=== PATIENT | female | born 1955 | race Caucasian/White ===

== ENCOUNTER 2023-03-07 13:04 | Emergency (ER) | payer MEDICARE, OTHER, MEDICAID, SELFPAY ==
[2023-03-07 13:10] VITALS: BP 115/66; PULSE 82; O2SAT 89
[2023-03-07 13:11] VITALS: PULSE 80; O2SAT 91
[2023-03-07 13:12] VITALS: BP 115/66; PULSE 81; RESP 14; TEMP 36.8; O2SAT 92
[2023-03-07 13:15] VITALS: PULSE 85; O2SAT 93
--- NOTE | 2023-03-07 13:19 | CRLHL7_ITS ---
For Patients: As a result of the Century Cures Act, medical imaging exams and procedure reports are released immediately into your electronic medical record. You may view this report before your referring provider. If you have questions, please contact your health care provider. INDICATION: confusion TECHNIQUE: Head CT without contrast. COMPARISON: CT head on November 22, 2013 FINDINGS: CSF spaces: Within normal limits for age and degree of involutional changes. Brain parenchyma and extra-axial spaces: Mild global cortical involutional changes. There are nonspecific low attenuation white matter changes consistent with chronic microvascular disease. No sign of mass, hemorrhage, or midline shift. Fatty falx cerebri, unchanged. Skull base and calvarium: The visualized mastoid air cells demonstrate no acute or significant findings. There is mucosal thickening in the left maxillary sinus, suggestive of sinusitis; otherwise, the remaining paranasal sinuses are clear. The visualized orbits are grossly unremarkable. No skull fractures. IMPRESSION: No acute intracranial abnormality. Please note that all CT scans at this facility use dose modulation, iterative reconstruction, and/or weight-based dosing when appropriate to reduce radiation dose to as low as reasonably achievable. Dictated by Hector Danielson MD @ 03/07/2023 3:13:55 PM (Electronically Signed)
--- NOTE | 2023-03-07 13:21 | CRLHL7_ITS ---
For Patients: As a result of the Century Cures Act, medical imaging exams and procedure reports are released immediately into your electronic medical record. You may view this report before your referring provider. If you have questions, please contact your health care provider. INDICATION: Weakness. TECHNIQUE: Chest 1 views. COMPARISON: November 12, 2017. FINDINGS: Cardiovascular and mediastinum: Stable heart size and vasculature. Lungs and pleural spaces: Small left pleural effusion with basilar consolidation. No pneumothorax. Bones and soft tissues: No significant findings. IMPRESSION: Small left pleural effusion with basilar consolidation, possibly atelectasis or pneumonia. Dictated by George Guzman MD @ 03/07/2023 3:13:28 PM (Electronically Signed)
--- NOTE | 2023-03-07 13:22 | ED.GENADULT ---
HPI - General Adult General Chief complaint: Unspecified Complaint, Adult Stated complaint: Weakness Time Seen by Provider: 03/07/23 13:06 History of Present Illness HPI narrative: Patient is 67 white female with significant multiple sclerosis for which she is essentially quadriplegic. She still moves her arms decently but her legs are less mobile. She is pretty much nonweightbearing. She reports confusion on and off for the last few weeks and even longer. She has apparently had sepsis in the past family is concerned about that they presented to the ED. She lives in [place] but decided to come to the [place] ER. She had been here few years ago but not recently it appears from her chart review. Patient denies fever chills cough chest pain, breathing problem, abdominal pain, she does have a colostomy in place and has a indwelling suprapubic catheter. As mention she denies fever chills denies any change in her strength status. Does feel like she is confused at times, but today she is able to recall normal data and discuss her living arrangements as well as the date and time and place. Patient has had acute CT, MRSA infections of the urine blood and skin. She has had colostomy, indwelling suprapubic catheter. Multiple sclerosis. Gastric ulcer. Related Data Home Medications Medication Instructions Recorded Confirmed famotidine 40 mg tablet 40 mg PO DAILY 03/07/23 03/07/23 gabapentin 300 mg capsule 900 mg PO 03/07/23 morphine 15 mg tablet,extended 15 mg PO BID 03/07/23 03/07/23 release morphine 30 mg immediate release 30 mg PO DAILY 03/07/23 03/07/23 tablet nystatin-triamcinolone 100,000 applic topical 03/07/23 unit/g-0.1 % topical cream oxybutynin chloride 10 mg 10 mg PO DAILY 03/07/23 03/07/23 tablet,extended release 24 hr spironolactone 25 mg tablet PO 03/07/23 Previous Rx's Medication Instructions Recorded levofloxacin 500 mg tablet 500 mg PO DAILY 7 days #7 tabs 03/07/23 Allergies Allergy/AdvReac Type Severity Reaction Status Date / Time citalopram [From Celexa] Allergy Unknown Verified 03/07/23 13:24 duloxetine Allergy Unknown Verified 03/07/23 13:24 NSAIDS (Non-Steroidal Allergy Unknown Verified 03/07/23 13:24 Anti-Inflamma Review of Systems Status of ROS: Reports: 6 or more systems reviewed and unremarkable except as noted in History and below PFSH [facility] Social History Smoking Status: Never smoker Exam Narrative: Exam Narrative: Objective: Patient is afebrile with stable blood pressure 115/66, she is on 2 L nasal cannula, takes 1-2 L at home. HEENT is unremarkable facial asymmetry mouth clear no food scleral icterus Neck is supple Chest diminished air exchange bilaterally but no rales or wheezing Heart rhythm regular 2/6 systolic murmur occasional ectopic beat noted Abdomen obese benign colostomy appears to be intact without any redness or cellulitic change Extremities show chronic stasis changes of her lower extremities bilaterally some flexion contractures that appears mildly edematous at 1 to 2+ in her feet she has got no obvious cellulitic changes in her feet her legs. Const: Vital Signs, click to edit/add: Vital Signs - 24 hr 03/07/23 13:10 03/07/23 13:11 03/07/23 13:12 Temperature 98.3 F Pulse Rate 82 80 Pulse Rate [Pulse Oximeter] 81 Respiratory Rate 14 Blood Pressure 115/66 Blood Pressure [Ri ght Upper Arm] 115/66 Pulse Oximetry 89 91 92 Oxygen Delivery Me thod Nasal Cannula Oxygen Flow Rate 2 03/07/23 13:15 03/07/23 13:31 03/07/23 14:20 Temperature Pulse Rate 85 Pulse Rate [Pulse Oximeter] Respiratory Rate Blood Pressure 125/79 Blood Pressure [Ri ght Upper Arm] Pulse Oximetry 93 95 Oxygen Delivery Me thod Oxygen Flow Rate Course Vital Signs Vital signs: Initial Vital Signs Pulse Rate 82 03/07/23 13:10 Blood Pressure 115/66 03/07/23 13:10 Blood Pressure Mean 82 03/07/23 13:10 Pulse Oximetry 89 03/07/23 13:10 Vital Signs Pulse Rate 82 03/07/23 13:10 Blood Pressure 115/66 03/07/23 13:10 Pulse Oximetry 89 03/07/23 13:10 Temperature 98.3 F 03/07/23 13:12 Pulse Rate 85 03/07/23 13:15 Respiratory Rate 14 03/07/23 13:12 Blood Pressure 125/79 03/07/23 13:31 Pulse Oximetry 95 03/07/23 14:20 Oxygen Delivery Method Nasal Cannula 03/07/23 13:12 Oxygen Flow Rate 2 03/07/23 13:12 Medications Administered Medications: Discontinued Medications Generic Name Dose Route Start Last Admin Trade Name Shefali PRN Reason Stop Dose Admin Sodium Chloride 500 mls @ 500 mls/hr 03/07/23 13:19 03/07/23 14:59 0.9 % Sodium Chloride 500 Ml IV 03/07/23 14:18 500 mls/hr .Q1H ONE Administration Levofloxacin 500 mg 03/07/23 15:22 03/07/23 15:29 Levofloxacin 500 Mg Tablet PO 03/07/23 15:23 500 mg ONCE ONE Administration Medical Decision Making MDM Narrative Medical decision making narrative: Patient is a 67 year white female with complicated medical history including cardiac or coronary artery disease, gastric ulcer, multiple sclerosis, history of sepsis. At this point I think she appears to have a good pulse and normal blood pressure. No fever. I think will check blood cultures, urine culture and urinalysis, she does have an indwelling catheter by think we can look at her urinalysis. Will get a urine culture as mention will get a chest x-ray, will get blood work and electrolytes. Will get a head CT scan because she appears to have some confusion issues. At this point she has her mental status appears intact and she is able to recall person place and time. Further treatment based on the findings above. Addendum 3:[address] patient's head [address] shows no abnormality, the chest x-ray shows small left pleural effusion there is some by a basilar consolidation which is likely atelectasis could be pneumonia but more likely atelectasis. She does have abnormal urine. White count is normal 7600 hemoglobin 13.1 ER profile is largely unremarkable. Patient does have a suprapubic catheter does have 10-25 red cells and 50-100 white cells. She likely has chronic pyuria however given her was concerned about confusion. I think it be reasonable to treat her with antibiotics, also given the fact that she has a chest x-ray that shows questionable lower lobe infiltrate versus atelectasis. I think it be dominguez to cover with antibiotics. Of note is her viral studies are negative. I think we can treat her with Levaquin be appropriate. Follow-up with primary care in the next few days. Or have visiting nurse practitioner or physician see her in the longterm. She will be discharged to home recheck as needed. Lab Data Labs: Lab Results 03/07/23 03/07/23 03/07/23 Range/Units 13:54 14:04 14:10 WBC 7.60 (4.50-11.00) K/uL RBC 4.05 (4.00-5.20) m/uL Hgb 13.1 (12.0-16.0) gm/dL Hct 43.4 (33.0-51.0) % MCV 107 H (80-100) fL MCH 32 (26-34) pg MCHC 30 L (32-36) gm/dL RDW Coeff of Shruthi 13.0 (11.5-15.5) % Plt Count 193 (140-440) K/uL Neut % (Auto) 64.7 (42.0-72.0) % Lymph % (Auto) 29.1 (20-44) % [place] % (Auto) 5.1 (0.0-11.0) % Eos % (Auto) 0.5 (0.0-7.0) % Baso % (Auto) 0.3 (0.0-3.0) % Neut # (Auto) 4.92 (1.7-7.0) K/uL Lymph # (Auto) 2.21 (0.90-2.90) K/uL [place] # (Auto) 0.40 (0.00-0.90) K/UL Eos # (Auto) 0.04 (0.00-0.50) K/uL Baso # (Auto) 0.02 (0.00-0.30) K/uL Abs Immat Gran (auto) 0.02 (0.00-0.30) K/uL Imm/Tot Granulo (auto) 0.3 % Diff Slide Review Acceptable Review (Acceptable) Sodium 139 (135-149) mmol/L Potassium 4.3 (3.6-5.1) mmol/L Chloride 104 (96-114) mmol/L Carbon Dioxide 30 (20-32) mmol/L Anion Gap 5 L (7-15) mEq/L BUN 22 (7-30) mg/dL Creatinine 0.6 (0.5-1.5) mg/dL Estimated GFR 98 ml/min Glucose 103 (60-115) mg/dL Lactate 0.7 (0.5-1.9) mmol/L Calcium 8.3 L (8.4-10.6) mg/dL Total Bilirubin 0.4 (0.1-1.5) mg/dL Direct Bilirubin 0.1 (0.0-0.5) mg/dL AST 38 H (12-35) U/L ALT 14 (4-35) U/L Alkaline Phosphatase 62 (40-150) U/L NT-Pro-B Natriuret Pep 7140 pg/mL Total Protein 6.2 (6.0-8.3) g/dL Albumin 3.2 L (3.3-5.0) g/dL Urine Color Yellow (Yellow) Urine Appearance Cloudy A (Clear) Urine pH 5.5 (5.0-8.5) Ur Specific [place] 1.025 (1.000-1.030) Urine Protein 1+ A (Negative) Urine Glucose (UA) Negative (Negative) Urine Ketones Negative (Negative) Urine Blood 3+ A (Negative) Urine Nitrite Positive A (Negative) Urine Bilirubin Negative (Negative) Urine Urobilinogen 0.2 (0.2-1.0) Ur Leukocyte Esterase 1+ A (Negative) Urine RBC 10-25 A (0-2) Urine WBC 50-100 A (0-5) Urine WBC Clumps None (None) Ur Squamous Epith Cells Moderate A (None-Few) Amorphous Sediment Many A (None) Urine Bacteria Many A (None) SARS-CoV-2 (PCR) Negative SARS-CoV-2 (Negative) Influenza Type A (PCR) Negative PCR FLU A (Negative) Influenza Type B (PCR) Negative PCR FLU B (Negative) RSV (PCR) Negative PCR RSV (Negative) Discharge Plan Discharge Clinical Impression: Chronic confusion, Multiple sclerosis, Pyuria Patient Disposition: Home w/ Parent or Adult Condition: Stable Additional Instructions: He be treated with Levaquin antibiotic. We will have you take adequate fluid intake. It appears your urine test is abnormal and with her confusion I think we should treat you for infection. Return if there is problems or concerns. Recommend follow-up with her regular doctor or provider within the next couple of days. Activity Level: Light activity Discharge Diet: Regular Prescriptions: New levofloxacin 500 mg tablet 500 mg PO DAILY 7 Days Qty: 7 0RF No Action oxybutynin chloride 10 mg tablet extended release 24hr 10 mg PO DAILY famotidine 40 mg tablet 40 mg PO DAILY spironolactone 25 mg tablet PO morphine 30 mg tablet 30 mg PO DAILY gabapentin 300 mg capsule 900 mg PO nystatin-triamcinolone 100,000-0.1 unit/g-% cream topical morphine 15 mg tablet extended release 15 mg PO BID Follow Up/Referrals: Jelena Lopez DO [Primary Care Provider] - Stand Alone Forms: [facility] Info Instructions
[2023-03-07 13:31] VITALS: BP 125/79
[2023-03-07 13:58] LABS: Lactate* 0.7 mmol/L (0.5-1.9)
[2023-03-07 14:02] LABS: Basophils Absolute Auto 0.02 K/uL (0.00-0.30); Basophils Percent Auto 0.3 % (0.0-3.0); Eosinophils Absolute Auto 0.04 K/uL (0.00-0.50); Eosinophils Percent Auto 0.5 % (0.0-7.0); Hematocrit 43.4 % (33.0-51.0); Hemoglobin* 13.1 gm/dL (12.0-16.0); Immature Granulocytes Abs Auto 0.02 K/uL (0.00-0.30); Immature Granulocytes Pct Auto 0.3 %; Lymphocytes Absolute Auto 2.21 K/uL (0.90-2.90); Lymphocytes Percent Auto 29.1 % (20-44); Mean Corpuscular HGB Conc 30 gm/dL (32-36); Mean Corpuscular Hemoglobin 32 pg (26-34); Mean Corpuscular Volume 107 fL (80-100); Monocytes Percent Auto 5.1 % (0.0-11.0); Neutrophils Absolute Auto 4.92 K/uL (1.7-7.0); Neutrophils Percent Auto 64.7 % (42.0-72.0); Platelet Count* 193 K/uL (140-440); Red Blood Count 4.05 m/uL (4.00-5.20)
[2023-03-07 14:18] LABS: Albumin* 3.2 g/dL (3.3-5.0); Chloride* 104 mmol/L (96-114); Sodium* 139 mmol/L (135-149)
[2023-03-07 14:19] LABS: Potassium* 4.3 mmol/L (3.6-5.1)
[2023-03-07 14:20] VITALS: O2SAT 95
[2023-03-07 14:20] LABS: Creatinine* 0.6 mg/dL (0.5-1.5); Estimated Glomerular Filt Rate 98 ml/min
[2023-03-07 14:21] LABS: Alanine Aminotransferase* 14 U/L (4-35); Alkaline Phosphatase* 62 U/L (40-150); Anion Gap 5 mEq/L (7-15); Aspartate Amino Transferase* 38 U/L (12-35); Bilirubin Direct* 0.1 mg/dL (0.0-0.5); Bilirubin Total* 0.4 mg/dL (0.1-1.5); Blood Urea Nitrogen* 22 mg/dL (7-30); Carbon Dioxide* 30 mmol/L (20-32); Glucose* 103 mg/dL (60-115); Total Protein* 6.2 g/dL (6.0-8.3)
[2023-03-07 14:22] LABS: Calcium* 8.3 mg/dL (8.4-10.6)
--- NOTE | 2023-03-07 14:26 | ED.NURSE ---
Urine sample obtained from patient. Clamped her suprapubic tube for 15 minutes, unclamped and obtained sample.
[2023-03-07 14:32] LABS: Slide Review Reflex Yes
[2023-03-07 14:33] LABS: NT Pro B Type NatriureticPept* 7140 pg/mL
[2023-03-07 14:38] LABS: Slide Review Acceptable Review (Acceptable)
[2023-03-07 14:54] LABS: PCR FLU A Negative PCR FLU A (Negative); PCR FLU B Negative PCR FLU B (Negative); PCR RSV Negative PCR RSV (Negative); SARS PCR* Negative SARS-CoV-2 (Negative)
[2023-03-07] MEDS: 0.9 % SODIUM CHLORIDE 500 ML 500 ML IV (14:59)
[2023-03-07 15:03] LABS: Appearance Urine Cloudy (Clear); Color Urine Yellow (Yellow); Glucose Urine Negative (Negative)
[2023-03-07 15:04] LABS: Amorphous Sediment Urine Many; Bacteria Urine Many; Bilirubin Urine Negative (Negative); Blood Urine 3+ (Negative); Ketones Urine Negative (Negative); Leukocyte Esterase Urine 1+ (Negative); Nitrite Urine Positive (Negative); Protein Urine 1+ (Negative); Specific Gravity Urine 1.025 (1.000-1.030); Squamous Epithelial Cell Urine Moderate (None-Few); Urobilinogen Urine 0.2 (0.2-1.0); WBC Urine 50-100 (0-5); pH Urine 5.5 (5.0-8.5)
[2023-03-07] MEDS: levoFLOXacin 500 MG TABLET PO (15:29)
--- NOTE | 2023-03-07 15:34 | ED.NURSE ---
Discharge order in. Per dispatch, picking machine operator tentatively around 5 pm.
--- NOTE | 2023-03-07 15:39 | ED.NURSE ---
Nurse to nurse report called to [facility] with update and to watch for the antibiotic prescription tonight.
== END 2023-03-07 17:02 | disposition home or self-care (01) ==
PROVIDERS: Emergency Provider Family Medicine; PCP Family Medicine
DX: R41.0 Disorientation, unspecified (principal); G35 Multiple sclerosis; R82.81 Pyuria
CPT/HCPCS: 36415; 70450; 71045; 80048; 80076; 81001; 83605; 83880; 85025; 87040; 87086; 87186; 87631; 94761; 96360; 99284; 99285; A9270; J7030

== ENCOUNTER 2023-03-07 16:55 | Outpatient (CLI) | payer MEDICARE, OTHER, SELFPAY | END 2023-03-07 16:56 | disposition home or self-care (01) | LOC: AMB 03-08 07:34 | PROVIDERS: PCP Family Medicine; Visit Provider Family Medicine | DX: N39.0 Urinary tract infection, site not specified (principal) | CPT/HCPCS: A0425; A0428 ==

== ENCOUNTER 2023-07-17 13:03 | Emergency (ER) | payer MEDICARE, OTHER, SELFPAY ==
[2023-07-17 13:33] VITALS: BP 99/55; PULSE 78; RESP 16; TEMP 36.6; O2SAT 84; BMI 32.2
--- NOTE | 2023-07-17 13:51 | ED_ITS ---
HPI - General Adult General Chief complaint: Weakness Stated complaint: UTI Time Seen by Provider: 07/17/23 13:14 History of Present Illness HPI narrative: Patient here with weakness and shaking starting this morning. States this is how her UTIs always start. She would like treatment and to return to [facility]) . Her oxygen saturation is 80-84 % room air, declining oxygen at this time stating she would put some on when she gets back to her SNF room . Suprapubic catheter and bag changed before getting to the ER at the facility 68-year-old woman presenting to the emergency department with her son with concern of urinary tract infection. Reviewing records I can see that had a visit for altered mental status in February of this year ultimately diagnosed with urinary tract infection. Does have indwelling suprapubic catheter with a history of multiple sclerosis. She is certain that she has a urinary tract infection and this opinion is echo by her son. She noted that earlier today had some weakness and shaking and this is consistent with prior diagnoses. Is in a a power chair chronically due to MS. Just had her catheter changed at skilled nursing this morning. She has not measured a fever. Son notes that if they do not get antibiotics at this point within a day or 2 she will be essentially catatonic. She is also noted to be rather hypoxic on arrival but is clear that she does not want any further investigation done beyond analysis of her urine and treatment for this if appropriate. Says that is often hypoxic and sometimes is placed on oxygen. She does not feel short of breath right now and has not been having any cough nor chest pain. Oxygenating around 80-84% on room air and they report that 90% would be considered good at her place of residence. Related Data Home Medications ?Medication ?Instructions ?Recorded ?Confirmed famotidine 40 mg tablet 40 mg PO DAILY 03/07/23 03/07/23 gabapentin 300 mg capsule 900 mg PO 03/07/23 morphine 15 mg tablet,extended 15 mg PO BID 03/07/23 03/07/23 release morphine 30 mg immediate release 30 mg PO DAILY 03/07/23 03/07/23 tablet nystatin-triamcinolone 100,000 applic topical 03/07/23 unit/g-0.1 % topical cream oxybutynin chloride 10 mg 10 mg PO DAILY 03/07/23 03/07/23 tablet,extended release 24 hr spironolactone 25 mg tablet PO 03/07/23 Allergies Allergy/AdvReac Type Severity Reaction Status Date / Time citalopram [From Celexa] Allergy Unknown Verified 03/07/23 13:24 duloxetine Allergy Unknown Verified 03/07/23 13:24 NSAIDS (Non-Steroidal Allergy Unknown Verified 03/07/23 13:24 Anti-Inflamma Review of Systems Status of ROS: Reports: 6 or more systems reviewed and unremarkable except as noted in History and below PFSH PFS Social History Smoking Status: Never smoker Exam Narrative: Exam Narrative: Pleasant. Hard of hearing but with my voice raised we are able to communicate. Fully alert. Easily conversant. Skin is warm and dry. Lower extremities reported as chronic with 1+ diffuse pitting edema. No erythematous changes appreciated. She did try to assist me in listening to her lungs which I heard just generally diminished breath sounds. She has not however in any apparent respiratory distress; breathing easily. No wheeze. No stridor. Heart in regular rate and rhythm. She is wearing Attends and suprapubic catheter is in place. There is faint erythema but no cellulitic change at the site. She also has colostomy in place the left low/mid abdomen which is filling with normal appearing stool. Const: Vital Signs, click to edit/add: Vital Signs - 24 hr 07/17/23 13:33 Temperature 98 F Pulse Rate [Pulse Oximeter] 78 Respiratory Rate 16 Blood Pressure [Ri ght Forearm] 99/55 L Pulse Oximetry 84 L Oxygen Delivery Me thod Room Air Documenting provider has reviewed patient's vital signs: yes Course Vital Signs Vital signs: Initial Vital Signs Temperature 98 F 07/17/23 13:33 Temperature Source Temporal Artery Scan 07/17/23 13:33 Pulse Rate 78 07/17/23 13:33 Respiratory Rate 16 07/17/23 13:33 Blood Pressure 99/55 L 07/17/23 13:33 Blood Pressure Mean 69 L 07/17/23 13:33 Blood Pressure Position Sitting 07/17/23 13:33 Pulse Oximetry 84 L 07/17/23 13:33 Oxygen Delivery Method Room Air 07/17/23 13:33 Vital Signs Temperature 98 F 07/17/23 13:33 Pulse Rate 78 07/17/23 13:33 Respiratory Rate 16 07/17/23 13:33 Blood Pressure 99/55 L 07/17/23 13:33 Pulse Oximetry 84 L 07/17/23 13:33 Oxygen Delivery Method Room Air 07/17/23 13:33 Temperature 98 F 07/17/23 13:33 Pulse Rate 78 07/17/23 13:33 Respiratory Rate 16 07/17/23 13:33 Blood Pressure 99/55 L 07/17/23 13:33 Pulse Oximetry 84 L 07/17/23 13:33 Oxygen Delivery Method Room Air 07/17/23 13:33 Medical Decision Making MDM Narrative Medical decision making narrative: I do have concerns regarding this apparent hypoxia but they note that this is chronic and she has not any respiratory distress. Furthermore if these shaking and weakness that was described earlier might represent rigors and more septic/bacteremia circumstance? Blood pressure is a little soft initially 99/55. I discussed my concerns and she and her son are quite clear though that they do not want any further evaluation done beyond urinalysis and as I understand then outpatient treatment with antibiotic. Admittedly Ms. Wright does otherwise look well uncomfortable. I do review visit from February of 2023 and urine cultures at that time. Cultures grew out E coli and Klebsiella. Generally sensitive. Was treated with Levaquin at that time. Would both look to be sensitive to cephalosporin like cephalexin. See patient discharge plan for further discussion/plan Lab Data Lab results reviewed: Yes I reviewed the patient's lab results Labs: Lab Results 07/17/23 Range/Units 13:42 Urine Color Dark yellow (Yellow) Urine Appearance Cloudy A (Clear) Urine pH 5.5 (5.0-8.5) Ur Specific [place] >= 1.030 (1.000-1.030) Urine Protein 2+ A (Negative) Urine Glucose (UA) Negative (Negative) Urine Ketones Negative (Negative) Urine Blood 3+ A (Negative) Urine Nitrite Negative (Negative) Urine Bilirubin 1+ A (Negative) Urine Urobilinogen 0.2 (0.2-1.0) Ur Leukocyte Esterase 3+ A (Negative) Urine RBC 10-25 A (0-2) Urine WBC 25-50 A (0-5) Ur Squamous Epith Cells Moderate A (None-Few) Amorphous Sediment Moderate A (None) Urine Bacteria Many A (None) Discharge Plan Discharge Clinical Impression: Cystitis Patient Disposition: Home w/ Parent or Adult Condition: Stable Additional Instructions: Stay well hydrated. Antibiotic will be cephalexin from [facility] based on urine culture/resistance from February of this year. A urine culture will be pending here and we will call you if it appears that there is a coverage problem with your antibiotic. Return for worsening weakness, repeated vomiting, persistent fever, unusual somnolence/altered mentation. Prescriptions: No Action oxybutynin chloride 10 mg tablet extended release 24hr 10 mg PO DAILY famotidine 40 mg tablet 40 mg PO DAILY spironolactone 25 mg tablet PO morphine 30 mg tablet 30 mg PO DAILY gabapentin 300 mg capsule 900 mg PO nystatin-triamcinolone 100,000-0.1 unit/g-% cream topical morphine 15 mg tablet extended release 15 mg PO BID Follow Up/Referrals: Jelena Lopez DO [Primary Care Provider] - Stand Alone Forms: [facility] Info Instructions
[2023-07-17 14:06] LABS: Appearance Urine Cloudy (Clear); Bilirubin Urine 1+ (Negative); Blood Urine 3+ (Negative); Color Urine Dark yellow (Yellow); Glucose Urine Negative (Negative); Ketones Urine Negative (Negative); Leukocyte Esterase Urine 3+ (Negative); Nitrite Urine Negative (Negative); Protein Urine 2+ (Negative); Specific Gravity Urine >= 1.030 (1.000-1.030); Urobilinogen Urine 0.2 (0.2-1.0); pH Urine 5.5 (5.0-8.5)
[2023-07-17 14:28] LABS: Amorphous Sediment Urine Moderate; Bacteria Urine Many; Squamous Epithelial Cell Urine Moderate (None-Few); WBC Urine 25-50 (0-5)
== END 2023-07-17 14:48 | disposition home or self-care (01) ==
PROVIDERS: Emergency Provider Family Medicine; PCP Family Medicine
DX: N30.90 Cystitis, unspecified without hematuria (principal)
CPT/HCPCS: 81001; 87086; 87186; 99282; 99283; 99284

== ENCOUNTER 2023-08-30 09:56 | Inpatient (IN) | payer MEDICARE, OTHER, SELFPAY ==
[2023-08-30] VITALS (32 sets, daily range): BP systolic 41–130; BP diastolic 23–90; PULSE 58–76; RESP 7–18; TEMP 35.9–36.4; O2SAT 90–99; BMI 39.4
[2023-08-30 10:40] LABS: Basophils Absolute Auto 0.03 K/uL (0.00-0.30); Basophils Percent Auto 0.4 % (0.0-3.0); Hematocrit 51.4 % (33.0-51.0); Hemoglobin* 15.1 gm/dL (12.0-16.0); Immature Granulocytes Abs Auto 0.03 K/uL (0.00-0.30); Immature Granulocytes Pct Auto 0.4 %; Lymphocytes Absolute Auto 2.14 K/uL (0.90-2.90); Lymphocytes Percent Auto 25.6 % (20-44); Mean Corpuscular HGB Conc 29 gm/dL (32-36); Mean Corpuscular Hemoglobin 31 pg (26-34); Mean Corpuscular Volume 106 fL (80-100); Monocytes Percent Auto 7.4 % (0.0-11.0); Neutrophils Absolute Auto 5.53 K/uL (1.7-7.0); Neutrophils Percent Auto 66.2 % (42.0-72.0); Platelet Count* 233 K/uL (140-440); RDW Coefficient of Variation % 12.9 % (11.5-15.5); Red Blood Count 4.83 m/uL (4.00-5.20); White Blood Count* 8.35 K/uL (4.50-11.00)
[2023-08-30 10:46] LABS: Slide Review Reflex No
[2023-08-30 10:55] LABS: Albumin* 3.5 g/dL (3.3-5.0); Chloride* 103 mmol/L (96-114); Potassium* 4.5 mmol/L (3.6-5.1); Sodium* 140 mmol/L (135-149)
[2023-08-30 10:57] LABS: Creatinine* 0.9 mg/dL (0.5-1.5); Estimated Glomerular Filt Rate 70 ml/min
[2023-08-30 10:58] LABS: Alanine Aminotransferase* 36 U/L (4-35); Alkaline Phosphatase* 69 U/L (40-150); Anion Gap 5 mEq/L (7-15); Aspartate Amino Transferase* 98 U/L (12-35); Bilirubin Total* 0.5 mg/dL (0.1-1.5); Blood Urea Nitrogen* 30 mg/dL (7-30); Carbon Dioxide* 32 mmol/L (20-32); Glucose* 113 mg/dL (60-115); Total Protein* 6.5 g/dL (6.0-8.3)
[2023-08-30 10:59] LABS: Calcium* 8.7 mg/dL (8.4-10.6); Magnesium* 2.3 mg/dL (1.5-2.6)
[2023-08-30 11:09] LABS: D Dimer Quantitative* 1.42 ug/ml (0.00-0.50)
[2023-08-30 11:13] LABS: Troponin I* 0.43 ng/mL (0.01-0.04)
--- NOTE | 2023-08-30 11:14 | CRLHL7_ITS ---
For Patients: As a result of the Cures Act, medical imaging exams and procedure reports are released immediately into your electronic medical record. You may view this report before your referring provider. If you have questions, please contact your health care provider. Indication: Shortness of breath Technique: CTA chest, pulmonary embolism protocol, utilizing 95 mL Isovue 370 Comparison: CTA chest report on 02/24/2022 Findings: No thyroid nodules. No pathologically enlarged lymph nodes throughout the thorax. Calcified mediastinal and right hilar lymph nodes, likely sequela of remote granulomatous disease. Cardiomegaly with small pericardial effusion. The thoracic aorta is within normal limits in diameter. The main pulmonary artery is dilated 3.5 centimeters which can be seen with pulmonary arterial hypertension. There is no pulmonary embolism. Trace bilateral pleural effusions. There are some minimal dependent atelectatic changes seen in the bilateral lower lobes. There is no focal airspace consolidation, pleural effusion, or pneumothorax. No suspicious pulmonary nodules or masses. The airways are clear. Visualized upper abdomen is without acute process. The osseous structures are unremarkable for the patient`s age. Impression: 1. No pulmonary embolism. 2. Cardiomegaly with small pericardial effusion. 3. Trace bilateral pleural effusions. 4. There are some minimal dependent atelectatic changes seen in the bilateral lower lobes. Please note that all CT scans at this facility use dose modulation, iterative reconstruction, and/or weight-based dosing when appropriate to reduce radiation dose to as low as reasonably achievable. Dictated by Hector Danielson MD @ 08/30/2023 12:57:23 PM (Electronically Signed)
--- NOTE | 2023-08-30 11:25 | ED_ITS ---
HPI - General Adult General Date Seen: 08/30/23 Chief complaint: Altered Mental Status Stated complaint: Hypoxia Time Seen by Provider: 08/30/23 09:58 Source: patient and EMS Mode of arrival: EMS Limitations: no limitations History of Present Illness HPI narrative: Patient is a 68-year-old female presenting to the emergency department for hypoxia. She comes from [facility]. She has a history of MS, suprapubic catheter, colostomy, hypertension, recurrent right gluteal ulcer, paraplegia, CVA, CHF. She was brought in by ambulance. Any evidence staff arrived states she is standing 76% on room air. Was placed on 2 L nasal cannot abduct 96% room air. She does states she [facility]. Her daughter her urine staff at the penitentiary were concerned about the tremors she is developing. Daughter states this frequently occurs when she has an infection. Patient denies chest pain, shortness of breath, headaches, lightheadedness, dizziness, numbness. States she feels well at this time. No other concerns noted. Currently satting well on 1 L nasal cannula. She does states she is due to see wound care the next few weeks for her pressure ulcer. States she will see them whenever it opens back up. Related Data Home Medications ?Medication ?Instructions ?Recorded ?Confirmed famotidine 40 mg tablet 40 mg PO DAILY 03/07/23 03/07/23 gabapentin 300 mg capsule 900 mg PO 03/07/23 morphine 15 mg tablet,extended 15 mg PO BID 03/07/23 03/07/23 release morphine 30 mg immediate release 30 mg PO DAILY 03/07/23 03/07/23 tablet nystatin-triamcinolone 100,000 applic topical 03/07/23 unit/g-0.1 % topical cream oxybutynin chloride 10 mg 10 mg PO DAILY 03/07/23 03/07/23 tablet,extended release 24 hr spironolactone 25 mg tablet PO 03/07/23 Previous Rx's ?Medication ?Instructions ?Recorded ciprofloxacin HCl 500 mg tablet 500 mg PO BID #14 tabs 07/19/23 (Cipro) Allergies Allergy/AdvReac Type Severity Reaction Status Date / Time citalopram [From Celexa] Allergy Unknown Verified 08/30/23 12:10 duloxetine Allergy Unknown Verified 08/30/23 12:10 NSAIDS (Non-Steroidal Allergy Unknown Verified 08/30/23 12:10 Anti-Inflamma Review of Systems Status of ROS: Reports: 10 or more systems reviewed and unremarkable except as noted in History and below [facility] Social History Smoking Status: Current every day smoker What tobacco products do you use: cigarettes How often do you have a drink containing alcohol: never AUDIT-C Alcohol total score: 0 Non-prescribed substance use: denies use Exam Narrative: Exam Narrative: Const: Well-nourished, Well-developed, in mild distress, paraplegic the lower extremities Eyes: PERRL, no conjunctival injection, and symmetrical lids HENT: Atraumatic external nose and ears. Moist mucous membranes. Neck: Symmetric, trachea midline, No thyromegaly. CVS: RRR, No murmurs or gallops. Peripheral pulses 2+ and equal in all extremities RESP: Unlabored respiratory effort. Clear to auscultation bilaterally. GI: Nontender/Nondistended, No rebound or guarding. MSK:Extremities w/o deformity, Normal Active ROM in upper extremities Skin: Warm, Dry. Grade 3-4 right gluteal ulcer with no signs of surrounding erythema. Neuro: Normal Muscle tone in upper extremities, No focal neurological deficits. Psych: Awake, Alert, & Oriented x3. Appropriate mood and affect. Const: Vital Signs, click to edit/add: Vital Signs - 24 hr 08/30/23 09:56 08/30/23 10:03 08/30/23 10:04 Temperature 96.7 F L Pulse Rate 68 69 Pulse Rate [Pulse Oximeter] 71 Respiratory Rate 12 16 Blood Pressure 117/56 L Blood Pressure [Ri ght Upper Arm] 117/56 L Pulse Oximetry 94 90 94 Oxygen Delivery Me thod Room Air 08/30/23 10:15 08/30/23 10:19 08/30/23 10:30 Temperature Pulse Rate 63 61 63 Pulse Rate [Pulse Oximeter] Respiratory Rate 11 L Blood Pressure 112/51 L Blood Pressure [Ri ght Upper Arm] Pulse Oximetry 99 98 98 Oxygen Delivery Me thod 08/30/23 10:32 08/30/23 10:45 08/30/23 10:47 Temperature Pulse Rate 61 61 62 Pulse Rate [Pulse Oximeter] Respiratory Rate 10 L 7 L 11 L Blood Pressure 111/56 L 114/61 Blood Pressure [Ri ght Upper Arm] Pulse Oximetry 99 98 99 Oxygen Delivery Me thod 08/30/23 11:00 08/30/23 11:02 08/30/23 11:03 Temperature Pulse Rate 63 62 61 Pulse Rate [Pulse Oximeter] Respiratory Rate 10 L 10 L 9 L Blood Pressure 126/80 Blood Pressure [Ri ght Upper Arm] Pulse Oximetry 95 95 95 Oxygen Delivery Me thod 08/30/23 11:17 08/30/23 11:32 08/30/23 11:33 Temperature Pulse Rate 62 62 Pulse Rate [Pulse Oximeter] Respiratory Rate 10 L 9 L 10 L Blood Pressure 120/64 116/90 H Blood Pressure [Ri ght Upper Arm] Pulse Oximetry 95 94 Oxygen Delivery Me thod 08/30/23 12:03 08/30/23 12:04 08/30/23 12:08 Temperature Pulse Rate 66 69 59 L Pulse Rate [Pulse Oximeter] Respiratory Rate 10 L 10 L Blood Pressure 41/23 L 130/62 Blood Pressure [Ri ght Upper Arm] Pulse Oximetry 93 94 94 Oxygen Delivery Me thod 08/30/23 12:15 08/30/23 12:18 08/30/23 12:30 Temperature Pulse Rate 61 64 63 Pulse Rate [Pulse Oximeter] Respiratory Rate Blood Pressure 115/54 L Blood Pressure [Ri ght Upper Arm] Pulse Oximetry 96 95 96 Oxygen Delivery Me thod 08/30/23 12:32 08/30/23 12:45 08/30/23 12:47 Temperature Pulse Rate 63 58 L 63 Pulse Rate [Pulse Oximeter] Respiratory Rate Blood Pressure 114/52 L 110/55 L Blood Pressure [Ri ght Upper Arm] Pulse Oximetry 96 94 95 Oxygen Delivery Me thod Course Vital Signs Vital signs: Initial Vital Signs Temperature 96.7 F L 08/30/23 09:56 Temperature Source Temporal Artery Scan 08/30/23 09:56 Pulse Rate 71 08/30/23 09:56 Pulse Rhythm Regular 08/30/23 09:56 Respiratory Rate 12 08/30/23 09:56 Blood Pressure 117/56 L 08/30/23 09:56 Blood Pressure Mean 76 08/30/23 09:56 Blood Pressure Position Supine 08/30/23 09:56 Pulse Oximetry 94 08/30/23 09:56 Oxygen Delivery Method Room Air 08/30/23 09:56 Vital Signs Temperature 96.7 F L 08/30/23 09:56 Pulse Rate 71 08/30/23 09:56 Respiratory Rate 12 08/30/23 09:56 Blood Pressure 117/56 L 08/30/23 09:56 Pulse Oximetry 94 08/30/23 09:56 Oxygen Delivery Method Room Air 08/30/23 09:56 Temperature 96.7 F L 08/30/23 09:56 Pulse Rate 63 08/30/23 12:47 Respiratory Rate 10 L 08/30/23 12:08 Blood Pressure 110/55 L 08/30/23 12:47 Pulse Oximetry 95 08/30/23 12:47 Oxygen Delivery Method Room Air 08/30/23 09:56 Medical Decision Making MDM Narrative Medical decision making narrative: Patient is a 68-year-old female presenting to emergency department for hypoxia and tremors. When she 1st arrived she was on 2 L of oxygen. Recheck office oxygen initially she was satting well on room air but then dipped down to 85%. She was then placed back on oxygen. Of note she does wear oxygen PRN. She does have a gluteal pressure ulcer but does not appear to be infected at this time. Will do a broad workup on her including CBC, CMP, troponin, COVID/flu/RSV, magnesium, urinalysis, D-dimer. Her urine looks very cloudy and her suprapubic catheter bag. We attempted to change this but the patient refused as she does not like the bakes we have offered. We will trying get a clean sample to the best of our ability. D-dimer elevated 1.42. Chest CTA ordered. CBC shows no concerning abnormalities. CMP shows no concerning abnormalities other than some slightly elevated AST and ALT. Both are up signs previous lab work done 6 months ago. Unsure of the clinical significance of this at this time. Troponin returned at 0.43. Also reviewed her EKG which shows diffusely inverted T-waves. The a new his EKG all is able to look at was through [facility] and was in 2020. I do not see these inverted T-waves at that time. Will repeat troponin. COVID/flu/RSV negative. CTA returned showing no clear obvious concerns of. There are trace bilateral pleural effusions and some dependent atelectasis. No signs of a PE. We tried on room air she was satting 89% on room air. Of note she does were oxygen p.r.n. typically have asked for a dizziness not get spot checked from my understanding. She may have had hypoxic for an extended period of time. With the urinalysis is appearing to show a UTI was started on Rocephin. Her previous urine cultures both sensitive. Repeat troponin was 0.40. I spoke to the admitting hospitalist about this patient and they will accept her for admission. Lab Data Labs: Lab Results 08/30/23 08/30/23 08/30/23 Range/Units 10:20 10:31 10:40 WBC 8.35 (4.50-11.00) K/uL RBC 4.83 (4.00-5.20) m/uL Hgb 15.1 (12.0-16.0) gm/dL Hct 51.4 H (33.0-51.0) % MCV 106 H (80-100) fL MCH 31 (26-34) pg MCHC 29 L (32-36) gm/dL RDW Coeff of Shruthi 12.9 (11.5-15.5) % Plt Count 233 (140-440) K/uL Neut % (Auto) 66.2 (42.0-72.0) % Lymph % (Auto) 25.6 (20-44) % [place] % (Auto) 7.4 (0.0-11.0) % Eos % (Auto) 0.0 (0.0-7.0) % Baso % (Auto) 0.4 (0.0-3.0) % Neut # (Auto) 5.53 (1.7-7.0) K/uL Lymph # (Auto) 2.14 (0.90-2.90) K/uL [place] # (Auto) 0.60 (0.00-0.90) K/UL Eos # (Auto) 0.00 (0.00-0.50) K/uL Baso # (Auto) 0.03 (0.00-0.30) K/uL Abs Immat Gran (auto) 0.03 (0.00-0.30) K/uL Imm/Tot Granulo (auto) 0.4 % D-Dimer Quant (PE/DVT) 1.42 H (0.00-0.50) ug/ml Sodium 140 (135-149) mmol/L Potassium 4.5 (3.6-5.1) mmol/L Chloride 103 (96-114) mmol/L Carbon Dioxide 32 (20-32) mmol/L Anion Gap 5 L (7-15) mEq/L BUN 30 (7-30) mg/dL Creatinine 0.9 (0.5-1.5) mg/dL Estimated GFR 70 ml/min Glucose 113 (60-115) mg/dL Calcium 8.7 (8.4-10.6) mg/dL Magnesium 2.3 (1.5-2.6) mg/dL Total Bilirubin 0.5 (0.1-1.5) mg/dL AST 98 H (12-35) U/L ALT 36 H (4-35) U/L Alkaline Phosphatase 69 (40-150) U/L Troponin I 0.43 H* (0.01-0.04) ng/mL Total Protein 6.5 (6.0-8.3) g/dL Albumin 3.5 (3.3-5.0) g/dL Urine Color (Yellow) Urine Appearance (Clear) Urine pH (5.0-8.5) Ur Specific [place] (1.000-1.030) Urine Protein (Negative) Urine Glucose (UA) (Negative) Urine Ketones (Negative) Urine Blood (Negative) Urine Nitrite (Negative) Urine Bilirubin (Negative) Urine Urobilinogen (0.2-1.0) Ur Leukocyte Esterase (Negative) Urine RBC (0-2) Urine WBC (0-5) Ur Squamous Epith Cells (None-Few) Urine Bacteria (None) SARS-CoV-2 (PCR) Negative SARS-CoV-2 (Negative) Influenza Type A (PCR) Negative PCR FLU A (Negative) Influenza Type B (PCR) Negative PCR FLU B (Negative) RSV (PCR) Negative PCR RSV (Negative) Lab Acknowledgement Test Added 08/30/23 08/30/23 Range/Units 11:20 12:20 WBC (4.50-11.00) K/uL RBC (4.00-5.20) m/uL Hgb (12.0-16.0) gm/dL Hct (33.0-51.0) % MCV (80-100) fL MCH (26-34) pg MCHC (32-36) gm/dL RDW Coeff of Shruthi (11.5-15.5) % Plt Count (140-440) K/uL Neut % (Auto) (42.0-72.0) % Lymph % (Auto) (20-44) % [place] % (Auto) (0.0-11.0) % Eos % (Auto) (0.0-7.0) % Baso % (Auto) (0.0-3.0) % Neut # (Auto) (1.7-7.0) K/uL Lymph # (Auto) (0.90-2.90) K/uL [place] # (Auto) (0.00-0.90) K/UL Eos # (Auto) (0.00-0.50) K/uL Baso # (Auto) (0.00-0.30) K/uL Abs Immat Gran (auto) (0.00-0.30) K/uL Imm/Tot Granulo (auto) % D-Dimer Quant (PE/DVT) (0.00-0.50) ug/ml Sodium (135-149) mmol/L Potassium (3.6-5.1) mmol/L Chloride (96-114) mmol/L Carbon Dioxide (20-32) mmol/L Anion Gap (7-15) mEq/L BUN (7-30) mg/dL Creatinine (0.5-1.5) mg/dL Estimated GFR ml/min Glucose (60-115) mg/dL Calcium (8.4-10.6) mg/dL Magnesium (1.5-2.6) mg/dL Total Bilirubin (0.1-1.5) mg/dL AST (12-35) U/L ALT (4-35) U/L Alkaline Phosphatase (40-150) U/L Troponin I 0.40 H* (0.01-0.04) ng/mL Total Protein (6.0-8.3) g/dL Albumin (3.3-5.0) g/dL Urine Color Yellow (Yellow) Urine Appearance Cloudy A (Clear) Urine pH 5.5 (5.0-8.5) Ur Specific [place] 1.025 (1.000-1.030) Urine Protein 2+ A (Negative) Urine Glucose (UA) Negative (Negative) Urine Ketones Trace A (Negative) Urine Blood 3+ A (Negative) Urine Nitrite Negative (Negative) Urine Bilirubin 1+ A (Negative) Urine Urobilinogen 0.2 (0.2-1.0) Ur Leukocyte Esterase 2+ A (Negative) Urine RBC 5-10 A (0-2) Urine WBC 50-100 A (0-5) Ur Squamous Epith Cells Few (None-Few) Urine Bacteria Many A (None) SARS-CoV-2 (PCR) (Negative) Influenza Type A (PCR) (Negative) Influenza Type B (PCR) (Negative) RSV (PCR) (Negative) Lab Acknowledgement Imaging Data CTA chest: Attestation: I have reviewed the pertinent imaging results. Radiologist's impression: 1. No pulmonary embolism. 2. Cardiomegaly with small pericardial effusion. 3. Trace bilateral pleural effusions. 4. There are some minimal dependent atelectatic changes seen in the bilateral lower lobes. Please note that all CT scans at this facility use dose modulation, iterative reconstruction, and/or weight-based dosing when appropriate to reduce radiation dose to as low as reasonably achievable. Dictated by Hector Danielson MD @ 08/30/2023 12:57:23 PM ECG Data Attestation: I personally reviewed and interpreted this ECG as follows: Prior ECG tracings: available for review (In [facility]) Interpretation: Normal sinus rhythm rate 64 beats per minute, normal axis, right bundle-branch block, diffuse T-wave inversion seen that was not seen on previous EKGs. No ST abnormalities. Discharge Plan Discharge Clinical Impression: Non-ST elevation RI (NSTEMI), Acute UTI Patient Disposition: Admitted As Observation Condition: Stable Prescriptions: No Action ciprofloxacin HCl [Cipro] 500 mg tablet 500 mg PO BID Qty: 14 0RF oxybutynin chloride 10 mg tablet extended release 24hr 10 mg PO DAILY famotidine 40 mg tablet 40 mg PO DAILY spironolactone 25 mg tablet PO morphine 30 mg tablet 30 mg PO DAILY gabapentin 300 mg capsule 900 mg PO nystatin-triamcinolone 100,000-0.1 unit/g-% cream topical morphine 15 mg tablet extended release 15 mg PO BID Follow Up/Referrals: Jelena Lopez DO [Primary Care Provider] -
[2023-08-30 11:43] LABS: PCR FLU A Negative PCR FLU A (Negative); PCR FLU B Negative PCR FLU B (Negative); PCR RSV Negative PCR RSV (Negative); SARS PCR* Negative SARS-CoV-2 (Negative)
[2023-08-30 11:47] LABS: Appearance Urine Cloudy (Clear); Bilirubin Urine 1+ (Negative); Blood Urine 3+ (Negative); Color Urine Yellow (Yellow); Glucose Urine Negative (Negative); Ketones Urine Trace (Negative); Leukocyte Esterase Urine 2+ (Negative); Nitrite Urine Negative (Negative); Protein Urine 2+ (Negative); Specific Gravity Urine 1.025 (1.000-1.030); Urobilinogen Urine 0.2 (0.2-1.0); pH Urine 5.5 (5.0-8.5)
[2023-08-30 11:58] LABS: WBC Urine 50-100 (0-5)
[2023-08-30 11:59] LABS: Bacteria Urine Many; Squamous Epithelial Cell Urine Few (None-Few)
--- NOTE | 2023-08-30 13:14 | P.IMHP_ITS ---
Hospitalist- H&P: HPI History of Present Illness Date Seen: 08/30/23 Chief complaint: Hypoxia Narrative: Miriam Wright is a 68 year old female with past medical history noted below including hx of MS, suprapubic catheter, colostomy, hypertension, recurrent right gluteal ulcer, paraplegia, CVA, CHF, wheelchair bound presenting for hypoxia. Per patient the patient was woken up by staff when they noted she was hypoxic, oxygen saturation 77%. She was noted to be disoriented. Per daughter is on prn oxygen. She was brought to ED where CT head showed no acute findings. CTPE negative for PE, cardiomegaly with small pericardial effusion and trace bilateral effusion. She required 1 liter supplemental oxygen. She was afebrile. Normal WBC. Troponin 0.43->0.4. EKG with reported nonspecific TWI. She denies chest pain, pressure, sob, cough, fever. She states she feels back to baseline s martin. She was started on ceftriaxone for presumed catheter associated UTI and admitted for further evaluation. CT Head IMPRESSION: No acute intracranial abnormality. CTPE Impression: 1. No pulmonary embolism. 2. Cardiomegaly with small pericardial effusion. 3. Trace bilateral pleural effusions. 4. There are some minimal dependent atelectatic changes seen in the bilateral lower lobes. CXR IMPRESSION: Small left pleural effusion with basilar consolidation, possibly atelectasis or pneumonia. [facility] Social History What is your current living situation?: I presently have a place to live Problems where you live: no known problems Problems where you live details: no known problems In the past 12 months, utilities in danger of being shut off: no In past 12 months, lack of transportation kept you from medical appts, meetings, work, or getting things needed for daily living: no In the past 12 mos, have been you worried that your food would run out before you had money to buy more?: never true In the past 12 mos, the food you bought just didn't last and you didn't have money to buy more?: never true Smoking Status: Current some day smoker What tobacco products do you use: cigarettes How often do you have a drink containing alcohol: never How often do you have six or more drinks on one occasion: Never AUDIT-C Alcohol total score: 0 Non-prescribed substance use: denies use Caffeine: No How often does anyone, including family, friends and others, physically hurt you : never How often does anyone, including family, friends and others, insult or talk down to you: never How often does anyone, including family, friends and others, threaten you with harm: never How often does anyone, including family, friends and others, scream or curse at you: never service: No Meds Home Medications and Allergies Home Medications ?Medication ?Instructions ?Recorded ?Confirmed ?Type famotidine 40 mg tablet 40 mg PO DAILY 03/07/23 08/30/23 History gabapentin 300 mg capsule 900 mg PO BID 03/07/23 08/30/23 History morphine 15 mg tablet,extended 15 mg PO DAILY PRN 03/07/23 08/30/23 History release morphine 30 mg immediate release 30 mg PO DAILY 03/07/23 08/30/23 History tablet oxybutynin chloride 10 mg 10 mg PO DAILY 03/07/23 08/30/23 History tablet,extended release 24 hr spironolactone 25 mg tablet 12.5 mg PO Q48H 03/07/23 08/30/23 History acetaminophen 500 mg tablet 1,000 mg PO TID 08/30/23 08/30/23 History hydrocortisone 1 % topical cream 1 applic topical DAILY 08/30/23 08/30/23 History (Ala-Joshua) multivitamin (Daily-Ailyn tablet) 2 tab PO DAILY 08/30/23 08/30/23 History naloxone 4 mg/actuation nasal spray 4 mg intranasal Q2-3M PRN 08/30/23 08/30/23 History nystatin 100,000 unit/gram topical 1 applic topical TID 08/30/23 08/30/23 History cream ondansetron HCl 4 mg tablet 4 mg PO Q8H PRN 08/30/23 08/30/23 History sennosides 8.6 mg tablet 17.2 mg PO BID PRN 08/30/23 08/30/23 History (Evac-U-Gen (sennosides)) Allergies Allergy/AdvReac Type Severity Reaction Status Date / Time citalopram [From Celexa] Allergy Unknown Verified 08/30/23 12:10 duloxetine Allergy Unknown Verified 08/30/23 12:10 NSAIDS (Non-Steroidal Allergy Unknown Verified 08/30/23 12:10 Anti-Inflamma Exam Narrative: Exam Narrative: Gen: no acute distress; HEENT: NCAT EOMI mmm Neck: Supple CV: RRR normal s1 s2 Lungs: CTAB Abd: Soft,nt, nd Neuro: Alert, oriented, CN grossly intact; Psych: appropriate affect MSK: contracture of lower extremites Skin; Warm, dry no rash on face; chronic sacral decubitus ulcer Const: Vital Signs, click to edit/add: Vital Signs - 24 hr 08/30/23 09:56 08/30/23 10:03 08/30/23 10:04 Temperature 96.7 F L Pulse Rate 68 69 Pulse Rate [Pulse Oximeter] 71 Respiratory Rate 12 16 Blood Pressure 117/56 L Blood Pressure [Ri ght Upper Arm] 117/56 L Pulse Oximetry 94 90 94 Oxygen Delivery Me od Room Air 08/30/23 10:15 08/30/23 10:19 08/30/23 10:30 Temperature Pulse Rate 63 61 63 Pulse Rate [Pulse Oximeter] Respiratory Rate 11 L Blood Pressure 112/51 L Blood Pressure [Ri ght Upper Arm] Pulse Oximetry 99 98 98 Oxygen Delivery Me od 08/30/23 10:32 08/30/23 10:45 08/30/23 10:47 Temperature Pulse Rate 61 61 62 Pulse Rate [Pulse Oximeter] Respiratory Rate 10 L 7 L 11 L Blood Pressure 111/56 L 114/61 Blood Pressure [Ri ght Upper Arm] Pulse Oximetry 99 98 99 Oxygen Delivery Me thod 08/30/23 11:00 08/30/23 11:02 08/30/23 11:03 Temperature Pulse Rate 63 62 61 Pulse Rate [Pulse Oximeter] Respiratory Rate 10 L 10 L 9 L Blood Pressure 126/80 Blood Pressure [Ri ght Upper Arm] Pulse Oximetry 95 95 95 Oxygen Delivery Me thod 08/30/23 11:17 08/30/23 11:32 08/30/23 11:33 Temperature Pulse Rate 62 62 Pulse Rate [Pulse Oximeter] Respiratory Rate 10 L 9 L 10 L Blood Pressure 120/64 116/90 H Blood Pressure [Ri ght Upper Arm] Pulse Oximetry 95 94 Oxygen Delivery Me thod 08/30/23 12:03 08/30/23 12:04 08/30/23 12:08 Temperature Pulse Rate 66 69 59 L Pulse Rate [Pulse Oximeter] Respiratory Rate 10 L 10 L Blood Pressure 41/23 L 130/62 Blood Pressure [Ri ght Upper Arm] Pulse Oximetry 93 94 94 [facility] 08/30/23 12:15 08/30/23 12:18 08/30/23 12:30 Temperature Pulse Rate 61 64 63 Pulse Rate [Pulse Oximeter] Respiratory Rate Blood Pressure 115/54 L Blood Pressure [Ri ght Upper Arm] Pulse Oximetry 96 95 96 Oxygen Delivery [facility] 08/30/23 12:32 08/30/23 12:45 08/30/23 12:47 Temperature Pulse Rate 63 58 L 63 Pulse Rate [Pulse Oximeter] Respiratory Rate Blood Pressure 114/52 L 110/55 L Blood Pressure [Ri ght Upper Arm] Pulse Oximetry 96 94 95 Oxygen Delivery [facility] Hospitalist - H&P: Result Labs Labs: Short CBC 08/30/23 Range/Units 10:20 WBC 8.35 (4.50-11.00) K/uL Hgb 15.1 (12.0-16.0) gm/dL Hct 51.4 H (33.0-51.0) % Plt Count 233 (140-440) K/uL BMP 08/30/23 10:20 Sodium 140 Potassium 4.5 Chloride 103 Carbon Dioxide 32 BUN 30 Creatinine 0.9 Glucose 113 Calcium 8.7 Cardiac Enzymes 08/30/23 08/30/23 Range/Units 10:20 12:20 Troponin I 0.43 H* 0.40 H* (0.01-0.04) ng/mL Liver Function 08/30/23 Range/Units 10:20 Total Bilirubin 0.5 (0.1-1.5) mg/dL AST 98 H (12-35) U/L ALT 36 H (4-35) U/L Alkaline Phosphatase 69 (40-150) U/L Albumin 3.5 (3.3-5.0) g/dL Urine 08/30/23 Range/Units 11:20 Urine Color Yellow (Yellow) Urine Appearance Cloudy A (Clear) Urine pH 5.5 (5.0-8.5) Ur Specific Warren 1.025 (1.000-1.030) Urine Protein 2+ A (Negative) Urine Glucose (UA) Negative (Negative) Assessment and Plan Assessment and plan (1) Catheter-associated urinary tract infection: Problem comment: hx of recurrent uti; previous UCx with citrobacter species; In the ED where CT head showed no acute findings. CTPE negative for PE, cardiomegaly with small pericardial effusion and trace bilateral effusion. She required 1 liter supplemental oxygen. She was afebrile. Normal WBC. Troponin 0.43->0.4. EKG with reported nonspecific TWI. She denies chest pain, pressure, sob, cough, fever. She states she feels back to baseline state. She was started on ceftriaxone for presumed catheter associated UTI and admitted for further evaluation. 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 Will obtain Echo, monitor on tele Status: Acute (6) Pleural effusion: Problem comment: Suspect underlying CHF, will check BNP, obtain Echo. Will start lasix; daily weight; monitor and replace on electrolytes; requiring minimal supplemental oxygen Status: Acute (7) Decubitus ulcer: Problem comment: chronic sacral decubitus ulcer will have wound care monitor and assess tomorrow Status: Acute Plan Code-Full DVt ppx-lovenox Family communication-Daughter updated Anticipated LOS 2-3 days pending urine cx
[2023-08-30] MEDS: cefTRIAXone 2 GM in 0.9 % SODIUM CHLORIDE Mini-bag 100 ML IVPB (13:40)
--- NOTE | 2023-08-30 18:33 | PC.NURSE ---
patient up to floor at 1420. Patient on 2 L NC sating at 91%. Patients VSS, c/o chronic pain. Patient has an ostomy on Left side Abd. Patient has a suprapubic catheter, patent and draining. Patient is paraplegic as a result of her MS. A/O x4. Patient has a pressure ulcer on bottom and sees wound clinic for dressing changes. Bandage replaced with Mepilex today upon admission. Echo scheduled for 08/30 at 1100. Patient tolerating a reg. diet. IV in Right AC- SL.
[2023-08-30] MEDS: ACETAMINOPHEN 500 MG TABLET 1000 MG PO (20:45)
[2023-08-30] MEDS: GABAPENTIN 300 MG CAPSULE 900 MG PO (20:45)
[2023-08-30] MEDS: SODIUM CHLORIDE 0.9 % (FLUSH) 10 ML SYRINGE 5 ML IVF (20:46)
[2023-08-30] MEDS: ENOXAPARIN 40 MG/0.4 ML INJ SUBCUT (20:46)
[2023-08-30] MEDS: FUROSEMIDE 10 MG/ML inj 20 MG IVP (21:48)
[2023-08-31] VITALS (11 sets, daily range): BP systolic 118–125; BP diastolic 46–56; PULSE 54–64; RESP 16–18; TEMP 36.1–36.2; O2SAT 86–99
[2023-08-31 06:24] LABS: Basophils Absolute Auto 0.04 K/uL (0.00-0.30); Basophils Percent Auto 0.5 % (0.0-3.0); Eosinophils Absolute Auto 0.15 K/uL (0.00-0.50); Eosinophils Percent Auto 1.7 % (0.0-7.0); Hemoglobin* 14.5 gm/dL (12.0-16.0); Immature Granulocytes Abs Auto 0.04 K/uL (0.00-0.30); Immature Granulocytes Pct Auto 0.5 %; Lymphocytes Absolute Auto 3.72 K/uL (0.90-2.90); Lymphocytes Percent Auto 42.4 % (20-44); Mean Corpuscular HGB Conc 30 gm/dL (32-36); Mean Corpuscular Hemoglobin 32 pg (26-34); Mean Corpuscular Volume 106 fL (80-100); Monocytes Percent Auto 7.3 % (0.0-11.0); Neutrophils Absolute Auto 4.18 K/uL (1.7-7.0); Neutrophils Percent Auto 47.6 % (42.0-72.0); Platelet Count* 184 K/uL (140-440); RDW Coefficient of Variation % 12.8 % (11.5-15.5); Red Blood Count 4.61 m/uL (4.00-5.20); White Blood Count* 8.77 K/uL (4.50-11.00)
[2023-08-31 06:26] LABS: Slide Review Reflex No
[2023-08-31 06:40] LABS: Albumin* 3.4 g/dL (3.3-5.0); Chloride* 102 mmol/L (96-114); Potassium* 4.2 mmol/L (3.6-5.1); Sodium* 138 mmol/L (135-149)
[2023-08-31 06:42] LABS: Anion Gap 5 mEq/L (7-15); Bilirubin Total* 0.4 mg/dL (0.1-1.5); Carbon Dioxide* 31 mmol/L (20-32); Creatinine* 0.5 mg/dL (0.5-1.5); Est. Creatinine Clearance* 44.54; Estimated Glomerular Filt Rate 102 ml/min
--- NOTE | 2023-08-31 06:42 | PC.NURSE ---
End of shift [id number]: alert, orientated and cooperative. Pt on 0.5L of oxygen overnight. Sating in high 90s. Trialed room air and pt dipped to mid 80s when sleeping. Placed back on 0.5L. VS otherwise stable. Pt refused to be turned and repositioned on side, but allowed keno writer / runner to place pillows under bottom on both sides. Suprapubic catheter in place and draining. Ostomy producing formed stool. Dressing to bottom c/d/i. Using call light appropriately. ? ?
[2023-08-31 06:43] LABS: Alanine Aminotransferase* 28 U/L (4-35); Alkaline Phosphatase* 68 U/L (40-150); Aspartate Amino Transferase* 55 U/L (12-35); Blood Urea Nitrogen* 26 mg/dL (7-30); Calcium* 8.6 mg/dL (8.4-10.6); Glucose* 86 mg/dL (60-115); Magnesium* 2.2 mg/dL (1.5-2.6); Total Protein* 6.3 g/dL (6.0-8.3)
[2023-08-31 07:03] LABS: NT Pro B Type NatriureticPept* 7240 pg/mL
[2023-08-31 07:10] LABS: Thyroid Stimulating Hormone* 0.762 uIU/mL (0.270-4.20)
[2023-08-31] MEDS: ACETAMINOPHEN 500 MG TABLET 1000 MG PO (09:06)
[2023-08-31] MEDS: oxyBUTYnin chloride 5 MG TAB.ER.24 10 MG PO (09:06)
[2023-08-31] MEDS: MORPHINE 30 MG TABLET.ER PO (09:06)
[2023-08-31] MEDS: FAMOTIDINE 20 MG TABLET 40 MG PO (09:07)
[2023-08-31] MEDS: GABAPENTIN 300 MG CAPSULE 900 MG PO (09:07)
[2023-08-31] MEDS: SODIUM CHLORIDE 0.9 % (FLUSH) 10 ML SYRINGE 5 ML IVF (09:07)
--- NOTE | 2023-08-31 09:22 | PC.SOCIAL ---
Addendum entered by REN Gong 08/31/23 16:03: Discharge planning: Discharge orders were sent via secure email to Cheryl at [facility] via the charge nurse on duty. iron worker foreman later verified that Cheryl received them and she did. Social work to follow-up as needed. Addendum entered by REN Gong 08/31/23 13:25: Discharge planning: Pt's insurance should cover the non-emergent EMS cost due to pt being in a wheelchair permanently. Social work to follow-up as needed. Addendum entered by REN Gong 08/31/23 12:53: Discharge planning: Per MD, pt is ready for discharge today(Sunday). Spoke to Cheryl at [facility] to update her. Explained that non-emergent EMS will be set-up for 1:30-2:00pm to pick-up pt and transport her back to their facility. Cheryl was pleased with this plan. iron worker foreman will secure email the discharge orders to Cheryl when they are ready. Social work to follow-up as needed. Original Note: Received an e-mail from Cheryl in admissions at [facility] in [place]. Patient is on a bed hold with facility and can return over the weekend if medically cleared. If returning on the weekend please call [phone] before patient's return and fax discharge orders to [phone].
[2023-08-31] MEDS: FUROSEMIDE 10 MG/ML inj 20 MG IVP (09:37)
[2023-08-31] MEDS: SPIRONOLACTONE 25 MG TABLET 12.5 MG PO (09:38)
[2023-08-31] MEDS: HYDROCORTISONE 1 % CREAM 1 APPLIC TOPICAL (11:24)
[2023-08-31] MEDS: NYSTATIN CREAM 30 GM 1 APPLIC TOPICAL (11:24)
--- NOTE | 2023-08-31 12:23 | PM.DS1 ---
DS: Providers Provider Time Seen by Provider: 11:00 Date Seen: 08/31/23 Date of admission: 08/30/23 14:42 Primary care physician: Jelena Lopez DO Admitting Clinician: Griselda Valladares MD Consults: 08/30/23 14:41 Consult to Physical Therapy [CONS] Routine Comment: Reason(s) for PT Consult:: Evaluate and Treat Any Restrictions?:: No Restrictions 08/30/23 14:46 Consult to Wound Care [CONS] Routine Comment: Consulting Provider: Cat Cosby Attending Physician on discharge: Judit Wood MD Date of Discharge: 08/31/23 DS: Diagnosis Discharge Diagnosis (1) Non-ST elevation OH (NSTEMI): Status: Acute Problem details: - denies chest pain, pressure, tightness - has h/o CAD with h/o OH. - EKG showed RBB, inferior Twave abn, no STEMI; elevated troponin has plateaued likely supply/demand mismatch ischemia. ECHO complete, tele unremarkable. - HR 64, will hold off on beta kel, LVEF wnl - will hold off on ACEinh, had been on Aspirin 81mg daily in the past. I have reviewed our records from our previous EMR and [facility] records as well as Care Everywhere in [facility]. I cannot find any documentation as to why she is no longer on it. Restart Aspirin 81 mg daily. (2) Multiple sclerosis: Status: Chronic (3) Catheter-associated urinary tract infection: Status: Ruled-out Problem details: hx of recurrent uti; previous UCx with citrobacter species; In the ED where CT head showed no acute findings. CTPE negative for PE, cardiomegaly with small pericardial effusion and trace bilateral effusion. She required 1 liter supplemental oxygen. She was afebrile. Normal WBC. Troponin 0.43->0.4. EKG with reported nonspecific TWI. She denies chest pain, pressure, sob, cough, fever. She states she feels back to baseline state. She was started on ceftriaxone for presumed catheter associated UTI and admitted for further evaluation. - Urine culture shows mixed gram positive brenden, no further work up. Stop antibiotics. (4) Pericardial effusion: Status: Acute Problem details: Small pericardial effusion seen on CTA, none seen on ECHO. (5) Chronic pain syndrome: Status: Chronic Problem details: Continue outpatient medication regimen (6) Pleural effusion: Status: Acute Problem details: Suspect underlying CHF, proBNP elevated, Echo okay. Started lasix; electrolytes and Cr okay. Continue as outpatient. O2 sats okay when waveform is good. (7) Decubitus ulcer: Status: Acute Problem details: chronic sacral decubitus ulcer that reopened prior to admission - Resume outpatient wound cares as previously ordered and f/u with [facility] (8) Chronic diastolic HF (heart failure): Status: Chronic Problem details: - has h/o chronic diastolic HF. LVEF today is wnl. DS: Summary Hospital Course Hospital Course: Per H&P: Miriam Wright is a 68 year old female with past medical history noted below including hx of MS, suprapubic catheter, colostomy, hypertension, recurrent right gluteal ulcer, paraplegia, CVA, CHF, wheelchair bound presenting for hypoxia. Per patient the patient was woken up by staff when they noted she was hypoxic, oxygen saturation 77%. She was noted to be disoriented. Per daughter is on prn oxygen. She was brought to ED where CT head showed no acute findings. CTPE negative for PE, cardiomegaly with small pericardial effusion and trace bilateral effusion. She required 1 liter supplemental oxygen. She was afebrile. Normal WBC. Troponin 0.43->0.4. EKG with reported nonspecific TWI. She denies chest pain, pressure, sob, cough, fever. She states she feels back to baseline state. She was started on ceftriaxone for presumed catheter associated UTI and admitted for further evaluation. 08/31/2023 Miriam feels back to baseline today and still has had no chest pain or shortness of breath. Occasionally her sats appear somewhat low, however it is noted that there is poor pleth or waveform with these and as soon as we get a good pleth or waveform her sats are actually in the 90s. Urine culture came back mixed Gram-positive brenden, no further workup. Vitals are stable. Troponin was stable and slightly downward trending yesterday. Echocardiogram is complete, results above. Discharge back to [facility] in stable condition. Have patient follow-up as previously planned with [facility]. Time Spent with Patient Time attestation: Total time spent providing and/or coordinating discharge services: Exam Narrative: Exam Narrative: General: No acute distress. Awake, alert, oriented x3. No pallor. No jaundice. Oropharynx: Clear. Mucous membranes moist. Cardiovascular: Regular rate and rhythm. No murmurs, gallops, or rubs. Respiratory: Clear to auscultation bilaterally. No wheezes or crackles. Abdomen: Bowel sounds present. Soft, nondistended, nontender. No erythema around ostomy or suprapubic catheter. Const: Vital Signs, click to edit/add: Vital Signs - 24 hr 08/30/23 12:30 08/30/23 12:32 08/30/23 12:45 Temperature Pulse Rate 63 63 58 L Pulse Rate [Pulse Oximeter] Respiratory Rate Blood Pressure 114/52 L Blood Pressure [Le ft Arm] Blood Pressure [Ri ght Upper Arm] Pulse Oximetry 96 96 94 Oxygen Delivery Me thod Oxygen Flow Rate 08/30/23 12:47 08/30/23 14:16 08/30/23 14:42 Temperature 96.7 F L Pulse Rate 63 Pulse Rate [Pulse Oximeter] 71 Respiratory Rate 12 Blood Pressure 110/55 L Blood Pressure [Le ft Arm] Blood Pressure [Ri ght Upper Arm] 117/56 L Pulse Oximetry 95 92 Oxygen Delivery Me thod Oxygen Flow Rate 08/30/23 15:00 08/30/23 16:19 08/30/23 16:19 Temperature 97.6 F 97.6 F Pulse Rate Pulse Rate [Pulse Oximeter] 76 76 Respiratory Rate 18 18 18 Blood Pressure Blood Pressure [Le ft Arm] 117/88 117/88 Blood Pressure [Ri ght Upper Arm] Pulse Oximetry 91 91 91 Oxygen Delivery Me thod Nasal Cannula Room Air Nasal Cannula Oxygen Flow Rate 2 2 08/30/23 18:31 08/30/23 19:17 08/30/23 23:00 Temperature 96.8 F L 96.9 F L Pulse Rate 63 Pulse Rate [Pulse Oximeter] 67 69 Respiratory Rate 18 16 Blood Pressure Blood Pressure [Le ft Arm] 118/51 L 109/59 L Blood Pressure [Ri ght Upper Arm] Pulse Oximetry 91 90 Oxygen Delivery Me thod Nasal Cannula Nasal Cannula Oxygen Flow Rate 2 1 08/30/23 23:00 08/30/23 23:46 08/31/23 00:00 Temperature Pulse Rate 59 L Pulse Rate [Pulse Oximeter] Respiratory Rate Blood Pressure Blood Pressure [Le ft Arm] Blood Pressure [Ri ght Upper Arm] Pulse Oximetry 90 98 Oxygen Delivery Me thod Nasal Cannula Oxygen Flow Rate 1 08/31/23 00:01 08/31/23 03:14 08/31/23 04:30 Temperature 96.9 F L Pulse Rate Pulse Rate [Pulse Oximeter] 54 L Respiratory Rate 18 Blood Pressure Blood Pressure [Le ft Arm] 118/46 L Blood Pressure [Ri ght Upper Arm] Pulse Oximetry 95 95 99 Oxygen Delivery Me thod Nasal Cannula Nasal Cannula Nasal Cannula Oxygen Flow Rate 0.5 0.5 0.5 08/31/23 04:32 08/31/23 04:41 08/31/23 04:42 Temperature Pulse Rate Pulse Rate [Pulse Oximeter] Respiratory Rate Blood Pressure Blood Pressure [Le ft Arm] Blood Pressure [Ri ght Upper Arm] Pulse Oximetry 94 86 L 91 Oxygen Delivery Me thod Room Air Nasal Cannula Nasal Cannula Oxygen Flow Rate 0.5 0.5 08/31/23 08:17 08/31/23 08:19 08/31/23 08:19 Temperature 97.1 F L Pulse Rate Pulse Rate [Pulse Oximeter] 61 61 Respiratory Rate 16 16 Blood Pressure Blood Pressure [Le ft Arm] 125/56 L Blood Pressure [Ri ght Upper Arm] Pulse Oximetry 95 95 Oxygen Delivery Me thod Nasal Cannula Oxygen Flow Rate 0.5 08/31/23 08:22 08/31/23 11:57 Temperature 97.1 F L Pulse Rate Pulse Rate [Pulse Oximeter] 64 Respiratory Rate 16 18 Blood Pressure Blood Pressure [Le ft Arm] 122/49 L Blood Pressure [Ri ght Upper Arm] Pulse Oximetry 94 94 Oxygen Delivery Me thod Nasal Cannula Nasal Cannula Oxygen Flow Rate 0.5 0.5 DS: Data Data Completed and Pending Completed studies during hospitalization: 08/30/2023 EKG: Normal sinus rhythm, low-voltage QRS, 64 beats per minute, right bundle branch block (incomplete right bundle-branch block seen on previous EKGs in our system), T-wave abnormality, consider inferior ischemia. 08/31/2023 echocardiogram: Technically limited exam. Normal LV size, normal wall thickness, normal global systolic function with an estimated EF of 55-60%. Right ventricular cavity size is mildly enlarged, global systolic RV function is borderline reduced. Moderately increased estimated pulmonary pressures by tricuspid regurgitation velocity and right atrial pressure (43 mm Hg plus RAP). Ordering Physician: Conrad Wilkerson D.O. Date of Service: 08/30/23 Procedure(s): CT angio chest PE protocol Accession Number(s): [id number] cc: Conrad Wilkerson D.O.; Jelena Lopez D.O.~ For Patients: As a result of the Cures Act, medical imaging exams and procedure reports are released immediately into your electronic medical record. You may view this report before your referring provider. If you have questions, please contact your health care provider. Indication: Shortness of breath Technique: CTA chest, pulmonary embolism protocol, utilizing 95 mL Isovue 370 Comparison: CTA chest report on 02/24/2022 Findings: No thyroid nodules. No pathologically enlarged lymph nodes throughout the thorax. Calcified mediastinal and right hilar lymph nodes, likely sequela of remote granulomatous disease. Cardiomegaly with small pericardial effusion. The thoracic aorta is within normal limits in diameter. The main pulmonary artery is dilated 3.5 centimeters which can be seen with pulmonary arterial hypertension. There is no pulmonary embolism. Trace bilateral pleural effusions. There are some minimal dependent atelectatic changes seen in the bilateral lower lobes. There is no focal airspace consolidation, pleural effusion, or pneumothorax. No suspicious pulmonary nodules or masses. The airways are clear. Visualized upper abdomen is without acute process. The osseous structures are unremarkable for the patient`s age. Impression: 1. No pulmonary embolism. 2. Cardiomegaly with small pericardial effusion. 3. Trace bilateral pleural effusions. 4. There are some minimal dependent atelectatic changes seen in the bilateral lower lobes. Please note that all CT scans at this facility use dose modulation, iterative reconstruction, and/or weight-based dosing when appropriate to reduce radiation dose to as low as reasonably achievable. Dictated by Hector Danielson MD @ 08/30/2023 12:57:23 PM (Electronically Signed) Labs on day of discharge: Labs from last 24 hours 08/31/23 08/30/23 06:08 12:20 WBC 8.77 RBC 4.61 Hgb 14.5 Hct 49.0 MCV 106 H MCH 32 MCHC 30 L RDW Coeff of Shruthi 12.8 Plt Count 184 Neut % (Auto) 47.6 Lymph % (Auto) 42.4 [place] % (Auto) 7.3 Eos % (Auto) 1.7 Baso % (Auto) 0.5 Neut # (Auto) 4.18 Lymph # (Auto) 3.72 H [place] # (Auto) 0.60 Eos # (Auto) 0.15 Baso # (Auto) 0.04 Abs Immat Gran (auto) 0.04 Imm/Tot Granulo (auto) 0.5 Sodium 138 Potassium 4.2 Chloride 102 Carbon Dioxide 31 Anion Gap 5 L BUN 26 Creatinine 0.5 Estimated Creat Clear 44.54 Estimated GFR 102 Glucose 86 Calcium 8.6 Magnesium 2.2 Total Bilirubin 0.4 AST 55 H ALT 28 Alkaline Phosphatase 68 Troponin I 0.40 H* NT-Pro-B Natriuret Pep 7240 Total Protein 6.3 Albumin 3.4 TSH 0.762 Preliminary micro results at discharge 08/30/23 11:20 Urine Culture - Preliminary Urine,Clean Catch > 100,000 COL/ML MIXED GRAM POSITIVE BRENDEN ISOLATED NO FURTHER WORKUP Discharge Plan Discharge Disposition: [facility] Date of Admission: 08/30/23 14:42 Attending Provider on Discharge: Judit oWod Consulting Providers: Cat Cosby Primary Care Provider: Jelena Lopez Condition: Stable Anticipated Discharge Date/Time: 08/31/23 14:00 Discharge Medications: New aspirin 81 mg capsule 81 mg PO DAILY Qty: 30 0RF furosemide 20 mg tablet 20 mg PO DAILY Qty: 30 0RF Continued oxybutynin chloride 10 mg tablet extended release 24hr 10 mg PO DAILY famotidine 40 mg tablet 40 mg PO DAILY spironolactone 25 mg tablet 12.5 mg PO Q48H morphine 30 mg tablet 30 mg PO DAILY gabapentin 300 mg capsule 900 mg PO BID morphine 15 mg tablet extended release 15 mg PO DAILY PRN hydrocortisone [Ala-Joshua] 1 % cream 1 applic topical DAILY multivitamin [Daily-Ailyn] Tablet 2 tab PO DAILY acetaminophen 500 mg tablet 1,000 mg PO TID nystatin 100,000 unit/gram cream 1 applic topical TID naloxone 4 mg/actuation spray,non-aerosol 4 mg intranasal Q2-3M PRN Rx Instructions: spray 1 dose into ONE nostril; alternate nostrils w each dose until help arrives ondansetron HCl 4 mg tablet 4 mg PO Q8H PRN sennosides [Evac-U-Gen (sennosides)] 8.6 mg tablet 17.2 mg PO BID PRN Discharge Orders: Discharge Order (Routine); Ordered 08/31/23 Ordered By: Judit Wood Activity Level: Activity as Tolerated and Up with assist Discharge Diet: Heart Healthy (2 gm sodium, low fat) Follow Up Appointments: [facility] [Outside] (Patient being discharge to [facility]) Jelena Lopez DO [Primary Care Provider] - (5-7 days with BMP, Hgb) Forms: [facility] Info Instructions Admit to: SNF Discharge Potential: Poor Length of Stay: >90 days Can use facility standing orders?: Yes Code Status: Full Code TEDs: N/A Oxygen: Yes (resume previous prn oxygen orders) Urinary Catheter: Yes (suprapubic) Orders are good >30 days: No Signature: Judit Wood MD
--- NOTE | 2023-08-31 15:24 | PC.NURSE ---
Discharge: Patient pleasant and cooperative, A&O. VSS, afebrile. SpO2 maintained above 90% on 0.5L O2. Patient reports generalized pain rating 7 out of 10, managed with scheduled medication, see MAR. IV removed with tip intact. Discharge instructions provided, all questions answered. Discharged to [facility] via non emergent ambulance.
== END 2023-08-31 14:30 | DRG 281 ==
LOC: ED 13:21 → MEDSURG 14:14
PROVIDERS: Admitting Provider Hospitalist; Emergency Provider Student in an Organized Health Care Education/Training Program; PCP Family Medicine; Visit Provider Hospitalist
DX: I21.4 Non-ST elevation (NSTEMI) myocardial infarction (principal); G82.20 Paraplegia, unspecified; I31.39 Other pericardial effusion (noninflammatory); I50.32 Chronic diastolic (congestive) heart failure; I11.0 Hypertensive heart disease with heart failure; G35 Multiple sclerosis; L89.159 Pressure ulcer of sacral region, unspecified stage; I45.19 Other right bundle-branch block; G89.4 Chronic pain syndrome; F17.210 Nicotine dependence, cigarettes, uncomplicated; Z93.3 Colostomy status; R09.02 Hypoxemia; Z99.3 Dependence on wheelchair
CPT/HCPCS: 36415; 71275; 80053; 81001; 83735; 83880; 84443; 84484; 85025; 85379; 87086; 87631; 93306; 94761; 97162; 97530; 99284; 99285; A9270; J0696; J1650; J1940; Q9967

== ENCOUNTER 2023-08-31 14:10 | Outpatient (CLI) | payer MEDICARE, OTHER, SELFPAY | END 2023-08-31 14:11 | disposition home or self-care (01) | PROVIDERS: PCP Family Medicine; Visit Provider Family Medicine | DX: I21.4 Non-ST elevation (NSTEMI) myocardial infarction (principal); R41.82 Altered mental status, unspecified; L89.90 Pressure ulcer of unspecified site, unspecified stage; Z74.01 Bed confinement status | CPT/HCPCS: A0425; A0428 ==

== ENCOUNTER 2024-06-25 16:55 | Emergency (ER) | payer MEDICARE, OTHER, SELFPAY ==
[2024-06-25] VITALS (27 sets, daily range): BP systolic 91–118; BP diastolic 40–95; PULSE 83–100; RESP 12–35; TEMP 37.2; O2SAT 87–96; BMI 34.3
--- NOTE | 2024-06-25 | CRLHL7_ITS ---
For Patients: As a result of the Century Cures Act, medical imaging exams and procedure reports are released immediately into your electronic medical record. You may view this report before your referring provider. If you have questions, please contact your health care provider. Indication: Cough, hypoxia, vomiting Technique: CTA of the chest with contrast and postcontrast CT of the abdomen and pelvis with multiplanar reformats following 95 mL Isovue 370 IV. Axial MIP images of the chest obtained. Comparison: CT abdomen pelvis performed 08/23/2017 Findings: Chest: Pulmonary arteries: Respiratory motion degradation. No large or central pulmonary embolism is appreciated. The main pulmonary artery measures 3.5 centimeters. Lungs: Multiple scattered pulmonary nodules, largest in the right upper lobe measuring 15 x 13 millimeters. Mild atelectasis and/or scarring. No consolidation, effusion, or pneumothorax. Mediastinum: No acute abnormality appreciated. Calcified atherosclerosis. Lymph nodes: No gross lymphadenopathy. Soft tissues: No acute abnormality appreciated. Bones: No acute abnormality appreciated. Degenerative changes of the spine. Abdomen and Pelvis: Hepatobiliary: No significant parenchymal abnormality is appreciated. Cholecystectomy. Spleen: Unremarkable. Pancreas: No acute abnormality appreciated. Adrenal glands: No acute abnormality appreciated. Kidneys: Increased size of an indeterminate density lesion in the left kidney measuring 1.9 centimeters previously 1.1 centimeters. Bilateral nonobstructing renal stones noted. Additional scattered indeterminate density lesions noted, largest in the right kidney measuring 1.0 centimeters. No hydronephrosis. Bowel: No obstruction. No focal perienteric or pericolonic stranding is appreciated. Postoperative changes to the bowel with left lower quadrant ostomy noted. Vascular: Calcified atherosclerosis. Lymph nodes: No gross lymphadenopathy. Peritoneum: No free air. No free fluid. : Suprapubic catheter present. 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 Muscular atrophy noted diffusely. Bones: No acute fracture. No lytic or blastic lesion. Osteopenic appearing bones. Impression: 1. Allowing for respiratory motion degradation through the chest, no acute abnormality is appreciated. 2. Multiple pulmonary nodules are noted, largest measuring 14 millimeters in the right upper lobe. Follow-up CT in 3 months recommended. 3. Multiple indeterminate density bilateral renal lesions, with 1 in the left kidney increasing in size compared to prior study from 2018. Nonemergent outpatient renal protocol MRI or CT recommended. 4. Bilateral nonobstructing renal stones. 5. Pulmonary hypertension. 6. Additional chronic findings as above. Please note that all CT scans at this facility use dose modulation, iterative reconstruction, and/or weight-based dosing when appropriate to reduce radiation dose to as low as reasonably achievable. Dictated by Wayne Wilcox MD @ 06/25/2024 7:50:31 PM (Electronically Signed)
--- OUTSIDE RECORDS SUMMARY | 2024-06-25 16:58 | XMS_ITS ---
Author Organization [facility] Care Team Providers Care Computer Technical Support Specialist Name Role Phone Ayana Glez Unavailable Unavailable Flash Oliveira Unavailable Unavailable Allergies and adverse reactions Code CodeSystem Substance Reaction Severity StartDate Concern Status 770340750 SNOMED CT NSAIDs Unknown 03/23/2014 active Celexa Nausea (code- [id number], SNOMED CT) Unknown Unknown active Care Team Name Role Address Phone Organization Dates Flash Oliveira PCP [facility] [address] [place] [address], [address], [place], [place], [facility], [place] (Office): [facility] 06/01/2014 - 08/11/2014 Ayana Glez [address], [place], [address], [facility] 06/01/2014 - 08/11/2014 Immunizations Immunization Status Vaccine Details Vaccine Code CodeSystem Date Notes TB 2 Step Mantoux Skin Test completed tuberculin skin test; unspecified formulation lotNumber: [id number] expiry: 10/14/2015 Mfg: [employer] Given 0.1 ml Left Forearm intradermally Step 1 of Multi-step with next step required 98 CVX created date: 06/07/2014 consent date: 06/06/2014 administer ed date: 06/06/2014 TB 2 Step Mantoux Skin Test completed tuberculin skin test; unspecified formulation lotNumber: [id number] expiry: 05/14/2015 Mfg: [employer] Given 0.1 ml Right Forearm intradermally Step 2 of Multi-step with next step required 98 CVX created date: 01/20/2014 consent date: 01/20/2014 administer ed date: 01/20/2014 Educated by scott on 01/20/2014 TB 2 Step Mantoux Skin Test completed tuberculin skin test; unspecified formulation lotNumber: [id number] expiry: 04/13/2015 Mfg: [employer] Given 0.1 ml Left Forearm intradermally Step 1 of Multi-step with next step required 98 CVX created date: 01/06/2014 consent date: 01/06/2014 administer ed date: 01/06/2014 Educated by scott on 01/06/2014 Custom Influenza completed created date: 01/02/2014 administer ed date: 11/28/2013 Mental Status Section Date Assessment Total Score Description 06/07/2014 BIMS 15 cognitively int act PHQ-9 00 Reason for Referral No Reasons for Referral Entered Social History Social History Observation Description Start Date End Date Code Code System Current Smoking Status Tobacco smoking consumption unknown 904447141 SNOMED CT Sex Assigned At Female 1955 51454-9 LOINC Gender Identity Vital Signs Code Code System Vitals Name Values and Units Timing Information 8310-5 LOINC Body Temperature Value=96.6 Units= F 08/11/2014 55494-2 LOINC Pain Level Value=7.0 08/10/2014 56187-8 LOINC Weight Zfibj=328.4 Units=Lbs 9279-1 [facility] Respiratory Rate Value=18.0 Units=/m in 08/06/2014 8462-4 [facility] Blood Pressure-Diastolic Value=62 Un its=mmHg 08/06/2014 8480-6 [facility] Blood Pressure-Systolic Usfxh=920 Un its=mmHg 08/06/2014 8867-4 [facility] Heart rate Value=66.0 Units=/min 02438-2 [facility] O2 % BldC Oximetry Value=96.0 Units= % 08/06/2014 8302-2 [facility] Height Value=63.0 Units=Inches 06/02/2014
--- OUTSIDE RECORDS SUMMARY | 2024-06-25 16:58 | XMS_ITS | Clinical Summary ---
Author Organization [facility] Address [address] [place] [address] Care Team Providers Care Transmission Calibration Engineer Name Role Phone Pcp, No Primary Care Provider Unavailabl e Allergies Active Allergy Reactions Criticality Noted Date Comments Citalopram Nausea Only Low 07/28/2013 Pt unaware of this as an allergy. Duloxetine *Unknown 08/19/2021 Nsaids (Non-Steroidal Anti-Inflammatory Drug) Other - Describe In Comment Field Low 03/31/2014 Hx of stomach ulcer. Pt reports only takes APAP. Medications hydrocortisone 1 % cream Apply topically to affected area(s) once daily. Apply under abdominal folds. Apply where resident prefers. Active famotidine (PEPCID) 40 mg tabletIndications:H istory of gastroesophageal reflux (GERD) Take 1 tablet by mouth at bedtime. 90 tablet 3 01/22/20 19 Active multivitamin chew Chew 2 Tablets by mouth once daily. Takes gummy formulation. Active Colostomy Bags miscIndications:Col ostomy in place (HC) As directed. [place] #[id number] Custom fit bag. 1 bag every 2 days. 15 Each 06/17/19 21 Active sennosides (SENNA) 8.6 mg tabletIndications:P neumonia of left lower lobe due to infectious organism Take 2 Tablets (17.2 mg) by mouth 2 times daily if needed for Constipation. 0 07/30/19 21 Active naloxone (NARCAN) 4 mg/actuation nasal spray Inhale 1 [place] into affected nostril(s) each time if needed for Resp Rate < 8 / min. In left nostril as needed for RR<8 breaths/minute, patient unarousable may repeat every 2-3 minutes in alternating nostrils. 07/06/19 Active oxybutynin XL (DITROPAN XL) 10 mg CR tablet Take 10 mg by mouth once daily. 06/23/19 Active gabapentin (NEURONTIN) 300 mg capsule Take 900 mg by mouth two times daily. Active spironolactone (ALDACTONE) 25 mg tablet Take 12.5 mg by mouth once every other day. Active nystatin (MYCOSTATIN) cream Apply topically to affected area(s) three times daily. Active aspirin 81 mg cap Take 81 mg by mouth once daily. Active acetaminophen (Tylenol Extra Strength) 500 mg tablet Take 1,000 mg by mouth three times daily. Max acetaminophen dose: 4000mg in 24 hrs. Active ondansetron (ZOFRAN) 4 mg tablet Take 4 mg by mouth every 8 hours if needed for Nausea/Vomiting. Active furosemide (LASIX) 20 mg tabletIndications:A cute diastolic congestive heart failure (HC) Take 1 Tablet (20 mg) by mouth two times daily. 10/04/19 Active cadexomer iodine (IODOSORB) 0.9 % gelIndications:Decu bitus ulcer of sacral region, stage 4 (HC) Apply topically to affected area(s) once daily in the morning. 10/05/19 Active miconazole nitrate powder 2 % powderIndications:G roin rash Apply topically to affected area(s) two times daily. Apply under the pannus and groin folds for 7 days and then reassess 10/04/19 Active potassium chloride (KLOR-CON M20) 20 mEq extended-release tablet (part/cryst)Indicat ions:Hypokalemia Take 1 Tablet (20 mEq) by mouth two times daily with meals. 10/04/19 Active morphine IMMEDIATE RELEASE 15 mg tabletIndications:C hronic, continuous use of opioids Take 1 Tablet (15 mg) by mouth 2 times daily if needed for Pain. 5 Tablet 10/04/19 Active BIPAPIndications:Re strictive lung mechanics due to neuromuscular disease (HC),Acute respiratory failure with hypoxia and hypercapnia (HC) BIPAP-ST for home use with all sleep. Settings: 12/6 cmH20, auto rate Mask of choice Choice of mask (A7030 or A7034) w/full face cushion (A7031) x1/mo, nasal cushion (A7032) x2/mo, or nasal pillows (A7033) x 2/mo; Length of Need: 99 months; Frequency of use: Daily 10/04/19 24 Active morphine CONTROLLED RELEASE (MS CONTIN) 30 mg CR tabletIndications:M ultiple sclerosis (HC),Other chronic pain Take 1 Tablet (30 mg) by mouth once daily. Restart MS contin once BIPAP is delivered to the facility and patient starts using it 10/04/19 24 Active trimethoprim-sulfam ethoxazole (Bactrim DS) 160-800 mg tabIndications:Acut e UTI Take 1 Tablet by mouth two times daily. 14 Tablet 11/05/19 24 Active Active Problems Problem Noted Date Diagnosed Date Tobacco abuse 05/22/2024 Pyuria 09/30/2023 Acute diastolic congestive heart failure 024 Acute respiratory failure with hypoxia and hyper capnia 09/30/2023 Renal calculi 09/30/2023 Ventral hernia 09/30/2023 GERD (gastroesophageal reflux disease) 4 Bladder spasms 09/30/2023 Fatigue 09/30/2023 Acute encephalopathy 09/30/2023 Wound infection 09/30/2023 Chronic heart failure with p reserved ejection fraction (HFpEF) 07/06/2021 Obesity (BMI 30-39.9) 11/20/2020 Decubitus ulcer of sacral region, stage 4 2019 Paraplegia 09/10/2018 Hypoalbuminemia 09/10/2018 Incomplete RBBB 03/27/2017 Suprapubic catheter 06/21/2016 Cannabis use, uncomplicated. Prescribed by Neuro 07/21/2015 Sensorineural hearing loss, bilateral 01/30/2014 Advanced care planning/counseling discussion Overview (12/29/2013): Patient has identified Health Care Agent(s): Yes Add Health Care Agents: No Pt identified her daughter as her decision maker - Debra Bautista [phone] Patient has Advance Care Plan Documents (Health Care Directive, POLST): No, Health Care Packet given to patient and family. Patient has identified Specific Treatment Preferences: No Specific limits to treatment preferences NOT identified: ASSUME FULL TREATMENT. MRSA (methicillin resistant staph aureus) cultur e positive 06/28/2012 Overview (06/28/2012): In urine. Has S/P tube. Multiple sclerosis 05/16/2006 Chronic, continuous use of opioids Other chronic pain Resolved Problems Problem Noted Date Diagnosed Date Resolved Date Acute encephalopathy 10/23/2022 024 CO2 narcosis 10/23/2022 09/30/2023 Overdose of opiate or related narcotic 10/23/2022 09/30/2023 Hypoxia 02/24/2022 09/30/2023 UTI (urinary tract infection ) due to urinary indwelling [place] catheter 02/24/2022 09/30/2023 Decreased level of consciousness 07/06/2021 09/30/2023 Septic shock 01/05/2021 07/06/2021 Pressure injury of ischium, bilateral, stage 4 01/05/2021 09/30/2023 Postoperative anemia due to acute blood loss 09/30/2023 Right ischial pressure sore, stage 3 09/20/2020 09/30/2023 History of Clostridioides difficile infection 07/26/19 21 09/30/2023 Community acquired pneumonia of left lung 06/12/2020 07/06/2021 Hypoxia 06/12/2020 09/30/2023 Yeast infection 06/12/2020 09/30/2023 Urinary tract infection 05/29/2020 05/06/2021 Sepsis 09/10/2018 01/05/2021 Anemia 09/10/2018 07/06/2021 Pressure injury of right hip, stage 3 07/22/2018 03/20/2019 Decubitus ulcer of left isch ial area, stage IV 07/04/2018 07/06/2021 Decubitus ulcer of right isc hial area, stage III 07/04/2018 02/23/2020 Controlled substance agreement signed 06/25/2018 09/30/2023 Anemia of chronic disease 02/17/2018 Disorientation 11/12/2017 11/12/2017 Severe sepsis 11/12/2017 11/12/2017 Elevated troponin 11/12/2017 02/20/2018 Altered mental status 11/12/20172021 LLL pneumonia 03/30/2017 07/06/2021 Overview (04/01/2017): 03/28/2017 chest radiograph: Stable right upper extremity PICC. Stable cardiomediastinal silhouette with calcified aortic arch. The right lung is clear. Persistent left basilar consolidation, slightly increased in the retrocardiac region. Small left pleural effusion. No pneumothorax. Gram-positive cocci bacteremia 03/29/2017 09/30/2023 Overview (04/01/2017): 03/27/2017 Blood culture: Enterococcus faecalis 03/29/2017 repeat Blood cultures negative. Hypokalemia 03/28/2017 02/20/2018 Overview (04/01/2017): 03/28/2017 Potassium 3.2. POTASSIUM (mmol/L) Date Value 04/01/2017 3.7 Tachycardia 03/27/2017 04/01/2017 Overview (03/27/2017): Present on preop on 03/20/[address] Desai on 02/15/2017. Post-procedural fever 03/27/20172017 Left ureteral stone 03/27/2017 09/30/19 24 Overview (04/01/2017): 03/27/2017 Left ureteroscopy, laser lithotripsy of stones, stone basketing, stent placement. Coronary artery disease invo lving [place] coronary artery of [place] heart without angina pectoris 03/27/2017 11/15/2017 Overview (11/13/2017): 2014 in [place]. Had wall motion abnormality on echo. Unclear if angiogram was performed at that time. Septic shock 03/27/2017 09/30/2023 Overview (04/01/2017): 03/27/2017 onset following urologic procedure, hypotension, PICC line placement. Lactate level 1.9. Treated with Levophed for 3 days. B12 deficiency 06/14/2016 09/30/2023 Pressure ulcer of coccygeal region, stage 4 08/19/2015 12/25/2017 Tobacco abuse 07/21/2015 09/30/2023 Stage IV pressure ulcer of sacral region 01/27/2014 12/12/2014 Osteomyelitis of sacrum 01/27/201411/14 History of MS (myocardial infarction) 12/28/2013 11/15/2017 Chronic diastolic congestive heart failure, NYHA class 1 12/28/2013 07/06/2021 Hyponatremia 12/28/2013 12/12/2014 Gastric ulcer 11/18/2013 09/30/2023 Overview (11/18/2013): EGD 11/2013 large gastric ulcer, repeat EGD in 3 months Nausea 11/05/2013 12/12/2014 Decubitus ulcers 02/12/2012 12/12/2014 Pain medication agreement - July 21, 2015. Morphine and Fentanyl for MS 06/20/2011 06/10/2018 Overview (11/16/2017): New controlled substance agreement with Dr Lopez 04/2017. Regimen as of 11/16/17: Fentanyl patch 37 mcg, MSIR 15 milligram oral twice daily. (patient was comatose on Fentanyl 50 mcg and MSIR 30 twice daily). Intestinal infection due to Clostridium difficile 01/02/2011 12/12/2014 UTI (lower urinary tract infection) 08/08/2010 04/01/2017 Corns and callosities 06/14/20102016 Vitamin D deficiency 08/09/2009 024 Urinary retention 03/30/2009 12/29/2013 Esophagitis, unspecified 05/16/2006 Urinary retention 10/09/2016 Kidney stone 04/01/2017 Decubitus ulcer of right isc hial area, stage IV 06/10/2018 Essential hypertension 09/29 Pressure injury of left ischium, stage 4 06/10/2018 Acute postoperative pain Pressure injury of ischium, stage 3 06/10/2018 UTI due to Klebsiella species 07/06/2021 Encounters Date Type Department Care Team Description 06/16/2024 11:00 AM CDT Nurse/Clinic Staff Only [address] [place] [id number] Removal (Patient due for catheter change); Insert (22 fr suprapubic catheter change) 06/16/2024 Travel 06/05/2024 Telephone [facility] [address] [place] [address] Dominique Carrillo NP 05/29/2024 11:59 AM CDT - 05/29/2024 11:59 PM CDT Hospital Encounter [facility] [address] [address] Leon Saunders MD Decubitus ulcer of sacral region, stage 4 (HC); Paraplegia (HC) 05/29/2024 Travel 05/22/2024 11:15 AM CDT Office Visit [facility] [address] [place] [address] Dominique Carrillo NP Wound Check 05/22/2024 Travel 05/19/2024 11:00 AM CDT Nurse/Clinic Staff Only [facility] [address] [place] [address] Removal (Patient due for catheter change); Insert (22 fr suprapubic catheter change) 05/19/2024 Travel 05/14/2024 9:30 AM CDT Office Visit [facility] [address] [place] [address] Edwin Cole, AuD Hearing Problem 05/14/2024 Lab Requisition [facility] [address] [place] [address] George Meyer MD 05/14/2024 Travel 2024 Telephone [facility] [address] [place] [address] Edwin Cole, Anna 04/30/2024 Telephone [facility] [address] [place] [address] Dominique Carrillo NP Concerns 04/17/2024 8:45 AM ENT NURSE Office Visit [facility] [address] [place] [address] Dominique Carrillo NP Wound Check 04/17/2024 Travel 04/14/2024 11:00 AM ENT NURSE Nurse/Clinic Staff Only [place] [id number] [facility] [place] [address] Removal; Insert (22 fr suprapubic catheter change) 04/14/2024 Travel from Last 3 Months Immunizations Immunization Administration Dates Next Due Influenza, IIV3 (Age >=3 years) 11/07/19 19,10/29/2012,11/14/2011,2010,10/23/2008,11/25/2007,11/20/2006,1 Influenza, IIV4 11/14/2017(Deferred: - pt vaccinated),10/25/2017,10/31/2016,11/22,12/04/2014,11/28/2013 Pneumococcal Poly,23-Valent (Pneumovax) 12/11/2014,11/28/2013 Pneumococcal conj 13-Valent (Prevnar 13) 10/09/2016,11/28/2013 Td (Age >=7 Years) 09/12/2005 Tdap 08/08/2011 Zoster (Zostavax-ZVL, live) 12/26/2011 Family History Medical History Relation Name Comments Cancer Father brain Cancer-breast Maternal Aunt Cancer Mother uterine Relation Name Status Comments Father Maternal Aunt Mother Sister 1 Alive Sister 2 Alive Social History Tobacco Use Types Packs/Day Years Used Date Smoking Tobacco: Some Days Cigarettes 0.3 45 Started: 11/13/1975; Last attempted to quit: 11/12/2020 Smokeless Tobacco: Never Tobacco Cessation:Ready to Q uit: Not Asked; Counseling Given: Not Answered Comments:started at age 11; quit smoking 07/2018 Alcohol Use Standard Drinks/Week Comments No 0 (1 standard drink = 0.6 oz pur e alcohol) PHQ-2 Answer Date Recorded PHQ-2 Score 0 04/13/2018 Financial Resource Strain Answer Date R ecorded Difficulty of Paying Living Expenses Not on file 02/02/2021 Difficulty of Paying Living Expenses Not on file 02/02/2021 Interpersonal Safety Answer Date Record ed Are you being hit, kicked, p ushed or yelled at (see row info)? No 09/30/2023 Interpersonal Safety Abuse 12 - 18 Not on file 09/30/2023 Interpersonal Safety Ambulatory Vulnerability No t on file 09/30/2023 Comments No Sex and Gender Information Value Date Recorded Sex Assigned at Not on file Legal Sex Female 5:24 AM ENT NURSE Gender Identity Not on file Sexual Orientation Not on file Occupation Industry Job Start Date Job End Date retired Not on file Not on file Not on file Obstetrics History Para Term AB IAB SAB Ectopic Multiple Livin g Live Births 3 2 2 1 1 2 Date Outcome GA Total Labor Labor/2nd/3rd Weight Sex Type Anes PTL Antonia A1 A5 Name Clin Term Term SAB Last Filed Vital Signs Vital Sign Reading Time Taken Comments Blood Pressure 110/58 05/22/2024 11:10 AM CDT Pulse 111 05/22/2024 11:10 AM CDT Temperature 37 C (98.6 F) 05/22/2024 11:10 AM CDT Respiratory Rate 18 11/02/2023 1:12 PM CDT Oxygen Saturation 90% 05/22/2024 11:10 AM CDT Inhaled Oxygen Concentration - - Weight 83.6 kg (184 lb 3.2 oz) 10/04/2023 6:20 A M CDT Height 165.1 cm (5' 5) 10/04/2023 6:20 AM CDT Body Mass Index 30.65 10/04/2023 6:20 AM CDT Plan of Treatment Upcoming Encounters Date Type Department Care Team (Late st Contact Info) Description 07/21/2024 11:00 AM CDT Nurse/Clinic Staff Only [place] [address] [address] 07/24/2024 11:15 AM CDT Office Visit [facility] [address] [place] [address] Dominique Carrillo, CRISTOFER [address] [address] [place] [address] 08/18/2024 11:00 AM CDT Nurse/Clinic Staff Only [place] [address] [place] [address] [address] 09/22/2024 10:30 AM CDT Nurse/Clinic Staff Only [facility] [address] [place] [address] [address] 10/15/2024 10:15 AM CDT Procedure Only [facility] [address] [place] [address] [address] Hans Bolanos MD [address] [place] [address] [place] [address] Health Maintenance Due Date Last Done Comments Depression screening for age 12+ 1967 Hepatitis C screening for ag e 18-79 05/07/1973 Zoster (shingles) series for age 50+ (2 of 3) 02/20/2012 12/26/2011 Mammogram for age 45-75 12/11/2012 12/12/19 12, 12/05/2011, 11/21/2010, Additional history exists RSV vaccine for adults or (1 - Risk 60-74 years 1-dose series) 2015 DEXA/DXA scan for age 65+ 05/07/2020 Medicare Wellness for age 65+ 05/07/2020 Tetanus booster 08/07/2021 08/08/2011, 09/12/2005 Pneumococcal series for age 50+ (3 of 3 - PCV20 or PCV21) 10/09/2021 10/09/2016, 12/11/2014, 11/28/2013, Additional history exists Lipids for age 45-75 11/13/2022 11/13/2017, 10/24/19 09 Colonoscopy through age 75 11/21/2023 11/20/2013 COVID-19 vaccine series ( season) 2024 01/28/2024, 12/27/2022, 02/08/2022, Additional history exists Influenza Vaccine (Season Ended) 2024 11/06/2018, 10/25/2017, 10/31/2016, Additional history exists Tdap Completed 08/08/2011 Medical Devices Implanted Type [employer] Cook Device Identifier Shelf Expiration Date Model / Serial / Lot Stent Ultra 5fr 22cm 192-121 - [employer] Only - [id number] Implanted:Qty: 1 on 03/27/2017 by Kong Desai MD at [facility] Left: [employer] 11/15/2019 192-121# / / [id number] Explanted Type Area [employer] Cook Device Identifier Shelf Expiration Date Model / Serial / Lot Stent Ultra 5fr 22cm 192-121 - [facility] - [id number] Implanted:Qty: 1 on 12/14/2016 by Kong Desai MD at [facility] Explanted:Qty: 1 on 03/27/2017 by Kong Desai MD at [facility] Left: [employer] 08/15/2019 [id number]# / / [id number] Procedures Procedure Name Priority Date/Time Associated Diagnosis Comments MR PELVIS MUSCULOSKELETAL WWO Routine 05/29/2024 1:55 PM CDT Decubitus ulcer of sacral region, stage 4 (HC) Paraplegia (HC) URINALYSIS MICROSCOPIC Routine 3:20 PM CDT Neuromuscular dysfunction of bladder, unspecified Urinary tract infection, site not specified URINE CULTURE Routine 05/14/2024 3:20 PM CDT Neuromuscular dysfunction of bladder, unspecified Urinary tract infection, site not specified UA W/ SEDIMENT EXAM REFLEXED PER CRITERIA Routine 05/14/2024 3:20 PM CDT Neuromuscular dysfunction of bladder, unspecified Urinary tract infection, site not specified LIPID PANEL Early AM 11/13/2017 6:58 AM CDT SCAN-COLONOSCOPY 11/20/2013 12:0 0 AM CDT XR FFDM MAMMO UNI ADDL VIEWS LEFT (IA) Routine 12/12/2011 2:39 PM CDT Abnormal mammogram from Last 3 Months or Most Recently Relevant to Health Maintenance Results * MR PELVIS MUSCULOSKELETAL WWO (05/29/2024 1:55 PM CDT) Anatomical Region Laterality Modality Pelvis Magnetic Resonan ce 05/29/2024 8:34 PM CDT Impressions 05/29/2024 8:34 PM CDT 1. Partial resection of the sacrum and coccyx with ulceration at the postoperative bed. No subcutaneous abscess or osteomyelitis. 2. Soft tissue thickening and subcutaneous edema in the right hip region. No subcutaneous abscess or deep tract. 3. Thin tract in the left hip region consistent with sequela from previous infection. 4. Osseous volume loss in the ischial tuberosity region bilaterally could be due to postoperative change or resorption. 5. Diffuse muscular atrophy. 6. Left-sided ostomy. 7. Suprapubic catheter in the bladder. Dictated by Vasu Khan MD @ 05/29/2024 8:34:27 PM (Electronically Signed) Narrative 05/29/2024 8:34 PM CDT For Patients: As a result of the Cures Act, medical imaging exams and procedure reports are released immediately into your electronic medical record. You may view this report before your referring provider. If you have questions, please contact your health care provider. EXAM: MRI OF THE PELVIS, WITHOUT AND WITH IV CONTRAST CLINICAL INDICATION: Pain. COMPARISON PLAIN FILMS: None. COMPARISON CROSS-SECTIONAL IMAGING STUDIES: None. TECHNICAL: Axial, sagittal and coronal T1, PD FS and STIR images of the pelvis precontrast. Postcontrast T1 weighted imaging with fat saturation. Contrast: Clariscan, 20 mL IV. FINDINGS: OSSEOUS STRUCTURES AND SOFT TISSUES: Partial resection of the sacrum and coccyx. Right ulceration at the postoperative bed. There is soft tissue thickening overlying the sacrum and adjacent ulceration with slight enhancement. No subcutaneous abscess. No new osseous destruction, intramedullary edema, fatty marrow replacement or enhancement in the sacrum to suggest osteomyelitis. There is some soft tissue thickening and subcutaneous edema in the right hip region. No subcutaneous abscess or deep tract. There is a thin linear tract with decreased T1 and T2 signal in the left hip region which tracks to the greater trochanteric region. No edema or enhancement. Findings consistent with sequela from previous infection. Osseous volume loss in the ischial tuberosity region bilaterally consistent with postoperative change or resorption from previous infection. No fractures are evident. No evidence for avascular necrosis. MUSCULOTENDINOUS STRUCTURES: Diffuse muscular atrophy. No muscle edema. No intramuscular hematoma or fluid collection. HIP JOINTS: No hip joint effusion or synovitis to suggest septic arthritis. INTRAPELVIC CONTENTS: Left-sided ostomy. Suprapubic catheter in the bladder. No free fluid or fluid collection. Procedure Note Vasu Khan MD - 05/29/2024 For Patients: As a result of the Cures Act, medical imagingexams and procedure reports are released immediately into your electronicmedical record. You may view this report before your referring provider.If you have questions, please contact your health care provider. EXAM: MRI OF THE PELVIS, WITHOUT AND WITH IV CONTRAST CLINICAL INDICATION: Pain. COMPARISON PLAIN FILMS: None. COMPARISON CROSS-SECTIONAL IMAGING STUDIES: None. TECHNICAL: Axial, sagittal and coronal T1, PD FS and STIR images of the pelvisprecontrast. Postcontrast T1 weighted imaging with fat saturation.Contrast: Clariscan, 20 mL IV. FINDINGS: OSSEOUS STRUCTURES AND SOFT TISSUES: Partial resection of the sacrum and coccyx. Right ulceration at thepostoperative bed. There is soft tissue thickening overlying the sacrumand adjacent ulceration with slight enhancement. No subcutaneous abscess.No new osseous destruction, intramedullary edema, fatty marrow replacementor enhancement in the sacrum to suggest osteomyelitis. There is some soft tissue thickening and subcutaneous edema in the righthip region. No subcutaneous abscess or deep tract. There is a thin linear tract with decreased T1 and T2 signal in the lefthip region which tracks to the greater trochanteric region. No edema orenhancement. Findings consistent with sequela from previous infection. Osseous volume loss in the ischial tuberosity region bilaterallyconsistent with postoperative change or resorption from previousinfection. No fractures are evident. No evidence for avascular necrosis. MUSCULOTENDINOUS STRUCTURES: Diffuse muscular atrophy. No muscle edema. No intramuscular hematoma orfluid collection. HIP JOINTS: No hip joint effusion or synovitis to suggest septic arthritis. INTRAPELVIC CONTENTS: Left-sided ostomy. Suprapubic catheter in the bladder. No free fluid orfluid collection. IMPRESSION: 1. Partial resection of the sacrum and coccyx with ulceration at thepostoperative bed. No subcutaneous abscess or osteomyelitis. 2. Soft tissue thickening and subcutaneous edema in the right hip region.No subcutaneous abscess or deep tract. 3. Thin tract in the left hip region consistent with sequela from previousinfection. 4. Osseous volume loss in the ischial tuberosity region bilaterally couldbe due to postoperative change or resorption. 5. Diffuse muscular atrophy. 6. Left-sided ostomy. 7. Suprapubic catheter in the bladder. Dictated by Vasu Khan MD @ 05/29/2024 8:34:27 PM (Electronically Signed) us Leon Saunders MD MR Final Re sult * (ABNORMAL) URINALYSIS MICROSCOPIC (05/14/2024 3:20 PM CDT) RBC 6-10(A) 0-2, None Seen /HPF 05/14/2024 4:34 PM CDT [facility] WBC >100(A) 0-2, 3-5, None Seen /HPF 05/14/2024 4:34 PM CDT [facility] BACTERIA Many(A) None Seen, Rare, Few Bacteria/H PF 05/14/2024 4:34 PM CDT [facility] EPITHELIAL CELLS Many(A) None Seen, Few Epi/HPF 05/14/2024 4:34 PM CDT [facility] Urine URINE SPECIMEN / Unknown Client Collect / Unknown 05/14/2024 3:20 PM CDT 05/14/2024 4:27 PM CDT us George Meyer MD URINE Final Result [facility] [address] [place] [id number] * (ABNORMAL) URINE CULTURE (05/14/2024 3:20 PM CDT) CULTURE RESULT(A) 05/17/2024 7:23 AM CDT [facility] CULTURE 50,000-100,000 CFU/mL Klebsiella pneumoniae 05/17/2024 7:23 AM CDT [facility] CULTURE 10,000-50,000 CFU/mL Enterococcus faecalis 05/17/2024 7:23 AM CDT [facility] Comment: Levofloxacin susceptibilities for Enterococcus available upon request for urine isolates ONLY. Levofloxacin is not routinely recommended for Enterococcus and can ONLY be used for infections isolated in the urinary tract. In the setting of polymicrobial urine cultures, Enterococcus often represents colonization and may not necessitate treatment. Urine URINE SPECIMEN / Unknown Client Collect / Unknown 05/14/2024 3:20 PM CDT 05/14/2024 4:27 PM CDT Narrative Organism Antibiotic Method Susceptibility Klebsiella pneumoniae TRIMETHOPRIM/SULF <=03/02: S Klebsiella pneumoniae AMPICILLIN R Klebsiella pneumoniae CEFAZOLIN 2: S Klebsiella pneumoniae CEFAZOLIN-UC 2: S Comment:Cefazolin-UC interpretations are for therapy of uncomplicated UTIs due to E.coli, K.pneumoniae, or P.mirablis. Cefazolin breakpoint is used as a surrogate to predict results for the oral agents - cefdinir, cefuroxime, and cephalexin, when used for therapy of uncomplicated UTIs due to E coli, K, pneumoniae, and P. mirabilis. The FDA recommends cefadroxil susceptibility can be deduced from cefazolin. Klebsiella pneumoniae GENTAMICIN <=1: S Klebsiella pneumoniae CEFTRIAXONE <=0.25: S Klebsiella pneumoniae CEFTAZIDIME <=0.5: S Klebsiella pneumoniae LEVOFLOXACIN <=0.12: S Klebsiella pneumoniae CIPROFLOXACIN <=0.06: S Klebsiella pneumoniae PIPERACILLIN/TAZO <=4: S Klebsiella pneumoniae AMPICILLIN/SULBACTAM 4: S Klebsiella pneumoniae CEFEPIME <=0.12: S Klebsiella pneumoniae MEROPENEM <=0.25: S Klebsiella pneumoniae NITROFURANTOIN 64: I Enterococcus faecalis AMPICILLIN <=2: S Enterococcus faecalis NITROFURANTOIN <=16: S us George Meyer MD MICROBIOLOGY Final Result [facility] [address] [place] [address], [place] * (ABNORMAL) UA W/ SEDIMENT EXAM REFLEXED PER CRITERIA (05/14/2024 3:20 PM CDT) COLOR Yellow Yellow Color 05/14/2024 4:30 PM CDT [facility] CLARITY Cloudy(A) Clear Clarity 05/14/2024 4:30 PM CDT [facility] SPECIFIC GRAVITY,URINE 1.015 1.010, 1.015, 1.020, 1.025 05/14/2024 4:30 PM [facility] PH,URINE 5.5 6.0, 7.0, 8.0, 5.5, 6.5, 7.5, 8.5 05/14/2024 4:30 PM [facility] UROBILINOGEN, QUALITATIVE Normal Normal EU/dl 05/14/2024 4:30 PM [facility] PROTEIN, URINE Trace(A) Negative mg/dL 05/14/2024 4:30 PM [facility] GLUCOSE, URINE Negative Negative mg/dL 05/14/2024 4:30 PM [facility] KETONES,URINE Negative Negative mg/dL 05/14/2024 4:30 PM [facility] BILIRUBIN,URI NE Negative Negative 05/14/2024 4:30 PM [facility] OCCULT BLOOD,URINE Small(A) Negative 05/14/2024 4:30 PM [facility] NITRITE Positive(A) Negative 05/14/2024 4:30 PM [facility] LEUKOCYTE ESTERASE Large(A) Negative 05/14/2024 4:30 PM [facility] Urine URINE SPECIMEN / Unknown Client Collect / Unknown 05/14/2024 3:20 PM CDT 05/14/2024 4:27 PM T George Meyer MD URINE Final Result [facility] [address] [place] [address] * (ABNORMAL) Lipid Panel AM (11/13/2017 6:58 AM CDT) CHOLESTEROL,TOTAL 113 100 - 199 mg/dL 11/13/2017 8:06 AM T [facility] TRIGLYCERIDES 92 <150 mg/dL 11/13/2017 8:06 AM T [facility] HDL CHOLESTEROL 28(L) >40 mg/dL 8 8:06 AM CDT [facility] NON-HDL CHOLESTEROL 85 <145 mg/dl 11/13/2017 8:06 AM CDT [facility] CHOL/HDL RATIO 4.04 <4.50 11/13/2017 8:06 AM CDT [facility] LDL CHOLESTEROL 67 <=130 mg/dL 11/13/2017 8:06 AM CDT [facility] PROVIDER ORDERED STATUS RANDOM 11/13/2017 8:06 AM CDT [facility] Blood BLOOD SPECIMEN / Unknown Venipuncture / Unknown 11/13/2017 6:58 AM CDT 11/13/2017 7:07 AM CDT us Stephanie Howell MD CHEMISTRY Fi nal Result [facility] [address] [place] [address], [place] * SCAN-COLONOSCOPY (11/20/2013 12:00 AM CDT) Narrative 11/20/2013 12:00 AM CDT Procedure Note Scanner - 11/20/2013 12:00 AM CDT us Scanner OTHER Final Result * XR FFDM MAMMO UNI ADDL VIEWS LEFT (12/12/2011 2:39 PM CDT) Anatomical Region Laterality Modality BREASTS, Breast Left Left Mammography Impressions 12/12/2011 7:28 PM CDT There is no evidence for malignancy in the LEFT breast. Recommend annual screening mammography. ACR 1 Negative Narrative 12/12/2011 7:28 PM CDT ADDITIONAL VIEWS LEFT BREAST CLINICAL HISTORY: Abnormal screening mammogram LEFT breast. Comparison: Screening mammogram 12/05/2011. FINDINGS: A 90-degree lateral view LEFT breast, spot compression LEFT CC and spot compression LEFT MLO view are interpreted with full-field digital technique. These mammographic images were interpreted with the benefit of computer-aided detection. The focal asymmetric density seen on the screening study compresses out like normal fibroglandular tissue on the diagnostic views today. There are no suspicious Microcalcifications, masses or architectural distortions. The findings are compatible with a summation artifact on the screening exam. Procedure Note Johanny Castellanos MD - 12/12/2011 ADDITIONAL VIEWS LEFT BREAST CLINICAL HISTORY: Abnormal screening mammogram LEFT breast. Comparison: Screening mammogram 12/05/2011. FINDINGS: A 90-degree lateral view LEFT breast, spot compression LEFT CCand spot compression LEFT MLO view are interpreted with full-field digitaltechnique. These mammographic images were interpreted with the benefit ofcomputer-aided detection. The focal asymmetric density seen on the screening study compresses outlike normal fibroglandular tissue on the diagnostic views today. Thereare no suspicious Microcalcifications, masses or architecturaldistortions. The findings are compatible with a summation artifact on thescreening exam. IMPRESSION: There is no evidence for malignancy in the LEFT breast.Recommend annual screening mammography. ACR 1 Negative [facility] Final R esult from Last 3 Months or Most Recently Relevant to Health Maintenance Additional Health Concerns Infection Onset Date Last Indicated MRSA Comment:Order contact precautions. 10/01/23 patient has suprapubic cath. Not eligible for clearance. 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 Enteric Precautions not required on subsequent admissions provided: 1) >3 weeks since positive C diff test; 2) diarrhea resolved; and 3) patient has completed CDI antibiotics (excluding vanco taper). C diff testing not required on subsequent admissions unless patient is presenting with C diff symptoms 05/31/2020 05/31/2020 Insurance MEDICARE PART B HB ONLY MEDICARE PART A HB ONLY MEDICA CHOICE CARE MEDICA PRIME SOLUTIONS PB ONLY MEDICA PRIME SOLUTION HB MEDICAID MEDICARE PART B HB ONLY MEDICA PRIME SOLUTION HB MEDICARE PART B HB ONLY MEDICA PRIME SOLUTIONS JAIL Advance Directives Documents on File Type Date Recorded Patient Whizzer Operator Expl anation POLST 06/02/2022 POLST 05/27/2019 - Ma y 2020 POLST 05/27/2019 POLST 05/28/2014 2:33 PM - 23 Jun 2020 / ANJALI Effective 05/22/2014 Treatment Guidelines 01/12/2014 10:50 AM Healthcare Directive 12/28/2013 12:00 AM 12-29-13 * Full Code (Latest Code Status on File) Date Activated Date Inactivated Comments 09/30/2023 8:38 PM 10/04/2023 8:46 PM Question Answer Comments Code Status Discussion: Reviewed Preferences * Full Code Date Activated Date Inactivated Comments 10/23/2022 11:43 PM 10/24/2022 2:10 PM Question Answer Comments Code Status Discussion: Reviewed Preferences * Full Code Date Activated Date Inactivated Comments 02/24/2022 6:01 PM 02/25/2022 5:16 PM Question Answer Comments Code Status Discussion: Reviewed Preferences * Full Code Date Activated Date Inactivated Comments 07/07/2021 12:12 AM 07/08/2021 2:15 PM Question Answer Comments Code Status Discussion: Reviewed Preferences * Full Code Date Activated Date Inactivated Comments 01/04/2021 11:22 AM 01/11/2021 2:09 PM Question Answer Comments Code Status Discussion: Not Discussed Care Teams Transmission Calibration Engineer Relationship Specialty Start Date End Date Pcp, No . PCP - General 10/09/23
--- OUTSIDE RECORDS SUMMARY | 2024-06-25 16:58 | XMS_ITS | Encounter Summary ---
Author Organization [facility] Address [address] [place] [address]. [place] [address] Care Team Providers Care Ict Support Technicians Name Role Phone Chloé Castro RN Unavailable VoteErwin menezes Primary Care Provider [phone] Encounter Details Date Type Department Care Team (Late st Contact Info) Description 02/28/2018 Records - [facility] CONVERSION Scan, Non-Provider Social History Tobacco Use Types Packs/Day Years Used Date Smoking Tobacco: Every Day Cigarettes 1 57.6 Started: 11/02/1966 Smokeless Tobacco: Never Alcohol Use Standard Drinks/Week Comments No 0 (1 standard drink = 0.6 oz pur e alcohol) PHQ-2 Answer Date Recorded PHQ-2 Score 6 12/20/2017 Comments No Sex and Gender Information Value Date Recorded Sex Assigned at Not on file Legal Sex Female 4:34 AM ANODIC OPERATOR Gender Identity Not on file Sexual Orientation Not on file documented as of this encounter Plan of Treatment Not on file documented as of this encounter Visit Diagnoses Not on filedocumented in this encounter Additional Health Concerns Infection Onset Date Last Indicated Resolved Time MRSA 06/29/2020 06/29/2020 Assessment Noted Time PHQ-9 Depression Total Score: 8 12/21/19 18 10:41 AM ANODIC OPERATOR documented as of this encounter Care Teams Ict Support Technicians Relationship Specialty Start Date End Date Votel, Erwin Sharma PCP - General Family Practice 11/02/16 Chloé Castro, RN Specialty Cdl Dedicated Truck Driver Neurology 01/04/16 documented as of this encounter
--- OUTSIDE RECORDS SUMMARY | 2024-06-25 16:58 | XMS_ITS ---
Author Organization [facility] Care Team Providers Care Sheet Rock Layer Name Role Phone Ayana Glez Unavailable Unavailable Flash Oliveira Unavailable Unavailable Allergies and adverse reactions Code CodeSystem Substance Reaction Severity StartDate Concern Status 645674292 SNOMED CT NSAIDs Unknown 03/23/2014 active Celexa Unknown Unknown active Care Team Name Role Address Phone Organization Dates Flash Oliveira PCP [facility] [address] [place] [address], [address], [place], [address], [place] (Office): [facility] 06/01/2014 - 08/11/2014 Ayana Glez [address], [place], [address], [facility] 06/01/2014 - 08/11/2014 Immunizations Immunization Status Vaccine Details Vaccine Code CodeSystem Date Notes TB 2 Step Mantoux Skin Test completed tuberculin skin test; unspecified formulation lotNumber: [id number] expiry: 10/14/2015 Mfg: [employer] Given 0.1 ml Left Forearm intradermally Step 1 of Multi-step with next step required 98 CVX created date: 06/07/2014 consent date: 06/06/2014 administer ed date: 06/06/2014 TB 2 Step Mantoux Skin Test completed tuberculin skin test; unspecified formulation lotNumber: [id number] expiry: 05/14/2015 Mfg: [employer] Given 0.1 ml Right Forearm intradermally Step 2 of Multi-step with next step required 98 CVX created date: 01/20/2014 consent date: 01/20/2014 administer ed date: 01/20/2014 Educated by scott on 01/20/2014 TB 2 Step Mantoux Skin Test completed tuberculin skin test; unspecified formulation lotNumber: [id number] expiry: 04/13/2015 Mfg: [employer] Given 0.1 [...] Current Smoking Status Tobacco smoking consumption unknown 762451575 SNOMED CT Sex Assigned At Female 1955 89528-2 [facility] Gender Identity Vital Signs Code Code System Vitals Name Values and Units Timing Information 8310-5 LOINC Body Temperature Value=96.6 Units= F 08/11/2014 44911-2 LOINC Pain Level Value=7.0 08/10/2014 62526-3 LOINC Weight Aebqe=295.4 Units=Lbs 9279-1 LOINC Respiratory Rate Value=18.0 Units=/m in 08/06/2014 8462-4 LOINC Blood Pressure-Diastolic Value=62 Un its=mmHg 08/06/2014 8480-6 [facility] Blood Pressure-Systolic Eatny=594 Un its=mmHg 08/06/2014 8867-4 [facility] Heart rate Value=66.0 Units=/min 87900-5 [facility] O2 % BldC Oximetry Value=96.0 Units= % 08/06/2014 8302-2 [facility] Height Value=63.0 Units=Inches 06/02/2014
--- OUTSIDE RECORDS SUMMARY | 2024-06-25 16:58 | XMS_ITS | Encounter Summary ---
Author Organization [facility] Address [address] [place] [address]. [place] [address] Care Team Providers Care Information Systems Security Officer Name Role Phone Ayana Glez Primary Care Provider Unav ailGenevieve Roldan Primary Care Provider [phone] Chloé Castro RN Unavailable Erwin Fuchs Primary Care Provider [phone] Encounter Details Date Type Department Care Team (Late st Contact Info) Description 06/23/2014 Records - [facility] CONVERSION Scan, Non-Provider Social History Tobacco Use Types Packs/Day Years Used Date Smoking Tobacco: Light Smoker Alcohol Use Standard Drinks/Week Comments Not Asked 0 (1 standard drink = 0.6 oz pur e alcohol) Comments No Sex and Gender Information Value Date Recorded Sex Assigned at Not on file Legal Sex Female 4:34 AM INSTRUMENT CHECKER Gender Identity Not on file Sexual Orientation Not on file documented as of this encounter Plan of Treatment Not on file documented as of this encounter Visit Diagnoses Not on filedocumented in this encounter Additional Health Concerns Infection Onset Date Last Indicated Resolved Time MRSA 06/29/2020 06/29/2020 documented as of this encounter Care Teams Information Systems Security Officer Relationship Specialty Start Date End Date Ayana Glez PCP - General Family Practice 07/22/13 04/26/15 Genevieve Rowan [address] [address] PCP - General Family Practice 04/27/15 11/01/16 Erwin Fuchs PCP - General Family Practice 11/02/16 Chloé Castro, CHRISTEN Specialty Program Dir Neurology 01/04/16 10/05/20 documented as of this encounter
--- OUTSIDE RECORDS SUMMARY | 2024-06-25 16:58 | XMS_ITS | Encounter Summary ---
Author Organization [facility] Address [address] [place] [address]. [place] [address] Care Team Providers Care Car Deliverer Name Role Phone Chloé Castro RN Unavailable VoteErwin menezes Primary Care Provider [phone] Encounter Details Date Type Department Care Team (Late st Contact Info) Description 03/29/2018 Records - [facility] CONVERSION Scan, Non-Provider [...] on file Legal Sex Female 4:34 AM ELECTRONIC PLOTTING SYSTEM OPERATOR Gender Identity Not on file Sexual Orientation Not on file documented as of this encounter Plan of Treatment Not on file documented as of this encounter Visit Diagnoses Not on filedocumented in this encounter Additional Health Concerns Infection Onset Date Last Indicated Resolved Time MRSA 06/29/2020 06/29/2020 Assessment Noted Time PHQ-9 Depression Total Score: 8 12/21/19 18 10:41 AM ELECTRONIC PLOTTING SYSTEM OPERATOR documented as of this encounter Care Teams Car Deliverer Relationship Specialty Start Date End Date Votel, Erwin Sharma PCP - General Family Practice 11/02/16 Chloé Castro, RN Specialty Tax Manager Cpa Neurology 01/04/16 documented as of this encounter
--- OUTSIDE RECORDS SUMMARY | 2024-06-25 16:58 | XMS_ITS ---
Author Organization [facility] Care Team Providers Care Railroad Switchman Name Role Phone Pj Stone Unavailable Unavailable Allergies and adverse reactions Code CodeSystem Substance Reaction Severity StartDate Concern Status 255928325 SNOMED CT NSAIDs Moderate 04/12/2018 active Celexa Severe 04/12/2018 active Care Team Name Role Address Phone Organization [place] , [address], [place] (Office): : : : [facility] 04/12/2018 - 05/12/2018 Immunizations Immunization Status Vaccine Details Vaccine Code CodeSystem Date Notes Influenza completed Influenza, high-dose, split virus, quadrivalent, injectable, preservative free 197 CVX created date: 04/17/2018 administer ed date: 10/25/2017 TB 2 Step Mantoux Skin Test completed tuberculin skin test; unspecified formulation lotNumber: [id number] expiry: 11/11/2018 Mfg: [employer] Given 0.1 ml Right Forearm subcutaneously Step 2 of Multi-step with next step required 98 CVX created date: 04/22/2018 consent date: 04/22/2018 administer ed date: 04/22/2018 TB 2 Step Mantoux Skin Test completed tuberculin skin test; unspecified formulation lotNumber: [id number] expiry: 11/02/2019 Mfg: [employer] Given 0.1 ml Right Forearm intradermally Step 1 of Multi-step with next step required 98 CVX created date: 04/13/2018 consent date: 04/12/2018 administer ed date: 04/12/2018 Educated by bertin on 04/12/2018 Pneumovax 23 completed pneumococcal polysaccharide vaccine, 23 valent 33 CVX created date: 04/17/2018 administer ed date: 11/28/2013 Zoster vaccine completed creat ed date: 04/17/2018 administer ed date: 12/26/2011 TDAP completed created date: 04/17/2018 administer ed date: 08/08/2011 Prevnar 13 completed created date: 04/17/2018 administer ed date: 10/09/2016 Medications Section Medication Name Status Code CodeSystem Dose Route Frequency Admin Type Sig Text Start Date End Date HYDROmorphone HCl Tablet 2 MG active 512178 RXNORM 1 tablet Oral as needed PRN Give 1 tablet by mouth every 4 hours as needed for Pain MAXIMU M OF THREE DOSES PER DAY 2018 - Mirabegron ER Tablet Extended Release 24 Hour 50 MG active 3388815 RXNORM 1 tablet Oral in the morning Routine Give 1 tablet by mouth in the mornin g relate d to OVERAC TIVE BLADDE R (N32.8 1) 2018 - Aspirin Tablet 81 MG active 839668 RXNORM 1 tablet Oral in the morning Routine Give 1 tablet by mouth in the mornin g for Prophy laxis Cardia c 2018 - Vitamin D3 Tablet 1000 UNIT active 156304 RXNORM 2 tablet Oral in the morning Routine Give 2 tablet by mouth in the mornin g for Supple ment 2018 - Ondansetron Tablet Disintegratin g active 4 mg Oral as needed PRN Give 4 mg by mouth every 8 hours as needed for Nausea relate d to NAUSEA (R11.0 ) 2018 - Gabapentin Capsule 300 MG active 975924 RXNORM 3 capsul e Oral three times a day Routine Give 3 capsul e by mouth three times a day for Pain 2018 - RaNITidine HCl Tablet 300 MG active 552362 RXNORM 1 tablet Oral at bedtime Routine Give 1 tablet by mouth at bedtim e relate d to GASTRO -ESOPH AGEAL REFLUX DISEAS E WITHOU T ESOPHA GITIS (K21.9 ) 2018 - GuaiFENesin ER Tablet Extended Release 12 Hour 600 MG active 088094 RXNORM 1 tablet Oral two times a day Routine Give 1 tablet by mouth two times a day for Conges tion 2018 - Lisinopril Tablet 20 MG active 893770 RXNORM 1 tablet Oral in the morning Routine Give 1 tablet by mouth in the mornin g relate d to ESSENT IAL (PRIMA RY) HYPERT ENSION (I10) 2018 - Acetaminophen Tablet active 1000 mg Oral as needed PRN Give 1000 mg by mouth every 8 hours as needed for pain 2018 - FentaNYL Patch 72 Hour 50 MCG/HR active 584556 RXNORM 50 mcg Transde rmal every 72 hours Routine Apply 50 mcg transd ermall y every 72 hours for Pain and remove per schedu le 2018 - FentaNYL Patch 72 Hour 12 MCG/HR active 904143 RXNORM 12 mcg Transde rmal every 72 hours Routine Apply 12 mcg transd ermall y every 72 hours for Pain 2018 - Mental Status Section Date Assessment Total Score Description 05/12/2018 CAM 0 No delirium ind icated 04/19/2018 BIMS 14 cognitively int act CAM 0 No delirium ind icated PHQ-9 03 minimal depress ion Problems Problem # Description Date of onset Resolved Date Code CodeSystem Concern Status 1 ACUTE GASTRIC ULCER WITHOUT HEMORRHAGE OR PERFORATION 04/13/[address] active 2 ATHEROSCLEROTIC HEART DISEASE OF [place] CORONARY ARTERY WITHOUT ANGINA PECTORIS 04/13/[address] active 3 ENTEROCOLITIS DUE TO CLOSTRIDIUM DIFFICILE, NOT SPECIFIED RECURRENT 04/13/[address] active 4 ESSENTIAL (PRIMARY) HYPERTENSION 04/13/[address] active 5 GASTRO-ESOPHAGEAL REFLUX DISEASE WITHOUT ESOPHAGITIS 04/13/[address] active 6 METHICILLIN RESISTANT STAPHYLOCOCCUS AUREUS INFECTION, UNSPECIFIED SITE 04/13/[address] active 7 MULTIPLE SCLEROSIS 04/13/[address] active 8 NAUSEA 04/13/[address] active 9 OLD MYOCARDIAL INFARCTION 04/13/[address] active 10 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[place], SACRAL AND SACROCOCCYGEAL REGION 04/13/[address] active 11 OTHER CHRONIC PAIN 04/13/[address] active 12 OTHER CONSTIPATION 04/13/[address] active 13 OVERACTIVE BLADDER 04/13/[address] active 14 SENSORINEURAL HEARING LOSS, BILATERAL 04/13/[address] active 15 TOBACCO USE 04/13/19 Z72.0 ICD-10-CM active 16 UNSPECIFIED DIASTOLIC (CONGESTIVE) HEART FAILURE 04/13/[address] active 17 VITAMIN D DEFICIENCY, UNSPECIFIED 04/13/[address] active Reason for Referral No Reasons for Referral Entered Social History Social History Observation Description Start Date End Date Code Code System Current Smoking Status Smokes tobacco daily Not available 108108855 SNOMED CT Sex Assigned At Female 1955 15217-1 [facility] Gender Identity Vital Signs Code Code System Vitals Name Values and Units Timing Information 52799-6 [facility] Weight Efwon=011.6 Units=Lbs 9279-1 [facility] Respiratory Rate Value=18.0 Units=/m in 05/01/2018 8462-4 [facility] Blood Pressure-Diastolic Value=74 Un its=mmHg 05/01/2018 8480-6 [facility] Blood Pressure-Systolic Kaxjq=290 Un its=mmHg 05/01/2018 8310-5 [facility] Body Temperature Value=97.6 Units= F 05/01/2018 8867-4 [facility] Heart rate Value=88.0 Units=/min 26065-4 [facility] O2 % BldC Oximetry Value=92.0 Units= % 05/01/2018 21846-2 [facility] Pain Level Value=0.0 04/13/2018
--- OUTSIDE RECORDS SUMMARY | 2024-06-25 16:58 | XMS_ITS | Encounter Summary ---
Author Organization [facility] Address [address] [place] [address]. [place] [address] Care Team Providers Care Mat Weaver Name Role Phone Ayana Glez Primary Care Provider Unav ailable Genevieve Rowan Primary Care Provider [phone] Chloé Castro RN Unavailable Erwin Fuchs Primary Care Provider [phone] Encounter Details Date Type Department Care Team (Late st Contact Info) Description 05/20/2014 Records - [facility] CONVERSION Scan, Non-Provider Social History Tobacco Use Types Packs/Day Years Used Date Smoking Tobacco: Light Smoker Alcohol Use Standard Drinks/Week Comments Not Asked 0 (1 standard drink = 0.6 oz pur e alcohol) Comments No Sex and Gender Information Value Date Recorded Sex Assigned at Not on file Legal Sex Female 4:34 AM ARMATURE WINDER REPAIR Gender Identity Not on file Sexual Orientation Not on file documented as of this encounter Plan of Treatment Not on file documented as of this encounter Visit Diagnoses Not on filedocumented in this encounter Additional Health Concerns Infection Onset Date Last Indicated Resolved Time MRSA 06/29/2020 06/29/2020 documented as of this encounter Care Teams Mat Weaver Relationship Specialty Start Date End Date Ayana Glez PCP - General Family Practice 07/22/13 04/26/15 Genevieve Rowan [address] [address] PCP - General Family Practice 04/27/15 11/01/16 Erwin Fuchs PCP - General Family Practice 11/02/16 Chloé Castro, CHRISTEN Specialty Top Ironer Neurology 01/04/16 10/05/20 documented as of this encounter
--- OUTSIDE RECORDS SUMMARY | 2024-06-25 16:58 | XMS_ITS | Clinical Summary ---
Author Organization [facility] Address [address] [place] [address]. [place] [address] Care Team Providers Care Research Rn Spec Name Role Phone Pedroteclif Erwin Sharma Primary Care Provider [phone] Allergies Active Allergy Reactions Criticality Noted Date Comments Citalopram Nausea 07/28/2013 Pt unaware of this as an allergy. Nsaids 03/31/2014 Hx of stomach ulcer. Pt reports only takes APAP. Medications interferon beta-1a (AVONEX) 30 MCG/0.5ML injectionIndicatio ns:Multiple sclerosis (H) Inject 0.5 mLs (30 mcg) into the muscle every 7 days 5 each 06/04/19 14 Active Additional Information Patient not taking.Reported on 12/20/2017 mupirocin (BACTROBAN) 2 % ointment Apply topically daily Active gaotine-toxbct-mcu tease (CREON 12) 53178 UNITS CPEP 1 capsule by Per J Tube route daily Active FOLIC ACID PO Take 1 mg by mouth daily Active potassium chloride SA (K-DUR,KLOR-CON M) 10 MEQ tablet Take 20 mEq by mouth daily Active Furosemide (LASIX PO) Take 20 mg by mouth daily Active METOPROLOL TARTRATE PO Take 12.5 mg by mouth 2 times daily Active MORPHINE SULFATE PO Take 15 mg by mouth every 4 hours as needed for moderate to severe pain Active MORPHINE SULFATE PO Take 7.5 mg by mouth every 4 hours as needed for moderate to severe pain Active Morphine Sulfate (MS CONTIN PO) Take 30 mg by mouth 3 times daily Active mirabegron (MYRBETRIQ) 50 MG 24 hr tablet Take 50 mg by mouth daily Active nystatin (MYCOSTATIN) cream Apply topically 2 times daily Active nystatin (MYCOSTATIN) 206857 UNIT/GM POWD Apply topically as needed Active Pantoprazole Sodium (PROTONIX PO) Take 40 mg by mouth 2 times daily (before meals) Active SODIUM BICARBONATE PO 650 mg by Per J Tube route daily Active Acetaminophen (TYLENOL PO) Take 1,000 mg by mouth every 6 hours as needed for mild pain or fever Active Ondansetron HCl (ZOFRAN PO) Take 4 mg by mouth every 8 hours as needed for nausea or vomiting Active fentaNYL (DURAGESIC) 12 mcg/hr patch [address] 1 patch onto the skin every 72 hours Active fentaNYL (DURAGESIC) 25 mcg/hr patch [address] 1 patch onto the skin every 72 hours Active ranitidine (ZANTAC) 300 MG tablet Take 300 mg by mouth At Bedtime Active GABAPENTIN PO Take 600 mg by mouth 3 times daily Active triamcinolone (KENALOG) 0.1 % lotion Apply topically 3 times daily Active VITAMIN D, CHOLECALCIFEROL, PO Take 1,000 Units by mouth daily Active Magnesium Hydroxide (MILK OF MAGNESIA PO) Take 30 mLs by mouth as needed Active cyanocobalamin (VITAMIN B12) 1000 MCG/ML injection Inject 1 mL into the muscle every 30 days Active polyethylene glycol (MIRALAX/GLYCOLAX) powder Take 17 g by mouth daily Active ASPIRIN PO Take 81 mg by mouth daily Active Docusate Sodium (COLACE PO) Take 100 mg by mouth daily Active nitrofurantoin macrocrystal (MACRODANTIN) 100 MG capsule Take 1 tab twice daily for 5 days. 04/05/19 16 Active ondansetron (ZOFRAN-ODT) [address] 4 mg under the tongue 08/20/19 15 Active order for DMEIndications:MS (multiple sclerosis) (H) Equipment being ordered: Seat for wheelchair 1 Device 0 02/22/19 17 Active Active Problems Problem Noted Date Diagnosed Date Wound of buttock 12/20/2017 Altered mental status 11/12/2017 Elevated troponin 11/12/2017 LLL pneumonia 03/30/2017 Overview (12/20/2017): Overview: 03/28/2017 chest radiograph: Stable right upper extremity PICC. Stable cardiomediastinal silhouette with calcified aortic arch. The right lung is clear. Persistent left basilar consolidation, slightly increased in the retrocardiac region. Small left pleural effusion. No pneumothorax. Gram-positive cocci bacteremia 03/29/2017 Overview (12/20/2017): Overview: 03/27/2017 Blood culture: Enterococcus faecalis 03/29/2017 repeat Blood cultures negative. Hypokalemia 03/28/2017 Overview (12/20/2017): Overview: Formatting of this note may be different from the original. 03/28/2017 Potassium 3.2. POTASSIUM (mmol/L) Date Value 04/01/2017 3.7 Incomplete RBBB 03/27/2017 Left ureteral stone 03/27/2017 Overview (12/20/2017): Overview: 03/27/2017 Left ureteroscopy, laser lithotripsy of stones, stone basketing, stent placement. Septic shock 03/27/2017 Overview (12/20/2017): Overview: 03/27/2017 onset following urologic procedure, hypotension, PICC line placement. Lactate level 1.9. Treated with Levophed for 3 days. Suprapubic catheter 06/21/2016 B12 deficiency 06/14/2016 Pressure ulcer of coccygeal region, stage 4 08/2015 Cannabis use, uncomplicated 07/21/2015 Tobacco abuse 07/21/2015 Yeast infection 05/20/2014 Pernicious anemia 05/06/2014 Anemia 05/03/2014 Neuritis 05/02/2014 Ulcer of sacral region 04/29/2014 Sacral pressure sore 04/28/2014 Perceptive hearing loss, both sides 01/30/2014 Sensorineural hearing loss, bilateral 01/30/2014 Decubitus ulcer of lower back 01/27/2014 Osteomyelitis 01/27/2014 Advanced care planning/counseling discussion Overview (11/02/2016): Overview: Patient has identified Health Care Agent(s): Yes Add Health Care Agents: No Pt identified her daughter as her decision maker - Debra Bautista [phone] Patient has Advance Care Plan Documents (Health Care Directive, POLST): No, Health Care Packet given to patient and family. Patient has identified Specific Treatment Preferences: No Specific limits to treatment preferences NOT identified: ASSUME FULL TREATMENT. Encounter for counseling 12/29/2013 Overview (11/02/2016): Overview: Overview: Patient has identified Health Care Agent(s): Yes Add Health Care Agents: No Pt identified her daughter as her decision maker - Debra Bautista [phone] Patient has Advance Care Plan Documents (Health Care Directive, POLST): No, Health Care Packet given to patient and family. Patient has identified Specific Treatment Preferences: No Specific limits to treatment preferences NOT identified: ASSUME FULL TREATMENT. 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 Has S/P tube. MRSA (methicillin resistant staph aureus) cultur e positive 06/28/2012 Overview (11/02/2016): Overview: In urine. Has S/P tube. Decubitus ulcer 02/12/2012 Encounter for long-term (current) use of other m edications 06/20/2011 Pain medication agreement 06/20/2011 Intestinal infection due to Clostridium difficil e 01/02/2011 Urinary tract infection 08/08/2010 Lower urinary tract infectious disease 1 Corns and callosity 06/14/2010 Vitamin D deficiency 08/09/2009 Essential hypertension 04/02/2009 Immunizations Immunization Administration Dates Next Due Pneumo Conj 13-V (2010&after) 10/09/2016, 014 Pneumococcal 23 valent 12/11/2014,11/28/2013 TDAP Vaccine (Boostrix) 08/08/2011 Zoster vaccine, live 12/26/2011 Family History Medical History Relation Comments Brain Tumor Father Dcd age 56 Alzheimer Disease Mother Dcd age 78 Relation Status Comments Father Mother Social History Tobacco Use Types Packs/Day Years Used Date Smoking Tobacco: Former Cigarettes 0 11/02/1966 - 07/15/2018 Smokeless Tobacco: Never Tobacco Cessation:Ready to Q uit: No; Counseling Given: Yes Alcohol Use Standard Drinks/Week Comments No 0 (1 standard drink = 0.6 oz pur e alcohol) PHQ-2 Answer Date Recorded PHQ-2 Score 6 12/20/2017 Adolescent Education Answer Date Record ed Getting School Help Needed Not on file 11/26 Comments No Sex and Gender Information Value Date Recorded Sex Assigned at Not on file Legal Sex Female 4:34 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 Gender Identity Not on file Sexual Orientation Not on file Last Filed Vital Signs Vital Sign Reading Time Taken Comments Blood Pressure 110/62 12/31/2018 12:52 PM VALUE 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 Pulse 82 12/31/2018 12:52 PM VALUE 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 Temperature 37 C (98.6 F) 12/31/2018 12:52 PM VALUE 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 Respiratory Rate 18 12/31/2018 12:52 PM VALUE 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 Oxygen Saturation 95% 12/20/2017 10:42 AM VALUE 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 Inhaled Oxygen Concentration - - Weight 75.8 kg (167 lb) 12/03/2018 12:56 PM CDT Height 160 cm (5' 3) 02/27/2018 6:27 PM VALUE 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 Body Mass Index 29.58 02/27/2018 6:27 PM VALUE 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 Plan of Treatment Not on file Medical Devices Implanted Type Area Electrical Continuity Tester Device Identifier Shelf Expiration Date Model / Serial / Lot Suprapubic Catheter Colostomy Bag Additional Health Concerns Infection Onset Date Last Indicated MRSA 06/29/2020 06/29/2020 Insurance [place]ID [place] MED[place] PR[place] SOL[place] MEDICARE MEDICARE [place] Care Teams Research Rn Spec Relationship Specialty Start Date End Date VotelErwin PCP - General Family Practice 11/02/16
--- NOTE | 2024-06-25 17:27 | ED_ITS ---
HPI - General Adult General Date Seen: 06/25/24 Chief complaint: Nausea/Vomiting Stated complaint: weakness Time Seen by Provider: 06/25/24 17:24 History of Present Illness HPI narrative: This is a 69-year-old female with a very complex past medical history brought to the ER today by EMS from her [facility] at [facility]. She has apparently been having nausea and vomiting for the past several days, also generalized pain, more confused and lethargic than her normal. She is apparently at normally alert and oriented x3. EMS reports that she has chronic bilateral lower extremity weakness so is not able to walk on her own. She has chronic bedsores which apparently have significant dressings and packing in place. Her nursing staff wonder if the bedsores are infected. History from the patient is somewhat limited because she is hard of hearing and she does not seem like she is a reliable historian and giving concise answers that always trach. This best as I can get from the patient she has had a cough lately it sounds like it may be worse than her normal chronic cough. She is currently on oxygen 1 L per EMS but the patient says she is not normally on oxygen. Her nurse actually knows her from previously in her life when he used to work at a usp facility where she was a resident. She had been on chronic oxygen at that time. She is also complaining of generally feeling ?like S#!t but is not really able to be more clear about what that means. It sounds like she is nauseous. Her stomach is hurting. Her back is hurting. Not able to get a clear HPI about when those symptoms began or what came 1st. She does have a suprapubic catheter in place. Unclear when was last changed. Per paper medical records that were sent with her she does have a POLST form that indicates that she is full code and wants full treatment. Past medical her history per her records includes pressure ulcers on her sacrum stage IV, neuromuscular bladder dysfunction with suprapubic catheter, generalized edema, chronic anemia, hypokalemia, GERD, chronic diastolic CHF, paraplegia, history of MRSA. Current med list includes: Aspirin 81 mg Famotidine Hydrocortisone cream Multivitamin Oxybutynin 10 mg q.day Spironolactone 12.5 mg every day or every other day for fluid overload Furosemide 20 mg q.a.m. Doxycycline 100 mg p.o. b.i.d. for 7 days started on 06/12 and ended on 06/19 Gabapentin 900 mg b.i.d. Morphine sulfate ER 15 mg b.i.d. Nystatin cream Potassium chloride 20 mEq b.i.d. Acetaminophen p.r.n.. It looks like she gets that 3 times daily Beneprotein History from her family who arrive shortly after she does confirms that she had been on antibiotics a few weeks ago for cough but is still there and productive. She has also been more confused than normal for the past couple of days and has had some nausea and vomiting. They confirm that she does have full code advanced directives. They confirm the other above symptoms to the best of their ability Related Data Home Medications ?Medication ?Instructions ?Recorded ?Confirmed famotidine 40 mg tablet 40 mg PO DAILY 03/07/23 08/30/23 gabapentin 300 mg capsule 900 mg PO BID 03/07/23 08/30/23 morphine 15 mg tablet,extended 15 mg PO DAILY PRN 03/07/23 08/30/23 release morphine 30 mg immediate release 30 mg PO DAILY 03/07/23 08/30/23 tablet oxybutynin chloride 10 mg 10 mg PO DAILY 03/07/23 08/30/23 tablet,extended release 24 hr spironolactone 25 mg tablet 12.5 mg PO Q48H 03/07/23 08/30/23 acetaminophen 500 mg tablet 1,000 mg PO TID 08/30/23 08/30/23 hydrocortisone 1 % topical cream 1 applic topical DAILY 08/30/23 08/30/23 (Ala-Joshua) multivitamin (Daily-Ailyn tablet) 2 tab PO DAILY 08/30/23 08/30/23 naloxone 4 mg/actuation nasal spray 4 mg intranasal Q2-3M PRN 08/30/23 08/30/23 nystatin 100,000 unit/gram topical 1 applic topical TID 08/30/23 08/30/23 cream ondansetron HCl 4 mg tablet 4 mg PO Q8H PRN 08/30/23 08/30/23 sennosides 8.6 mg tablet 17.2 mg PO BID PRN 08/30/23 08/30/23 (Evac-U-Gen (sennosides)) Previous Rx's ?Medication ?Instructions ?Recorded aspirin 81 mg capsule 81 mg PO DAILY #30 caps 08/31/23 furosemide 20 mg tablet 20 mg PO DAILY #30 tabs 08/31/23 Allergies Allergy/AdvReac Type Severity Reaction Status Date / Time citalopram (From Celexa) Allergy Unknown Verified 06/25/24 19:30 duloxetine Allergy Unknown Verified 06/25/24 19:30 NSAIDS (Non-Steroidal Allergy Unknown Verified 06/25/24 19:30 Anti-Inflamma PFSH PFSH Social History What is your current living situation?: I presently have a place to live Problems where you live: no known problems Problems where you live details: no known problems In the past 12 months, utilities in danger of being shut off: no In past 12 months, lack of transportation kept you from medical appts, meetings, work, or getting things needed for daily living: no In the past 12 mos, have been you worried that your food would run out before you had money to buy more?: never true In the past 12 mos, the food you bought just didn't last and you didn't have money to buy more?: never true Smoking Status: Current some day smoker What tobacco products do you use: cigarettes How often do you have a drink containing alcohol: never How often do you have six or more drinks on one occasion: Never AUDIT-C Alcohol total score: 0 Non-prescribed substance use: denies use Caffeine: No How often does anyone, including family, friends and others, physically hurt you : never How often does anyone, including family, friends and others, insult or talk down to you: never How often does anyone, including family, friends and others, threaten you with harm: never How often does anyone, including family, friends and others, scream or curse at you: never service: No Exam Narrative: Exam Narrative: Constitutional: Exam performed with nurse at the bedside with me. Appears well-developed and heavyset. She is awake but drowsy and eyes are closed unless I speak to her in which case the open easily. GCS is 14. When I ask her questions she answers them but sometimes answers not really track. Seems somewhat nonfocally confused. HENT: Head: Atraumatic. Nose: Nose normal. Mouth/Throat: Oral mucosa is clear but dry, not desiccated her cry no trismus. Pharynx normal. Tonsils symmetric. No tonsillar enlargement, erythema, or exudate. Eyes: Conjunctivae normal. EOM normal. Pupils equal, round, and reactive to light. No scleral icterus. Neck: Normal range of motion. Neck supple. No tracheal deviation present. Cardiovascular: Normal rate, regular rhythm. No gallop. No friction rub. No m urmur heard. Symmetric radial and PT artery pulses Pulmonary/Chest: Effort normal. No stridor. No respiratory distress. No wheezes. No rales. No rhonchi . No tenderness. She arrives on 1 L nasal cannula but on room air she is satting 96%. Abdominal: Soft. Bowel sounds normal. No distension. No mass. Diffuse mild tenderness. No rebound. No guarding. Musculoskeletal: RUE: Normal range of motion. No tenderness. No deformity LUE: Normal range of motion. No tenderness. No deformity RLE: Normal range of motion. No edema. No tenderness. No deformity LLE: Normal range of motion. No edema. No tenderness. No deformity Lymph: No cervical adenopathy. Neurological: Alert and oriented to person, place, and time. Normal strength. CN II-VII intact. No sensory deficit. GCS eye subscore is 4. GCS verbal subscore is 5. GCS motor subscore is 6. Normal coordination Skin: She has rolled for skin exam. She does have Mepilex dressings on her sacral/decubitus ulcers. We took the dressings off for evaluation. She does have some skin breakdown very low on the sacrum over the coccyx and into the gluteal cleft. I can see her exposed rectum. No rectal prolapse. She has a fairly large irregular shaped deep, tunneling decubitus ulcer that is packed with saline moistened gauze. There is some chronic appearing erythema on the skin of her sacrum but no definite bright acute appearing erythema. I do not see or smell any purulent or malodorous drainage. She has erythema of the skin in the skin fold below her abdominal pannus and in the intertriginous region of her groin consistent with Abigail. There is a fair amount of whitish cream on that that is probably nystatin cream or some other antifungal. I do not think the white material is purulent drainage. Skin is otherwise warm and dry. No rash noted. No pallor. Normal capillary refill. Psychiatric: Limited by mental status. She is a bit drowsy. Const: Vital Signs, click to edit/add: Vital Signs - 24 hr 06/25/24 17:07 06/25/24 18:15 06/25/24 19:00 Temperature 99 F Pulse Rate 98 84 Pulse Rate [Right Pulse Oximeter] 83 Respiratory Rate 18 14 12 Blood Pressure Blood Pressure [Ri ght Forearm] 96/40 L Pulse Oximetry 96 93 [facility] 06/25/24 19:45 06/25/24 20:17 06/25/24 20:18 Temperature Pulse Rate 97 95 98 Pulse Rate [Right Pulse Oximeter] Respiratory Rate 16 12 Blood Pressure 92/61 Blood Pressure [Ri ght Forearm] Pulse Oximetry 92 89 93 Oxygen Delivery Vt thod 06/25/24 20:30 06/25/24 20:32 06/25/24 21:01 Temperature Pulse Rate 100 97 Pulse Rate [Right Pulse Oximeter] Respiratory Rate 20 Blood Pressure 91/58 L Blood Pressure [Ri ght Forearm] Pulse Oximetry 87 L 90 Oxygen Delivery Vt thod 06/25/24 21:04 06/25/24 21:05 06/25/24 21:15 Temperature Pulse Rate Pulse Rate [Right Pulse Oximeter] Respiratory Rate 13 35 H 13 Blood Pressure Blood Pressure [Ri ght Forearm] Pulse Oximetry [facility] 06/25/24 21:30 06/25/24 21:32 06/25/24 21:45 Temperature Pulse Rate Pulse Rate [Right Pulse Oximeter] Respiratory Rate 16 25 H 15 Blood Pressure 118/95 H Blood Pressure [Ri ght Forearm] Pulse Oximetry Oxygen Delivery Vt thod 06/25/24 22:00 06/25/24 22:01 06/25/24 22:15 Temperature Pulse Rate Pulse Rate [Right Pulse Oximeter] Respiratory Rate 21 21 15 Blood Pressure 104/64 Blood Pressure [Ri ght Forearm] Pulse Oximetry [facility] 06/25/24 22:30 06/25/24 22:31 06/25/24 22:45 Temperature Pulse Rate Pulse Rate [Right Pulse Oximeter] Respiratory Rate 14 14 12 Blood Pressure 99/57 L Blood Pressure [Ri ght Forearm] Pulse Oximetry Oxygen Delivery Vt thod 06/25/24 23:00 06/25/24 23:01 06/25/24 23:15 Temperature Pulse Rate Pulse Rate [Right Pulse Oximeter] Respiratory Rate 18 15 16 Blood Pressure 105/58 L Blood Pressure [Ri ght Forearm] Pulse Oximetry Oxygen Delivery Me thod Course Vital Signs Vital signs: Initial Vital Signs Temperature 99 F 06/25/24 17:07 Temperature Source Temporal Artery Scan 06/25/24 17:07 Pulse Rate 83 06/25/24 17:07 Pulse Rhythm Regular 06/25/24 17:07 Pulse Strength 3+ Normal 06/25/24 17:07 Respiratory Rate 18 06/25/24 17:07 Blood Pressure 96/40 L 06/25/24 17:07 Blood Pressure Mean 58 L 06/25/24 17:07 Blood Pressure Position Supine 06/25/24 17:07 Pulse Oximetry 96 06/25/24 17:07 Oxygen Delivery Method Room Air 06/25/24 17:07 Vital Signs Temperature 99 F 06/25/24 17:07 Pulse Rate 83 06/25/24 17:07 Respiratory Rate 18 06/25/24 17:07 Blood Pressure 96/40 L 06/25/24 17:07 Pulse Oximetry 96 06/25/24 17:07 Oxygen Delivery Method Room Air 06/25/24 17:07 Temperature 99 F 06/25/24 17:07 Pulse Rate 97 06/25/24 20:32 Respiratory Rate 16 06/25/24 23:15 Blood Pressure 105/58 L 06/25/24 23:01 Pulse Oximetry 90 06/25/24 20:32 Oxygen Delivery Method Room Air 06/25/24 17:07 Medications Administered Medications: Discontinued Medications Generic Name Dose Route Start Last Admin Trade Name Parthq PRN Reason Stop Dose Admin Sodium Chloride 1,000 mls @ 1,000 mls/hr 06/25/24 17:30 06/25/24 19:42 0.9 % Sodium Chloride 1000 Ml IV 06/25/24 18:29 Infused .Q1H BELL Infusion Ceftriaxone Sodium 1 gm/ 100 mls @ 200 mls/hr 06/25/24 21:11 06/25/24 22:56 Sodium Chloride IVPB 06/25/24 21:12 Infused ONCE ONE Infusion Lactated Ringer's 1,000 mls @ 1,000 mls/hr 06/25/24 22:07 06/25/24 22:55 Lactated Ringers 1000 Ml IV 06/25/24 23:06 1,000 mls/hr .Q1H ONE Administration Ondansetron HCl 4 mg 06/25/24 17:25 06/25/24 18:16 Ondansetron 2 Mg/Ml Inj IVP 06/25/24 17:26 4 mg ONCE ONE Administration Medical Decision Making MDM Narrative Medical decision making narrative: 69-year-old female with a complex presentation to the ER. She has multiple chronic illnesses and lives in a usp because of chronic lower extremity weakness/paraplegia, and is wheelchair-bound. She also has chronic deep sacral decubitus ulcers and apparently is in need of another flap surgery to help her deepest ulcer. She was brought to the ER today because she has been having nausea and vomiting and generalized weakness. She also has a recent UTI and has chronic indwelling suprapubic catheter (that was just changed a couple of days ago) and also she is less alert and oriented than normal. 1. Infectious disease: Urinalysis shows 2+ blood and 3+ leukocyte esterase. Urine micro shows pyuria which I think could suggest presence of UTI. Will start on IV Rocephin. Most recent urine culture was from July 2023 which grew Citrobacter which was resistant to 1st generation cephalosporins but sensitive to 3rd generation cephalosporins as well as fluoroquinolones, and penems. In discussion with the hospitalist accepting for the [facility] she has accessed other urine cultures which include Enterococcus which would be resistant to Rocephin. Therefore will broaden coverage to include Zosyn as well. Consider possible sepsis. She does have mild nonfocal confusion. However she does not have fever (temp 99?), tachycardia, tachypnea). Blood pressure is stable in the low normal region. Venous lactic acid is normal at 1.4. No evidence for intra-abdominal infection on exam or CT. Does have chronic diarrhea and watery output from her ostomy, which apparently has been present for years. She does have a recent productive cough. COVID/influenza/RSV PCR is negative. Chest CT is negative for any acute infiltrate to suggest pneumonia. She is not having wheezing or bronchospasm on exam today. She does have fairly deep sacral ulcers. These appear to be chronic. I do not see signs of major acute inflammation or major significant malodorous purulent drainage at this point. Unlikely these are actively infected causing her symptoms. However, will start empiric antibiotics here in the ER. 2. Pulmonary: Her nurses know her from previous job when they cared for her in the usp she does have chronic p.r.n. oxygen. EMS notes that she was hypoxic at 89% when they picked her up but she has been in the 90s on room air since arrival here in the ER. Chest CT is negative for PE, pneumonia, pneumothorax, pulmonary edema, pleural effusion. CT scan does show multiple pulmonary nodules which are concerning and radiologist recommends 3 month follow-up chest CT. Accepting hospitalist notes that during previous hospitalization she had altered mental status that ultimately was attributed to hypoventilation and hypercarbia with respiratory acidosis. We did check a VB G which shows a pH is normal 7.357 and a pCO2 of 54 which although elevated is probably chronic and her baseline. At this point it does not appear that she is having acute hypoventilatory hypercapnic respiratory failure causing her drowsiness. 3. Cardiac. Patient denies any chest pain or palpitations. Initial EKG is very difficult to interpret because of artifact but is suspicious for possible AFib. No known history of AFib. She is rate controlled. Repeat EKG shows sinus rhythm with significant artifact. Suspect this probably was artifact on the 1st EKG and not true AFib. EKG shows no definite ischemia but troponin is detectable at 0.11. Repeat troponin drawn about 3 hours after the 1st is unchanged at 0.11. At this point without upper eyes and troponin does not seem consistent with acute coronary syndrome. 4. Neuro: She has mild nonfocal confusion. No headache. No recent fall or head trauma. She is not anticoagulated. Lab Data Labs: Lab Results 06/25/24 06/25/24 06/25/24 Range/Units 18:15 18:25 20:16 WBC 8.83 (4.50-11.00) K/uL RBC 3.88 L (4.00-5.20) m/uL Hgb 12.0 (12.0-16.0) gm/dL Hct 37.6 (33.0-51.0) % MCV 97 (80-100) fL MCH 31 (26-34) pg MCHC 32 (32-36) gm/dL RDW Coeff of Shruthi 14.5 (11.5-15.5) % Plt Count 261 (140-440) K/uL Neut % (Auto) 75.8 H (42.0-72.0) % Lymph % (Auto) 19.5 L (20-44) % Grady % (Auto) 4.3 (0.0-11.0) % Eos % (Auto) 0.0 (0.0-7.0) % Baso % (Auto) 0.2 (0.0-3.0) % Neut # (Auto) 6.70 (1.7-7.0) K/uL Lymph # (Auto) 1.70 (0.90-2.90) K/uL Grady # (Auto) 0.40 (0.00-0.90) K/UL Eos # (Auto) 0.00 (0.00-0.50) K/uL Baso # (Auto) 0.02 (0.00-0.30) K/uL Abs Immat Gran (auto) 0.02 (0.00-0.30) K/uL Imm/Tot Granulo (auto) 0.2 % VBG pH 7.375 (7.32-7.43) VBG pCO2 54 H (40-50) mmHG VBG pO2 30.5 (25-47) mmHG VBG HCO3 32 H (21-28) mmol/L Sodium 135 (135-149) mmol/L Potassium 3.3 L (3.6-5.1) mmol/L Chloride 97 (96-114) mmol/L Carbon Dioxide 30 (20-32) mmol/L Anion Gap 8 (7-15) mEq/L BUN 34 H (7-30) mg/dL Creatinine 1.1 (0.5-1.5) mg/dL Estimated Creat Clear 38.18 Estimated GFR 54 ml/min Glucose 113 (60-115) mg/dL Lactate 1.4 (0.5-1.9) mmol/L Calcium 8.5 (8.4-10.6) mg/dL Total Bilirubin 0.8 (0.1-1.5) mg/dL AST 56 H (12-35) U/L ALT 21 (4-35) U/L Alkaline Phosphatase 157 H (40-150) U/L Troponin I 0.11 H* (0.01-0.04) ng/mL C-Reactive Protein 2.1 H (0.5-1.0) mg/dL Total Protein 6.3 (6.0-8.3) g/dL Albumin 2.9 L (3.3-5.0) g/dL Lipase 285 (23-300) U/L TSH 0.276 (0.270-4.200) uIU/mL Urine Color Yellow (Yellow) Urine Appearance Cloudy A (Clear) Urine pH 5.5 (5.0-8.5) Ur Specific Vesta 1.010 (1.000-1.030) Urine Protein Negative (Negative) Urine Glucose (UA) Negative (Negative) Urine Ketones Negative (Negative) Urine Blood 2+ A (Negative) Urine Nitrite Negative (Negative) Urine Bilirubin Negative (Negative) Urine Urobilinogen 0.2 (0.2-1.0) Ur Leukocyte Esterase 3+ A (Negative) Urine RBC 2-5 A (0-2) Urine WBC 25-50 A (0-5) Ur Squamous Epith Cells Moderate A (None-Few) Urine Bacteria Few A (None) Fine Granular Casts Moderate A (None) Urine Yeast Few A (None) SARS-CoV-2 (PCR) Negative SARS-CoV-2 (Negative) Influenza Type A (PCR) Negative PCR FLU A (Negative) Influenza Type B (PCR) Negative PCR FLU B (Negative) RSV (PCR) Negative PCR RSV (Negative) 06/25/24 Range/Units 21:17 WBC (4.50-11.00) K/uL RBC (4.00-5.20) m/uL Hgb (12.0-16.0) gm/dL Hct (33.0-51.0) % MCV (80-100) fL MCH (26-34) pg MCHC (32-36) gm/dL RDW Coeff of Shruthi (11.5-15.5) % Plt Count (140-440) K/uL Neut % (Auto) (42.0-72.0) % Lymph % (Auto) (20-44) % Grady % (Auto) (0.0-11.0) % Eos % (Auto) (0.0-7.0) % Baso % (Auto) (0.0-3.0) % Neut # (Auto) (1.7-7.0) K/uL Lymph # (Auto) (0.90-2.90) K/uL Grady # (Auto) (0.00-0.90) K/UL Eos # (Auto) (0.00-0.50) K/uL Baso # (Auto) (0.00-0.30) K/uL Abs Immat Gran (auto) (0.00-0.30) K/uL Imm/Tot Granulo (auto) % VBG pH (7.32-7.43) VBG pCO2 (40-50) mmHG VBG pO2 (25-47) mmHG VBG HCO3 (21-28) mmol/L Sodium (135-149) mmol/L Potassium (3.6-5.1) mmol/L Chloride (96-114) mmol/L Carbon Dioxide (20-32) mmol/L Anion Gap (7-15) mEq/L BUN (7-30) mg/dL Creatinine (0.5-1.5) mg/dL Estimated Creat Clear Estimated GFR ml/min Glucose (60-115) mg/dL Lactate (0.5-1.9) mmol/L Calcium (8.4-10.6) mg/dL Total Bilirubin (0.1-1.5) mg/dL AST (12-35) U/L ALT (4-35) U/L Alkaline Phosphatase (40-150) U/L Troponin I 0.11 H* (0.01-0.04) ng/mL C-Reactive Protein (0.5-1.0) mg/dL Total Protein (6.0-8.3) g/dL Albumin (3.3-5.0) g/dL Lipase (23-300) U/L TSH (0.270-4.200) uIU/mL Urine Color (Yellow) Urine Appearance (Clear) Urine pH (5.0-8.5) Ur Specific Vesta (1.000-1.030) Urine Protein (Negative) Urine Glucose (UA) (Negative) Urine Ketones (Negative) Urine Blood (Negative) Urine Nitrite (Negative) Urine Bilirubin (Negative) Urine Urobilinogen (0.2-1.0) Ur Leukocyte Esterase (Negative) Urine RBC (0-2) Urine WBC (0-5) Ur Squamous Epith Cells (None-Few) Urine Bacteria (None) Fine Granular Casts (None) Urine Yeast (None) SARS-CoV-2 (PCR) (Negative) Influenza Type A (PCR) (Negative) Influenza Type B (PCR) (Negative) RSV (PCR) (Negative) Imaging Data CT Chest/Ab/Pelvis: Attestation: I have reviewed the pertinent imaging results. Radiologist's impression: Impression: 1. Allowing for respiratory motion degradation through the chest, no acute abnormality is appreciated. 2. Multiple pulmonary nodules are noted, largest measuring 14 millimeters in the right upper lobe. Follow-up CT in 3 months recommended. 3. Multiple indeterminate density bilateral renal lesions, with 1 in the left kidney increasing in size compared to prior study from 2018. Nonemergent outpatient renal protocol MRI or CT recommended. 4. Bilateral nonobstructing renal stones. 5. Pulmonary hypertension. 6. Additional chronic findings as above. ECG Data Attestation: I personally reviewed and interpreted this ECG as follows: Interpretation: Atrial fibrillation but significant tremor artifact obscures the baseline so there could be P waves that are not seen Rate: 88 MN: Not measurable QRS axis: Low-voltage QRS. Normal axis. Incomplete right bundle branch block ST segment/T wave: No obvious ST segment elevation or depression. T-wave inversion V1-V3. Significant artifact obscures the baseline. QTc: 459 Compared to 08/30/2023 low voltage was present similarly. Right bundle-branch block was present before. It looks like AFib may be new EKG 2. Sinus rhythm with fusion complexes. Rate: 100 MN: 170 QRS axis: Left axis deviation. ST segment/T wave: Significant artifact in the baseline. No detectable ST segment elevation or depression. QTc: 479 Discharge Plan Discharge Clinical Impression: Acute UTI, Incidental pulmonary nodule Prescriptions: No Action oxybutynin chloride 10 mg tablet extended release 24hr 10 mg PO DAILY famotidine 40 mg tablet 40 mg PO DAILY spironolactone 25 mg tablet 12.5 mg PO Q48H morphine 30 mg tablet 30 mg PO DAILY gabapentin 300 mg capsule 900 mg PO BID morphine 15 mg tablet extended release 15 mg PO DAILY PRN hydrocortisone [Ala-Joshua] 1 % cream 1 applic topical DAILY multivitamin [Daily-Ailyn] Tablet 2 tab PO DAILY acetaminophen 500 mg tablet 1,000 mg PO TID nystatin 100,000 unit/gram cream 1 applic topical TID naloxone 4 mg/actuation spray,non-aerosol 4 mg intranasal Q2-3M PRN Rx Instructions: spray 1 dose into ONE nostril; alternate nostrils w each dose until help arrives ondansetron HCl 4 mg tablet 4 mg PO Q8H PRN sennosides [Evac-U-Gen (sennosides)] 8.6 mg tablet 17.2 mg PO BID PRN aspirin 81 mg capsule 81 mg PO DAILY Qty: 30 0RF furosemide 20 mg tablet 20 mg PO DAILY Qty: 30 0RF Follow Up/Referrals: Jelena Lopez DO [Primary Care Provider] -
--- OUTSIDE RECORDS SUMMARY | 2024-06-25 17:49 | XMS_ITS | Encounter Summary ---
Author Organization [facility] Address [address] [place] [address]. [place] [address] Care Team Providers Care Emergency Medicine Physician Name Role Phone Ayana Glez Primary Care Provider Unav ailGenevieve Roldan Primary Care Provider [phone] Chloé Castro RN Unavailable Erwin Fuchs Primary Care Provider [phone] Encounter Details Date Type Department Care Team [...] on file Legal Sex Female 4:34 AM UNPAID INTERN Gender Identity Not on file Sexual Orientation Not on file documented as of this encounter Plan of Treatment Not on file documented as of this encounter Visit Diagnoses Not on filedocumented in this encounter Additional Health Concerns Infection Onset Date Last Indicated Resolved Time MRSA 06/29/2020 06/29/2020 documented as of this encounter Care Teams Emergency Medicine Physician Relationship Specialty Start Date End Date Ayana Glez PCP - General Family Practice 07/22/13 04/26/15 Genevieve Rowan [address] [address] PCP - General Family Practice 04/27/15 11/01/16 Erwin Fuchs PCP - General Family Practice 11/02/16 Chloé Castro, CHRISTEN Specialty Fireman Neurology 01/04/16 10/05/20 documented as of this encounter
--- OUTSIDE RECORDS SUMMARY | 2024-06-25 17:49 | XMS_ITS | Encounter Summary ---
Author Organization [facility] Address [address] [place] [address]. 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
--- OUTSIDE RECORDS SUMMARY | 2024-06-25 17:49 | XMS_ITS | Encounter Summary ---
Author Organization [facility] Address [address] [place] [address]. [place] [address] Care Team Providers Care Commercial Lines Account Assistant Name Role Phone Chloé Castro RN Unavailable VoteErwin menezes Primary Care Provider [phone] Encounter Details Date Type Department Care Team [...] on file Legal Sex Female 4:34 AM DESK OFFICER Gender Identity Not on file Sexual Orientation Not on file documented as of this encounter Plan of Treatment Not on file documented as of this encounter Visit Diagnoses Not on filedocumented in this encounter Additional Health Concerns Infection Onset Date Last Indicated Resolved Time MRSA 06/29/2020 06/29/2020 Assessment Noted Time PHQ-9 Depression Total Score: 8 12/21/19 18 10:41 AM DESK OFFICER documented as of this encounter Care Teams Commercial Lines Account Assistant Relationship Specialty Start Date End Date Votel, Erwin Sharma PCP - General Family Practice 11/02/16 Chloé Castro, RN Specialty Customer Experience Manager Neurology 01/04/16 documented as of this encounter
--- OUTSIDE RECORDS SUMMARY | 2024-06-25 17:49 | XMS_ITS ---
Author Organization [facility] Care Team Providers Care Electromechanic Name Role Phone Ayana Glez Unavailable Unavailable Flash Oliveira Unavailable Unavailable Allergies and adverse reactions Code CodeSystem Substance Reaction Severity StartDate Concern Status 162773764 SNOMED CT NSAIDs Unknown 03/23/2014 active Celexa Unknown Unknown active Care Team Name Role Address Phone Organization Dates Flash Oliveira PCP Genevive [address] [place] [address], [address], [place], [address], [place] (Office): [facility] 06/01/2014 - 08/11/2014 Ayana Glez [address], [place], [address], [facility] 06/01/2014 - 08/11/2014 Immunizations Immunization Status Vaccine Details Vaccine Code CodeSystem Date Notes TB 2 Step Mantoux Skin Test completed tuberculin skin test; unspecified formulation lotNumber: [id number] expiry: 10/14/2015 Mfg: [employer] inc Given 0.1 ml Left Forearm intradermally Step 1 of Multi-step with next step required 98 CVX created date: 06/07/2014 consent date: 06/06/2014 administer ed date: 06/06/2014 TB 2 Step Mantoux Skin Test completed tuberculin skin test; unspecified formulation lotNumber: [id number] expiry: 05/14/2015 Mfg: [employer] Given 0.1 ml Right Forearm intradermally Step 2 of Multi-step with next step required 98 CVX created date: 01/20/2014 consent date: 01/20/2014 administer ed date: 01/20/2014 Educated by scott on 01/20/2014 TB 2 Step Mantoux Skin Test completed tuberculin skin test; unspecified formulation lotNumber: [id number] expiry: 04/13/2015 Mfg: [employer] Given 0.1 [...] Current Smoking Status Tobacco smoking consumption unknown [id number] SNOMED CT Sex Assigned At Female 1955 88620-0 [facility] Gender Identity Vital Signs Code Code System Vitals Name Values and Units Timing Information 8310-5 LOINC Body Temperature Value=96.6 Units= F 08/11/2014 82669-4 LOINC Pain Level Value=7.0 08/10/2014 73468-4 LOINC Weight Lihyt=627.4 Units=Lbs 9279-1 [facility] Respiratory Rate Value=18.0 Units=/m in 08/06/2014 8462-4 [facility] Blood Pressure-Diastolic Value=62 Un its=mmHg 08/06/2014 8480-6 [facility] Blood Pressure-Systolic Rvxhr=698 Un its=mmHg 08/06/2014 8867-4 [facility] Heart rate Value=66.0 Units=/min 29406-9 [facility] O2 % BldC Oximetry Value=96.0 Units= % 08/06/2014 8302-2 [facility] Height Value=63.0 Units=Inches 06/02/2014
--- OUTSIDE RECORDS SUMMARY | 2024-06-25 17:49 | XMS_ITS ---
Author Organization [facility] Care Team Providers Care Audiologist Name Role Phone Ayana Glez Unavailable Unavailable Flash Oliveira Unavailable Unavailable Allergies and adverse reactions Code CodeSystem Substance Reaction Severity StartDate Concern Status 545716829 SNOMED CT NSAIDs Unknown 03/23/2014 active Celexa Nausea (code- [id number], SNOMED CT) Unknown Unknown active Care Team Name Role Address Phone Organization Dates Flash Oliveira PCP Genevive [address] [place] [address], [address], [place], [place], [facility], [place] (Office): [facility] 06/01/2014 - 08/11/2014 Ayana Glez [address], [place], [address], [facility] 06/01/2014 - 08/11/2014 Immunizations Immunization Status Vaccine Details Vaccine Code CodeSystem Date Notes TB 2 Step Mantoux Skin Test completed tuberculin skin test; unspecified formulation lotNumber: [id number] expiry: 10/14/2015 Mfg: [employer] inc Given 0.1 ml Left Forearm intradermally Step 1 of Multi-step with next step required 98 CVX created date: 06/07/2014 consent date: 06/06/2014 administer ed date: 06/06/2014 TB 2 Step Mantoux Skin Test completed tuberculin skin test; unspecified formulation lotNumber: [id number] expiry: 05/14/2015 Mfg: [employer] Given 0.1 ml Right Forearm intradermally Step 2 of Multi-step with next step required 98 CVX created date: 01/20/2014 consent date: 01/20/2014 administer ed date: 01/20/2014 Educated by scott on 01/20/2014 TB 2 Step Mantoux Skin Test completed tuberculin skin test; unspecified formulation lotNumber: [id number] expiry: 04/13/2015 Mfg: [employer] Given 0.1 [...] Current Smoking Status Tobacco smoking consumption unknown 622000675 SNOMED CT Sex Assigned At Female 1955 38045-7 [facility] Gender Identity Vital Signs Code Code System Vitals Name Values and Units Timing Information 8310-5 LOINC Body Temperature Value=96.6 Units= F 08/11/2014 98644-2 [facility] Pain Level Value=7.0 08/10/2014 96436-3 [facility] Weight Nagyo=276.4 Units=Lbs 9279-1 [facility] Respiratory Rate Value=18.0 Units=/m in 08/06/2014 8462-4 [facility] Blood Pressure-Diastolic Value=62 Un its=mmHg 08/06/2014 8480-6 [facility] Blood Pressure-Systolic Ptsuc=516 Un its=mmHg 08/06/2014 8867-4 [facility] Heart rate Value=66.0 Units=/min 26546-6 [facility] O2 % BldC Oximetry Value=96.0 Units= % 08/06/2014 8302-2 [facility] Height Value=63.0 Units=Inches 06/02/2014
--- OUTSIDE RECORDS SUMMARY | 2024-06-25 17:49 | XMS_ITS ---
Author Organization [facility] Care Team Providers Care Glass Washer Name Role Phone Pj Stone Unavailable Unavailable Allergies and adverse reactions Code CodeSystem Substance Reaction Severity StartDate Concern Status 182789579 SNOMED CT NSAIDs Moderate 04/12/2018 active Celexa Severe 04/12/2018 active Care Team Name Role Address Phone Organization [place] , [address], [place] (Office): : : : [facility] 04/12/2018 - 05/12/2018 Immunizations Immunization Status Vaccine Details Vaccine Code CodeSystem Date Notes Influenza completed Influenza, high-dose, split virus, quadrivalent, injectable, preservative free 197 CVX created date: 04/17/2018 administer ed date: 10/25/2017 TB 2 Step Mantoux Skin Test completed tuberculin skin test; unspecified formulation lotNumber: [id number] expiry: 11/11/2018 Mfg: Tuberculin PPD Given 0.1 ml Right Forearm subcutaneously Step 2 of Multi-step with next step required 98 CVX created date: 04/22/2018 consent date: 04/22/2018 administer ed date: 04/22/2018 TB 2 Step Mantoux Skin Test completed tuberculin skin test; unspecified formulation lotNumber: [id number] expiry: 11/02/2019 Mfg: [employer] Given 0.1 ml Right Forearm intradermally Step [...] Date HYDROmorphone HCl Tablet 2 MG active 855668 RXNORM 1 tablet Oral as needed PRN Give 1 tablet by mouth every 4 hours as needed for Pain MAXIMU M OF THREE DOSES PER DAY 2018 - Mirabegron ER Tablet Extended Release 24 Hour 50 MG active 4508546 RXNORM 1 tablet Oral in the morning Routine Give 1 tablet by mouth in the mornin g relate d to OVERAC TIVE BLADDE R (N32.8 1) 2018 - Aspirin Tablet 81 MG active 512931 RXNORM 1 tablet Oral in the morning Routine Give 1 tablet by mouth in the mornin g for Prophy laxis Cardia c 2018 - Vitamin D3 Tablet 1000 UNIT active 710681 RXNORM 2 tablet Oral in the morning Routine Give 2 tablet by mouth in the mornin g for Supple ment 2018 - Ondansetron Tablet Disintegratin g active 4 mg Oral as needed PRN Give 4 mg by mouth every 8 hours as needed for Nausea relate d to NAUSEA (R11.0 ) 2018 - Gabapentin Capsule 300 MG active 687852 RXNORM 3 capsul e Oral three times a day Routine Give 3 capsul e by mouth three times a day for Pain 2018 - RaNITidine HCl Tablet 300 MG active 476120 RXNORM 1 tablet Oral at bedtime Routine Give 1 tablet by mouth at bedtim e relate d to GASTRO -ESOPH AGEAL REFLUX DISEAS E WITHOU T ESOPHA GITIS (K21.9 ) 2018 - GuaiFENesin ER Tablet Extended Release 12 Hour 600 MG active 651253 RXNORM 1 tablet Oral two times a day Routine Give 1 tablet by mouth two times a day for Conges tion 2018 - Lisinopril Tablet 20 MG active 485009 RXNORM 1 tablet Oral in the morning Routine Give 1 tablet by mouth in the mornin g relate d to ESSENT IAL (PRIMA RY) HYPERT ENSION (I10) 2018 - Acetaminophen Tablet active 1000 mg Oral as needed PRN Give 1000 mg by mouth every 8 hours as needed for pain 2018 - FentaNYL Patch 72 Hour 50 MCG/HR active 455429 RXNORM 50 mcg Transde rmal every 72 hours Routine Apply 50 mcg transd ermall y every 72 hours for Pain and remove per schedu le 2018 - FentaNYL Patch 72 Hour 12 MCG/HR active 386198 RXNORM 12 mcg Transde rmal every 72 [...] ULCER WITHOUT HEMORRHAGE OR PERFORATION 04/13/[address] active 2 ATHEROSCLEROTIC HEART DISEASE OF [place] CORONARY ARTERY WITHOUT ANGINA PECTORIS 04/13/[address] active 3 ENTEROCOLITIS DUE TO CLOSTRIDIUM DIFFICILE, NOT SPECIFIED RECURRENT 04/13/[address] active 4 ESSENTIAL (PRIMARY) HYPERTENSION 04/13/[address] active 5 GASTRO-ESOPHAGEAL REFLUX DISEASE WITHOUT ESOPHAGITIS 04/13/[address] active 6 METHICILLIN RESISTANT STAPHYLOCOCCUS AUREUS INFECTION, UNSPECIFIED SITE 04/13/[address] active 7 MULTIPLE SCLEROSIS 04/13/[address] active 8 NAUSEA 04/13/[address] active 9 OLD MYOCARDIAL INFARCTION 04/13/[address] active 10 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[place], SACRAL AND SACROCOCCYGEAL REGION 04/13/[address] active 11 OTHER CHRONIC PAIN 04/13/[address] active 12 OTHER CONSTIPATION 04/13/[address] active 13 OVERACTIVE BLADDER 04/13/[address] active 14 SENSORINEURAL HEARING LOSS, BILATERAL 04/13/[address] active 15 TOBACCO USE 04/13/19 Z72.0 ICD-10-CM active 16 UNSPECIFIED DIASTOLIC (CONGESTIVE) HEART FAILURE 04/13/[address] active 17 VITAMIN D DEFICIENCY, UNSPECIFIED 04/13/[address] active Reason for Referral No Reasons for Referral Entered Social History Social History Observation Description Start Date End Date Code Code System Current Smoking Status Smokes tobacco daily Not available 483080088 SNOMED CT Sex Assigned At Female 1955 08381-9 [facility] Gender Identity Vital Signs Code Code System Vitals Name Values and Units Timing Information 86780-2 [facility] Weight Ntokt=508.6 Units=Lbs 9279-1 [facility] Respiratory Rate Value=18.0 Units=/m in 05/01/2018 8462-4 [facility] Blood Pressure-Diastolic Value=74 Un its=mmHg 05/01/2018 8480-6 [facility] Blood Pressure-Systolic Eckcj=835 Un its=mmHg 05/01/2018 8310-5 [facility] Body Temperature Value=97.6 Units= F 05/01/2018 8867-4 [facility] Heart rate Value=88.0 Units=/min 12728-8 [facility] O2 % BldC Oximetry Value=92.0 Units= % 05/01/2018 81264-8 [facility] Pain Level Value=0.0 04/13/2018
--- OUTSIDE RECORDS SUMMARY | 2024-06-25 17:49 | XMS_ITS | Clinical Summary ---
Author Organization [facility] Address [address] [place] [address]. [place] [address] Care Team Providers Care Can Tender Name Role Phone Pedroteclif Erwin Sharma Primary Care Provider [phone] Allergies Active Allergy Reactions Criticality Noted Date [...] 2 % ointment Apply topically daily Active akvjzqi-jhtial-puj tease (CREON 12) 71722 UNITS CPEP 1 capsule by Per J [...] topically 2 times daily Active nystatin (MYCOSTATIN) 608136 UNIT/GM POWD Apply topically as needed Active [...] as her decision maker - Debra Bautista [phone] Patient has Advance Care Plan Documents (Health [...] as her decision maker - Debra Bautista [phone] Patient has Advance Care Plan Documents (Health Care Directive, POLST): No, Health Care Packet given to patient and family. Patient has identified Specific Treatment Preferences: No Specific limits to treatment preferences NOT identified: ASSUME FULL TREATMENT. CHF (congestive heart failure), NYHA class I Congestive heart failure 12/28/2013 History of [place] (myocardial infarction) 12/28/2013 Hyposmolality and/or hyponatremia 12/28/2013 [...] on file Legal Sex Female 4:34 AM HUMAN FACTORS SCIENTIST Gender Identity Not on file Sexual Orientation Not on file Last Filed Vital Signs Vital Sign Reading Time Taken Comments Blood Pressure 110/62 12/31/2018 12:52 PM HUMAN FACTORS SCIENTIST Pulse 82 12/31/2018 12:52 PM HUMAN FACTORS SCIENTIST Temperature 37 C (98.6 F) 12/31/2018 12:52 PM HUMAN FACTORS SCIENTIST Respiratory Rate 18 12/31/2018 12:52 PM HUMAN FACTORS SCIENTIST Oxygen Saturation 95% 12/20/2017 10:42 AM HUMAN FACTORS SCIENTIST Inhaled Oxygen Concentration - - Weight 75.8 kg (167 lb) 12/03/2018 12:56 PM CDT Height 160 cm (5' 3) 02/27/2018 6:27 PM HUMAN FACTORS SCIENTIST Body Mass Index 29.58 02/27/2018 6:27 PM HUMAN FACTORS SCIENTIST Plan of Treatment Not on file Medical Devices Implanted Type Area Mower Sharpener Device Identifier Shelf Expiration Date Model / Serial / Lot Suprapubic Catheter Colostomy Bag Additional Health Concerns Infection Onset Date Last Indicated MRSA 06/29/2020 06/29/2020 Insurance [place]ICAID [place] MED[place] PRIME SOLUTION MEDICARE MEDICARE [place] Care Teams Can Tender Relationship Specialty Start Date End Date VotelErwin PCP - General Family Practice 11/02/16
--- OUTSIDE RECORDS SUMMARY | 2024-06-25 17:49 | XMS_ITS | Encounter Summary ---
Author Organization [facility] Address [address] [place] [address]. 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 Gender Identity Not on file Sexual Orientation Not on file documented as of this encounter Plan of Treatment Not on file documented as of this encounter Visit Diagnoses Not on filedocumented in this encounter Additional Health Concerns Infection Onset Date Last Indicated Resolved Time MRSA 06/29/2020 06/29/2020 documented as of this encounter Care Teams Salesperson Art Objects Relationship Specialty Start Date End Date Ayana Glez PCP - General Family Practice 07/22/13 04/26/15 Genevieve Rowan [address] [address] PCP - General Family Practice 04/27/15 11/01/16 Erwin Fuchs PCP - General Family Practice 11/02/16 Chloé Castro, CHRISTEN Specialty Fitter Machinist Neurology 01/04/16 10/05/20 documented as of this encounter
--- OUTSIDE RECORDS SUMMARY | 2024-06-25 17:49 | XMS_ITS | Clinical Summary ---
Author Organization [id number] [facility] [employer] Address [address] [place] [address] Care Team Providers Care Launderer Hand Name Role Phone Pcp, No Primary Care [...] miscIndications:Col ostomy in place (HC) As directed. [place] #[id number] Custom fit bag. 1 bag every 2 days. 15 Each 06/17/19 21 Active sennosides (SENNA) 8.6 mg tabletIndications:P neumonia of left lower lobe due to infectious organism Take 2 Tablets (17.2 mg) by mouth 2 times daily if needed for Constipation. 0 07/30/19 21 Active naloxone (NARCAN) 4 mg/actuation nasal spray Inhale 1 [place] into affected nostril(s) each time if needed [...] as her decision maker - Debra Bautista [phone] Patient has Advance Care Plan Documents (Health [...] stent placement. Coronary artery disease invo lving [place] coronary artery of [place] heart without angina pectoris 03/27/2017 11/15/2017 Overview (11/13/2017): 2014 in [place]. Had wall motion abnormality on echo. Unclear [...] 12/12/2014 Osteomyelitis of sacrum 01/27/201411/14 History of AL (myocardial infarction) 12/28/2013 11/15/2017 Chronic diastolic congestive [...] 06/16/2024 11:00 AM CDT Nurse/Clinic Staff Only [address] [place] [address] Removal (Patient due for catheter change); Insert (22 fr suprapubic catheter change) 06/16/2024 Travel 06/05/2024 Telephone [facility] [address] [place] [address] Dominique Carrillo NP 05/29/2024 11:59 AM CDT - 05/29/2024 11:59 PM CDT Hospital Encounter [facility] [address], [place] [address] Leon Saunders MD Decubitus ulcer of sacral region, stage 4 (HC); Paraplegia (HC) 05/29/2024 Travel 05/22/2024 11:15 AM CDT Office Visit [facility] [address] [place] [address] Dominique Carrillo NP Wound Check 05/22/2024 Travel 05/19/2024 11:00 AM CDT Nurse/Clinic Staff Only [facility] [address] [place] [address] Removal (Patient due for catheter change); Insert (22 fr suprapubic catheter change) 05/19/2024 Travel 05/14/2024 9:30 AM CDT Office Visit [facility] [address] [place] [address] Edwin Cole, AuD Hearing Problem 05/14/2024 Lab Requisition [facility] [address] [place] [address] George Meyer MD 05/14/2024 Travel 2024 Telephone [facility] [address] [place] [address] Edwin Cole, Anna 04/30/2024 Telephone [facility] [address] [place] [address] Dominique Carrillo NP Concerns 04/17/2024 8:45 AM ASSEMBLER TRACTOR Office Visit [facility] [address] [place] [address] Dominique Carrillo NP Wound Check 04/17/2024 Travel 04/14/2024 11:00 AM ASSEMBLER TRACTOR Nurse/Clinic Staff Only [place] 6[address] [facility] [place] [address] Removal; Insert (22 fr suprapubic catheter change) [...] on file Legal Sex Female 5:24 AM ASSEMBLER TRACTOR Gender Identity Not on file Sexual Orientation [...] 07/21/2024 11:00 AM CDT Nurse/Clinic Staff Only [place] [address] [address] 07/24/2024 11:15 AM CDT Office Visit [facility] [address] [place] [address] Dominique Carrillo, CRISTOFER [address] [address] [place] [address] 08/18/2024 11:00 AM CDT Nurse/Clinic Staff Only [place] [address] [address] 09/22/2024 10:30 AM CDT Nurse/Clinic Staff Only [facility] [address] [place] [address] [address] 10/15/2024 10:15 AM CDT Procedure Only [facility] [address] [place] [address] Hans Bolanos MD [address] [place] [address] [place] [address] Health Maintenance Due Date Last Done Comments [...] Completed 08/08/2011 Medical Devices Implanted Type Area Bell Ringer Device Identifier Shelf Expiration Date Model / Serial / Lot Stent Ultra 5fr 22cm 192-121 - Jann[employer] Only - [id number] Implanted:Qty: 1 on 03/27/2017 by Kong Desai MD at [facility] [place] Left: [employer] 11/15/2019 192-121# / / [id number] Explanted Type Area Bell Ringer Device Identifier Shelf Expiration Date Model / Serial / Lot Stent Ultra 5fr 22cm 192-121 - [facility] - [id number] Implanted:Qty: 1 on 12/14/2016 by Kong Desai MD at [facility] [place] Explanted:Qty: 1 on 03/27/2017 by Kong Desai MD at [facility] [place] Left: [employer] 08/15/2019 192-121# / / [id number] Procedures Procedure Name Priority Date/Time Associated Diagnosis [...] None Seen /HPF 05/14/2024 4:34 PM CDT [facility] WBC >100(A) 0-2, 3-5, None Seen /HPF 05/14/2024 4:34 PM CDT [facility] BACTERIA Many(A) None Seen, Rare, Few Bacteria/H PF 05/14/2024 4:34 PM CDT [facility] EPITHELIAL CELLS Many(A) None Seen, Few Epi/HPF 05/14/2024 4:34 PM CDT [facility] Urine URINE SPECIMEN / Unknown Client Collect / Unknown 05/14/2024 3:20 PM CDT 05/14/2024 4:27 PM CDT us George Meyer MD URINE Final Result [facility] [address] [place] [address] * (ABNORMAL) URINE CULTURE (05/14/2024 3:20 PM CDT) CULTURE RESULT(A) 05/17/2024 7:23 AM CDT [facility] CULTURE 50,000-100,000 CFU/mL Klebsiella pneumoniae 05/17/2024 7:23 AM CDT [facility] CULTURE 10,000-50,000 CFU/mL Enterococcus faecalis 05/17/2024 7:23 AM CDT [facility] Comment: Levofloxacin susceptibilities for [...] us George Meyer MD MICROBIOLOGY Final Result [facility] [address] [place] [address], [place] * (ABNORMAL) UA W/ SEDIMENT EXAM REFLEXED PER CRITERIA (05/14/2024 3:20 PM CDT) COLOR Yellow Yellow Color 05/14/2024 4:30 PM CDT [facility] CLARITY Cloudy(A) Clear Clarity 05/14/2024 4:30 PM CDT [facility] SPECIFIC GRAVITY,URINE 1.015 1.010, 1.015, 1.020, 1.025 05/14/2024 4:30 PM [facility] PH,URINE 5.5 6.0, 7.0, 8.0, 5.5, 6.5, 7.5, 8.5 05/14/2024 4:30 PM [facility] UROBILINOGEN, QUALITATIVE Normal Normal EU/dl 05/14/2024 4:30 PM [facility] PROTEIN, URINE Trace(A) Negative mg/dL 05/14/2024 4:30 PM [facility] GLUCOSE, URINE Negative Negative mg/dL 05/14/2024 4:30 PM [facility] KETONES,URINE Negative Negative mg/dL 05/14/2024 4:30 PM [facility] BILIRUBIN,URI NE Negative Negative 05/14/2024 4:30 PM [facility] OCCULT BLOOD,URINE Small(A) Negative 05/14/2024 4:30 PM [facility] NITRITE Positive(A) Negative 05/14/2024 4:30 PM [facility] LEUKOCYTE ESTERASE Large(A) Negative 05/14/2024 4:30 PM [facility] Urine URINE SPECIMEN / Unknown Client Collect / Unknown 05/14/2024 3:20 PM CDT 05/14/2024 4:27 PM T George Meyer MD URINE Final Result [facility] [address] [place] [address] * (ABNORMAL) Lipid Panel AM (11/13/2017 6:58 AM CDT) CHOLESTEROL,TOTAL 113 100 - 199 mg/dL 11/13/2017 8:06 AM T [facility] TRIGLYCERIDES 92 <150 mg/dL 11/13/2017 8:06 AM T [facility] HDL CHOLESTEROL 28(L) >40 mg/dL 8 8:06 AM CDT [facility] NON-HDL CHOLESTEROL 85 <145 mg/dl 11/13/2017 8:06 AM CDT [facility] CHOL/HDL RATIO 4.04 <4.50 11/13/2017 8:06 AM CDT [facility] LDL CHOLESTEROL 67 <=130 mg/dL 11/13/2017 8:06 AM CDT [facility] PROVIDER ORDERED STATUS RANDOM 11/13/2017 8:06 AM CDT [facility] Blood BLOOD SPECIMEN / Unknown Venipuncture / Unknown 11/13/2017 6:58 AM CDT 11/13/2017 7:07 AM CDT us Stephanie Howell MD CHEMISTRY Fi nal Result [facility] [address] [place] [address], [place] * SCAN-COLONOSCOPY (11/20/2013 12:00 AM CDT) [...] annual screening mammography. ACR 1 [facility] Final R esult from Last 3 Months or Most Recently Relevant to Health Maintenance Additional Health Concerns Infection Onset Date Last Indicated MRSA Comment:Order contact precautions. 10/01/23 patient has suprapubic cath. Not eligible for clearance. Suprapubic cath since 2012, ostomy +MRSA 06/29/20 [place]; 06/11/2010 cath, + right lower abdomen 03/16/16; [...] PART B HB ONLY MEDICA PRIME SOLUTIONS HALF-WAY Advance Directives Documents on File Type Date Recorded Patient Photographic Double Expl anation POLST 06/02/2022 POLST 05/27/2019 - [...] Code Status Discussion: Not Discussed Care Teams Launderer Hand Relationship Specialty Start Date End Date Pcp, No . PCP - General 10/09/23
[2024-06-25] MEDS: 0.9 % SODIUM CHLORIDE 1000 ml 1,000 ML IV (18:15)
[2024-06-25] MEDS: ONDANSETRON 2 MG/ML inj 4 MG IVP (18:16)
[2024-06-25 18:30] LABS: Lactate* 1.4 mmol/L (0.5-1.9)
[2024-06-25 18:33] LABS: Basophils Absolute Auto 0.02 K/uL (0.00-0.30); Basophils Percent Auto 0.2 % (0.0-3.0); Hematocrit 37.6 % (33.0-51.0); Immature Granulocytes Abs Auto 0.02 K/uL (0.00-0.30); Immature Granulocytes Pct Auto 0.2 %; Lymphocytes Percent Auto 19.5 % (20-44); Mean Corpuscular HGB Conc 32 gm/dL (32-36); Mean Corpuscular Hemoglobin 31 pg (26-34); Mean Corpuscular Volume 97 fL (80-100); Monocytes Percent Auto 4.3 % (0.0-11.0); Neutrophils Percent Auto 75.8 % (42.0-72.0); Platelet Count* 261 K/uL (140-440); RDW Coefficient of Variation % 14.5 % (11.5-15.5); Red Blood Count 3.88 m/uL (4.00-5.20); White Blood Count* 8.83 K/uL (4.50-11.00)
[2024-06-25 18:35] LABS: Slide Review Reflex No
[2024-06-25 18:38] LABS: Chloride* 97 mmol/L (96-114)
[2024-06-25 18:39] LABS: Albumin* 2.9 g/dL (3.3-5.0); Potassium* 3.3 mmol/L (3.6-5.1); Sodium* 135 mmol/L (135-149)
[2024-06-25 18:41] LABS: Blood Urea Nitrogen* 34 mg/dL (7-30); Creatinine* 1.1 mg/dL (0.5-1.5); Est. Creatinine Clearance* 38.18; Estimated Glomerular Filt Rate 54 ml/min
[2024-06-25 18:42] LABS: Alanine Aminotransferase* 21 U/L (4-35); Alkaline Phosphatase* 157 U/L (40-150); Anion Gap 8 mEq/L (7-15); Aspartate Amino Transferase* 56 U/L (12-35); Bilirubin Total* 0.8 mg/dL (0.1-1.5); Calcium* 8.5 mg/dL (8.4-10.6); Carbon Dioxide* 30 mmol/L (20-32); Glucose* 113 mg/dL (60-115); Lipase* 285 U/L (23-300); Total Protein* 6.3 g/dL (6.0-8.3)
[2024-06-25 18:45] LABS: C Reactive Protein* 2.1 mg/dL (0.5-1.0)
[2024-06-25 19:10] LABS: PCR FLU A Negative PCR FLU A (Negative); PCR FLU B Negative PCR FLU B (Negative); PCR RSV Negative PCR RSV (Negative); SARS PCR* Negative SARS-CoV-2 (Negative)
[2024-06-25 19:12] LABS: Troponin I* 0.11 ng/mL (0.01-0.04)
[2024-06-25 19:26] LABS: TSH With Reflex to FT4* 0.276 uIU/mL (0.270-4.200)
[2024-06-25 20:24] LABS: Appearance Urine Cloudy (Clear); Bilirubin Urine Negative (Negative); Blood Urine 2+ (Negative); Color Urine Yellow (Yellow); Glucose Urine Negative (Negative); Ketones Urine Negative (Negative); Leukocyte Esterase Urine 3+ (Negative); Nitrite Urine Negative (Negative); Protein Urine Negative (Negative); Urobilinogen Urine 0.2 (0.2-1.0); pH Urine 5.5 (5.0-8.5)
[2024-06-25 20:53] LABS: WBC Urine 25-50 (0-5)
[2024-06-25 20:54] LABS: Bacteria Urine Few; Fine Granular Casts Urine Moderate; Squamous Epithelial Cell Urine Moderate (None-Few)
[2024-06-25] MEDS: cefTRIAXone 1 GM in 0.9 % SODIUM CHLORIDE Mini-bag 100 ML IVPB (21:55)
[2024-06-25 22:07] LABS: Troponin I* 0.11 ng/mL (0.01-0.04)
[2024-06-25] MEDS: LACTATED RINGERS 1000 ML 1,000 ML IV (22:55)
[2024-06-25 23:21] LABS: HCO3 VBG 32 mmol/L (21-28); PCO2 VBG 54 mmHG (40-50); PO2 VBG 30.5 mmHG (25-47); pH VBG 7.375 (7.32-7.43)
[2024-06-26] VITALS (8 sets, daily range): BP systolic 99–108; BP diastolic 50–68; PULSE 89–99; RESP 12–23; O2SAT 87–94
[2024-06-26] MEDS: PIPERACILLIN/TAZOBACTAM 4.5 GM in 0.9 % SODIUM CHLORIDE Mini-bag 100 ML IVPB (00:05)
== END 2024-06-26 01:45 | disposition short-term general hospital (02) ==
PROVIDERS: Emergency Provider Emergency Medicine; PCP Family Medicine
DX: N39.0 Urinary tract infection, site not specified (principal); R91.1 Solitary pulmonary nodule
CPT/HCPCS: 36415; 71275; 74177; 80053; 81001; 82803; 83605; 83690; 84443; 84484; 85025; 86140; 87086; 87631; 93005; 96365; 96366; 96375; 99285; J0696; J2405; J2543; J7030; J7120; Q9967

== ENCOUNTER 2024-07-11 14:11 | Emergency (ER) | payer MEDICARE, OTHER, SELFPAY ==
[2024-07-11] VITALS (88 sets, daily range): BP systolic 68–141; BP diastolic 27–118; PULSE 96–120; RESP 4–18; TEMP 36.2–36.4; O2SAT 88–96; BMI 32.7
--- OUTSIDE RECORDS SUMMARY | 2024-07-11 14:13 | XMS_ITS ---
Author Organization [facility] Care Team Providers Care Retail Selling Floor Leader Name Role Phone [facility] Unavailable Unavailable Allergies and adverse reactions Code CodeSystem Substance Reaction Severity StartDate Concern Status 962893240 SNOMED CT NSAIDs Moderate 04/12/2018 active Celexa Severe 04/12/2018 active Care Team Name Role Address Phone Organization [place] , [address], [place] (Office): : : : [facility] 04/12/2018 - 05/12/2018 Immunizations Immunization Status Vaccine Details Vaccine Code CodeSystem Date Notes Influenza completed Influenza, high-dose, split virus, quadrivalent, injectable, preservative free 197 CVX created date: 04/17/2018 administer ed date: 10/25/2017 TB 2 Step Mantoux Skin Test completed tuberculin skin test; unspecified formulation lotNumber: [id number] expiry: 11/11/2018 Mfg: Tuberculin PPD Given 0.1 ml Right Forearm subcutaneously Step 2 of Multi-step with next step required 98 CVX created date: 04/22/2018 consent date: 04/22/2018 administer ed date: 04/22/2018 TB 2 Step Mantoux Skin Test completed tuberculin skin test; unspecified formulation lotNumber: [id number] expiry: 11/02/2019 Mfg: YaData Given 0.1 ml Right Forearm intradermally Step [...] Date HYDROmorphone HCl Tablet 2 MG active 186938 RXNORM 1 tablet Oral as needed PRN Give 1 tablet by mouth every 4 hours as needed for Pain MAXIMU M OF THREE DOSES PER DAY 2018 - Mirabegron ER Tablet Extended Release 24 Hour 50 MG active 3744460 RXNORM 1 tablet Oral in the morning Routine Give 1 tablet by mouth in the mornin g relate d to OVERAC TIVE BLADDE R (N32.8 1) 2018 - Aspirin Tablet 81 MG active 340541 RXNORM 1 tablet Oral in the morning Routine Give 1 tablet by mouth in the mornin g for Prophy laxis Cardia c 2018 - Vitamin D3 Tablet 1000 UNIT active 825353 RXNORM 2 tablet Oral in the morning Routine Give 2 tablet by mouth in the mornin g for Supple ment 2018 - Ondansetron Tablet Disintegratin g active 4 mg Oral as needed PRN Give 4 mg by mouth every 8 hours as needed for Nausea relate d to NAUSEA (R11.0 ) 2018 - Gabapentin Capsule 300 MG active 837408 RXNORM 3 capsul e Oral three times a day Routine Give 3 capsul e by mouth three times a day for Pain 2018 - RaNITidine HCl Tablet 300 MG active 358849 RXNORM 1 tablet Oral at bedtime Routine Give 1 tablet by mouth at bedtim e relate d to GASTRO -ESOPH AGEAL REFLUX DISEAS E WITHOU T ESOPHA GITIS (K21.9 ) 2018 - GuaiFENesin ER Tablet Extended Release 12 Hour 600 MG active 785372 RXNORM 1 tablet Oral two times a day Routine Give 1 tablet by mouth two times a day for Conges tion 2018 - Lisinopril Tablet 20 MG active 515830 RXNORM 1 tablet Oral in the morning Routine Give 1 tablet by mouth in the mornin g relate d to ESSENT IAL (PRIMA RY) HYPERT ENSION (I10) 2018 - Acetaminophen Tablet active 1000 mg Oral as needed PRN Give 1000 mg by mouth every 8 hours as needed for pain 2018 - FentaNYL Patch 72 Hour 50 MCG/HR active 792743 RXNORM 50 mcg Transde rmal every 72 hours Routine Apply 50 mcg transd ermall y every 72 hours for Pain and remove per schedu le 2018 - FentaNYL Patch 72 Hour 12 MCG/HR active 564012 RXNORM 12 mcg Transde rmal every 72 [...] ULCER WITHOUT HEMORRHAGE OR PERFORATION 04/13/[address] active 2 ATHEROSCLEROTIC HEART DISEASE OF [place] CORONARY ARTERY WITHOUT ANGINA PECTORIS 04/13/[address] active 3 ENTEROCOLITIS DUE TO CLOSTRIDIUM DIFFICILE, NOT SPECIFIED RECURRENT 04/13/[address] active 4 ESSENTIAL (PRIMARY) HYPERTENSION 04/13/[address] active 5 GASTRO-ESOPHAGEAL REFLUX DISEASE WITHOUT ESOPHAGITIS 04/13/[address] active 6 METHICILLIN RESISTANT STAPHYLOCOCCUS AUREUS INFECTION, UNSPECIFIED SITE 04/13/[address] active 7 MULTIPLE SCLEROSIS 04/13/[address] active 8 NAUSEA 04/13/[address] active 9 OLD MYOCARDIAL INFARCTION 04/13/[address] active 10 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[place], SACRAL AND SACROCOCCYGEAL REGION 04/13/[address] active 11 OTHER CHRONIC PAIN 04/13/[address] active 12 OTHER CONSTIPATION 04/13/[address] active 13 OVERACTIVE BLADDER 04/13/[address] active 14 SENSORINEURAL HEARING LOSS, BILATERAL 04/13/[address] active 15 TOBACCO USE 04/13/19 Z72.0 ICD-10-CM active 16 UNSPECIFIED DIASTOLIC (CONGESTIVE) HEART FAILURE 04/13/[address] active 17 VITAMIN D DEFICIENCY, UNSPECIFIED 04/13/[address] active Reason for Referral No Reasons for Referral Entered Social History Social History Observation Description Start Date End Date Code Code System Current Smoking Status Smokes tobacco daily Not available 997435879 SNOMED CT Sex Assigned At Female 1955 24656-1 [facility] Gender Identity Vital Signs Code Code System Vitals Name Values and Units Timing Information 41082-2 [facility] Weight Hutwj=421.6 Units=Lbs 9279-1 [facility] Respiratory Rate Value=18.0 Units=/m in 05/01/2018 8462-4 [facility] Blood Pressure-Diastolic Value=74 Un its=mmHg 05/01/2018 8480-6 [facility] Blood Pressure-Systolic Byosu=198 Un its=mmHg 05/01/2018 8310-5 [facility] Body Temperature Value=97.6 Units= F 05/01/2018 8867-4 [facility] Heart rate Value=88.0 Units=/min 23752-9 [facility] O2 % BldC Oximetry Value=92.0 Units= % 05/01/2018 19342-9 [facility] Pain Level Value=0.0 04/13/2018
--- OUTSIDE RECORDS SUMMARY | 2024-07-11 14:14 | XMS_ITS | Encounter Summary ---
Author Organization [facility] Address [address] [place] [address]. [place] [address] Care Team Providers Care Yard Attendant Name Role Phone Ayana Glez Primary Care Provider Unav ailGenevieve Roldan Primary Care Provider Chloé Castro RN Unavailable Erwin Fuchs Primary Care Provider [phone] Encounter Details Date Type Department Care Team [...] on file Legal Sex Female 4:34 AM POWDER COATER Gender Identity Not on file Sexual Orientation Not on file documented as of this encounter Plan of Treatment Not on file documented as of this encounter Visit Diagnoses Not on filedocumented in this encounter Additional Health Concerns Infection Onset Date Last Indicated Resolved Time 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
--- OUTSIDE RECORDS SUMMARY | 2024-07-11 14:14 | XMS_ITS | Encounter Summary ---
Author Organization [facility] Address [address] [place] [address]. [place] [address] Care Team Providers Care General Operations Agent Name Role Phone Chloé Castro RN Unavailable VoteErwin menezes Primary Care Provider [phone] Encounter Details Date Type Department Care Team (Late st Contact Info) Description 03/29/2018 Records - [facility] CONVERSION Scan, Non-Provider Social History Tobacco Use Types Packs/Day Years Used Date Smoking Tobacco: Every Day Cigarettes 1 57.7 Started: 11/02/1966 Smokeless Tobacco: Never Alcohol Use Standard Drinks/Week Comments No 0 (1 standard drink = 0.6 oz pur e alcohol) PHQ-2 Answer Date Recorded PHQ-2 Score 6 12/20/2017 Comments No Sex and Gender Information Value Date Recorded Sex Assigned at Not on file Legal Sex Female 4:34 AM SOLAR LAB TECHNICIAN Gender Identity Not on file Sexual Orientation Not on file documented as of this encounter Plan of Treatment Not on file documented as of this encounter Visit Diagnoses Not on filedocumented in this encounter Additional Health Concerns Infection Onset Date Last Indicated Resolved Time MRSA 06/29/2020 06/29/2020 Assessment Noted Time PHQ-9 Depression Total Score: 8 12/21/19 18 10:41 AM SOLAR LAB TECHNICIAN documented as of this encounter Care Teams General Operations Agent Relationship Specialty Start Date End Date Votel, Erwin Sharma PCP - General Family Practice 11/02/16 Chloé Castro, RN Specialty Security Operations Center Analyst Neurology 01/04/16 documented as of this encounter
--- OUTSIDE RECORDS SUMMARY | 2024-07-11 14:14 | XMS_ITS | Clinical Summary ---
Author Organization [place] Address [address] [place] [address]. [place] [address] Care Team Providers Care Abrasive Wheel Molder Name Role Phone Pedroteclif Erwin Sharma Primary Care Provider [phone] Allergies Active Allergy Reactions Criticality Noted Date [...] 2 % ointment Apply topically daily Active kbochjh-aghmiw-yvu tease (CREON 12) 13430 UNITS CPEP 1 capsule by Per J [...] topically 2 times daily Active nystatin (MYCOSTATIN) 681425 UNIT/GM POWD Apply topically as needed Active [...] as her decision maker - Debra Bautista [phone] Patient has Advance Care Plan Documents (Health [...] as her decision maker - Debra Bautista [phone] Patient has Advance Care Plan Documents (Health Care Directive, POLST): No, Health Care Packet given to patient and family. Patient has identified Specific Treatment Preferences: No Specific limits to treatment preferences NOT identified: ASSUME FULL TREATMENT. CHF (congestive heart failure), NYHA class I Congestive heart failure 12/28/2013 History of [place] (myocardial infarction) 12/28/2013 Hyposmolality and/or hyponatremia 12/28/2013 [...] on file Legal Sex Female 4:34 AM WELDING TEACHER Gender Identity Not on file Sexual Orientation Not on file Last Filed Vital Signs Vital Sign Reading Time Taken Comments Blood Pressure 110/62 12/31/2018 12:52 PM WELDING TEACHER Pulse 82 12/31/2018 12:52 PM WELDING TEACHER Temperature 37 C (98.6 F) 12/31/2018 12:52 PM WELDING TEACHER Respiratory Rate 18 12/31/2018 12:52 PM WELDING TEACHER Oxygen Saturation 95% 12/20/2017 10:42 AM WELDING TEACHER Inhaled Oxygen Concentration - - Weight 75.8 kg (167 lb) 12/03/2018 12:56 PM CDT Height 160 cm (5' 3) 02/27/2018 6:27 PM WELDING TEACHER Body Mass Index 29.58 02/27/2018 6:27 PM WELDING TEACHER Plan of Treatment Not on file Medical Devices Implanted Type Area Hydrochloric Manufacturing Supervisor Device Identifier Shelf Expiration Date Model / Serial / Lot Suprapubic Catheter Colostomy Bag Additional Health Concerns Infection Onset Date Last Indicated MRSA 06/29/2020 06/29/2020 Insurance [place]ICAID [place] MEDICA PRIME SOL[place] MEDICARE MEDICARE MED[place] PR[place] Care Teams Abrasive Wheel Molder Relationship Specialty Start Date End Date VotelErwin PCP - General Family Practice 11/02/16
--- OUTSIDE RECORDS SUMMARY | 2024-07-11 14:14 | XMS_ITS ---
Author Organization [facility] Care Team Providers Care Plate Corrector Name Role Phone Ayana Glez Unavailable Unavailable Flash Oliveira Unavailable Unavailable Allergies and adverse reactions Code CodeSystem Substance Reaction Severity StartDate Concern Status 663245287 SNOMED CT NSAIDs Unknown 03/23/2014 active Celexa Unknown Unknown active Care Team Name Role Address Phone Organization Dates Flash Oliveira PCP Genevive [address] [place] [address], [address], [place], [address], [place] (Office): [facility] 06/01/2014 - 08/11/2014 Ayana Glez [address], [place], [address], [facility] 06/01/2014 - 08/11/2014 Immunizations Immunization Status Vaccine Details Vaccine Code CodeSystem Date Notes TB 2 Step Mantoux Skin Test completed tuberculin skin test; unspecified formulation lotNumber: [id number] expiry: 10/14/2015 Mfg: [employer] inc Given 0.1 ml Left Forearm intradermally Step 1 of Multi-step with next step required 98 CVX created date: 06/07/2014 consent date: 06/06/2014 administer ed date: 06/06/2014 TB 2 Step Mantoux Skin Test completed tuberculin skin test; unspecified formulation lotNumber: [id number] expiry: 05/14/2015 Mfg: [employer] Given 0.1 ml Right Forearm intradermally Step 2 of Multi-step with next step required 98 CVX created date: 01/20/2014 consent date: 01/20/2014 administer ed date: 01/20/2014 Educated by scott on 01/20/2014 TB 2 Step Mantoux Skin Test completed tuberculin skin test; unspecified formulation lotNumber: [id number] expiry: 04/13/2015 Mfg: [employer] Given 0.1 [...] Current Smoking Status Tobacco smoking consumption unknown 333672864 SNOMED CT Sex Assigned At Female 1955 92462-9 [facility] Gender Identity Vital Signs Code Code System Vitals Name Values and Units Timing Information 8310-5 [facility] Body Temperature Value=96.6 Units= F 08/11/2014 31491-7 [facility] Pain Level Value=7.0 08/10/2014 38204-0 [facility] Weight Rtblk=897.4 Units=Lbs 9279-1 [facility] Respiratory Rate Value=18.0 Units=/m in 08/06/2014 8462-4 [facility] Blood Pressure-Diastolic Value=62 Un its=mmHg 08/06/2014 8480-6 [facility] Blood Pressure-Systolic Qnczs=251 Un its=mmHg 08/06/2014 8867-4 [facility] Heart rate Value=66.0 Units=/min 95168-5 [facility] O2 % BldC Oximetry Value=96.0 Units= % 08/06/2014 8302-2 [facility] Height Value=63.0 Units=Inches 06/02/2014
--- OUTSIDE RECORDS SUMMARY | 2024-07-11 14:14 | XMS_ITS | Encounter Summary ---
Author Organization [place] [facility] Address [address] [place] [address]. [place] [address] Care Team Providers Care Direct Casting Operator Name Role Phone Ayana Glez Primary Care Provider Unav ailGenevieve Roldan Primary Care Provider [phone] Chloé Castro RN Unavailable Erwin Fuchs Primary Care Provider [phone] Encounter Details Date Type Department Care Team [...] on file Legal Sex Female 4:34 AM CLOTH CARRIER Gender Identity Not on file Sexual Orientation Not on file documented as of this encounter Plan of Treatment Not on file documented as of this encounter Visit Diagnoses Not on filedocumented in this encounter Additional Health Concerns Infection Onset Date Last Indicated Resolved Time MRSA 06/29/2020 06/29/2020 documented as of this encounter Care Teams Direct Casting Operator Relationship Specialty Start Date End Date Ayana Glez PCP - General Family Practice 07/22/13 04/26/15 Genevieve Rowan [address] [address] PCP - General Family Practice 04/27/15 11/01/16 Erwin Fuchs PCP - General Family Practice 11/02/16 Chloé Castro, CHRISTEN Specialty Director Of Donor Relations Neurology 01/04/16 10/05/20 documented as of this encounter
--- OUTSIDE RECORDS SUMMARY | 2024-07-11 14:14 | XMS_ITS | Encounter Summary ---
Author Organization [facility] Address [address] [place] [address]. [place] [address] Care Team Providers Care Toe Former [employer] Name Role Phone Chloé Castro RN Unavailable VoteErwin menezes Primary Care Provider [phone] Encounter Details Date Type Department Care Team [...] on file Legal Sex Female 4:34 AM HIDE INSPECTOR Gender Identity Not on file Sexual Orientation Not on file documented as of this encounter Plan of Treatment Not on file documented as of this encounter Visit Diagnoses Not on filedocumented in this encounter Additional Health Concerns Infection Onset Date Last Indicated Resolved Time MRSA 06/29/2020 06/29/2020 Assessment Noted Time PHQ-9 Depression Total Score: 8 12/21/19 18 10:41 AM HIDE INSPECTOR documented as of this encounter Care Teams Toe Former [employer] Relationship Specialty Start Date End Date Votel, Erwin Sharma PCP - General Family Practice 11/02/16 Chloé Castro, RN Specialty Aeronautical Test Engineer Neurology 01/04/16 documented as of this encounter
--- OUTSIDE RECORDS SUMMARY | 2024-07-11 14:14 | XMS_ITS ---
Author Organization [facility] Care Team Providers Care Laundry Or Dry Cleaners Counter Clerk Name Role Phone Ayana Glez Unavailable Unavailable Flash Oliveira Unavailable Unavailable Allergies and adverse reactions Code CodeSystem Substance Reaction Severity StartDate Concern Status 672667054 SNOMED CT NSAIDs Unknown 03/23/2014 active Celexa Nausea (code- [id number], SNOMED CT) Unknown Unknown active Care Team Name Role Address Phone Organization Dates Flash Oliveira PCP Genevive [address] [place] [address], [address], [place], [place], [facility], [place] (Office): [facility] 06/01/2014 - 08/11/2014 Ayana Glez [address], [place], [address], [facility] 06/01/2014 - 08/11/2014 Immunizations Immunization Status Vaccine Details Vaccine Code CodeSystem Date Notes TB 2 Step Mantoux Skin Test completed tuberculin skin test; unspecified formulation lotNumber: [id number] expiry: 10/14/2015 Mfg: [employer] Given 0.1 ml Left Forearm intradermally Step 1 of Multi-step with next step required 98 CVX created date: 06/07/2014 consent date: 06/06/2014 administer ed date: 06/06/2014 TB 2 Step Mantoux Skin Test completed tuberculin skin test; unspecified formulation lotNumber: [id number] expiry: 05/14/2015 Mfg: [employer] Given 0.1 ml Right Forearm intradermally Step 2 of Multi-step with next step required 98 CVX created date: 01/20/2014 consent date: 01/20/2014 administer ed date: 01/20/2014 Educated by scott on 01/20/2014 TB 2 Step Mantoux Skin Test completed tuberculin skin test; unspecified formulation lotNumber: [id number] expiry: 04/13/2015 Mfg: [employer] Given 0.1 [...] Current Smoking Status Tobacco smoking consumption unknown [id number] SNOMED CT Sex Assigned At Female 1955 30011-1 LOINC Gender Identity Vital Signs Code Code System Vitals Name Values and Units Timing Information 8310-5 LOINC Body Temperature Value=96.6 Units= F 08/11/2014 45448-5 LOINC Pain Level Value=7.0 08/10/2014 24669-6 LOINC Weight Gywpm=515.4 Units=Lbs 9279-1 [facility] Respiratory Rate Value=18.0 Units=/m in 08/06/2014 8462-4 [facility] Blood Pressure-Diastolic Value=62 Un its=mmHg 08/06/2014 8480-6 [facility] Blood Pressure-Systolic Snnvn=328 Un its=mmHg 08/06/2014 8867-4 [facility] Heart rate Value=66.0 Units=/min 68740-7 [facility] O2 % BldC Oximetry Value=96.0 Units= % 08/06/2014 8302-2 [facility] Height Value=63.0 Units=Inches 06/02/2014
--- NOTE | 2024-07-11 14:32 | CRLHL7_ITS ---
For Patients: As a result of the Century Cures Act, medical imaging exams and procedure reports are released immediately into your electronic medical record. You may view this report before your referring provider. If you have questions, please contact your health care provider. INDICATION: AMS, WEAKNESS, HYPOTENSION, CONCERN FOR SEPSIS TECHNIQUE: CT chest, abdomen and pelvis acquired 88 milliliters Isovue 370 contrast. COMPARISON: June 25, 2024 and dating back to 2016 FINDINGS: CHEST: Lungs and Airways: Mild respiratory motion. Small cluster of tree-in-bud nodular opacities in the left lower lobe. New compared to the June 25 exam. Associated scattered areas of peripheral endobronchial mucous plugging. Additional more conspicuous scattered intermittent pulmonary nodules measuring up to 13 millimeters in the right upper lobe. No endoluminal lesion. Heart and Mediastinum: The visualized portions of the thyroid are normal. No axillary or supraclavicular lymphadenopathy. No mediastinal, hilar or retrocrural lymphadenopathy. Normal heart size. Normal caliber aorta. Atherosclerotic calcifications. Pleura: The pleural spaces are normal. ABDOMEN: Liver: Normal enhancement. No focal suspicious hepatic lesions. Gallbladder and biliary: Cholecystectomy. Normal caliber bile ducts. Spleen: Atrophic spleen. Calcified granulomas Pancreas: Normal enhancement without peripancreatic inflammatory changes or ductal dilatation. Adrenal glands: Normal adrenal glands. Kidneys and ureters: Normal renal enhancement. Bilateral nonobstructing renal stones. Subcentimeter hypodensities are too small to characterize however statistically represent cysts. Renal cysts. Additional stable not simple attenuation renal foci for example inferior pole right renal exophytic focus measuring 17 millimeters. GI tract: The stomach is relatively decompressed. Normal caliber small and large bowel loops. Appendix is not definitively visualized. Left lower quadrant colostomy. Nettie`s pouch. Moderate-sized umbilical hernia containing anti mesenteric loop of transverse colon, Mayorga hernia. Not obstructed. Vascular structures: Normal caliber aorta with atherosclerotic calcifications. Lymph nodes: No lymphadenopathy in the abdomen or pelvis by size criteria. Peritoneum: No free air free fluid or focal drainable collections. PELVIS: Genitourinary system: Urinary bladder is decompressed with a suprapubic catheter. SKELETAL STRUCTURES AND SOFT TISSUES: Mild diffuse subcutaneous edema in the abdomen and pelvis. Anterior abdominal wall subcutaneous nodular foci likely sequela of injection/instrumentation. Diffuse bony demineralization. Lumbar spondylosis. Thoracic spondylosis. Posterior midline sacral decubitus ulcer with abutment of osseous structures without discrete osseous erosion. IMPRESSION: 1. Posterior midline sacral decubitus ulcer with abutment of osseous structures without discrete osseous erosion. 2. New small clustered left lower lobe tree-in-bud nodular opacities likely sequela of aspiration versus developing infectious process. Attention on follow-up exams. 3. Stable multifocal lobulated indeterminate pulmonary nodules measuring up to 13 millimeters in the right upper lobe. Recommend unenhanced chest CT in 3 months to document stability and assess malignant potential. 4. Stable appearance of the kidneys for which differential considerations and recommendations remain unchanged. Please note that all CT scans at this facility use dose modulation, iterative reconstruction, and/or weight-based dosing when appropriate to reduce radiation dose to as low as reasonably achievable. Dictated by Glenn Brizuela MD @ 07/11/2024 4:23:35 PM (Electronically Signed)
[2024-07-11 15:02] LABS: Basophils Percent Auto 0.1 % (0.0-3.0); Eosinophils Percent Auto 0.1 % (0.0-7.0); Hematocrit 33.7 % (33.0-51.0); Hemoglobin* 10.9 gm/dL (12.0-16.0); Immature Granulocytes Pct Auto 1.8 %; Lymphocytes Percent Auto 11.2 % (20-44); Mean Corpuscular HGB Conc 32 gm/dL (32-36); Mean Corpuscular Hemoglobin 31 pg (26-34); Mean Corpuscular Volume 97 fL (80-100); Monocytes Percent Auto 4.5 % (0.0-11.0); Neutrophils Percent Auto 82.3 % (42.0-72.0); Platelet Count* 365 K/uL (140-440); RDW Coefficient of Variation % 18.5 % (11.5-15.5); Red Blood Count 3.48 m/uL (4.00-5.20); White Blood Count* 12.54 K/uL (4.50-11.00)
--- NOTE | 2024-07-11 15:07 | ED.GENADULT ---
HPI - General Adult General Date Seen: 07/11/24 <Conrad Wilkerson DO - Last Filed: 07/11/24 22:03> Chief complaint: Hypotension <Conrad Wilkerson DO - Last Filed: 07/11/24 22:03> Stated complaint: Low blood pressure <Conrad Wilkerson DO - Last Filed: 07/11/24 22:03> Time Seen by Provider: 07/11/24 14:17 <Conrad Wilkerson DO - Last Filed: 07/11/24 22:03> Source: patient and EMS <Conradmac Wilkerson DO - Last Filed: 07/11/24 22:03> Mode of arrival: EMS <Conrad Wilkerson - Last Filed: 07/11/24 22:03> Limitations: no limitations <Conrad Wilkerson DO - Last Filed: 07/11/24 22:03> History of Present Illness HPI narrative: Patient is a 69-year-old female with a history of multiple sclerosis presenting to the emergency department for weakness. She states for the past 2 weeks she has been having increased weakness and fatigue. Report is she has been having some increased confusion but she seems to be answering all of my questions appropriately. She has been having some nausea and vomiting. Does not seem any different today than she did yesterday she states. Overall she states she feels much worse than she did prior than 2 weeks ago. EMS blood pressures were hypotensive and they tried to put a line in but patient refused. She states she did not want the IV placed while moving in the ambulance. She was also tachycardic for them and was hypoxic and placed on 2 L nasal cannula neck is she would desat to 88% on room air. Patient is bedbound due to her MS. She states she has diffuse body pain but cannot pinpoint exactly where it hurts. Does have a colostomy bag. Denies any chest pain, shortness of breath, abdominal pain, headache, vision changes, numbness. She does lean to the left. Is unable to fully turn her head and she states it is because ?I am old. <Conrad Wilkerson DO - Last Filed: 07/11/24 22:03> Related Data Home medications: Home Medications ?Medication ?Instructions ?Recorded ?Confirmed famotidine 40 mg tablet 40 mg PO DAILY 03/07/23 07/11/24 gabapentin 300 mg capsule 900 mg PO BID 03/07/23 07/11/24 morphine 15 mg tablet,extended 15 mg PO Q12H PRN 03/07/23 07/11/24 release morphine 30 mg immediate release 30 mg PO DAILY 03/07/23 08/30/23 tablet oxybutynin chloride 10 mg 10 mg PO DAILY 03/07/23 07/11/24 tablet,extended release 24 hr spironolactone 25 mg tablet 12.5 mg PO Q48H 03/07/23 07/11/24 acetaminophen 500 mg tablet 1,000 mg PO TID 08/30/23 07/11/24 hydrocortisone 1 % topical cream 1 applic topical DAILY 08/30/23 08/30/23 (Ala-Joshua) multivitamin (Daily-Ailyn tablet) 2 tab PO DAILY 08/30/23 08/30/23 naloxone 4 mg/actuation nasal spray 4 mg intranasal Q2-3M PRN 08/30/23 08/30/23 nystatin 100,000 unit/gram topical 1 applic topical TID 08/30/23 08/30/23 cream ondansetron HCl 4 mg tablet 4 mg PO Q8H PRN 08/30/23 07/11/24 sennosides 8.6 mg tablet 17.2 mg PO BID PRN 08/30/23 07/11/24 (Evac-U-Gen (sennosides)) fluconazole 200 mg tablet 200 mg PO DAILY 07/11/24 07/11/24 furosemide 20 mg tablet 20 mg PO BID 07/11/24 07/11/24 potassium chloride 20 mEq 20 meq PO BID 07/11/24 07/11/24 tablet,extended release(part/cryst) Previous Rx's ?Medication ?Instructions ?Recorded aspirin 81 mg capsule 81 mg PO DAILY #30 caps 08/31/23 <Conrad Wilkerson DO - Last Filed: 07/11/24 22:03> Allergies/adverse reactions: Allergies Allergy/AdvReac Type Severity Reaction Status Date / Time citalopram (From Celexa) Allergy Unknown Verified 06/25/24 19:30 duloxetine Allergy Unknown Verified 06/25/24 19:30 NSAIDS (Non-Steroidal Allergy Unknown Verified 06/25/24 19:30 Anti-Inflamma <Conrad Wilkerson DO - Last Filed: 07/11/24 22:03> Review of Systems Status of ROS: Reports: 10 or more systems reviewed and unremarkable except as noted in History and below <Conrad Wilkerson DO - Last Filed: 07/11/24 22:03> [facility] Social History: Social History What is your current living situation?: I presently have a place to live Problems where you live: no known problems Problems where you live details: no known problems In the past 12 months, utilities in danger of being shut off: no In past 12 months, lack of transportation kept you from medical appts, meetings, work, or getting things needed for daily living: no In the past 12 mos, have been you worried that your food would run out before you had money to buy more?: never true In the past 12 mos, the food you bought just didn't last and you didn't have money to buy more?: never true Smoking Status: Current some day smoker What tobacco products do you use: cigarettes How often do you have a drink containing alcohol: never How often do you have six or more drinks on one occasion: Never AUDIT-C Alcohol total score: 0 Non-prescribed substance use: denies use Caffeine: No How often does anyone, including family, friends and others, physically hurt you: never How often does anyone, including family, friends and others, insult or talk down to you: never How often does anyone, including family, friends and others, threaten you with harm: never How often does anyone, including family, friends and others, scream or curse at you: never service: No <Conrad Wilkerson DO - Last Filed: 07/11/24 22:03> Exam Narrative: Exam Narrative: Const: Well-nourished, Well-developed, in moderate distress Eyes: PERRL, no conjunctival injection, and symmetrical lids HENT: Atraumatic external nose and ears. Moist mucous membranes. Neck: Symmetric, trachea midline, No thyromegaly. CVS: RRR, No murmurs or gallops. Peripheral pulses 2+ and equal in all extremities RESP: Unlabored respiratory effort. Clear to auscultation bilaterally. GI: Nontender/Nondistended, No rebound or guarding. MSK:Extremities w/o deformity, Normal upper extremity Active ROM Skin: Warm, Dry. No rashes or lesions. Neuro: Normal Muscle tone upper extremity, normal sensation bilateral upper extremities with muscle strength 5 out of 5 bilateral upper extremities. Unable to move lower extremities due to MS. This is chronic. Psych: Awake, Alert, & Oriented x3. Appropriate mood and affect. <Conrad Wilkerson, DO - Last Filed: 07/11/24 22:03> Const: Vital Signs, click to edit/add: Vital Signs - 24 hr 07/11/24 14:12 07/11/24 14:18 07/11/24 14:19 Temperature 97.1 F L Pulse Rate 119 H 116 H Pulse Rate [Pulse Oximeter] 120 H Respiratory Rate 11 L Blood Pressure 81/27 L Blood Pressure [Le ft Upper Arm] 81/27 L Pulse Oximetry 88 88 91 Oxygen Delivery Me thod Room Air Room Air Nasal Cannula Oxygen Flow Rate 2 07/11/24 14:22 07/11/24 14:30 07/11/24 14:31 Temperature Pulse Rate 111 H 116 H 120 H Pulse Rate [Pulse Oximeter] Respiratory Rate 11 L 14 Blood Pressure 92/42 L 103/70 Blood Pressure [Le ft Upper Arm] Pulse Oximetry 92 93 93 Oxygen Delivery Me thod Nasal Cannula Nasal Cannula Oxygen Flow Rate 1 1 07/11/24 14:45 07/11/24 14:54 07/11/24 15:00 Temperature Pulse Rate 108 H 111 H 111 H Pulse Rate [Pulse Oximeter] Respiratory Rate 8 L 12 8 L Blood Pressure 141/118 H Blood Pressure [Le ft Upper Arm] Pulse Oximetry 94 94 93 Oxygen Delivery Me thod Oxygen Flow Rate 07/11/24 15:15 07/11/24 15:40 07/11/24 15:42 Temperature Pulse Rate 109 H 113 H Pulse Rate [Pulse Oximeter] Respiratory Rate 8 L Blood Pressure 100/64 Blood Pressure [Le ft Upper Arm] Pulse Oximetry 91 91 Oxygen Delivery Me thod Oxygen Flow Rate 07/11/24 15:45 07/11/24 15:52 07/11/24 16:00 Temperature Pulse Rate 108 H 105 H Pulse Rate [Pulse Oximeter] Respiratory Rate 9 L 5 L Blood Pressure 105/57 L Blood Pressure [Le ft Upper Arm] Pulse Oximetry 92 93 Oxygen Delivery Me thod Oxygen Flow Rate 07/11/24 16:02 07/11/24 16:06 07/11/24 16:14 Temperature Pulse Rate 109 H Pulse Rate [Pulse Oximeter] Respiratory Rate 10 L 12 12 Blood Pressure 78/28 L 90/74 115/56 L Blood Pressure [Le ft Upper Arm] Pulse Oximetry 93 Oxygen Delivery Me thod Oxygen Flow Rate 07/11/24 16:15 07/11/24 16:17 07/11/24 16:18 Temperature Pulse Rate 109 H 107 H 107 H Pulse Rate [Pulse Oximeter] Respiratory Rate 16 10 L 7 L Blood Pressure 116/56 L Blood Pressure [Le ft Upper Arm] Pulse Oximetry 93 93 93 Oxygen Delivery Me thod Nasal Cannula Oxygen Flow Rate 2 07/11/24 16:30 07/11/24 16:32 07/11/24 16:34 Temperature Pulse Rate Pulse Rate [Pulse Oximeter] Respiratory Rate 6 L 6 L Blood Pressure 104/60 Blood Pressure [Le ft Upper Arm] Pulse Oximetry 96 Oxygen Delivery Me thod Nasal Cannula Nasal Cannula Oxygen Flow Rate 2 2 07/11/24 16:45 07/11/24 16:47 07/11/24 17:00 Temperature Pulse Rate 108 H 112 H Pulse Rate [Pulse Oximeter] Respiratory Rate 8 L 12 13 Blood Pressure 93/73 Blood Pressure [Le ft Upper Arm] Pulse Oximetry 94 96 Oxygen Delivery Me thod Nasal Cannula Oxygen Flow Rate 2 07/11/24 17:05 07/11/24 17:15 07/11/24 17:17 Temperature Pulse Rate 111 H Pulse Rate [Pulse Oximeter] Respiratory Rate 10 L 11 L 9 L Blood Pressure 110/78 Blood Pressure [Le ft Upper Arm] Pulse Oximetry 93 Oxygen Delivery Me thod Nasal Cannula Nasal Cannula Oxygen Flow Rate 2 2 07/11/24 17:30 07/11/24 17:32 07/11/24 17:45 Temperature Pulse Rate 118 H Pulse Rate [Pulse Oximeter] Respiratory Rate 7 L 10 L 10 L Blood Pressure 103/58 L Blood Pressure [Le ft Upper Arm] Pulse Oximetry 96 Oxygen Delivery Me thod Nasal Cannula Oxygen Flow Rate 2 07/11/24 17:47 07/11/24 18:00 07/11/24 18:02 Temperature Pulse Rate 115 H 112 H 112 H Pulse Rate [Pulse Oximeter] Respiratory Rate 9 L 10 L 9 L Blood Pressure 103/71 70/50 L Blood Pressure [Le ft Upper Arm] Pulse Oximetry 95 95 94 Oxygen Delivery Me thod Nasal Cannula Nasal Cannula Oxygen Flow Rate 2 2 07/11/24 18:15 07/11/24 18:17 07/11/24 18:30 Temperature Pulse Rate 112 H 114 H 111 H Pulse Rate [Pulse Oximeter] Respiratory Rate 8 L 7 L 7 L Blood Pressure 112/49 L Blood Pressure [Le ft Upper Arm] Pulse Oximetry 94 94 94 Oxygen Delivery Me thod Nasal Cannula Oxygen Flow Rate 2 07/11/24 18:32 07/11/24 18:38 07/11/24 18:39 Temperature Pulse Rate 107 H 114 H Pulse Rate [Pulse Oximeter] Respiratory Rate 7 L 11 L 11 L Blood Pressure 89/52 L 86/27 L 101/54 L Blood Pressure [Le ft Upper Arm] Pulse Oximetry 95 94 Oxygen Delivery Me thod Nasal Cannula Nasal Cannula Nasal Cannula Oxygen Flow Rate 2 2 2 07/11/24 18:45 07/11/24 18:47 07/11/24 19:00 Temperature Pulse Rate 110 H 106 H 102 H Pulse Rate [Pulse Oximeter] Respiratory Rate 6 L 7 L 14 Blood Pressure 90/42 L Blood Pressure [Le ft Upper Arm] Pulse Oximetry 95 95 96 Oxygen Delivery Me thod Nasal Cannula Oxygen Flow Rate 2 07/11/24 19:01 07/11/24 19:02 07/11/24 19:09 Temperature Pulse Rate 103 H 102 H 108 H Pulse Rate [Pulse Oximeter] Respiratory Rate 7 L 7 L 7 L Blood Pressure 77/57 L 89/44 L Blood Pressure [Le ft Upper Arm] Pulse Oximetry 96 96 95 Oxygen Delivery Me thod Nasal Cannula Nasal Cannula Oxygen Flow Rate 2 1 07/11/24 19:14 07/11/24 19:15 07/11/24 19:22 Temperature Pulse Rate 111 H 109 H 99 Pulse Rate [Pulse Oximeter] Respiratory Rate 7 L 6 L 5 L Blood Pressure 89/63 L 86/44 L Blood Pressure [Le ft Upper Arm] Pulse Oximetry 95 95 96 Oxygen Delivery Me thod Nasal Cannula Nasal Cannula Oxygen Flow Rate 1 1 07/11/24 19:30 07/11/24 19:32 07/11/24 19:38 Temperature Pulse Rate 96 96 105 H Pulse Rate [Pulse Oximeter] Respiratory Rate 8 L 8 L 10 L Blood Pressure 81/52 L 92/48 L Blood Pressure [Le ft Upper Arm] Pulse Oximetry 94 94 95 Oxygen Delivery Me thod Oxygen Flow Rate 07/11/24 19:45 07/11/24 19:47 07/11/24 19:51 Temperature Pulse Rate 110 H Pulse Rate [Pulse Oximeter] Respiratory Rate 8 L 6 L 15 Blood Pressure 89/34 L 98/59 L Blood Pressure [Le ft Upper Arm] Pulse Oximetry 93 Oxygen Delivery Me thod Nasal Cannula Oxygen Flow Rate 1 07/11/24 19:52 07/11/24 20:00 07/11/24 20:01 Temperature Pulse Rate 109 H 102 H 100 Pulse Rate [Pulse Oximeter] Respiratory Rate 11 L 7 L 10 L Blood Pressure 91/60 90/53 L Blood Pressure [Le ft Upper Arm] Pulse Oximetry 93 93 94 Oxygen Delivery Me thod Oxygen Flow Rate 07/11/24 20:12 07/11/24 20:15 07/11/24 20:22 Temperature Pulse Rate Pulse Rate [Pulse Oximeter] Respiratory Rate 8 L 9 L 13 Blood Pressure 88/45 L 101/57 L Blood Pressure [Le ft Upper Arm] Pulse Oximetry Oxygen Delivery Me thod Nasal Cannula Nasal Cannula Oxygen Flow Rate 1 1 07/11/24 20:30 07/11/24 20:32 07/11/24 20:42 Temperature Pulse Rate 114 H 109 H Pulse Rate [Pulse Oximeter] Respiratory Rate 11 L 11 L 10 L Blood Pressure 108/56 L 85/59 L Blood Pressure [Le ft Upper Arm] Pulse Oximetry 89 92 Oxygen Delivery Me thod Oxygen Flow Rate 07/11/24 20:44 07/11/24 20:45 07/11/24 20:52 Temperature Pulse Rate 109 H 108 H 114 H Pulse Rate [Pulse Oximeter] Respiratory Rate 8 L 11 L 8 L Blood Pressure 99/52 L 85/39 L Blood Pressure [Le ft Upper Arm] Pulse Oximetry 92 93 92 Oxygen Delivery Me thod Nasal Cannula Oxygen Flow Rate 1 07/11/24 20:55 07/11/24 21:00 07/11/24 21:02 Temperature Pulse Rate 114 H Pulse Rate [Pulse Oximeter] Respiratory Rate 4 L 12 12 Blood Pressure 89/69 L 93/75 Blood Pressure [Le ft Upper Arm] Pulse Oximetry 94 Oxygen Delivery Me thod Oxygen Flow Rate 07/11/24 21:12 07/11/24 21:15 07/11/24 21:22 Temperature Pulse Rate 110 H 106 H 106 H Pulse Rate [Pulse Oximeter] Respiratory Rate 9 L 7 L 6 L Blood Pressure 90/37 L 68/44 L Blood Pressure [Le ft Upper Arm] Pulse Oximetry 94 93 94 Oxygen Delivery Me thod Nasal Cannula Oxygen Flow Rate 1 07/11/24 21:25 07/11/24 21:27 07/11/24 21:30 Temperature Pulse Rate 108 H 107 H 104 H Pulse Rate [Pulse Oximeter] Respiratory Rate 7 L 7 L 7 L Blood Pressure 111/38 L 95/68 Blood Pressure [Le ft Upper Arm] Pulse Oximetry 93 93 94 Oxygen Delivery Me thod Nasal Cannula Oxygen Flow Rate 1 07/11/24 21:32 07/11/24 21:42 07/11/24 21:45 Temperature Pulse Rate 99 106 H 102 H Pulse Rate [Pulse Oximeter] Respiratory Rate 6 L 6 L 9 L Blood Pressure 94/43 L 96/42 L Blood Pressure [Le ft Upper Arm] Pulse Oximetry 94 93 94 Oxygen Delivery Me thod Oxygen Flow Rate 07/11/24 21:52 Temperature Pulse Rate 106 H Pulse Rate [Pulse Oximeter] Respiratory Rate 9 L Blood Pressure 81/50 L Blood Pressure [Le ft Upper Arm] Pulse Oximetry 95 Oxygen Delivery Me thod Nasal Cannula Oxygen Flow Rate 1 <Conrad Wilkerson DO - Last Filed: 07/11/24 22:03> Vital Signs, click to edit/add: Vital Signs - 24 hr 07/11/24 14:12 07/11/24 14:18 07/11/24 14:19 Temperature 97.1 F L Pulse Rate 119 H 116 H Pulse Rate [Pulse Oximeter] 120 H Respiratory Rate 11 L Blood Pressure 81/27 L Blood Pressure [Le ft Upper Arm] 81/27 L Pulse Oximetry 88 88 91 Oxygen Delivery Me thod Room Air Room Air Nasal Cannula Oxygen Flow Rate 2 07/11/24 14:22 07/11/24 14:30 07/11/24 14:31 Temperature Pulse Rate 111 H 116 H 120 H Pulse Rate [Pulse Oximeter] Respiratory Rate 11 L 14 Blood Pressure 92/42 L 103/70 Blood Pressure [Le ft Upper Arm] Pulse Oximetry 92 93 93 Oxygen Delivery Me thod Nasal Cannula Nasal Cannula Oxygen Flow Rate 1 1 07/11/24 14:45 07/11/24 14:54 07/11/24 15:00 Temperature Pulse Rate 108 H 111 H 111 H Pulse Rate [Pulse Oximeter] Respiratory Rate 8 L 12 8 L Blood Pressure 141/118 H Blood Pressure [Le ft Upper Arm] Pulse Oximetry 94 94 93 Oxygen Delivery Me thod Oxygen Flow Rate 07/11/24 15:15 07/11/24 15:40 07/11/24 15:42 Temperature Pulse Rate 109 H 113 H Pulse Rate [Pulse Oximeter] Respiratory Rate 8 L Blood Pressure 100/64 Blood Pressure [Le ft Upper Arm] Pulse Oximetry 91 91 Oxygen Delivery Me thod Oxygen Flow Rate 07/11/24 15:45 07/11/24 15:52 07/11/24 16:00 Temperature Pulse Rate 108 H 105 H Pulse Rate [Pulse Oximeter] Respiratory Rate 9 L 5 L Blood Pressure 105/57 L Blood Pressure [Le ft Upper Arm] Pulse Oximetry 92 93 Oxygen Delivery Me thod Oxygen Flow Rate 07/11/24 16:02 07/11/24 16:06 07/11/24 16:14 Temperature Pulse Rate 109 H Pulse Rate [Pulse Oximeter] Respiratory Rate 10 L 12 12 Blood Pressure 78/28 L 90/74 115/56 L Blood Pressure [Le ft Upper Arm] Pulse Oximetry 93 Oxygen Delivery Me thod Oxygen Flow Rate 07/11/24 16:15 07/11/24 16:17 07/11/24 16:18 Temperature Pulse Rate 109 H 107 H 107 H Pulse Rate [Pulse Oximeter] Respiratory Rate 16 10 L 7 L Blood Pressure 116/56 L Blood Pressure [Le ft Upper Arm] Pulse Oximetry 93 93 93 Oxygen Delivery Me thod Nasal Cannula Oxygen Flow Rate 2 07/11/24 16:30 07/11/24 16:32 07/11/24 16:34 Temperature Pulse Rate Pulse Rate [Pulse Oximeter] Respiratory Rate 6 L 6 L Blood Pressure 104/60 Blood Pressure [Le ft Upper Arm] Pulse Oximetry 96 Oxygen Delivery Me thod Nasal Cannula Nasal Cannula Oxygen Flow Rate 2 2 07/11/24 16:45 07/11/24 16:47 07/11/24 17:00 Temperature Pulse Rate 108 H 112 H Pulse Rate [Pulse Oximeter] Respiratory Rate 8 L 12 13 Blood Pressure 93/73 Blood Pressure [Le ft Upper Arm] Pulse Oximetry 94 96 Oxygen Delivery Me thod Nasal Cannula Oxygen Flow Rate 2 07/11/24 17:05 07/11/24 17:15 07/11/24 17:17 Temperature Pulse Rate 111 H Pulse Rate [Pulse Oximeter] Respiratory Rate 10 L 11 L 9 L Blood Pressure 110/78 Blood Pressure [Le ft Upper Arm] Pulse Oximetry 93 Oxygen Delivery Me thod Nasal Cannula Nasal Cannula Oxygen Flow Rate 2 2 07/11/24 17:30 07/11/24 17:32 07/11/24 17:45 Temperature Pulse Rate 118 H Pulse Rate [Pulse Oximeter] Respiratory Rate 7 L 10 L 10 L Blood Pressure 103/58 L Blood Pressure [Le ft Upper Arm] Pulse Oximetry 96 Oxygen Delivery Me thod Nasal Cannula Oxygen Flow Rate 2 07/11/24 17:47 07/11/24 18:00 07/11/24 18:02 Temperature Pulse Rate 115 H 112 H 112 H Pulse Rate [Pulse Oximeter] Respiratory Rate 9 L 10 L 9 L Blood Pressure 103/71 70/50 L Blood Pressure [Le ft Upper Arm] Pulse Oximetry 95 95 94 Oxygen Delivery Me thod Nasal Cannula Nasal Cannula Oxygen Flow Rate 2 2 07/11/24 18:15 07/11/24 18:17 07/11/24 18:30 Temperature Pulse Rate 112 H 114 H 111 H Pulse Rate [Pulse Oximeter] Respiratory Rate 8 L 7 L 7 L Blood Pressure 112/49 L Blood Pressure [Le ft Upper Arm] Pulse Oximetry 94 94 94 Oxygen Delivery Me thod Nasal Cannula Oxygen Flow Rate 2 07/11/24 18:32 07/11/24 18:38 07/11/24 18:39 Temperature Pulse Rate 107 H 114 H Pulse Rate [Pulse Oximeter] Respiratory Rate 7 L 11 L 11 L Blood Pressure 89/52 L 86/27 L 101/54 L Blood Pressure [Le ft Upper Arm] Pulse Oximetry 95 94 Oxygen Delivery Me thod Nasal Cannula Nasal Cannula Nasal Cannula Oxygen Flow Rate 2 2 2 07/11/24 18:45 07/11/24 18:47 07/11/24 19:00 Temperature Pulse Rate 110 H 106 H 102 H Pulse Rate [Pulse Oximeter] Respiratory Rate 6 L 7 L 14 Blood Pressure 90/42 L Blood Pressure [Le ft Upper Arm] Pulse Oximetry 95 95 96 Oxygen Delivery Me thod Nasal Cannula Oxygen Flow Rate 2 07/11/24 19:01 07/11/24 19:02 07/11/24 19:09 Temperature Pulse Rate 103 H 102 H 108 H Pulse Rate [Pulse Oximeter] Respiratory Rate 7 L 7 L 7 L Blood Pressure 77/57 L 89/44 L Blood Pressure [Le ft Upper Arm] Pulse Oximetry 96 96 95 Oxygen Delivery Me thod Nasal Cannula Nasal Cannula Oxygen Flow Rate 2 1 07/11/24 19:14 07/11/24 19:15 07/11/24 19:22 Temperature Pulse Rate 111 H 109 H 99 Pulse Rate [Pulse Oximeter] Respiratory Rate 7 L 6 L 5 L Blood Pressure 89/63 L 86/44 L Blood Pressure [Le ft Upper Arm] Pulse Oximetry 95 95 96 Oxygen Delivery Me thod Nasal Cannula Nasal Cannula Oxygen Flow Rate 1 1 07/11/24 19:30 07/11/24 19:32 07/11/24 19:38 Temperature Pulse Rate 96 96 105 H Pulse Rate [Pulse Oximeter] Respiratory Rate 8 L 8 L 10 L Blood Pressure 81/52 L 92/48 L Blood Pressure [Le ft Upper Arm] Pulse Oximetry 94 94 95 Oxygen Delivery Me thod Oxygen Flow Rate 07/11/24 19:45 07/11/24 19:47 07/11/24 19:51 Temperature Pulse Rate 110 H Pulse Rate [Pulse Oximeter] Respiratory Rate 8 L 6 L 15 Blood Pressure 89/34 L 98/59 L Blood Pressure [Le ft Upper Arm] Pulse Oximetry 93 Oxygen Delivery Me thod Nasal Cannula Oxygen Flow Rate 1 07/11/24 19:52 07/11/24 20:00 07/11/24 20:01 Temperature Pulse Rate 109 H 102 H 100 Pulse Rate [Pulse Oximeter] Respiratory Rate 11 L 7 L 10 L Blood Pressure 91/60 90/53 L Blood Pressure [Le ft Upper Arm] Pulse Oximetry 93 93 94 Oxygen Delivery Me thod Oxygen Flow Rate 07/11/24 20:12 07/11/24 20:15 07/11/24 20:22 Temperature Pulse Rate Pulse Rate [Pulse Oximeter] Respiratory Rate 8 L 9 L 13 Blood Pressure 88/45 L 101/57 L Blood Pressure [Le ft Upper Arm] Pulse Oximetry Oxygen Delivery Me thod Nasal Cannula Nasal Cannula Oxygen Flow Rate 1 1 07/11/24 20:30 07/11/24 20:32 07/11/24 20:42 Temperature Pulse Rate 114 H 109 H Pulse Rate [Pulse Oximeter] Respiratory Rate 11 L 11 L 10 L Blood Pressure 108/56 L 85/59 L Blood Pressure [Le ft Upper Arm] Pulse Oximetry 89 92 Oxygen Delivery Me thod Oxygen Flow Rate 07/11/24 20:44 07/11/24 20:45 07/11/24 20:52 Temperature Pulse Rate 109 H 108 H 114 H Pulse Rate [Pulse Oximeter] Respiratory Rate 8 L 11 L 8 L Blood Pressure 99/52 L 85/39 L Blood Pressure [Le ft Upper Arm] Pulse Oximetry 92 93 92 Oxygen Delivery Me thod Nasal Cannula Oxygen Flow Rate 1 07/11/24 20:55 07/11/24 21:00 07/11/24 21:02 Temperature Pulse Rate 114 H Pulse Rate [Pulse Oximeter] Respiratory Rate 4 L 12 12 Blood Pressure 89/69 L 93/75 Blood Pressure [Le ft Upper Arm] Pulse Oximetry 94 Oxygen Delivery Me thod Oxygen Flow Rate 07/11/24 21:12 07/11/24 21:15 07/11/24 21:22 Temperature Pulse Rate 110 H 106 H 106 H Pulse Rate [Pulse Oximeter] Respiratory Rate 9 L 7 L 6 L Blood Pressure 90/37 L 68/44 L Blood Pressure [Le ft Upper Arm] Pulse Oximetry 94 93 94 Oxygen Delivery Me thod Nasal Cannula Oxygen Flow Rate 1 07/11/24 21:25 07/11/24 21:27 07/11/24 21:30 Temperature Pulse Rate 108 H 107 H 104 H Pulse Rate [Pulse Oximeter] Respiratory Rate 7 L 7 L 7 L Blood Pressure 111/38 L 95/68 Blood Pressure [Le ft Upper Arm] Pulse Oximetry 93 93 94 Oxygen Delivery Me thod Nasal Cannula Oxygen Flow Rate 1 07/11/24 21:32 07/11/24 21:42 07/11/24 21:45 Temperature Pulse Rate 99 106 H 102 H Pulse Rate [Pulse Oximeter] Respiratory Rate 6 L 6 L 9 L Blood Pressure 94/43 L 96/42 L Blood Pressure [Le ft Upper Arm] Pulse Oximetry 94 93 94 Oxygen Delivery Me thod Oxygen Flow Rate 07/11/24 21:52 Temperature Pulse Rate 106 H Pulse Rate [Pulse Oximeter] Respiratory Rate 9 L Blood Pressure 81/50 L Blood Pressure [Le ft Upper Arm] Pulse Oximetry 95 Oxygen Delivery Me thod Nasal Cannula Oxygen Flow Rate 1 <Booker Campbell MD - Last Filed: 07/11/24 22:26> Course Reevaluation(s) Time of Reevaluation #1: 22:26 <Booker Campbell MD - Last Filed: 07/11/24 22:26> Reevaluation #1: Patient is been accepted for transfer at [place], she is in the step-down unit, her blood pressure is trended downward an 83 systolic, we will give her a 500 mL bolus of lactated Ringer's <Booker Campbell MD - Last Filed: 07/11/24 22:26> Vital Signs Vital signs: Initial Vital Signs Temperature 97.1 F L 07/11/24 14:12 Temperature Source Temporal Artery Scan 07/11/24 14:12 Pulse Rate 120 H 07/11/24 14:12 Respiratory Rate 11 L 07/11/24 14:12 Blood Pressure 81/27 L 07/11/24 14:12 Blood Pressure Mean 45 L 07/11/24 14:12 Blood Pressure Position Supine 07/11/24 14:12 Pulse Oximetry 88 07/11/24 14:12 Oxygen Delivery Method Room Air 07/11/24 14:12 Vital Signs Temperature 97.1 F L 07/11/24 14:12 Pulse Rate 120 H 07/11/24 14:12 Respiratory Rate 11 L 07/11/24 14:12 Blood Pressure 81/27 L 07/11/24 14:12 Pulse Oximetry 88 07/11/24 14:12 Oxygen Delivery Method Room Air 07/11/24 14:12 Temperature 97.1 F L 07/11/24 14:12 Pulse Rate 106 H 07/11/24 21:52 Respiratory Rate 9 L 07/11/24 21:52 Blood Pressure 81/50 L 07/11/24 21:52 Pulse Oximetry 95 07/11/24 21:52 Oxygen Delivery Method Nasal Cannula 07/11/24 21:52 Oxygen Flow Rate 1 07/11/24 21:52 <Conrad Wilkerson DO - Last Filed: 07/11/24 22:03> Initial Vital Signs Temperature 97.1 F L 07/11/24 14:12 Temperature Source Temporal Artery Scan 07/11/24 14:12 Pulse Rate 120 H 07/11/24 14:12 Respiratory Rate 11 L 07/11/24 14:12 Blood Pressure 81/27 L 07/11/24 14:12 Blood Pressure Mean 45 L 07/11/24 14:12 Blood Pressure Position Supine 07/11/24 14:12 Pulse Oximetry 88 07/11/24 14:12 Oxygen Delivery Method Room Air 07/11/24 14:12 Vital Signs Temperature 97.1 F L 07/11/24 14:12 Pulse Rate 120 H 07/11/24 14:12 Respiratory Rate 11 L 07/11/24 14:12 Blood Pressure 81/27 L 07/11/24 14:12 Pulse Oximetry 88 07/11/24 14:12 Oxygen Delivery Method Room Air 07/11/24 14:12 Temperature 97.1 F L 07/11/24 14:12 Pulse Rate 106 H 07/11/24 21:52 Respiratory Rate 9 L 07/11/24 21:52 Blood Pressure 81/50 L 07/11/24 21:52 Pulse Oximetry 95 07/11/24 21:52 Oxygen Delivery Method Nasal Cannula 07/11/24 21:52 Oxygen Flow Rate 1 07/11/24 21:52 <Booker Campbell MD - Last Filed: 07/11/24 22:26> Medications Administered Medications: Discontinued Medications Generic Name Dose Route Start Last Admin Trade Name Freq PRN Reason Stop Dose Admin Sodium Chloride 1,000 mls @ 1,000 mls/hr 07/11/24 14:45 07/11/24 17:45 0.9 % Sodium Chloride 1000 Ml IV 07/11/24 15:44 Infused .Q1H BELL Infusion Sodium Chloride 500 mls @ 1,000 mls/hr 07/11/24 15:17 07/11/24 18:35 0.9 % Sodium Chloride 500 Ml IV 07/11/24 15:46 Infused .Q30M ONE Infusion Ceftriaxone Sodium 1 gm/ 100 mls @ 200 mls/hr 07/11/24 16:43 07/11/24 17:50 Sodium Chloride IVPB 07/11/24 16:44 Infused ONCE ONE Infusion Azithromycin 500 mg/ Sodium 255 mls @ 255 mls/hr 07/11/24 16:43 07/11/24 19:05 Chloride IVPB 07/11/24 16:44 Infused ONCE ONE Infusion Sodium Chloride 1,000 mls @ 1,000 mls/hr 07/11/24 19:00 07/11/24 20:45 0.9 % Sodium Chloride 1000 Ml IV 07/11/24 19:59 Infused .Q1H BELL Infusion Potassium Bicarbonate 25 meq 07/11/24 17:15 07/11/24 20:43 Potassium Bicarb 25 Meq Effervescent Tab PO 07/11/24 19:16 25 meq Q2H BELL Administration <Conrad Wilkerson DO - Last Filed: 07/11/24 22:03> Discontinued Medications Generic Name Dose Route Start Last Admin Trade Name Freq PRN Reason Stop Dose Admin Sodium Chloride 1,000 mls @ 1,000 mls/hr 07/11/24 14:45 07/11/24 17:45 0.9 % Sodium Chloride 1000 Ml IV 07/11/24 15:44 Infused .Q1H BELL Infusion Sodium Chloride 500 mls @ 1,000 mls/hr 07/11/24 15:17 07/11/24 18:35 0.9 % Sodium Chloride 500 Ml IV 07/11/24 15:46 Infused .Q30M ONE Infusion Ceftriaxone Sodium 1 gm/ 100 mls @ 200 mls/hr 07/11/24 16:43 07/11/24 17:50 Sodium Chloride IVPB 07/11/24 16:44 Infused ONCE ONE Infusion Azithromycin 500 mg/ Sodium 255 mls @ 255 mls/hr 07/11/24 16:43 07/11/24 19:05 Chloride IVPB 07/11/24 16:44 Infused ONCE ONE Infusion Sodium Chloride 1,000 mls @ 1,000 mls/hr 07/11/24 19:00 07/11/24 20:45 0.9 % Sodium Chloride 1000 Ml IV 07/11/24 19:59 Infused .Q1H BELL Infusion Potassium Bicarbonate 25 meq 07/11/24 17:15 07/11/24 20:43 Potassium Bicarb 25 Meq Effervescent Tab PO 07/11/24 19:16 25 meq Q2H BELL Administration <Booker Campbell MD - Last Filed: 07/11/24 22:26> Medical Decision Making MDM Narrative Medical decision making narrative: Patient is a 69-year-old female with history of MS who is bed bound presents to the emergency department for fatigue and shortness of breath. She was hypertensive when she arrived there is concerned she could be septic. Septa was ordered immediately and she was started on fluids. We tried to take the oxygen off and she dropped down to 88% and she is currently satting well on 1 L nasal cannula. She does not wear oxygen at home. I do concerns she could be having pneumonia or any other abnormality so will do a CT scan chest abdomen pelvis with IV contrast to rule out any infections. Report is she has some altered mental status but when I speak to her she seems to be acting normally. Either way I will do a head CT. Lab work ordered includes lactate, blood cultures, CBC, CMP, viral swabs, troponin, urinalysis, magnesium. She has obese and I do not believe doing 30 milliliters/kilos of her current body weight would be appropriate. Instead I will use ideal body weight which for her would be 50 kg. I ordered 1.5 L of fluid to be given. Of note her blood pressure was improving even before the fluids were given Lab work returns with a white count of 12.54. Two weeks ago her white count was only 8. This does seem like quite a bit of arise and likely is a sinus infection. It is neutrophil predominant. Creatinine is elevated 1.9 and her baseline is around 1.1. This is likely secondary to some dehydration. Liver function tests are slightly elevated compared to previous labs. She does have a very large stage 3 ulcer but it does not look infected. Her initial lactate was 2.0. CT scan of her head reviewed by myself and the radiologist shows no acute concerning abnormalities. CT scan of her chest abdomen pelvis reviewed by myself and the radiologist does seem to show a likely pneumonia on the left lower lobes. Started the patient on Rocephin and azithromycin. Urinalysis also shows signs of a UTI. This will be covered with Rocephin. Of note the initial troponin was 0.12 and repeat was also 0.12. EKG was poor quality but no obvious signs of STEMI. We attempted to get a better quality EKG but were unsuccessful. Without the going on do believe we should admit the patient here to the hospitalist service. They are agreeable to this plan. After patient was admitted her blood pressure started to go down again. Due to only having poor IV access I did place a central line. After this her blood pressures did improve but she still has blood pressures on the lower side and will occasionally have a map under 65. Due to all of this our hospitalist does not feel comfortable keeping her here. We are trying to transfer the patient. I did speak to the rn military at [facility] and he states considering she is not on any pressors right now and her maps have been for the most part above 65 she would not meet ICU criteria for them. States she would go to their [facility] step-down unit. Of note I do not cover her for hospital-acquired pneumonia as by time I found out about the recent hospitalization she also received the Rocephin and azithromycin and her maps have been for the most part above 65. I am hesitant to add on vancomycin considering the ARABELLA. I was able speak to Dr. John of [facility] and he accepted the patient for transfer. <Conrad Wilkerson, DO - Last Filed: 07/11/24 22:03> Lab Data Labs: Lab Results 07/11/24 07/11/24 07/11/24 Range/Units 14:50 16:40 17:12 WBC 12.54 H (4.50-11.00) K/uL RBC 3.48 L (4.00-5.20) m/uL Hgb 10.9 L (12.0-16.0) gm/dL Hct 33.7 (33.0-51.0) % MCV 97 (80-100) fL MCH 31 (26-34) pg MCHC 32 (32-36) gm/dL RDW Coeff of Shruthi 18.5 H (11.5-15.5) % Plt Count 365 (140-440) K/uL Neut % (Auto) 82.3 H (42.0-72.0) % Lymph % (Auto) 11.2 L (20-44) % Davidson % (Auto) 4.5 (0.0-11.0) % Eos % (Auto) 0.1 (0.0-7.0) % Baso % (Auto) 0.1 (0.0-3.0) % Neut # (Auto) 10.30 H (1.7-7.0) K/uL Lymph # (Auto) 1.40 (0.90-2.90) K/uL Davidson # (Auto) 0.60 (0.00-0.90) K/UL Eos # (Auto) 0.00 (0.00-0.50) K/uL Baso # (Auto) 0.00 (0.00-0.30) K/uL Abs Immat Gran (auto) 0.20 (0.00-0.30) K/uL Imm/Tot Granulo (auto) 1.8 % Sodium 134 L (135-149) mmol/L Potassium 3.0 L (3.6-5.1) mmol/L Chloride 98 (96-114) mmol/L Carbon Dioxide 29 (20-32) mmol/L Anion Gap 7 (7-15) mEq/L BUN 24 (7-30) mg/dL Creatinine 1.9 H (0.5-1.5) mg/dL Estimated Creat Clear 22.10 Estimated GFR 28 ml/min Glucose 103 (60-115) mg/dL Lactate 2.0 H 2.0 H (0.5-1.9) mmol/L Calcium 8.4 (8.4-10.6) mg/dL Magnesium 1.7 (1.5-2.6) mg/dL Total Bilirubin 0.5 (0.1-1.5) mg/dL AST 77 H (12-35) U/L ALT 43 H (4-35) U/L Alkaline Phosphatase 247 H (40-150) U/L Troponin I 0.12 H* 0.12 H* (0.01-0.04) ng/mL Total Protein 5.6 L (6.0-8.3) g/dL Albumin 2.5 L (3.3-5.0) g/dL Urine Color Yellow (Yellow) Urine Appearance Cloudy A (Clear) Urine pH 5.5 (5.0-8.5) Ur Specific [place] <= 1.005 (1.000-1.030) Urine Protein Trace A (Negative) Urine Glucose (UA) Negative (Negative) Urine Ketones Negative (Negative) Urine Blood 2+ A (Negative) Urine Nitrite Positive A (Negative) Urine Bilirubin Negative (Negative) Urine Urobilinogen 0.2 (0.2-1.0) Ur Leukocyte Esterase 3+ A (Negative) Urine RBC 2-5 A (0-2) Urine WBC >100 A (0-5) Ur Squamous Epith Cells Few (None-Few) Urine Bacteria Few A (None) SARS-CoV-2 (PCR) Negative SARS-CoV-2 (Negative) Influenza Type A (PCR) Negative PCR FLU A (Negative) Influenza Type B (PCR) Negative PCR FLU B (Negative) RSV (PCR) Negative PCR RSV (Negative) <Conrad Loida Rock, DO - Last Filed: 07/11/24 22:03> Lab Results 07/11/24 07/11/24 07/11/24 Range/Units 14:50 16:40 17:12 WBC 12.54 H (4.50-11.00) K/uL RBC 3.48 L (4.00-5.20) m/uL Hgb 10.9 L (12.0-16.0) gm/dL Hct 33.7 (33.0-51.0) % MCV 97 (80-100) fL MCH 31 (26-34) pg MCHC 32 (32-36) gm/dL RDW Coeff of Shruthi 18.5 H (11.5-15.5) % Plt Count 365 (140-440) K/uL Neut % (Auto) 82.3 H (42.0-72.0) % Lymph % (Auto) 11.2 L (20-44) % Davidson % (Auto) 4.5 (0.0-11.0) % Eos % (Auto) 0.1 (0.0-7.0) % Baso % (Auto) 0.1 (0.0-3.0) % Neut # (Auto) 10.30 H (1.7-7.0) K/uL Lymph # (Auto) 1.40 (0.90-2.90) K/uL Davidson # (Auto) 0.60 (0.00-0.90) K/UL Eos # (Auto) 0.00 (0.00-0.50) K/uL Baso # (Auto) 0.00 (0.00-0.30) K/uL Abs Immat Gran (auto) 0.20 (0.00-0.30) K/uL Imm/Tot Granulo (auto) 1.8 % Sodium 134 L (135-149) mmol/L Potassium 3.0 L (3.6-5.1) mmol/L Chloride 98 (96-114) mmol/L Carbon Dioxide 29 (20-32) mmol/L Anion Gap 7 (7-15) mEq/L BUN 24 (7-30) mg/dL Creatinine 1.9 H (0.5-1.5) mg/dL Estimated Creat Clear 22.10 Estimated GFR 28 ml/min Glucose 103 (60-115) mg/dL Lactate 2.0 H 2.0 H (0.5-1.9) mmol/L Calcium 8.4 (8.4-10.6) mg/dL Magnesium 1.7 (1.5-2.6) mg/dL Total Bilirubin 0.5 (0.1-1.5) mg/dL AST 77 H (12-35) U/L ALT 43 H (4-35) U/L Alkaline Phosphatase 247 H (40-150) U/L Troponin I 0.12 H* 0.12 H* (0.01-0.04) ng/mL Total Protein 5.6 L (6.0-8.3) g/dL Albumin 2.5 L (3.3-5.0) g/dL Urine Color Yellow (Yellow) Urine Appearance Cloudy A (Clear) Urine pH 5.5 (5.0-8.5) Ur Specific [place] <= 1.005 (1.000-1.030) Urine Protein Trace A (Negative) Urine Glucose (UA) Negative (Negative) Urine Ketones Negative (Negative) Urine Blood 2+ A (Negative) Urine Nitrite Positive A (Negative) Urine Bilirubin Negative (Negative) Urine Urobilinogen 0.2 (0.2-1.0) Ur Leukocyte Esterase 3+ A (Negative) Urine RBC 2-5 A (0-2) Urine WBC >100 A (0-5) Ur Squamous Epith Cells Few (None-Few) Urine Bacteria Few A (None) SARS-CoV-2 (PCR) Negative SARS-CoV-2 (Negative) Influenza Type A (PCR) Negative PCR FLU A (Negative) Influenza Type B (PCR) Negative PCR FLU B (Negative) RSV (PCR) Negative PCR RSV (Negative) <Booker Campbell MD - Last Filed: 07/11/24 22:26> Imaging Data CT scan chest abdomen pelvis: Attestation: I have reviewed the pertinent imaging results. <Conrad Wilkerson DO - Last Filed: 07/11/24 22:03> Radiologist's impression: 1. Posterior midline sacral decubitus ulcer with abutment of osseous structures without discrete osseous erosion. 2. New small clustered left lower lobe tree-in-bud nodular opacities likely sequela of aspiration versus developing infectious process. Attention on follow-up exams. 3. Stable multifocal lobulated indeterminate pulmonary nodules measuring up to 13 millimeters in the right upper lobe. Recommend unenhanced chest CT in 3 months to document stability and assess malignant potential. 4. Stable appearance of the kidneys for which differential considerations and recommendations remain unchanged. Please note that all CT scans at this facility use dose modulation, iterative reconstruction, and/or weight-based dosing when appropriate to reduce radiation dose to as low as reasonably achievable. Dictated by Glenn Brizuela MD @ 07/11/2024 4:23:35 PM <Conrad Wilkerson DO - Last Filed: 07/11/24 22:03> CT scan - head: Radiologist's impression: 1. No acute intracranial abnormality. No significant changes compared to the prior exam. 2. Moderate parenchymal volume loss and chronic small vessel ischemic changes. 3. Chronic lacunar infarct in the right cerebellum. 4. Air-fluid level and secretions in the left maxillary sinus could represent acute sinusitis. Please note that all CT scans at this facility use dose modulation, iterative reconstruction, and/or weight-based dosing when appropriate to reduce radiation dose to as low as reasonably achievable. Dictated by Glenn Morales MD @ 07/11/2024 4:00:39 PM <Conrad Wilkerson DO - Last Filed: 07/11/24 22:03> Chest x-ray: Attestation: I have reviewed the pertinent imaging results. <Conrad Wilkerson DO - Last Filed: 07/11/24 22:03> Radiologist's impression: 1. No definite acute findings. 2. 1.3 cm right upper lobe nodule that could be suspicious for malignancy. Follow up chest CT in 3 months, PET-CT, or percutaneous tissue sampling could be considered. Dictated by Glenn Cifuentes MD @ 07/11/2024 9:41:13 PM ----- ADDENDUM ----- Additional impression point: As noted in the findings, difficult evaluation given patient rotation, but central line is likely in the right IJ terminating near the cavoatrial junction. Dictated by Glenn Cifuentes MD @ Jul 11 2024 9:41PM <Conrad Wilkerson DO - Last Filed: 07/11/24 22:03> ECG Data Attestation: I personally reviewed and interpreted this ECG as follows: <Conrad Wilkerson Last Filed: 07/11/24 22:03> Prior ECG tracings: available for review <Conrad Wilkerson Last Filed: 07/11/24 22:03> Interpretation: Sinus tachycardia with a rate of 107 beats per minute, normal intervals, normal axis, no ST or T-wave abnormalities. Poor quality EKG but does look similar previous EKG on file <Conrad Wilkerson - Last Filed: 07/11/24 22:03> Critical Care Time Critical Care Time Critical Care Time: Yes Attestation: The patient required my highest level preparedness to intervene emergently and I personally spent this critical care time directly and personally managing the patient. This critical care time included: Obtaining a history; Examining the patient; Pulse oximetry; Ordering and reviewing of studies; Arranging urgent treatment with development of a management plan; Evaluation of patients response to treatment; Frequent reassessment discussions with other providers. This critical care time was performed to assess and manage the high probability of imminent life-threatening deterioration that could result in multiorgan failure. It was exclusive of separate billable procedures and treating other patients and teaching time. <Conrad Wilkerson - Last Filed: 07/11/24 22:03> Total Critical Care Time in Minutes: 51 <Conrad Wilkerson Last Filed: 07/11/24 22:03> Discharge Plan Discharge Clinical Impression: Acute UTI, ARABELLA (acute kidney injury) Pneumonia Qualifiers: Pneumonia type: due to unspecified organism Laterality: left Lung location: lower lobe of lung Qualified Code(s): J18.9 - Pneumonia, unspecified organism Sepsis Qualifiers: Sepsis type: methicillin susceptible Staphylococcus aureus Sepsis acute organ dysfunction status: with acute organ dysfunction Severe sepsis acute organ dysfunction type: acute renal failure Acute renal failure type: unspecified Severe sepsis shock status: with septic shock Qualified Code(s): A41.01 - Sepsis due to Methicillin susceptible Staphylococcus aureus <Conrad Wilkerson - Last Filed: 07/11/24 22:03> Patient Disposition: Xfer Other <Conrad Wilkerson - Last Filed: 07/11/24 22:03> Discharge Location: [facility] <Conrad P Rock, DO - Last Filed: 07/11/24 22:03> Condition: Stable <Conrad Wilkerson DO - Last Filed: 07/11/24 22:03> Prescriptions: No Action furosemide 20 mg tablet 20 mg PO BID fluconazole 200 mg tablet 200 mg PO DAILY potassium chloride 20 mEq tablet,ER particles/crystals 20 meq PO BID oxybutynin chloride 10 mg tablet extended release 24hr 10 mg PO DAILY famotidine 40 mg tablet 40 mg PO DAILY spironolactone 25 mg tablet 12.5 mg PO Q48H morphine 30 mg tablet 30 mg PO DAILY gabapentin 300 mg capsule 900 mg PO BID morphine 15 mg tablet extended release 15 mg PO Q12H PRN hydrocortisone [Ala-Joshua] 1 % cream 1 applic topical DAILY multivitamin [Daily-Ailyn] Tablet 2 tab PO DAILY acetaminophen 500 mg tablet 1,000 mg PO TID nystatin 100,000 unit/gram cream 1 applic topical TID naloxone 4 mg/actuation spray,non-aerosol 4 mg intranasal Q2-3M PRN Rx Instructions: spray 1 dose into ONE nostril; alternate nostrils w each dose until help arrives ondansetron HCl 4 mg tablet 4 mg PO Q8H PRN sennosides [Evac-U-Gen (sennosides)] 8.6 mg tablet 17.2 mg PO BID PRN aspirin 81 mg capsule 81 mg PO DAILY Qty: 30 0RF <Conrad Wilkerson, DO - Last Filed: 07/11/24 22:03> Stand Alone Forms: My[facility] Info Instructions <Conrad Wilkerson DO - Last Filed: 07/11/24 22:03> Procedures Central Line Placement Right IJ: Site marking: site marked <Conrad Wilkerson DO - Last Filed: 07/11/24 22:03> Image guidance used: US guidance <Conrad Wilkerson DO - Last Filed: 07/11/24 22:03> Verification/time out: correct patient <Conrad Wilkerson DO - Last Filed: 07/11/24 22:03> Name of person performing procedure: Conrad Wilkerson <Conrad Wilkerson DO - Last Filed: 07/11/24 22:03> Anesthesia: lidocaine 1% <Conrad Wilkerson DO - Last Filed: 07/11/24 22:03> Amount of anesthesia used (mL): 5 <Conrad Wilkerson DO - Last Filed: 07/11/24 22:03> Patient Placed on Monitor/Pulse Ox: Yes <Conrad Wilkerson, DO - Last Filed: 07/11/24 22:03> MD Prep: mask, gown, gloves and other <Conrad Wilkerson, DO - Last Filed: 07/11/24 22:03> Central Line Prep: Povidone-Iodine 1% <Conrad Wilkerson, DO - Last Filed: 07/11/24 22:03> Ultrasound Used for Placement: Yes <Conrad Wilkerson, DO - Last Filed: 07/11/24 22:03> Central Line Lumen Inserted: triple <Conrad Wilkerson, DO - Last Filed: 07/11/24 22:03> Post Procedure: sutured in place, good blood return, all ports aspirated, flushed, capped and sterile dressing applied <Conrad Wilkerson DO - Last Filed: 07/11/24 22:03> Post Procedure X-Ray: tip of catheter in good position and no pneumothorax seen <Conrad Wilkerson DO - Last Filed: 07/11/24 22:03> Estimated blood loss (if any): less than 5mls <Conrad Wilkerson, DO - Last Filed: 07/11/24 22:03> Complications: none <Conrad Wilkerson, DO - Last Filed: 07/11/24 22:03> Patient Tolerated Procedure: well <Conrad Wilkerson DO - Last Filed: 07/11/24 22:03>
--- NOTE | 2024-07-11 15:08 | CRLHL7_ITS ---
For Patients: As a result of the Century Cures Act, medical imaging exams and procedure reports are released immediately into your electronic medical record. You may view this report before your referring provider. If you have questions, please contact your health care provider. INDICATION: AMS, WEAKNESS, HYPOTENSION, CONCERN FOR SEPSIS TECHNIQUE: CT of the head without contrast. Coronal and sagittal reformats. Bone and soft tissue algorithms. COMPARISON: CT head 03/07/2023 FINDINGS: No acute intracranial hemorrhage or extra-axial collection. No evidence of acute cortical infarction. 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 Chronic lacunar infarct in the right cerebellum. No mass effect or midline shift. Moderate generalized parenchymal volume loss. Moderate regions of decreased attenuation within the periventricular and subcortical white matter of both cerebral hemispheres most likely reflect chronic microvascular ischemic disease and age related change in this patient. Vascular calcifications within the carotid siphons. Orbital contents are normal. No calvarial fractures. No lytic or sclerotic osseous lesions within the calvarium or skull base. Scalp and other imaged soft tissue structures are normal. Mastoid air cells are clear. Air-fluid level and secretions in the left maxillary sinus. IMPRESSION: 1. No acute intracranial abnormality. No significant changes compared to the prior exam. 2. Moderate parenchymal volume loss and chronic small vessel ischemic changes. 3. Chronic lacunar infarct in the right cerebellum. 4. Air-fluid level and secretions in the left maxillary sinus could represent acute sinusitis. Please note that all CT scans at this facility use dose modulation, iterative reconstruction, and/or weight-based dosing when appropriate to reduce radiation dose to as low as reasonably achievable. Dictated by Glenn Morales MD @ 07/11/2024 4:00:39 PM (Electronically Signed)
[2024-07-11 15:12] LABS: Slide Review Reflex No
[2024-07-11 15:21] LABS: Albumin* 2.5 g/dL (3.3-5.0); Chloride* 98 mmol/L (96-114); Sodium* 134 mmol/L (135-149)
[2024-07-11 15:24] LABS: Alanine Aminotransferase* 43 U/L (4-35); Alkaline Phosphatase* 247 U/L (40-150); Anion Gap 7 mEq/L (7-15); Aspartate Amino Transferase* 77 U/L (12-35); Bilirubin Total* 0.5 mg/dL (0.1-1.5); Blood Urea Nitrogen* 24 mg/dL (7-30); Calcium* 8.4 mg/dL (8.4-10.6); Carbon Dioxide* 29 mmol/L (20-32); Creatinine* 1.9 mg/dL (0.5-1.5); Estimated Glomerular Filt Rate 28 ml/min; Glucose* 103 mg/dL (60-115); Total Protein* 5.6 g/dL (6.0-8.3)
[2024-07-11 15:25] LABS: Magnesium* 1.7 mg/dL (1.5-2.6)
[2024-07-11 15:42] LABS: Troponin I* 0.12 ng/mL (0.01-0.04)
[2024-07-11 15:44] LABS: PCR FLU A Negative PCR FLU A (Negative); PCR FLU B Negative PCR FLU B (Negative); PCR RSV Negative PCR RSV (Negative); SARS PCR* Negative SARS-CoV-2 (Negative)
[2024-07-11] MEDS: 0.9 % SODIUM CHLORIDE 1000 ml 1,000 ML IV ×2 (15:46→18:45)
--- OUTSIDE RECORDS SUMMARY | 2024-07-11 16:30 | XMS_ITS ---
Author Organization [facility] Care Team Providers Care Compliance Engineer Name Role Phone Pj Stone Unavailable Unavailable Allergies and adverse reactions Code CodeSystem Substance Reaction Severity StartDate Concern Status 651065279 SNOMED CT NSAIDs Moderate 04/12/2018 active Celexa Severe 04/12/2018 active Care Team Name Role Address Phone Organization [place] , [address], [place] (Office): : : : [facility] 04/12/2018 - 05/12/2018 Immunizations Immunization Status Vaccine Details Vaccine Code CodeSystem Date Notes Influenza completed Influenza, high-dose, split virus, quadrivalent, injectable, preservative free 197 CVX created date: 04/17/2018 administer ed date: 10/25/2017 TB 2 Step Mantoux Skin Test completed tuberculin skin test; unspecified formulation lotNumber: [id number] expiry: 11/11/2018 Mfg: Tuberculin PPD Given 0.1 ml Right Forearm subcutaneously Step 2 of Multi-step with next step required 98 CVX created date: 04/22/2018 consent date: 04/22/2018 administer ed date: 04/22/2018 TB 2 Step Mantoux Skin Test completed tuberculin skin test; unspecified formulation lotNumber: [id number] expiry: 11/02/2019 Mfg: [employer] Given 0.1 ml Right Forearm intradermally Step [...] Date HYDROmorphone HCl Tablet 2 MG active 895425 RXNORM 1 tablet Oral as needed PRN Give 1 tablet by mouth every 4 hours as needed for Pain MAXIMU M OF THREE DOSES PER DAY 2018 - Mirabegron ER Tablet Extended Release 24 Hour 50 MG active 6877871 RXNORM 1 tablet Oral in the morning Routine Give 1 tablet by mouth in the mornin g relate d to OVERAC TIVE BLADDE R (N32.8 1) 2018 - Aspirin Tablet 81 MG active 634971 RXNORM 1 tablet Oral in the morning Routine Give 1 tablet by mouth in the mornin g for Prophy laxis Cardia c 2018 - Vitamin D3 Tablet 1000 UNIT active 356059 RXNORM 2 tablet Oral in the morning Routine Give 2 tablet by mouth in the mornin g for Supple ment 2018 - Ondansetron Tablet Disintegratin g active 4 mg Oral as needed PRN Give 4 mg by mouth every 8 hours as needed for Nausea relate d to NAUSEA (R11.0 ) 2018 - Gabapentin Capsule 300 MG active 484377 RXNORM 3 capsul e Oral three times a day Routine Give 3 capsul e by mouth three times a day for Pain 2018 - RaNITidine HCl Tablet 300 MG active 002293 RXNORM 1 tablet Oral at bedtime Routine Give 1 tablet by mouth at bedtim e relate d to GASTRO -ESOPH AGEAL REFLUX DISEAS E WITHOU T ESOPHA GITIS (K21.9 ) 2018 - GuaiFENesin ER Tablet Extended Release 12 Hour 600 MG active 893476 RXNORM 1 tablet Oral two times a day Routine Give 1 tablet by mouth two times a day for Conges tion 2018 - Lisinopril Tablet 20 MG active 201908 RXNORM 1 tablet Oral in the morning Routine Give 1 tablet by mouth in the mornin g relate d to ESSENT IAL (PRIMA RY) HYPERT ENSION (I10) 2018 - Acetaminophen Tablet active 1000 mg Oral as needed PRN Give 1000 mg by mouth every 8 hours as needed for pain 2018 - FentaNYL Patch 72 Hour 50 MCG/HR active 188769 RXNORM 50 mcg Transde rmal every 72 hours Routine Apply 50 mcg transd ermall y every 72 hours for Pain and remove per schedu le 2018 - FentaNYL Patch 72 Hour 12 MCG/HR active 174248 RXNORM 12 mcg Transde rmal every 72 [...] ULCER WITHOUT HEMORRHAGE OR PERFORATION 04/13/[address] active 2 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 04/13/[address] active 3 ENTEROCOLITIS DUE TO CLOSTRIDIUM DIFFICILE, NOT SPECIFIED RECURRENT 04/13/[address] active 4 ESSENTIAL (PRIMARY) HYPERTENSION 04/13/[address] active 5 GASTRO-ESOPHAGEAL REFLUX DISEASE WITHOUT ESOPHAGITIS 04/13/[address] active 6 METHICILLIN RESISTANT STAPHYLOCOCCUS AUREUS INFECTION, UNSPECIFIED SITE 04/13/[address] active 7 MULTIPLE SCLEROSIS 04/13/[address] active 8 NAUSEA 04/13/[address] active 9 OLD MYOCARDIAL INFARCTION 04/13/[address] active 10 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[place], SACRAL AND SACROCOCCYGEAL REGION 04/13/[address] active 11 OTHER CHRONIC PAIN 04/13/[address] active 12 OTHER CONSTIPATION 04/13/[address] active 13 OVERACTIVE BLADDER 04/13/[address] active 14 SENSORINEURAL HEARING LOSS, BILATERAL 04/13/[address] active 15 TOBACCO USE 04/13/19 Z72.0 ICD-10-CM active 16 UNSPECIFIED DIASTOLIC (CONGESTIVE) HEART FAILURE 04/13/[address] active 17 VITAMIN D DEFICIENCY, UNSPECIFIED 04/13/[address] active Reason for Referral No Reasons for Referral Entered Social History Social History Observation Description Start Date End Date Code Code System Current Smoking Status Smokes tobacco daily Not available [id number] SNOMED CT Sex Assigned At Female 1955 43990-6 [facility] Gender Identity Vital Signs Code Code System Vitals Name Values and Units Timing Information 79702-0 [facility] Weight Zrtft=769.6 Units=Lbs 9279-1 [facility] Respiratory Rate Value=18.0 Units=/m in 05/01/2018 8462-4 [facility] Blood Pressure-Diastolic Value=74 Un its=mmHg 05/01/2018 8480-6 [facility] Blood Pressure-Systolic Foodj=006 Un its=mmHg 05/01/2018 8310-5 [facility] Body Temperature Value=97.6 Units= F 05/01/2018 8867-4 [facility] Heart rate Value=88.0 Units=/min 05122-3 [facility] O2 % BldC Oximetry Value=92.0 Units= % 05/01/2018 13528-6 [facility] Pain Level Value=0.0 04/13/2018
--- OUTSIDE RECORDS SUMMARY | 2024-07-11 16:31 | XMS_ITS ---
Author Organization [facility] Care Team Providers Care Alarm Signal Operator Name Role Phone Ayana Glez Unavailable Unavailable Flash Oliveira Unavailable Unavailable Allergies and adverse reactions Code CodeSystem Substance Reaction Severity StartDate Concern Status 754231071 SNOMED CT NSAIDs Unknown 03/23/2014 active Celexa Nausea (code- 380425309, SNOMED CT) Unknown Unknown active Care Team Name Role Address Phone Organization Dates Flash Oliveira PCP Genevive [address] [place] [address], [address], [place], [place], [facility], [place] (Office): [facility] 06/01/2014 - 08/11/2014 Ayana Glez [address], [place], [address], [facility] 06/01/2014 - 08/11/2014 Immunizations Immunization Status Vaccine Details Vaccine Code CodeSystem Date Notes TB 2 Step Mantoux Skin Test completed tuberculin skin test; unspecified formulation lotNumber: [id number] expiry: 10/14/2015 Mfg: [employer] inc Given 0.1 ml Left Forearm intradermally Step 1 of Multi-step with next step required 98 CVX created date: 06/07/2014 consent date: 06/06/2014 administer ed date: 06/06/2014 TB 2 Step Mantoux Skin Test completed tuberculin skin test; unspecified formulation lotNumber: [id number] expiry: 05/14/2015 Mfg: [employer] Given 0.1 ml Right Forearm intradermally Step 2 of Multi-step with next step required 98 CVX created date: 01/20/2014 consent date: 01/20/2014 administer ed date: 01/20/2014 Educated by scott on 01/20/2014 TB 2 Step Mantoux Skin Test completed tuberculin skin test; unspecified formulation lotNumber: [id number] expiry: 04/13/2015 Mfg: [employer] Given 0.1 [...] Current Smoking Status Tobacco smoking consumption unknown [id number] SNOMED CT Sex Assigned At Female 1955 67167-2 [facility] Gender Identity Vital Signs Code Code System Vitals Name Values and Units Timing Information 8310-5 [facility] Body Temperature Value=96.6 Units= F 08/11/2014 66772-8 [facility] Pain Level Value=7.0 08/10/2014 44956-8 [facility] Weight Odbsg=138.4 Units=Lbs 9279-[address] [facility] Respiratory Rate Value=18.0 Units=/m in 08/06/2014 8462-[address] [facility] Blood Pressure-Diastolic Value=62 Un its=mmHg 08/06/2014 8480-[address] [facility] Blood Pressure-Systolic Blsfq=172 Un its=mmHg 08/06/2014 8867-[address] [facility] Heart rate Value=66.0 Units=/min 89890-[address] [facility] O2 % BldC Oximetry Value=96.0 Units= % 08/06/2014 8302-[address] [facility] Height Value=63.0 Units=Inches 06/02/2014
--- OUTSIDE RECORDS SUMMARY | 2024-07-11 16:31 | XMS_ITS ---
Author Organization [facility] Care Team Providers Care Advisory Services Associate Name Role Phone Ayana Glez Unavailable Unavailable Flash Oliveira Unavailable Unavailable Allergies and adverse reactions Code CodeSystem Substance Reaction Severity StartDate Concern Status 518196062 SNOMED CT NSAIDs Unknown 03/23/2014 active Celexa Unknown Unknown active Care Team Name Role Address Phone Organization Dates Flash Oliveira PCP Genevive [address] [place] [address], [address], [place], [address], [place] (Office): [facility] 06/01/2014 - 08/11/2014 Ayana Glez [address], [place], [address], [facility] 06/01/2014 - 08/11/2014 Immunizations Immunization Status Vaccine Details Vaccine Code CodeSystem Date Notes TB 2 Step Mantoux Skin Test completed tuberculin skin test; unspecified formulation lotNumber: [id number] expiry: 10/14/2015 Mfg: [employer] inc Given 0.1 ml Left Forearm intradermally Step 1 of Multi-step with next step required 98 CVX created date: 06/07/2014 consent date: 06/06/2014 administer ed date: 06/06/2014 TB 2 Step Mantoux Skin Test completed tuberculin skin test; unspecified formulation lotNumber: [id number] expiry: 05/14/2015 Mfg: [employer] Given 0.1 ml Right Forearm intradermally Step 2 of Multi-step with next step required 98 CVX created date: 01/20/2014 consent date: 01/20/2014 administer ed date: 01/20/2014 Educated by scott on 01/20/2014 TB 2 Step Mantoux Skin Test completed tuberculin skin test; unspecified formulation lotNumber: [id number] expiry: 04/13/2015 Mfg: [employer] Given 0.1 ml Left Forearm intradermally Step 1 of Multi-step with next step required 98 CVX created date: 01/06/2014 consent date: 01/06/2014 administer ed date: 01/06/2014 Educated by soctt on 01/06/2014 Custom Influenza completed created date: 01/02/2014 administer ed date: 11/28/2013 Mental Status Section Date Assessment Total Score Description 06/07/2014 BIMS 15 cognitively int act PHQ-9 00 Reason for Referral No Reasons for Referral Entered Social History Social History Observation Description Start Date End Date Code Code System Current Smoking Status Tobacco smoking consumption unknown 670772287 SNOMED CT Sex Assigned At Female 1955 32719-0 [facility] Gender Identity Vital Signs Code Code System Vitals Name Values and Units Timing Information 8310-5 [facility] Body Temperature Value=96.6 Units= F 08/11/2014 59516-4 [facility] Pain Level Value=7.0 08/10/2014 35583-6 [facility] Weight Nmfbo=491.4 Units=Lbs 9279-1 [facility] Respiratory Rate Value=18.0 Units=/m in 08/06/2014 8462-4 [facility] Blood Pressure-Diastolic Value=62 Un its=mmHg 08/06/2014 8480-6 [facility] Blood Pressure-Systolic Qrjpd=272 Un its=mmHg 08/06/2014 8867-4 [facility] Heart rate Value=66.0 Units=/min 43846-6 [facility] O2 % BldC Oximetry Value=96.0 Units= % 08/06/2014 8302-2 [facility] Height Value=63.0 Units=Inches 06/02/2014
[2024-07-11 17:16] LABS: Appearance Urine Cloudy (Clear); Bilirubin Urine Negative (Negative); Blood Urine 2+ (Negative); Color Urine Yellow (Yellow); Glucose Urine Negative (Negative); Ketones Urine Negative (Negative); Leukocyte Esterase Urine 3+ (Negative); Nitrite Urine Positive (Negative); Protein Urine Trace (Negative); Specific Gravity Urine <= 1.005 (1.000-1.030); Urobilinogen Urine 0.2 (0.2-1.0); pH Urine 5.5 (5.0-8.5)
[2024-07-11] MEDS: cefTRIAXone 1 GM in 0.9 % SODIUM CHLORIDE Mini-bag 100 ML IVPB (17:20)
[2024-07-11 17:22] LABS: Bacteria Urine Few; Squamous Epithelial Cell Urine Few (None-Few); WBC Urine >100 (0-5)
[2024-07-11] MEDS: POTASSIUM BICARB 25 MEQ EFFERVESCENT TAB PO ×2 (17:35→20:43)
[2024-07-11] MEDS: 0.9 % SODIUM CHLORIDE 500 ML 500 ML 1000 ML IV (17:35)
[2024-07-11] MEDS: AZITHROMYCIN 500 MG in 0.9 % SODIUM CHLORIDE 250 ml 250 ML 255 MG IVPB (18:05)
[2024-07-11 18:46] LABS: Troponin I* 0.12 ng/mL (0.01-0.04)
--- NOTE | 2024-07-11 20:16 | CRLHL7_ITS ---
For Patients: As a result of the Century Cures Act, medical imaging exams and procedure reports are released immediately into your electronic medical record. You may view this report before your referring provider. If you have questions, please contact your health care provider. INDICATION: Central line placement. TECHNIQUE: Chest 1 views. COMPARISON: Same day CT chest abdomen and pelvis. FINDINGS: Cardiovascular and mediastinum: Heart size is normal. Unremarkable mediastinum. Atherosclerotic calcifications aortic arch. Central line evaluation is limited by patient rotation, but within these limits the line is most likely in the right IJ terminating near the cavoatrial junction Lungs and pleural spaces: No definite acute infiltrate. Right upper lobe 1.3 cm nodule seen to greater advantage on same-day CT. No sign of pleural effusion. No pneumothorax. Bones and soft tissues: No significant findings. IMPRESSION: 1. No definite acute findings. 2. 1.3 cm right upper lobe nodule that could be suspicious for malignancy. Follow up chest CT in 3 months, PET-CT, or percutaneous tissue sampling could be considered. Dictated by Glenn Cifuentes MD @ 07/11/2024 9:41:13 PM (Electronically Signed)
[2024-07-11] MEDS: LACTATED RINGERS 500 ML 500 ML IV (22:38)
--- NOTE | 2024-07-11 22:43 | ED.NURSE ---
Rn Examiner did give report to RN at [facility] and did call and update Pt son Tristan whom said he would update his sister.
== END 2024-07-11 23:48 | disposition other institution (70) ==
PROVIDERS: Emergency Provider Student in an Organized Health Care Education/Training Program; PCP Family Medicine
DX: A41.9 Sepsis, unspecified organism (principal); J18.9 Pneumonia, unspecified organism; N39.0 Urinary tract infection, site not specified; G35 Multiple sclerosis; N17.9 Acute kidney failure, unspecified; R41.0 Disorientation, unspecified; R00.0 Tachycardia, unspecified
CPT/HCPCS: 36556; 36415; 70450; 71045; 71260; 74177; 80053; 81001; 83605; 83735; 84484; 85025; 87040; 87086; 87631; 93005; 99285; 99291; A9270; J0456; J0696; J7030; J7050; J7120; Q9967

== ENCOUNTER 2024-07-11 23:16 | Outpatient (CLI) | payer MEDICARE, OTHER, SELFPAY | END 2024-07-11 23:17 | disposition home or self-care (01) | LOC: AMB 07-14 10:26 | PROVIDERS: PCP Family Medicine; Visit Provider Family Medicine | DX: J18.9 Pneumonia, unspecified organism (principal); A41.9 Sepsis, unspecified organism; N17.9 Acute kidney failure, unspecified; N39.0 Urinary tract infection, site not specified | CPT/HCPCS: A0425; A0427 ==

== ENCOUNTER 2024-07-21 19:16 | Emergency (ER) | payer MEDICARE, OTHER, SELFPAY ==
--- OUTSIDE RECORDS SUMMARY | 2014-03-24 03:21 | XMS_ITS | Continuity of Care Document ---
Author Organization [facility] Address [address] [address] [place] [address] Phone Care Team Providers Care Wash Plant Operator Name Role Phone Juliana Campbell Unavaila ble Procedures Procedure Date Ugi Endo; Dx W/wo Collec Specm 15 Subsqt Hosp-da E&m Minr Compl 4 Ugi Endo; W/bx 1/mx Init Hosp-da E&m Mod Severity 4 Advance Directives Directive Yes / No Effective Date File Name No Information Encounters Encounter Description Practice Location Reason(s) For Visit Diagnoses Date Provider Providers Copied on Encounter [facility], [address] [address], [place], [id number], [place] tel:[phone] [facility] No Information 5 Chas Andrews. [address] [place] [address], [id number], [place]. tel:[phone] [facility], [address] [address], [place], [id number], [place] tel:[phone] [facility] External Referral 5 No Information Referring Provider: Ayana Harrell, [address], [place], [address]. tel:[phone] [facility], [address] [address], [place], [id number], [place] tel:[phone] [facility] GI bleed 4 Dee Triana. [address] [facility] [address], [place], [id number], [place]. tel:[phone] Referring Provider: Referral Self, USE FOR SELF REFERRALS. Subsqt Hosp-da E&m Minr Compl [facility], [address] [address], [place], [place], [id number], [place] tel:[phone] [facility] No Information 0 4 Nikolay Bowles. [address] [place] [address], [facility] [address], [place], [id number], [place]. tel:[phone] Referring Provider: Erwin Foster, [address], [place], [address]. tel:[phone] [facility], [address] [address], [place], [place], [id number], [place] tel:[phone] [facility] No Information 4 Orion Miller. [address] [place] [address], [facility] [address], [place], [id number], [place]. tel:[phone] Referring Provider: Erwin Foster, [address], [place], [address]. tel:[phone] Init Hosp-da E&m Mod Severity [facility], [address] [address], [place], [place], [id number], [place] tel:[phone] [facility] No Information 4 Dee Triana. [address] [place] [address], [facility] [address], [place], [id number], [place]. tel:[phone] Referring Provider: Erwin Foster, [address], [place], [address]. tel:[phone] Family History Family Member Type Diagnosis Age At Onset No Information Payers Payer name Insurance type Covered constitution party ID Authoriza tion(s) No Information Social History Type Description Quantity Date Captured Comments Sex Female Smoking Status No Information Chief Complaint And Reason For Visit No Information Reason For Referral Reason For Referral No Information Plan Of Treatment Date Type Action Status Referral Ordered: EGD Appointment date/timeframe: 02/24/2014 ordered History Of Present Illness Encounter Date Complaint History Of Prese nt Illness No Information Functional Status Date Functional Assessmen t No Information Instructions Date Instruction Additional Infor mation No Information Assessments Type Assessment Date No Information Patient Care Teams Name Effective Dates (start - stop) Status Members No Information
--- OUTSIDE RECORDS SUMMARY | 2014-03-24 03:21 | XMS_ITS | Continuity of Care Document ---
Author Organization [facility] Address [address] [address] [place] [address] Phone Care Team Providers Care Medical Records Coder Name Role Phone Juliana Campbell Unavaila ble Procedures Procedure Date Ugi Endo; Dx W/wo Collec Specm 15 Subsqt Hosp-da E&m Minr Compl 4 Ugi Endo; W/bx 1/mx Init Hosp-da E&m Mod Severity 4 Advance Directives Directive Yes / No Effective Date File Name No Information Encounters Encounter Description Practice Location Reason(s) For Visit Diagnoses Date Provider Providers Copied on Encounter [facility], [address] [address], [place], [id number], [place] tel:[phone] [facility] No Information 5 Chas Andrews. [address] [place] [address], [id number], [place]. tel:[phone] [facility], [address] [address], [place], [id number], [place] tel:[phone] [facility] External Referral 5 No Information Referring Provider: Ayana Harrell, [address], [place], [address]. tel:[phone] [facility], [address] [address], [place], [id number], [place] tel:[phone] [facility] GI bleed 4 Dee Triana. [address] [facility] [address], [place], [id number], [place]. tel:[phone] Referring Provider: Referral Self, USE FOR SELF REFERRALS. Subsqt Hosp-da E&m Minr Compl [facility], [address] [address], [place], [place], [id number], [place] tel:[phone] [facility] No Information 0 4 Nikolay Bowles. [address] [place] [address], [facility] [address], [place], [id number], [place]. tel:[phone] Referring Provider: Erwin Foster, [address] [facility] [address], [place], [address]. tel:[phone] [facility], [address] [address], [place], [place], [id number], [place] tel:[phone] [facility] No Information 4 Orion Miller. [address] [place] [address], [facility] [address], [place], [id number], [place]. tel:[phone] Referring Provider: Erwin Foster, [address], [place], [address]. tel:[phone] Init Hosp-da E&m Mod Severity [facility], [address] [address], [place], [place], [id number], [place] tel:[phone] [facility] No Information 4 Dee Triana. [address] [place] [address], [facility] [address], [place], [id number], [place]. tel:[phone] Referring Provider: Erwin Foster, [address] [facility] [address], [place], [address]. tel:[phone] Family History Family Member Type Diagnosis Age At Onset No Information Payers Payer name Insurance type Covered alliance party ID Authoriza tion(s) No Information Social [...]
--- OUTSIDE RECORDS SUMMARY | 2024-07-12 00:32 | XMS_ITS | Encounter Summary ---
Author Organization [place] Address [facility] [place] [address] Care Team Providers Care Delivery Merchandiser Name Role Phone VotelErwin Primary Care Provider [phone] Reason for Visit * Auth/Cert Specialty Diagnoses / Procedures Referred By Licha t Referred To Contact EMERGENCY MEDICINE Diagnoses Pnemonia, sepsis, MS Kong John MD [address] [id number] Phone: tel: fax: [facility] Emergency Dept [address] [facility] [address] [phone] Phone: tel: fax: Referral ID Status Reason Start Date Expiration Date Visits Re quested Visits Authorized [id number] 1 1 Encounter Details Date Type Department Care Team (Latest Contact Info) Description 07/12/2024 12:32 AM CDT - 07/17/2024 3:22 PM CDT Hospital Encounter [facility] [address] [id number] Kong John MD [address] [id number] Alyse Duenas MD [address] [id number] Loan Aguilar MD [address] [id number] Pneumonia of right lung due to infectious organism, unspecified part of lung (Primary Dx) Discharge Disposition: Residential Acute Care Social History Tobacco Use Types Packs/Day Years Used Date Smoking Tobacco: Former Cigarettes 0 11/02/1966 - 07/15/2018 Smokeless Tobacco: Never Alcohol Use Standard Drinks/Week Comments No 0 (1 standard drink = 0.6 oz pur e alcohol) PHQ-2 Answer Date Recorded PHQ-2 Score 6 12/20/2017 Adolescent Education Answer Date Record ed Getting School Help Needed Not on file 11/26 Comments No Sex and Gender Information Value Date Recorded Sex Assigned at Not on file 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 Gender Identity Not on file Sexual Orientation Not on file documented as of this encounter Last Filed Vital Signs Vital Sign Reading Time Taken Comments Blood Pressure 94/46 07/17/2024 10:00 AM CDT Pulse 111 07/17/2024 10:00 AM CDT Temperature 36.6 C (97.8 F) 07/17/2024 11:00 AM CDT Respiratory Rate 18 07/17/2024 8:00 AM CDT Oxygen Saturation 96% 07/17/2024 10:00 AM CDT Inhaled Oxygen Concentration - - Weight 91.2 kg (201 lb) 07/16/2024 5:44 AM CDT Height 160 cm (5' 3) 07/12/2024 7:00 AM CDT Body Mass Index 35.61 07/12/2024 7:00 AM CDT documented in this encounter Discharge Summaries * Flash Lehman MD - 07/17/2024 10:15 AM CDT [facility] Hospitalist Discharge Summary Date of Admission: 07/12/2024 Date of Discharge: 07/17/2024 Discharging Provider: Flash Lehman MD Discharge Diagnoses Sepsis due to community acquired pneumonia Acute metabolic encephalopathy due to above Elevated troponin, likely type 2 NJ due to sepsis Mild to moderate dementia Sacral wound stage 4 Follow-ups Needed After Discharge Follow-up Appointments Hospital Follow-up with Existing Primary Care Provider (PCP) Schedule Primary Care visit within: 14 Days Unresulted Labs Ordered in the Past 30 Days of this Admission Date and Time Order Name Status Description 07/12/2024 6:14 PM Blood Culture Peripheral blood (BC) Hand, Right Preliminary 07/12/2024 6:14 PM Blood Culture Peripheral blood (BC) Hand, Left Preliminary These results will be followed up by PCP Hospital Course Arslan Lima is a 69 year old female with PMH multiple sclerosis, paraplegia, CHF, who was admitted on 07/12/2024 with sepsis due to pneumonia. Patient presenting with altered mental status, hypoxia, tachycardia and intermittent hypotension inthe ER which has since improved with fluids. Noted to have a leucocytosis with possible pulmonary and urinary infections. Started on azithromycin and ceftriaxone prior to transfer. Central line was placed for IV access prior to transfer. CT head negative for acute pathology. No infarct seen. CT chest with left lower lobe tree-in-bud nodular opacities. CT chest PE protocol on 07/13 shows no PE, possibly infectious ground glass opacities in the right upper and lower lobes, and small bilateral pleural effusions. UA with significant pyuria. Ucx from OSHshows enterobacter. BCX NTD. MRSA screen neg. Procal 26-->16. BNP elevated--Echo ordered, poor images, exam ended early, estimated EF 70% Patient improved with antibiotics, weaned off O2 at discharge. Urine culture grew out mixed brenden unlikely UTI. Appreciate ID consult, treat today 7 days of antibiotics, Cefepime-->Levofloxacin. - okay to resume lasix at discharge - levofloxacin to complete 7 day course Chronic sacral wound stage 4, POA Groin maceration/wounds On diflucan and nystatin. Appears to have more than completed course of PO fluconazole from 06/28 discharge plan of 14 days, stopped 07/15 - WOC consulted Acute metabolic encephalopathy - improving Hx of recurrent confusions/lethagy Still confused. Bit lethargic. Likely multifactorial 2/22/2 to infection, ARABELLA among possible others. Son Ramsey concerned about progressive MS as patient with significant confusion following infections/hospitalizations. Neurology consulted, MRI brain shows advanced global cerebral volume loss most consistent with dementia. Ramsey reports that prior to a month ago, patient had no short term memory loss. I discussed with him that patient likely had early dementia which has been unmasked with her hospitalizations, infections. - Neurology follow up Acute kidney injury - resolved Probable ARABELLA, baseline creat appears normal - recent levels 0.7 earlier in June. Admit cr was cr here was 1.6 improved to 1.02 with hydration. Creat 0.9 since. Right upper lobe nodule Incidental finding. CT notes 1.2 cm right upper lobe nodule, new as compared to 09/30/2023 exam, indeterminate, could be metastatic - outpatient follow up recommended. Hospitalist discussed with son at bedside 07/15 - report they already knew of it and will plan to follow up after discharge with PCP. 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 Prior ODs. No apparent w/d sxs at this time. - Resume morphine at discharge Chronic medical conditions: Anemia of chronic disease. Baseline 9-10. Was 9.6 on admit-->7.8-->7.9 (likely dilution). Multiple sclerosis: Gabapentin decreased to 300mg BID Bilateral sensorineural hearing loss Paraplegia with colostomy and SP cath in place. Suprapubic catheter Decubitus ulcer of the sacrum stage IV Obesity Heart failure preserved ejection fraction History of hypertension GERD Opioid dependence Nephrolithiasis History of MRSA Clinically Significant Risk Factors # Hyperchloremia: Highest Cl = 115 mmol/L in last 2 days, will monitor as appropriate # Hypoalbuminemia: Lowest albumin = 2.3 g/dL at 07/12/2024 5:43 AM, will monitor as appropriate # Hypertension: Noted on problem list # Obesity: Estimated body mass index is 35.61 kg/m?? as calculated from the following: Height as of this encounter: 1.6 m (5' 3). Weight as of this encounter: 91.2 kg (201 lb). Consultations This Hospital Stay WOUND OSTOMY CONTINENCE NURSE IP CONSULT CARE MANAGEMENT / SOCIAL WORK IP CONSULT VASCULAR ACCESS ADULT IP CONSULT CARE MANAGEMENT / SOCIAL WORK IP CONSULT PHARMACY TO DOSE VANCO WOUND OSTOMY CONTINENCE NURSE IP CONSULT INFECTIOUS DISEASES IP CONSULT NEUROLOGY IP CONSULT PHYSICAL THERAPY ADULT IP CONSULT OCCUPATIONAL THERAPY ADULT IP CONSULT OCCUPATIONAL THERAPY ADULT IP CONSULT Code Status Full Code Time Spent on this Encounter I, Flash Lehman, personally saw the patient today and spent approximately 40 minutes discharging this patient. Flash Lehman MD [facility] Physical Exam Vital Signs: Temp: 97.6 ??F (36.4 ??C) Temp src: Axillary BP: 102/87 Pulse: 109 Resp: 18 SpO2: 97 %O2 Device: Nasal cannula Oxygen Delivery: 2 LPM Weight: 201 lbs 0 oz Constitutional: Chronically ill appearing female, in NAD HEENT: Eyes nonicteric Cardiovascular: RRR, normal S1/2, no m/r/g Respiratory: CTAB, no wheezing or crackles Vascular: No LE pitting edema Skin/Integumen: No rashes Neuro/Psych: A&O to self and hospital, moves all extremities, generally confused Primary Care Physician ERWIN LIND Discharge Disposition Discharged to sterilization technician care Condition at discharge: Stable Significant Results and Procedures Most Recent 3 CBC's: Recent Labs Lab Test 07/16/24 0522 07/15/246 07/15/24 0626 07/14/24 0517 WBC 10.4 -- 8.6 7.1 HGB 8.6* -- 8.6* 7.9* MCV 95 95 98 99 PLT 227 234 225 215 Most Recent 3 BMP's: Recent Labs Lab Test 07/17/24 0538 07/16/24 0522 07/15/24 0626 07/14/24 0517 NA -- 144 141 140 POTASSIUM 4.4 4.0 3.6 3.4 CHLORIDE -- 115* 115* 112* CO2 -- 21* 21* 21* BUN -- 13.2 13.0 13.9 CR -- 0.96* 0.94 1.02* ANIONGAP -- 8 5* 7 KELSEY -- 7.7* 7.5* 7.4* GLC -- 97 79 107* Most Recent 2 LFT's: Recent Labs Lab Test 07/12/24 0543 04/08/18 1103 AST 57* 26 ALT 33 12 ALKPHOS 212* 55 BILITOTAL 0.2 0.3 Most Recent 3 INR's: Recent Labs Lab Test 02/28/18 0633 INR 1.12* Most Recent 3 Troponin's:No lab results found. Most Recent 3 BNP's: Recent Labs Lab Test 07/14/24 0517 NTBNP 8,540* Most Recent D-dimer:No lab results found. Most Recent Cholesterol Panel:No lab results found. Results for orders placed or performed during the hospital encounter of 07/12/24 XR Chest Port 1 View Narrative EXAM: XR CHEST PORT 1 VIEW LOCATION: [facility] DATE: 07/12/2024 INDICATION: Sepsis, hypotension, tachycardia, hypoxia COMPARISON: CT 09/30/2023 Impression IMPRESSION: Right IJ central catheter with the tip located in the upper right atrium. Trace left pleural effusion and left basilar opacities which likely reflect atelectasis. The right lung is grossly clear. Upper normal heart size. No vascular congestion or overt pulmonary edema. CT Chest Pulmonary Embolism w Contrast Narrative EXAM: CT CHEST PULMONARY EMBOLISM W CONTRAST LOCATION: [facility] DATE: 07/13/2024 INDICATION: PNA, persistent sxs. COMPARISON: Chest CTA on 09/30/2023. TECHNIQUE: CT chest pulmonary angiogram during arterial phase injection of IV contrast. Multiplanarreformats and MIP reconstructions were performed. Dose reduction techniques were used. CONTRAST: 72 mL Isovue 370. FINDINGS: ANGIOGRAM CHEST: No evidence of pulmonary embolism, the main pulmonary artery is mildly enlarged measuring 3.4 cm in diameter. No evidence of thoracic aortic aneurysm or dissection. No evidence for right heart strain. LUNGS AND PLEURA: Small bilateral pleural effusions. No significant pneumothorax. Left basilar pulmonary opacities, could be atelectatic. 1.2 cm right upper lobe nodule (series 7 image 107), new as compared to 09/30/2023 exam, indeterminate, could be metastatic. 5 mm left apical nodule (series 7 image 67), not significantly changed as compared to 09/30/2023 exam. Multiple patchy groundglass pulmonary opacities most prominent in the right upper andlower lobes, indeterminate, could be infectious. MEDIASTINUM/AXILLAE: Right IJ central catheter tip is in the right atrium. No cardiomegaly or significant pericardial effusion. No significant mediastinal or hilar lymphadenopathy. Few calcified mediastinal granulomas. CORONARY ARTERY CALCIFICATION: None. UPPER ABDOMEN: Limited evaluation of the upper abdomen due to lack of coverage and timing of contrast. Multiple calcified splenic granulomas. MUSCULOSKELETAL: Multilevel degenerative changes of the spine. No suspicious osseous lesion. Impression IMPRESSION: 1. No evidence of pulmonary embolism. The main pulmonary artery is mildly enlarged measuring 3.4 cmin diameter, this can be seen with pulmonary hypertension. 2. Multiple patchy groundglass pulmonary opacities most prominent in the right upper and lower lobes, indeterminate, could be infectious. 3. Small bilateral pleural effusions and associated basilar atelectasis/consolidation. 4. 1.2 cm right upper lobe nodule, new as compared to 09/30/2023 exam, indeterminate, could be metastatic. MR Brain w/o & w Contrast Narrative EXAM: MR BRAIN W/O and W CONTRAST LOCATION: [facility] DATE: 07/17/2024 INDICATION: progressive cognitive decline chronic ME with paraplegia. r o evidence of stroke space occupyinglesion COMPARISON: CT head November 18, 2020. CONTRAST: 9 mL Gadavist TECHNIQUE: Routine multiplanar multisequence head MRI without and with intravenous contrast. FINDINGS: Examination degraded by patient motion. INTRACRANIAL CONTENTS: No acute or subacute infarct. Remote right cerebellar hemisphere lacunar infarct. No mass, acute hemorrhage, or extra-axial fluid collections. Unchanged tectal region lipoma. Patchy and confluent nonspecific T2/FLAIR hyperintensities within the cerebral white matter most consistent with moderate chronic microvascular ischemic change. Advanced generalized cerebral atrophy. No hydrocephalus. Normal position of the cerebellar tonsils. No pathologic contrast enhancement. SELLA: No abnormality accounting for technique. OSSEOUS STRUCTURES/SOFT TISSUES: Normal marrow signal. The major intracranial vascular flow voids are maintained. ORBITS: No abnormality accounting for technique. SINUSES/MASTOIDS: No paranasal sinus mucosal disease. No middle ear or mastoid effusion. Impression IMPRESSION: 1. No acute intracranial abnormality. 2. Moderate sequela of chronic ischemic small vessel disease. 3. Advanced global cerebral volume loss. Echocardiogram Limited Narrative [id number]^ALISTAIR^AWIL^W. [facility] Echocardiography Laboratory [address] [place] [address] Name: ARSLAN LIMA : 1955 Study Date: 07/15/2024 10:11 AM Age: 69 yrs Gender: Female Patient Location: [facility] Reason For Study: CHF, CHF Ordering Physician: ALYSE DUENAS Referring Physician: SYSTEM, PROVIDER NOT IN Performed By: LI Adams BSA: 1.9 m2 Height: 63 in Weight: 196 lb HR: 126 BP: 108/70 mmHg Procedure Technically difficult study. Interpretation Summary 1. Non-diagnostic echocardiogram. Very limited parasternal images performed before exam ended prematurely at patient request. 2. Left ventricle not well visualized. On limited views left ventricular systolic function appears hyperdynamic with estimated ejection fraction 70%. 3. Regional wall motion analysis was not possible. 4. Right ventricle not well visualized. 5. Cardiac valves not well visualized. Non-diagnostic Doppler evaluation. 6. No pericardial effusion. 7. No prior exam available for comparison. Right Ventricle The right ventricle is not well visualized. Mitral Valve The mitral valve is not well visualized. Aortic Valve The aortic valve is not well visualized. Vessels The aortic root is normal size. Normal size ascending aorta. Pericardium There is no pericardial effusion. MMode/2D Measurements & Calculations Ao root diam: 3.4 cm asc Aorta Diam: 3.3 cm LVOT diam: 2.3 cm LVOT area: 4.2 cm2 Ao root diam index Ht(cm/m): 2.1 Ao root diam index BSA (cm/m2): 1.8 Asc Ao diam index BSA (cm/m2): 1.7 Asc Ao diam index Ht(cm/m): 2.1 Doppler Measurements & Calculations PA acc time: 0.10 sec Report approved by: Jose Cedillo MD on 07/15/2024 12:44 PM Discharge Orders Reason for your hospital stay You were hospitalized for pneumonia. General info for SNF Length of Stay Estimate: Residential Care Condition at Discharge: Improving Level of care:board and care Rehabilitation Potential: Fair Admission H&P remains valid and up-to-date: Yes Recent Chemotherapy: N/A Use [facility] Standing Orders: Yes Mantoux instructions Give two-step Mantoux (PPD) Per Facility Policy Yes Wound care (specify) Site: sacral wound Activity - Up with nursing assistance Occupational Therapy Adult Consult Evaluate and treat as clinically indicated. Reason: acute metabolic encephalopathy Diet Follow this diet upon discharge: Regular Diet Adult Hospital Follow-up with Existing Primary Care Provider (PCP) Discharge Medications Current Discharge Medication List START taking these medications Details levofloxacin (LEVAQUIN) 500 MG tablet Take 1 tablet (500 mg) by mouth daily for 3 days. Associated Diagnoses: Pneumonia of right lung due to infectious organism, unspecified part of lung CONTINUE these medications which have CHANGED Details gabapentin (NEURONTIN) 300 MG capsule Take 1 capsule (300 mg) by mouth 2 times daily. Associated Diagnoses: Pneumonia of right lung due to infectious organism, unspecified part of lung multivitamin w/minerals (THERA-VIT-M) tablet Take 2 tablets by mouth daily. Restart on 07/20 Associated Diagnoses: Pneumonia of right lung due to infectious organism, unspecified part of lung CONTINUE these medications which have NOT CHANGED Details acetaminophen (TYLENOL) 325 MG tablet Take 1,000 mg by mouth every 6 hours as needed for mild pain or fever. ASPIRIN PO Take 81 mg by mouth daily famotidine (PEPCID) 20 MG tablet Take 40 mg by mouth at bedtime. Furosemide (LASIX PO) Take 20 mg by mouth 2 times daily. hydrocortisone 1 % CREA cream Place rectally daily as needed for itching. morphine (MS CONTIN) 15 MG CR tablet Take 15 mg by mouth every 12 hours. nystatin (MYCOSTATIN) 140658 UNIT/GM external cream Apply topically 2 times daily ondansetron (ZOFRAN-ODT) [address] 4 mg under the tongue every 8 hours as needed. oxyBUTYnin ER (DITROPAN XL) 10 MG 24 hr tablet Take 10 mg by mouth daily. potassium chloride eloy ER (KLOR-CON M20) 20 MEQ CR tablet Take 20 mEq by mouth 2 times daily. spironolactone (ALDACTONE) 25 MG tablet Take 12.5 mg by mouth every 48 hours. order for DME Equipment being ordered: Seat for wheelchair Qty: 1 Device, Refills: 0 Associated Diagnoses: MS (multiple sclerosis) (H) STOP taking these medications fluconazole (DIFLUCAN) 200 MG tablet Comments: Reason for Stopping: Allergies Allergies Allergen Reactions Citalopram Nausea Pt unaware of this as an allergy. Nsaids Hx of stomach ulcer. Pt reports only takes APAP. documented in this encounter Discharge Instructions * Discharge Instructions* Ariana De Los Santos RN - 07/14/2024 12:39 PM CDT WOUND CARES Ready to resume previous outpatient care plan for buttock wound OR Cleanse daily with vashe and 4x4 gauze Apply Aquacel Ag Advantage single layer thickness to wound base Secure with mepilex sacrum Also apply cut to fit smaller piece of Aquacel to right buttock and secure with 4x4 documented in this encounter Medications at Time of Discharge acetaminophen (TYLENOL) 325 MG tablet Take 1,000 mg by mouth every 6 hours as needed for mild pain or fever. ASPIRIN PO Take 81 mg by mouth daily famotidine (PEPCID) 20 MG tablet Take 40 mg by mouth at bedtime. Furosemide (LASIX PO) Take 20 mg by mouth 2 times daily. gabapentin (NEURONTIN) 300 MG capsuleIndications: Pneumonia of right lung due to infectious organism, unspecified part of lung Take 1 capsule (300 mg) by mouth 2 times daily. 07/17/2024 hydrocortisone 1 % CREA cream Place rectally daily as needed for itching. morphine (MS CONTIN) 15 MG CR tablet Take 15 mg by mouth every 12 hours. multivitamin w/minerals (THERA-VIT-M) tabletIndications:P neumonia of right lung due to infectious organism, unspecified part of lung Take 2 tablets by mouth daily. Restart on 07/2007/20/2024 nystatin (MYCOSTATIN) [id number] UNIT/GM external cream Apply topically 2 times daily ondansetron (ZOFRAN-ODT) [address] 4 mg under the tongue every 8 hours as needed. 08/19/2014 order for DMEIndications:MS (multiple sclerosis) (H) Equipment being ordered: Seat for wheelchair 1 Device 0 02/23/2016 oxyBUTYnin ER (DITROPAN XL) 10 MG 24 hr tablet Take 10 mg by mouth daily. potassium chloride eloy ER (KLOR-CON M20) 20 MEQ CR tablet Take 20 mEq by mouth 2 times daily. spironolactone (ALDACTONE) 25 MG tablet Take 12.5 mg by mouth every 48 hours. levofloxacin (LEVAQUIN) 500 MG tabletIndications:P neumonia of right lung due to infectious organism, unspecified part of lung Take 1 tablet (500 mg) by mouth daily for 3 days. 07/17/2024 documented as of this encounter Progress Notes * Fela Back LICSW - 07/17/2024 11:25 AM CDT Care Management Discharge Note Discharge Date: 07/17/2024 Discharge Disposition: Residential Care Discharge Services: None Discharge DME: None Discharge Transportation: health plan transportation Private pay costs discussed: Not applicable Does the patient's insurance plan have a 3 day qualifying hospital stay waiver? No PAS Confirmation Code: as previous Patient/family educated on Medicare website which has current facility and service quality ratings:no Education Provided on the Discharge Plan: Yes Persons Notified of Discharge Plans: RN, MD, facility Patient/Family in Agreement with the Plan: yes Handoff Referral Completed: No, handoff not indicated or clinically appropriate Additional Information: Pt will discharge today, back to LTC at [facility]. 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 PCS completed via [employer]. Orders faxed and facility updated. Nursing aware. GISSELLE Bradshaw, [facility] [phone] Desk phone [phone] Cell/text (Preferred) [facility] Available on [employer] * Loretta Pollard RN - 07/17/2024 6:47 AM CDT Resp: Coarse breath sound in R lung, clear diminished in L lung. Intermittent dry cough. Stable on 2lpm of O2 via NC. Telemetry: ST low 100's. Neuro: Lethargic, eyes open to verbal stimuli, able to keep awake during conversation. Oriented to self, knows that she is at the hospital. COWS 5 GI/: Regular diet, poor appetite/poor intake. Abdomen soft to palpate, normoactive BS x4. Ostomy in LUQ w/ mushy brown stool. Suprapubic catheter in situ, w/ clear urine output. Skin/Wounds: Pressure injury in coccyx, abdominal, groin & bilateral breast folds w/ moisture related skin break. Scattered bruising on extremities. Lines/Drains: R intrajugular central catheter x3 lumen, hep locked. Activity: Lift assist/ repositioned every 2h. Sleep: 8h Abnormal Labs: Aggression Stop Light: Green -MRI Brain for progressive cognitive decline: no acute abnormality noted. -pre medicated w/ Lorazepam 1mg IV for MRI -blood culture 07/12 result pending Patient Care Plan: Monitor change of mentation, signs of bleeding. Continue IV antibiotic for PNA/UTI. * Fela Back LICSW - 07/16/2024 3:39 PM CDT Care Management Follow Up Length of Stay (days): 4 Expected Discharge Date: 07/18/2024 Concerns to be Addressed: discharge planning Patient plan of care discussed at interdisciplinary rounds: Yes Anticipated Discharge Disposition: Residential Care Anticipated Discharge Services: None Anticipated Discharge DME: None Patient/family educated on Medicare website which has current facility and service quality ratings:no Education Provided on the Discharge Plan: Yes Patient/Family in Agreement with the Plan: yes Referrals Placed by CM/SW: Post Acute Facilities Private pay costs discussed: Not applicable Discussed ???Partnership in Safe Discharge Planning??? document with patient/family: No Handoff Completed: No, handoff not indicated or clinically appropriate Additional Information: SW/CM continuing to follow for discharge planning. Return to LTC at [facility], when ready. Next Steps: SW following for discharge planning. GISSELLE Bradshaw, [place] [phone] Desk phone [phone] Cell/text (Preferred) [facility] Available on [employer] * Flash Lehman MD - 07/16/2024 10:29 AM CDT [facility] Hospitalist Progress Note Interval History Slightly confused this morning. Able to state that she lives at a living facility and is wheelchairbound. Note elevated HR this morning, soft BPs 90s/60s - Called and updated son Ramsey, patient lives at [facility] Assessment & Plan Summary: Arslan Lima is a 69 year old female with PMH multiple sclerosis, paraplegia, CHF, who was admitted on 07/12/2024 with sepsis due to pneumonia. Sepsis due to community acquired pneumonia Urinary tract infection in setting of suprapubic catheter Acute metabolic encephalopathy due to above Elevated troponin, likely T2MI 2/2 sepsis Hx of recurrent UTIs Hx of MRSA Patient presenting with altered mental status, hypoxia, tachycardia and intermittent hypotension inthe ER which has since improved with fluids. Noted to have a leucocytosis with possible pulmonary and urinary infections. Started on azithromycin and ceftriaxone prior to transfer. Central line was placed for IV access prior to transfer. CT head negative for acute pathology. No infarct seen. CT chest with left lower lobe tree-in-bud nodular opacities. CT chest PE protocol on 07/13 shows no PE, possibly infectious ground glass opacities in the right upper and lower lobes, and small bilateral pleural effusions. UA with significant pyuria. Ucx from OSHshows enterobacter. BCX NTD. MRSA screen neg. Procal 26-->16. BNP elevated--Echo ordered, poor images, exam ended early, estimated EF 70% - Wean O2 as able, remains on 2L - Appreciate ID consult, treat today 7 days of antibiotics, currently on Cefepime. Received azithromycin x 3 doses. - Follow cultures. - Supportive care including oxygen/bronchodilators - Hold lasix Chronic sacral wound stage 4, POA Possible cellulitis Groin maceration/wounds On diflucan and nystatin. - WOC consulted - Abx as above - appreciate ID assistance - Appears to have more than completed course of PO fluconazole from 06/28 discharge plan of 14 days,stopped 07/15 - Continue nystatin. Acute metabolic encephalopathy - improving Hx of recurrent confusions/lethagy Still confused. Bit lethargic. Likely multifactorial to infection, ARABELLA among possible others. 07/15 - son has concerns of progressing MS, he is aware that we are managing current infection concern and then reassessing status will be plan. Reassured him that we could consult with neurology pending clinical course. She awakens to voice and is oriented to self and place. She is answering simple questions. - Treat infection. - Delirium bundle/precautions - Neurology consult 07/16 for progressing MS DAMIEN Restrictive lung mechanics due to neuromuscular disease States she was not using breathing mask at home nightly; does appear she was using NIPPV nightly during recent hospitalizations - Resume TRAIN PLANNER HS BIPAP. Acute kidney injury - resolved Probable ARABELLA, baseline creat appears normal - recent levels 0.7 earlier in June. Admit cr was cr here was 1.6 improved to 1.02 with hydration. Creat 0.9 since. Right upper lobe nodule Incidental finding. CT notes 1.2 cm right upper lobe nodule, new as compared to 09/30/2023 exam, indeterminate, could be metastatic - outpatient follow up recommended. Hospitalist discussed with son at bedside 07/15 - report they already knew of it and will plan to follow up after discharge with PCP. 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 Prior ODs. No apparent w/d sxs at this time. - Keep holding morphine for now given AMS and lack of significant pain. - COWS protocol for w/d sxs. Chronic medical conditions: Anemia of chronic disease. Baseline 9-10. Was 9.6 on admit-->7.8-->7.9 (likely dilution). Multiple sclerosis Bilateral sensorineural hearing loss Paraplegia with colostomy and SP cath in place. Suprapubic catheter Decubitus ulcer of the sacrum stage IV Obesity Heart failure preserved ejection fraction History of hypertension GERD Opioid dependence Nephrolithiasis History of MRSA Clinically Significant Risk Factors # Hyperchloremia: Highest Cl = 115 mmol/L in last 2 days, will monitor as appropriate # Hypoalbuminemia: Lowest albumin = 2.3 g/dL at 07/12/2024 5:43 AM, will monitor as appropriate # Hypertension: Noted on problem list # Obesity: Estimated body mass index is 35.61 kg/m?? as calculated from the following: Height as of this encounter: 1.6 m (5' 3). Weight as of this encounter: 91.2 kg (201 lb). PT/OT: ordered Diet: Combination Diet Regular Diet Adult Room Service DVT Prophylaxis: Pneumatic Compression Devices Amador Catheter: Not present Lines: PRESENT CVC Right Internal jugular-Site Assessment: WDL except;Ecchymotic Cardiac Monitoring: ACTIVE order. Indication: c Code Status: Full Code Medically Ready for Discharge: Anticipated Tomorrow Flash Lehman MD Hospitalist Service [facility] Securely message with [employer] (more info) Text page via [facility] Paging/Directory - Total time spent on encounter is 50 minutes, which includes counseling, coordination of care, time spent discussing with family, and/or time spent discussing with consultants. Data reviewed today: I reviewed all new labs and imaging results over the last 24 hours. Physical Exam Temp: 97.9 ??F (36.6 ??C) Temp src: Oral BP: 101/74 Pulse: 110 Resp: 14 SpO2: 94 % O2 Device: Nasalcannula Oxygen Delivery: 2 LPM Vitals: 07/12/24 0653 07/13/24 0530 07/16/24 0544 Weight: 84.8 kg (186 lb 15.2 oz) 89 kg (196 lb 3.4 oz) 91.2 kg (201 lb) Vital Signs with Ranges Temp: [97.9 ??F (36.6 ??C)-98.2 ??F (36.8 ??C)] 97.9 ??F (36.6 ??C) Pulse: [90-121] 110 Resp: [14-16] 14 BP: (84-121)/(21-74) 101/74 SpO2: [90 %-98 %] 94 % I/O last 3 completed shifts: In: 800 [P.O.:800] Out: 750 [Urine:575; Stool:175] O2 requirements: none Constitutional: Chronically ill appearing female, appears tired HEENT: Eyes nonicteric Cardiovascular: RRR, normal S1/2, no m/r/g Respiratory: CTAB, no wheezing or crackles Vascular: No LE pitting edema Skin/Integumen: No rashes Neuro/Psych: A&O to self and hospital, moves all extremities Medications Current Facility-Administered Medications Medication Dose Route Frequency Provider Last Rate Last Admin Current Facility-Administered Medications Medication Dose Route Frequency Provider Last Rate Last Admin aspirin EC tablet 81 mg 81 mg Oral Daily Alyse Duenas MD 81 mg at 07/15/24 0837 ceFEPIme (MAXIPIME) 2 g vial to attach to NS 100 mL bag for ADULTS or NS 50 mL bag for PEDS 2 g Intravenous Q12H Alyse Duenas MD 2 g at 07/15/241 famotidine (PEPCID) tablet 20 mg 20 mg Oral At Bedtime Alyse Duenas MD 20 mg at 07/15/242116 furosemide (LASIX) tablet 20 mg 20 mg Oral BID Sudeep Back MD 20 mg at 07/15/242116 [Held by provider] gabapentin (NEURONTIN) capsule 900 mg 900 mg Oral BID Sudeep Back MD heparin ANTICOAGULANT injection 5,000 Units 5,000 Units Subcutaneous Q8H Alyse Duenas MD 5,000 Units at 07/15/24 233 heparin lock flush 10 unit/mL injection 5-15 mL 5-15 mL Intracatheter Q24H Loan Aguilar MD 15 mL at 07/15/247 miconazole (MICATIN) 2 % powder Topical BID Loan Aguilar MD Given at 07/15/242116 [Held by provider] morphine (MS CONTIN) 12 hr tablet 15 mg 15 mg Oral Q12H Sudeep Back MD nystatin (MYCOSTATIN) cream Topical BID Alyse Duenas MD Given at 07/15/242117 oxyBUTYnin ER (DITROPAN XL) 24 hr tablet 10 mg 10 mg Oral Daily Alyse Duenas MD 10 mg at 07/15/24 0837 potassium chloride eloy ER (KLOR-CON M20) CR tablet 20 mEq 20 mEq Oral BID Sudeep Back MD20 mEq at 07/15/242116 sodium chloride (PF) 0.9% PF flush 10-40 mL 10-40 mL Intracatheter Q8H Loan Aguilar MD 30 mL at 07/15/24 2332 sodium chloride (PF) 0.9% PF flush 3 mL 3 mL Intracatheter Q8H [facility] Loan Aguilar MD 3 mLat 07/15/242117 spironolactone (ALDACTONE) half-tab 12.5 mg 12.5 mg Oral Q48H Sudeep Back MD 12.5 mg at 07/15/24 0844 Data Recent Labs Lab 07/16/24 0522 07/15/24 2326 07/15/24 0626 07/14/24 0517 07/12/24 0739 07/12/24 0543 WBC 10.4 -- 8.6 7.1 < > 14.4* HGB 8.6* -- 8.6* 7.9* < > 9.6* MCV 95 95 98 99 < > 97 PLT 227 234 225 215 < > 311 NA 144 -- 141 140 < > 136 POTASSIUM 4.0 -- 3.6 3.4 < > 4.1 CHLORIDE 115* -- 115* 112* < > 101 CO2 21* -- 21* 21* < > 24 BUN 13.2 -- 13.0 13.9 < > 19.2 CR 0.96* -- 0.94 1.02* < > 1.63* ANIONGAP 8 -- 5* 7 < > 11 KELSEY 7.7* -- 7.5* 7.4* < > 7.3* GLC 97 -- 79 107* < > 69* ALBUMIN -- -- -- -- -- 2.3* PROTTOTAL -- -- -- -- -- 5.1* BILITOTAL -- -- -- -- -- 0.2 ALKPHOS -- -- -- -- -- 212* ALT -- -- -- -- -- 33 AST -- -- -- -- -- 57* < > = values in this interval not displayed. Imaging: Recent Results (from the past 24 hours) Echocardiogram Limited Narrative [id number]^ALISTAIR^ALYSE^Bridget. [facility] Echocardiography Laboratory [address] [place] [id number] Name: ARSLAN LIMA : 1955 Study Date: 07/15/2024 10:11 AM Age: 69 yrs Gender: Female Patient Location: [facility] Reason For Study: CHF, CHF Ordering Physician: ALYSE DUENAS Referring Physician: SYSTEM, PROVIDER NOT IN Performed By: LI Adams BSA: 1.9 m2 Height: 63 in Weight: 196 lb HR: 126 BP: 108/70 mmHg Procedure Technically difficult study. Interpretation Summary 1. Non-diagnostic echocardiogram. Very limited parasternal images performed before exam ended prematurely at patient request. 2. Left ventricle not well visualized. On limited views left ventricular systolic function appears hyperdynamic with estimated ejection fraction 70%. 3. Regional wall motion analysis was not possible. 4. Right ventricle not well visualized. 5. Cardiac valves not well visualized. Non-diagnostic Doppler evaluation. 6. No pericardial effusion. 7. No prior exam available for comparison. Right Ventricle The right ventricle is not well visualized. Mitral Valve The mitral valve is not well visualized. Aortic Valve The aortic valve is not well visualized. Vessels The aortic root is normal size. Normal size ascending aorta. Pericardium There is no pericardial effusion. MMode/2D Measurements & Calculations Ao root diam: 3.4 cm asc Aorta Diam: 3.3 cm LVOT diam: 2.3 cm LVOT area: 4.2 cm2 Ao root diam index Ht(cm/m): 2.1 Ao root diam index BSA (cm/m2): 1.8 Asc Ao diam index BSA (cm/m2): 1.7 Asc Ao diam index Ht(cm/m): 2.1 Doppler Measurements & Calculations PA acc time: 0.10 sec Report approved by: Jose Cedillo MD on 07/15/2024 12:44 PM * Loretta Pollard RN - 07/16/2024 6:46 AM CDT Resp: Coarse breath sound in R lung, clear diminished in L lung. Intermittent dry cough. Stable on 2lpm of O2 via NC. Telemetry: ST low 100's. Neuro: Lethargic, eyes open to verbal stimuli, able to keep awake during conversation. Oriented to self, knows that she is at the hospital. COWS 5 GI/: Regular diet, poor appetite. Abdomen soft to palpate, normoactive BS x4. Ostomy in LUQ w/ mushy brown stool. Suprapubic catheter in situ, w/ clear urine output. Skin/Wounds: Pressure injury incoccyx, abdominal, groin & bilateral breast folds w/ moisture related skin break. Scattered bruising on extremities. Lines/Drains: R intrajugular central catheter x3 lumen, hep locked. Activity: Lift assist/ repositioned every 2h. Sleep: 8h Abnormal Labs: -Platelet: 234, 227 -K, Mg, Phos protocol -Hgb 8.6 Aggression Stop Light: Green Patient Care Plan: Monitor change of mentation, signs of bleeding. Continue IV antibiotic for PNA/UTI. * Stephanie Butler RT - 07/15/2024 2:22 PM CDT Pt has orders for bipap at bedtime. Pt declined to use hospital bipap machine. Stephanie Butler, RT July 15, 2024 * Rossy Dyer MD - 07/15/2024 1:09 PM CDT [facility] Infectious Disease Progress Note Date of Service (when I saw the patient): 07/15/2024 Assessment: 69 year old female with a complex past medical history of MS, paraplegia, heart failure , who has been admitted due to weakness, confusion and concern for sepsis, with findings of patchy groundglass pulmonary opacities most prominent in the right upper and lower lobes. UA shows pyuria and cx only shows mixed brenden. Viral panel is negative. Suspect she has congestive hear failure as cause for respiratory failure and pulmonary opacities. -Sepsis syndrome possibly of respiratory source -Chronic urinary colonization. Urine cx from OSH grew Enterobacter though difficult to interpret inthe setting of neurogenic bladder -Multiple patchy groundglass pulmonary opacities most prominent in the right upper and lower lobes. Recommendations: Management of CHF per the primary tram Treat for pneumonia/UTI for 5-7 days, day 4 of antibiotics today. ID will sign off, please call us back as needed. Rossy Dyer MD Interval History Remains stable and afebrile, no leukocytosis and CRP is declining. Physical Exam Temp: 97.6 ??F (36.4 ??C) Temp src: Axillary BP: 105/57 Pulse: (!) 121 Resp: 18 SpO2: (!) 90 % O2 Device: None (Room air) Oxygen Delivery: 2 LPM Vitals: 07/12/24 0653 07/13/24 0530 Weight: 84.8 kg (186 lb 15.2 oz) 89 kg (196 lb 3.4 oz) Vital Signs with Ranges Temp: [97.4 ??F (36.3 ??C)-97.9 ??F (36.6 ??C)] 97.6 ??F (36.4 ??C) Pulse: [79-121] 121 Resp: [16-20] 18 BP: (85-121)/(54-79) 105/57 SpO2: [87 %-97 %] 90 % GENERAL APPEARANCE: awake, chronically ill appearing female EYES: Eyes grossly normal to inspection NECK: no adenopathy RESP: lungs clear CV: S1S2 ABDOMEN: soft, nontender MS contractures SKIN: bruising Other: Medications Current Facility-Administered Medications Medication Dose Route Frequency Provider Last Rate Last Admin Current Facility-Administered Medications Medication Dose Route Frequency Provider Last Rate Last Admin aspirin EC tablet 81 mg 81 mg Oral Daily Alyse Duenas MD 81 mg at 07/15/24 0837 ceFEPIme (MAXIPIME) 2 g vial to attach to NS 100 mL bag for ADULTS or NS 50 mL bag for PEDS 2 g Intravenous Q12H Alyse Duenas MD 2 g at 07/15/24 1050 famotidine (PEPCID) tablet 20 mg 20 mg Oral At Bedtime Alyse Duenas MD 20 mg at 07/14/24 2131 furosemide (LASIX) tablet 20 mg 20 mg Oral BID Sudeep Back MD 20 mg at 07/15/24 1128 [Held by provider] gabapentin (NEURONTIN) capsule 900 mg 900 mg Oral BID Sudeep Back MD heparin ANTICOAGULANT injection 5,000 Units 5,000 Units Subcutaneous Q8H Alyse Duenas MD 5,000 Units at 07/15/24 0837 heparin lock flush 10 unit/mL injection 5-15 mL 5-15 mL Intracatheter Q24H Loan Aguilar MD 15 mL at 07/15/24 0037 miconazole (MICATIN) 2 % powder Topical BID Loan Aguilar MD Given at 07/15/24 0837 [Held by provider] morphine (MS CONTIN) 12 hr tablet 15 mg 15 mg Oral Q12H Sudeep Back MD nystatin (MYCOSTATIN) cream Topical BID Alyse Duenas MD Given at 07/15/24 0837 oxyBUTYnin ER (DITROPAN XL) 24 hr tablet 10 mg 10 mg Oral Daily Alyse Duenas MD 10 mg at 07/15/24 0837 potassium chloride eloy ER (KLOR-CON M20) CR tablet 20 mEq 20 mEq Oral BID Sudeep Back MD20 mEq at 07/15/24 0844 sodium chloride (PF) 0.9% PF flush 10-40 mL 10-40 mL Intracatheter Q8H Loan Aguilar MD 30 mL at 07/15/24 1050 sodium chloride (PF) 0.9% PF flush 3 mL 3 mL Intracatheter Q8H [facility] Loan Aguilar MD 3 mLat 07/15/24 0618 spironolactone (ALDACTONE) half-tab 12.5 mg 12.5 mg Oral Q48H Sudeep Back MD 12.5 mg at 07/15/24 0844 Data All microbiology laboratory data reviewed. Recent Labs Lab Test 07/15/24 0626 07/14/24 0517 07/13/24 0518 WBC 8.6 7.1 9.8 HGB 8.6* 7.9* 7.8* HCT 26.6* 25.0* 24.1* MCV 98 99 98 PLT 225 215 216 Recent Labs Lab Test 07/15/24 0626 07/14/24 0517 07/13/24 0518 CR 0.94 1.02* 1.34* * Sudeep Back MD - 07/15/2024 8:08 AM CDT [facility] Medicine Progress Note - Hospitalist Service Date of Admission: 07/12/2024 Assessment & Plan Arslan Lima is a 69 year old female with a complex past medical history of MS, paraplegia, heart failure presents to the hospital with sepsis. Sepsis, possible respiratory source Acute metabolic encephalopathy Community acquired pneumonia Urinary tract infection possibly due to SP cath Hx of recurrent UTIs Hx of MRSA Patient presenting with altered mental status, hypoxia, tachycardia and intermittent hypotension inthe er which has since improved with fluids. Noted to have a leucocytosis with possible pulmonary and urinary infections. Started on azithromycin and ceftriaxone prior to transfer. Central line was placed for IV access prior to transfer. *CT head negative for acute pathology. No infarct seen *CT chest with left lower lobe tree-in-bud nodular opacities. *CT chest PE protocol on 6/1: 1. No evidence of pulmonary embolism. The main pulmonary artery is mildly enlarged measuring 3.4 cm in diameter, this can be seen with pulmonary hypertension. 2. Multiple patchy groundglass pulmonary opacities most prominent in the right upper and lower lobes, indeterminate, could be infectious. 3. Small bilateral pleural effusions and associated basilar atelectasis/consolidation. 4. 1.2 cm right upper lobe nodule, new as compared to 09/30/2023 exam, indeterminate, could be metastatic UA with significant pyuria Ucx from OSH shows enterobacter. BCX NTD. MRSA screen neg. *still on 2L O2 as of M 07/15 *Initially started on ceftriaxone/azithromycin-->zosyn on 07/12 overnight-->vanc/cefepime.on 07/13. *Afebrile. *Procal 26 AM 07/14 *Wbc normalized. *BNP 8.5k, IVF stopped, Echo ordered - Stopped vanc given neg MRSA screen. - Continue cefepime. - Received azithromycin x 3 doses. - Follow cultures. - Supportive care including oxygen/bronchodilators.. - ID consult for abx management. - 07/15 - Follow up echo - awaited - resume TRAIN PLANNER lasix 20 mg PO BID as tolerated, hold if SBP <90 Chronic sacral wound stage 4, POA Possible cellulitis Groin maceration/wounds On diflucan and nystatin. - WOC consulted - Abx as above - appreciate ID assistance - Appears to have more than completed course of PO fluconazole from 06/28 discharge plan of 14 days,stopped 07/15 - Continue nystatin. Acute metabolic encephalopathy - improving Hx of recurrent confusions/lethagy Still confused. Bit lethargic. Likely multifactorial to infection, ARABELLA among possible others. Baseline mental status is unclear at this time though she has prior hx of recurrent confusions/lethargy. - Treat infection. - Delirium bundle/precautions. - 07/15 - son has concerns of progressing MS, he is aware that we are managing current infection concern and then reassessing status will be plan. Reassured him that we could consult with neurology pending clinical course. She awakens to voice and is oriented to self and place. She is answering simple questions. DAMIEN ? On CPAP/BIPAP at home? Hx restrictive lung disease *states she was not using breathing mask at home nightly; does appear she was using NIPPV nightly during recent hospitalizations - low threshold for blood gases - consider trial of NIPPV nightly Acute kidney injury - resolved *probable ARABELLA, baseline creat appears normal - recent levels 0.7 earlier in June. Previously variable 0.3 - 0.9. Admit cr was cr here was 1.6 improved to 1.02 with hydration. Creat 0.9 since. - hold ivf with concern of overload - Monitor BMP periodically Hypokalemia - Replace with potassium replacement protocol - Follow lytes. Elevated troponin, likely T2MI 2/2 sepsis Noted at outside hospital. Was stable on repeat at 0.12. patient is chest pain free. EKG with incomplete rbbb. Likely demand ischemia in setting of sepsis. Denies cp/sob. -monitor on tele - Reasonable to get TTE (also hx of HFpEF). Right upper lobe nodule Incidental finding - outpatient follow up recommended. Hospitalist discussed with son at bedside 07/15 - report they already knew of it and will plan to follow up after discharge with PCP. Restrictive lung mechanics due to neuromuscular disease: Gasses seem essentially ok. - Resume TRAIN PLANNER HS BIPAP. - Monitor gasses. 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 Prior ODs. No apparent w/d sxs at this time. - Keep holding morphine for now given AMS and lack of significant pain. - COWS protocol for w/d sxs. Chronic medical conditions: Anemia of chronic disease. Baseline 9-10. Was 9.6 on admit-->7.8-->7.9 (likely dilution). Multiple sclerosis Bilateral sensorineural hearing loss Paraplegia with colostomy and SP cath in place. Suprapubic catheter Decubitus ulcer of the sacrum stage IV Obesity Heart failure preserved ejection fraction History of hypertension GERD Opioid dependence Nephrolithiasis History of MRSA Diet: Combination Diet Regular Diet Adult Room Service DVT Prophylaxis: Heparin SQ Amador Catheter: Not present Lines: PRESENT CVC Right Internal jugular-Site Assessment: WDL except;Ecchymotic Cardiac Monitoring: ACTIVE order. Indication: imc Code Status: Full Code Clinically Significant Risk Factors # Hyperchloremia: Highest Cl = 115 mmol/L in last 2 days, will monitor as appropriate # Hypocalcemia: Lowest iCa = 4.1 mg/dL in last 2 days, will monitor and replace as appropriate # Hypoalbuminemia: Lowest albumin = 2.3 g/dL at 07/12/2024 5:43 AM, will monitor as appropriate # Hypertension: Noted on problem list # Obesity: Estimated body mass index is 34.76 kg/m?? as calculated from the following: Height as of this encounter: 1.6 m (5' 3). Weight as of this encounter: 89 kg (196 lb 3.4 oz)., PRESENT ON ADMISSION Social Drivers of Health Tobacco Use: High Risk (06/26/2024) [facility] [employer] [facility] Patient History Smoking Tobacco Use: Some Days Smokeless Tobacco Use: Never Disposition Plan Medically Ready for Discharge: Anticipated in 2-4 Days Sudeep Back MD Hospitalist Service [facility] Securely message with [employer] (more info) Text page via [facility] Paging/Directory Interval History Chart reviewed. Care assumed for today. Seen and examined late AM - discussed with son. Pt awakens to voice and reports ongoing pain all over - nothing new or acute it seems. She appears comfortable. She is oriented to self and a hospital up in [facility]. Discussed with son as above. Discussed with RN. Physical Exam Vital Signs: Temp: 97.6 ??F (36.4 ??C) Temp src: Axillary BP: 100/55 Pulse: 87 Resp: 18 SpO2: 94 % O2 Device: Nasal cannula Oxygen Delivery: 2 LPM Weight: 196 lbs 3.35 oz Gen: NAD, resting comfortably, awakens to voice, responding to simple questions HEENT: EOMI, MMM, NC in plaec Resp: no focal crackles, diminished in bases, no wheezes, no increased work of resp CV: S1S2 heard, reg rhythm, reg rate Abdo: soft, nontender, nondistended, bowel sounds present, ostomy in place Ext: BLE perfused Neuro: as above, MS and paraplegia noted, CN grossly intact, no facial asymmetry Medical Decision Making 55 MINUTES SPENT BY ME on the date of service doing chart review, history, exam, documentation & further activities per the note. Data I have personally reviewed the following data over the past 24 hrs: 8.6 \ 8.6 (L) / 225 141 115 (H) 13.0 / 79 3.6 21 (L) 0.94 \ Trop: N/A BNP: N/A Procal: N/A CRP: N/A Lactic Acid: N/A Imaging results reviewed over the past 24 hrs: No results found for this or any previous visit (from the past 24 hours). * Alyse Duenas MD - 07/14/2024 11:18 AM CDT [facility] Hospitalist Progress Note Date of Service (when I saw the patient): 07/14/2024 Assessment & Plan Arslan Lima is a 69 year old female with a complex past medical history of MS, paraplegia, heart failure presents to the hospital with sepsis. Sepsis Acute metabolic encephalopathy Community acquired pneumonia Urinary tract infection possibly due to SP cath. Hx of recurrent UTIs. Hx of MRSA Patient presenting with altered mental status, hypoxia, tachycardia and intermittent hypotension inthe er which has since improved with fluids. Noted to have a leucocytosis with possible pulmonary and urinary infections. Started on azithromycin and ceftriaxone prior to transfer. Central line was placed for IV access prior to transfer. CT head negative for acute pathology. No infarct seen CT chest with left lower lobe tree-in-bud nodular opacities. CT on 07/13: 1. No evidence of pulmonary embolism. The main pulmonary artery is mildly enlarged measuring 3.4 cm in diameter, this can be seen with pulmonary hypertension. 2. Multiple patchy groundglass pulmonary opacities most prominent in the right upper and lower lobes, indeterminate, could be infectious. 3. Small bilateral pleural effusions and associated basilar atelectasis/consolidation. 4. 1.2 cm right upper lobe nodule, new as compared to 09/30/2023 exam, indeterminate, could be metastatic. UA with significant pyuria Ucx from OSH shows enterobacter. BCX NTD. MRSA screen neg. BP remains soft though improved. Lactate wnl. Still requiring some oxygen though minimal. Initially started on ceftriaxone/azithromycin-->zosyn on 07/12 overnight-->vanc/cefepime.on 07/13. Afebrile. Procal 26 this am. Wbc normalized. - Hold vanc given neg MRSA screen. - Continue cefepime. - Received azithromycin x 3 doses. - Follow cultures. - Supportive care including oxygen/bronchodilators.. - ID consult for abx management. Chronic sacral wound stage 4, POA Possible cellulitis Groin maceration/wounds On diflucan and nystatin. - WOC consulted - Abx as above. - Complete the course of diflucan. - Continue nystatin. Acute metabolic encephalopathy. Hx of recurrent confusions/lethagy. Still confused. Bit lethargic. Likely multifactorial to infection, ARABELLA among possible others. Baseline mental status is unclear at this time though she has prior hx of recurrent confusions/lethargy. - Treat infection. - Delirium bundle/precautions. ARABELLA. Likely. Admit cr was cr here was 1.6 improved to 1.02 this am with hydration. - Hydration as needed/tolerated. Reduce IVF rate and stop if adequate PO to prevent volume overloadHFrPF. - Monitor BMP. Hypokalemia. -Replace with potassium replacement protocol - Follow lytes. Elevated troponin, likely T2MI 2/2 sepsis. Noted at outside hospital. Was stable on repeat at 0.12. patient is chest pain free. EKG with incomplete rbbb. Likely demand ischemia in setting of sepsis. Denies cp/sob. -monitor on tele - Reasonable to get TTE (also hx of HFpEF). Right upper lobe nodule Incidental finding Outpatient follow-up Restrictive lung mechanics due to neuromuscular disease: Gasses seem essentially ok. - Resume TRAIN PLANNER HS BIPAP. - Monitor gasses. 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 Prior ODs. No apparent w/d sxs at this time. - Keep holding morphine for now given AMS and lack of significant pain. - COWS protocol for w/d sxs. Chronic medical conditions: Anemia of chronic disease. Baseline 9-10. Was 9.6 on admit-->7.8-->7.9 (likely dilution). Multiple sclerosis Bilateral sensorineural hearing loss Paraplegia with colostomy and SP cath in place. Suprapubic catheter Decubitus ulcer of the sacrum stage IV Obesity Heart failure preserved ejection fraction History of hypertension GERD Opioid dependence Nephrolithiasis History of MRSA DVT prophylaxis: Hep subcutaneous. Disposition: TBD. 3-4 days Alyse Duenas MD Interval History More awake today. Still confused. No significant pain. Denies cp/sob. Physical Exam Temp: 97.3 ??F (36.3 ??C) Temp src: Axillary BP: 107/71 Pulse: 103 Resp: 18 SpO2: 92 % O2 Device: Nasal cannula Oxygen Delivery: 3 LPM Vitals: 07/12/24 0653 07/13/24 0530 Weight: 84.8 kg (186 lb 15.2 oz) 89 kg (196 lb 3.4 oz) Vital Signs with Ranges Temp: [95.8 ??F (35.4 ??C)-97.6 ??F (36.4 ??C)] 97.3 ??F (36.3 ??C) Pulse: [68-108] 103 Resp: [18-22] 18 BP: (87-115)/(48-90) 107/71 SpO2: [92 %-97 %] 92 % I/O last 3 completed shifts: In: 4846.67 [P.O.:990; I.V.:2941.67; IV Piggyback:915] Out: 1100 [Urine:1075; Stool:25] Constitutional: Appearance: She is obese,Chronically ill appearing lady seen resting in bed in no apparent distress. Cardiovascular: Rate and Rhythm: Regular rhythm. Tachycardia present. Pulmonary: Effort: Pulmonary effort is normal. Breath sounds: Normal breath sounds. Abdominal: General: Bowel sounds are normal. Palpations: Abdomen is soft. Tenderness: There is no abdominal tenderness. Comments: Ostomy with brown stool Musculoskeletal/skin: General: wounds in the sacral area, groin. Neurological: Mental Status: She is alert. She is disoriented Medications Current Facility-Administered Medications Medication Dose Route Frequency Provider Last Rate Last Admin Current Facility-Administered Medications Medication Dose Route Frequency Provider Last Rate Last Admin aspirin EC tablet 81 mg 81 mg Oral Daily Alyse Duenas MD 81 mg at 07/14/24 0837 ceFEPIme (MAXIPIME) 2 g vial to attach to NS 100 mL bag for ADULTS or NS 50 mL bag for PEDS 2 g Intravenous Q12H Alyse Duenas MD 2 g at 07/13/24 2351 famotidine (PEPCID) tablet 20 mg 20 mg Oral At Bedtime Alyse Duenas MD 20 mg at 07/13/24 2114 fluconazole (DIFLUCAN) tablet 200 mg 200 mg Oral Daily Alyse Duenas MD 200 mg at 07/14/24 0837 heparin ANTICOAGULANT injection 5,000 Units 5,000 Units Subcutaneous Q8H Alyse Duenas MD 5,000 Units at 07/14/24 0837 heparin lock flush 10 unit/mL injection 5-15 mL 5-15 mL Intracatheter Q24H Loan Aguilar MD 10 mL at 07/14/24 0519 miconazole (MICATIN) 2 % powder Topical BID Loan Aguilar MD Given at 07/14/24 0842 nystatin (MYCOSTATIN) cream Topical BID Alyse Duenas MD Given at 07/14/24 0842 oxyBUTYnin ER (DITROPAN XL) 24 hr tablet 10 mg 10 mg Oral Daily Alyse Duenas MD 10 mg at 07/14/24 0837 sodium chloride (PF) 0.9% PF flush 10-40 mL 10-40 mL Intracatheter Q8H Loan Aguilar MD 20 mL at 07/14/24 0520 sodium chloride (PF) 0.9% PF flush 3 mL 3 mL Intracatheter Q8H [facility] Loan Aguilar MD 3 mLat 07/13/24 0538 vancomycin (VANCOCIN) 1,500 mg in 0.9% NaCl 265 mL intermittent infusion 1,500 mg Intravenous Q24H Nhi Rizo [facility] 1,500 mg at 07/13/24 1350 Data Recent Labs Lab 07/14/24 0517 07/13/24 1319 07/13/24 1250 07/13/24 0518 07/12/24 2308 07/12/24 1804 07/12/24 0739 07/12/24 0543 WBC 7.1 -- -- 9.8 -- 11.5* -- 14.4* HGB 7.9* -- -- 7.8* -- 8.9* -- 9.6* MCV 99 -- -- 98 -- 95 -- 97 PLT 215 -- -- 216 -- 277 -- 311 NA 140 -- -- 139 -- 137 -- 136 POTASSIUM 3.4 3.7 -- 3.3* -- 3.6 -- 4.1 CHLORIDE 112* -- -- 107 -- 104 -- 101 CO2 21* -- -- 23 -- 24 -- 24 BUN 13.9 -- -- 17.0 -- 18.4 -- 19.2 CR 1.02* -- -- 1.34* -- 1.50* -- 1.63* ANIONGAP 7 -- -- 9 -- 9 -- 11 KELSEY 7.4* -- -- 6.9* -- 7.1* -- 7.3* GLC 107* -- 104* 121* < > 112* < > 69* ALBUMIN -- -- -- -- -- -- -- 2.3* PROTTOTAL -- -- -- -- -- -- -- 5.1* BILITOTAL -- -- -- -- -- -- -- 0.2 ALKPHOS -- -- -- -- -- -- -- 212* ALT -- -- -- -- -- -- -- 33 AST -- -- -- -- -- -- -- 57* < > = values in this interval not displayed. Recent Results (from the past 24 hours) CT Chest Pulmonary Embolism w Contrast Narrative EXAM: CT CHEST PULMONARY EMBOLISM W CONTRAST LOCATION: [facility] DATE: 07/13/2024 INDICATION: PNA, persistent sxs. COMPARISON: Chest CTA on 09/30/2023. TECHNIQUE: CT chest pulmonary angiogram during arterial phase injection of IV contrast. Multiplanarreformats and MIP reconstructions were performed. Dose reduction techniques were used. CONTRAST: 72 mL Isovue 370. FINDINGS: ANGIOGRAM CHEST: No evidence of pulmonary embolism, the main pulmonary artery is mildly enlarged measuring 3.4 cm in diameter. No evidence of thoracic aortic aneurysm or dissection. No evidence for right heart strain. LUNGS AND PLEURA: Small bilateral pleural effusions. No significant pneumothorax. Left basilar pulmonary opacities, could be atelectatic. 1.2 cm right upper lobe nodule (series 7 image 107), new as compared to 09/30/2023 exam, indeterminate, could be metastatic. 5 mm left apical nodule (series 7 image 67), not significantly changed as compared to 09/30/2023 exam. Multiple patchy groundglass pulmonary opacities most prominent in the right upper andlower lobes, indeterminate, could be infectious. MEDIASTINUM/AXILLAE: Right IJ central catheter tip is in the right atrium. No cardiomegaly or significant pericardial effusion. No significant mediastinal or hilar lymphadenopathy. Few calcified mediastinal granulomas. CORONARY ARTERY CALCIFICATION: None. UPPER ABDOMEN: Limited evaluation of the upper abdomen due to lack of coverage and timing of contrast. Multiple calcified splenic granulomas. MUSCULOSKELETAL: Multilevel degenerative changes of the spine. No suspicious osseous lesion. Impression IMPRESSION: 1. No evidence of pulmonary embolism. The main pulmonary artery is mildly enlarged measuring 3.4 cmin diameter, this can be seen with pulmonary hypertension. 2. Multiple patchy groundglass pulmonary opacities most prominent in the right upper and lower lobes, indeterminate, could be infectious. 3. Small bilateral pleural effusions and associated basilar atelectasis/consolidation. 4. 1.2 cm right upper lobe nodule, new as compared to 09/30/2023 exam, indeterminate, could be metastatic. * Alyse Duenas MD - 07/13/2024 1:10 PM CDT [facility] Hospitalist Progress Note Date of Service (when I saw the patient): 07/13/2024 Assessment & Plan Arslan Lima is a 69 year old female with a complex past medical history of MS, paraplegia, heart failure presents to the hospital with sepsis. Sepsis Acute metabolic encephalopathy Community acquired pneumonia Urinary tract infection Hx of recurrent UTIs. Hx of MRSA Patient presenting with altered mental status, hypoxia, tachycardia and intermittent hypotension inthe er which has since improved with fluids. Noted to have a leucocytosis with possible pulmonary and urinary infections. Started on azithromycin and ceftriaxone prior to transfer. Central line was placed for IV access prior to transfer. CT head negative for acute pathology. No infarct seen CT chest with left lower lobe tree-in-bud nodular opacities UA with significant pyuria Ucx from OSH shows enterobacter. BCX NTD. BP remains low/soft. Lactate wnl. Still requiring some oxygen. Initially started on ceftriaxone/azithromycin-->zosyn overnight by xcover. - Repeat CT chest given lack of improvement. - Vanc/cefepime. - A 3rd dose of azithromycin. -follow up ua and culture -IV hydration -supportive care including oxygen/bronchodilators.. - ID consult in am for abx management. chronic sacral wound stage 4, POA Possible cellulitis Open wounds in the groin. On diflucan and nystatin. - WOC consult - Abx as above. - Complete the course of diflucan. - Continue nystatin. Acute metabolic encephalopathy. Hx of recurrent confusions/lethagy. Still confused. Bit lethargic. Likely multifactorial to infection, ARABELLA among possible others. Baseline mental status is unclear at this time though she has prior hx of recurrent confusions/lethargy. - Treat infection. - Delirium bundle/precautions. ARABELLA. Likely. Admit cr was cr here was 1.6 improved to 1.3 this am with hydration. - Hydration as needed/tolerated. - Monitor BMP. Hypokalemia. -Replace with potassium replacement protocol - Follow lytes. Elevated troponin Noted at outside hospital. Was stable on repeat at 0.12. patient is chest pain free. EKG with incomplete rbbb. Likely demand ischemia in setting of sepsis. -monitor on tele Right upper lobe nodule Incidental finding Outpatient follow-up Restrictive lung mechanics due to neuromuscular disease: Gasses seem essentially ok. - Resume hs BIPAP. - Prn BIPAP. - Monitor gasses. 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 Prior ODs. No apparent w/d sxs at this time. - Will hold for now given lethargy and AMS. - COWS protocol for w/d sxs. 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 Suprapubic catheter Decubitus ulcer of the sacrum stage IV Obesity Heart failure preserved ejection fraction History of hypertension GERD Opioid dependence Nephrolithiasis History of MRSA DVT prophylaxis: Hep subcutaneous. Disposition: TBD. 3-4 days I called DTR w/o an answer. Will keep trying. Alyse Duenas MD Interval History Confused. Bit lethargic this am. Denies pain. Physical Exam Temp: (!) 96.5 ??F (35.8 ??C) Temp src: Axillary BP: 104/81 Pulse: 108 Resp: 22 SpO2: 92 % O2 Device: Nasal cannula Oxygen Delivery: 1 LPM Vitals: 07/12/24 0653 07/13/24 0530 Weight: 84.8 kg (186 lb 15.2 oz) 89 kg (196 lb 3.4 oz) Vital Signs with Ranges Temp: [96.5 ??F (35.8 ??C)-98.3 ??F (36.8 ??C)] 96.5 ??F (35.8 ??C) Pulse: [73-137] 108 Resp: [18-24] 22 BP: (62-132)/(30-110) 104/81 SpO2: [90 %-98 %] 92 % I/O last 3 completed shifts: In: 4751 [P.O.:50; I.V.:4601; IV Piggyback:100] Out: 755 [Urine:705; Stool:50] Constitutional: Appearance: She is obese,Chronically ill appearing lady seen resting in bed in no apparent distress. Cardiovascular: Rate and Rhythm: Regular rhythm. Tachycardia present. Pulmonary: Effort: Pulmonary effort is normal. Breath sounds: Normal breath sounds. Abdominal: General: Bowel sounds are normal. Palpations: Abdomen is soft. Tenderness: There is no abdominal tenderness. Comments: Ostomy with brown stool Musculoskeletal/skin: General: wounds in the sacral area, groin. Neurological: Mental Status: She is alert. She is disoriented Medications Current Facility-Administered Medications Medication Dose Route Frequency Provider Last Rate Last Admin dextrose 5% and 0.9% NaCl infusion Intravenous Continuous Alyse Duenas MD 100 mL/hr at 07/13/24 0950 New Bag at 07/13/24 0950 Current Facility-Administered Medications Medication Dose Route Frequency Provider Last Rate Last Admin azithromycin (ZITHROMAX) 500 mg vial to attach to NS 250 mL bag 500 mg Intravenous Q24H AwilW. Duenas MD 250 mL/hr at 07/13/24 1232 500 mg at 07/13/24 1232 ceFEPIme (MAXIPIME) 2 g vial to attach to NS 100 mL bag for ADULTS or NS 50 mL bag for PEDS 2 g Intravenous Q12H Alyse Duenas MD 2 g at 07/13/24 1241 heparin lock flush 10 unit/mL injection 5-15 mL 5-15 mL Intracatheter Q24H Loan Aguilar MD 5 mL at 07/13/24 0203 miconazole (MICATIN) 2 % powder Topical BID Loan Aguilar MD Given at 07/13/24 0904 sodium chloride (PF) 0.9% PF flush 10-40 mL 10-40 mL Intracatheter Q8H Loan Aguilar MD 40 mL at 07/13/24 0904 sodium chloride (PF) 0.9% PF flush 3 mL 3 mL Intracatheter Q8H [facility] Loan Aguilar MD 3 mLat 07/13/24 0538 vancomycin (VANCOCIN) 1,500 mg in 0.9% NaCl 265 mL intermittent infusion 1,500 mg Intravenous Q24H Nhi Rizo, [facility] Data Recent Labs Lab 07/13/24 1250 07/13/24 0518 07/13/24 0218 07/12/24 2308 07/12/24 1804 07/12/24 0739 07/12/24 0543 WBC -- 9.8 -- -- 11.5* -- 14.4* HGB -- 7.8* -- -- 8.9* -- 9.6* MCV -- 98 -- -- 95 -- 97 PLT -- 216 -- -- 277 -- 311 NA -- 139 -- -- 137 -- 136 POTASSIUM -- 3.3* -- -- 3.6 -- 4.1 CHLORIDE -- 107 -- -- 104 -- 101 CO2 -- 23 -- -- 24 -- 24 BUN -- 17.0 -- -- 18.4 -- 19.2 CR -- 1.34* -- -- 1.50* -- 1.63* ANIONGAP -- 9 -- -- 9 -- 11 KELSEY -- 6.9* -- -- 7.1* -- 7.3* GLC 104* 121* 115* < > 112* < > 69* ALBUMIN -- -- -- -- -- -- 2.3* PROTTOTAL -- -- -- -- -- -- 5.1* BILITOTAL -- -- -- -- -- -- 0.2 ALKPHOS -- -- -- -- -- -- 212* ALT -- -- -- -- -- -- 33 AST -- -- -- -- -- -- 57* < > = values in this interval not displayed. Recent Results (from the past 24 hours) XR Chest Port 1 View Narrative EXAM: XR CHEST PORT 1 VIEW LOCATION: [facility] DATE: 07/12/2024 INDICATION: Sepsis, hypotension, tachycardia, hypoxia COMPARISON: CT 09/30/2023 Impression IMPRESSION: Right IJ central catheter with the tip located in the upper right atrium. Trace left pleural effusion and left basilar opacities which likely reflect atelectasis. The right lung is grossly clear. Upper normal heart size. No vascular congestion or overt pulmonary edema. * Cal Be APRN [employer] - 07/13/2024 4:44 AM CDT Notified by RN of ongoing labile pressures as low as 75/38 but improved to 96/56 on recheck. Patient has had 2L crystalloid since last evening. Start albumin 25g 5% and evaluate for effect. Patient remains confused and lethargic. * Alyse Duenas MD - 07/12/2024 10:35 AM CDT Hospitalist update Please refer to the H&P done earlier this am. Pt seen and examined. Awake. Confused. Afebrile. Lactate nl. Hypoglycemic. No known hx of DM (A1C was 5.3 in September 2023). Continue current care. Check VBG. Add D5 to the IVF. Monitor mental status. Delirium precautions/bundle Monitor cbc/BMP. Hypoglycemia protocol. Rpt A1C. Follow cultures. Disp: TBD documented in this encounter H&P Notes * Loan Aguilar MD - 07/12/2024 12:53 AM CDT [facility] Hospitalist History and Physical Date of Admission: 07/12/2024 Primary Care Physician ERWIN LIND Chief Complaint No chief complaint on file. History obtained from the medical chart.a History of Present Illness Arslan Lima is a 69 year old female with a complex past medical history of MS, paraplegia, heart failure presents to the hospital with sepsis. According to documentation sent with the patient she presented to the [facility] on July 11for weakness. She reported 2 weeks of increasing weakness and fatigue and was having increasing confusion. She was hypoxic, hypotensive and tachycardic in the emergency room. She received 2.5 L of sodium chloride and azithromycin and ceftriaxone. Workup in ER revealed a leukocytosis of 12.5 and an ARABELLA with a creatinine of 1.9. Urine analysis was concerning for UTI troponin was mildly elevated at 0.12 but stable on repeat. EKG was negative for ST elevations. Patient denies any chest pain. Central line was placed in the emergency room due to difficult IV access and need for IV fluids. The patient was transferred for [facility] for admission and further care. On my evaluationthe patient knows the year and the month, but is confused to where she is or why she is in the hospital. She reports that she has had a cough, but can't tell me for how long. She reports it is productive of sputum, but does not know what color. She requests food and water. Of note the patient was recently hospitalized at an outside hospital from 06/26 to 06/28. She presented for weakness and altered mental status. Her UA was concerning for infection and she was treated with IV abx. Her urine culture eventual grew yest and she was treated with diflucan for 2 weeks. Past Medical History I have reviewed this patient's medical history and updated it with pertinent information if needed. Multiple sclerosis Bilateral sensorineural hearing loss Paraplegia Suprapubic catheter Decubitus ulcer of the sacrum stage IV Obesity Heart failure preserved ejection fraction History of hypertension GERD Opioid dependence Nephrolithiasis History of MRSA Anemia of chronic disease Past Surgical History I have reviewed this patient's surgical history and updated it with pertinent information if needed. Past Surgical History: Procedure Laterality Date BUNIONECTOMY CYST REMOVAL CYSTOSCOPY ESOPHAGOSCOPY, GASTROSCOPY, DUODENOSCOPY (EGD), COMBINED HYSTERECTOMY VIJAY and BSO HYSTERECTOMY TOTAL ABDOMINAL, BILATERAL SALPINGO-OOPHORECTOMY, COMBINED LAMINECTOMY OOPHORECTOMY OTHER SURGICAL HISTORY IL REMOVE GALLBLADDER EXPLOR COMMON DUCT SUPRAPUBIC TUBE PLACEMENT URETHRAL SLING Allergies Allergies Allergen Reactions Citalopram Nausea Pt unaware of this as an allergy. Nsaids Hx of stomach ulcer. Pt reports only takes APAP. Social History I have reviewed this patient's social history and updated it with pertinent information if needed. Arslan Lima reports that she quit smoking about 5 years ago. Her smoking use included cigarettes, cigarettes, and cigarettes. She started smoking about 57 years ago. She has never used smokeless tobacco. She reports that she does not drink alcohol and does not use drugs. Family History I have reviewed this patient's family history and updated it with pertinent information if needed. Family History Problem Relation Age of Onset Brain Tumor Father Dcd age 56 Alzheimer Disease Mother Dcd age 78 Physical Exam Temp: 98 ??F (36.7 ??C) Temp src: Oral BP: 95/69 Resp: 16 SpO2: 98 % O2 Device: Nasal cannula Oxygen Delivery: 1 LPM Vital Signs with Ranges Temp: [98 ??F (36.7 ??C)] 98 ??F (36.7 ??C) Resp: [16] 16 BP: (95)/(69) 95/69 SpO2: [98 %] 98 % 0 lbs 0 oz Physical Exam Vitals reviewed. Constitutional: Appearance: She is obese. Comments: Chronically ill appearing lady seen resting in bed in no apparent distressl. Cardiovascular: Rate and Rhythm: Regular rhythm. Tachycardia present. Pulmonary: Effort: Pulmonary effort is normal. Breath sounds: Normal breath sounds. Abdominal: General: Bowel sounds are normal. Palpations: Abdomen is soft. Tenderness: There is no abdominal tenderness. Comments: Ostomy with brown stool Musculoskeletal: General: Swelling present. Neurological: Mental Status: She is alert. She is disoriented. Assessment & Plan Arslan Lima is a 69 year old female with a complex past medical history of MS, paraplegia, heart failure presents to the hospital with sepsis. Sepsis Acute metabolic encephalopathy Community acquired pneumonia Urinary tract infection Patient presenting with altered mental status, hypoxia, tachycardia and intermittent hypotension inthe er which has since improved with fluids. Noted to have a leucocytosis with possible pulmonary and urinary infections. Started on azithromycin and ceftriaxone prior to transfer. Central line was placed for IV access prior to transfer. CT head negative for acute pathology. No infarct seen CT chest with left lower lobe tree-in-bud nodular opacities UA with significant pyuria -admitted to [facility], monitor on tele, q2 vitals -azithromcyin and ceftriaxone -follow up ua and culture -not clear in documentation if blood cultures were obtained, if she develops a fever will obtain new cultures. -IV hydration -supplemental O2 Sacral wound present on admission Did not appear infected. WOC consult Hypokalemia. Potassium was 3.0 in the emergency room status post 20 mEq -Replace with potassium replacement protocol Elevated troponin Noted at outside hospital. Was stable on repeat at 0.12. patient is chest pain free. EKG with incomplete rbbb. Likely demand ischemia in setting of sepsis. 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 Loan Aguilar MD Hospitalist Medicine Service Pager# [phone] documented in this encounter Consult Notes * Albania Huerta MD - 07/17/2024 3:18 PM CDT Neurology Daily Note Admission Date:07/12/2024 Date of service: 07/17/2024 Hospital Day: 6 Assessment and Plan: #. Chronic MS with chronic paraplegia/UE incoordination. . Similar motor exam to that recorded in 2018 other than patient with cognitive impairment today. #. Infectious encephalopathy improving after treatment of pneumonia # Dysphagia/dysarthria- may be attributable to MS ?contribute to pneumonia risk. May benefit from speech evaluation of swallowing as in/out patient. #family notes that cognition is worsening after medical/infectious illnesses. May be dementia/or context of aging and MS and declining medical condition. --MRI brain revealed findings primarily related to aging/atrophy-no findings of active MS. Updated son. General Neurology service will sign off as no additional neurologic evaluation or management from our service is required at this time. Please contact General Neurology service if questions related to neurologic status or follow up needed during this hospitalization. Medications: Scheduled Meds: Current Facility-Administered Medications Medication Dose Route Frequency Provider Last Rate Last Admin aspirin EC tablet 81 mg 81 mg Oral Daily Alyse Duenas MD 81 mg at 07/17/24 0747 ceFEPIme (MAXIPIME) 2 g vial to attach to NS 100 mL bag for ADULTS or NS 50 mL bag for PEDS 2 g Intravenous Q12H Alyse Duenas MD 2 g at 07/17/24 1048 famotidine (PEPCID) tablet 20 mg 20 mg Oral At Bedtime Alyse Duenas MD 20 mg at 07/16/247 [Held by provider] furosemide (LASIX) tablet 20 mg 20 mg Oral BID Sudeep Back MD 20 mg at07/15/247 [Held by provider] gabapentin (NEURONTIN) capsule 900 mg 900 mg Oral BID Sudeep Back MD heparin ANTICOAGULANT injection 5,000 Units 5,000 Units Subcutaneous Q8H Alyse Duenas MD 5,000 Units at 07/17/24 0747 heparin lock flush 10 unit/mL injection 5-15 mL 5-15 mL Intracatheter Q24H Loan Aguilar MD 15 mL at 07/15/24 0037 miconazole (MICATIN) 2 % powder Topical BID Loan Aguilar MD Given at 07/17/24 0748 [Held by provider] morphine (MS CONTIN) 12 hr tablet 15 mg 15 mg Oral Q12H Sudeep Back MD nystatin (MYCOSTATIN) cream Topical BID Alyse Duenas MD Given at 07/17/24 0748 oxyBUTYnin ER (DITROPAN XL) 24 hr tablet 10 mg 10 mg Oral Daily Alyse Duenas MD 10 mg at 07/17/24 0747 [Held by provider] potassium chloride eloy ER (KLOR-CON M20) CR tablet 20 mEq 20 mEq Oral BID Sudeep Back MD 20 mEq at 07/16/24 1029 sodium chloride (PF) 0.9% PF flush 10-40 mL 10-40 mL Intracatheter Q8H Loan Aguilar MD 10 mL at 07/17/24 0748 sodium chloride (PF) 0.9% PF flush 3 mL 3 mL Intracatheter Q8H [facility] Loan Aguilar MD 3 mLat 07/16/24 2159 spironolactone (ALDACTONE) half-tab 12.5 mg 12.5 mg Oral Q48H Sudeep Back MD 12.5 mg at 07/17/24 0747 PRN Meds: Current Facility-Administered Medications Medication Dose Route Frequency Provider Last Rate Last Admin acetaminophen (TYLENOL) tablet 650 mg 650 mg Oral Q4H PRN Loan Aguilar MD 650 mg at 07/15/24 1158 Or acetaminophen (TYLENOL) Suppository 650 mg 650 mg Rectal Q4H PRN Loan Aguilar MD calcium carbonate (TUMS) chewable tablet 1,000 mg 1,000 mg Oral 4x Daily PRN Loan Aguilar MD glucose gel 15-30 g 15-30 g Oral Q15 Min PRN Alyse Duenas MD Or dextrose 50 % injection 25-50 mL 25-50 mL Intravenous Q15 Min PRN Alyse Duenas MD 25 mL at 07/12/24 1040 Or glucagon injection 1 mg 1 mg Subcutaneous Q15 Min PRN Alyse Duenas MD heparin lock flush 10 unit/mL injection 5-15 mL 5-15 mL Intracatheter Q1H PRN Loan Aguilar MD 15 mL at 07/17/24 0550 hydrocortisone 1 % cream CREA Rectal Daily PRN Sudeep Back MD lidocaine (LMX4) cream Topical Q1H PRN Loan Aguilar MD lidocaine 1 % 0.1-1 mL 0.1-1 mL Other Q1H PRN Loan Aguilar MD melatonin tablet 1 mg 1 mg Oral At Bedtime PRN Loan Aguilar MD naloxone (NARCAN) injection 0.2 mg 0.2 mg Intravenous Q2 Min PRN Alyse Duenas MD Or naloxone (NARCAN) injection 0.4 mg 0.4 mg Intravenous Q2 Min PRN Alyse Duenas MD Or naloxone (NARCAN) injection 0.2 mg 0.2 mg Intramuscular Q2 Min PRN Alyse Duenas MD Or naloxone (NARCAN) injection 0.4 mg 0.4 mg Intramuscular Q2 Min PRN Alyse Duenas MD ondansetron (ZOFRAN ODT) ODT tab 4 mg 4 mg Sublingual Q8H PRN Sudeep Back MD prochlorperazine (COMPAZINE) injection 5 mg 5 mg Intravenous Q6H PRN Loan Aguilar MD Or prochlorperazine (COMPAZINE) tablet 5 mg 5 mg Oral Q6H PRN Loan Aguilar MD QUEtiapine (SEROquel) half-tab 12.5 mg 12.5 mg Oral BID PRN Alyse Duenas MD 12.5 mg at 07/17/24 1204 senna-docusate (SENOKOT-S/PERICOLACE) 8.6-50 MG per tablet 1 tablet 1 tablet Oral BID PRN Loan Aguilar MD Or senna-docusate (SENOKOT-S/PERICOLACE) 8.6-50 MG per tablet 2 tablet 2 tablet Oral BID PRN Loan Aguilar MD sodium chloride (PF) 0.9% PF flush 10-20 mL 10-20 mL Intracatheter q1 min prn Loan Aguilar MD 10 mL at 07/17/24 0033 sodium chloride (PF) 0.9% PF flush 3 mL 3 mL Intracatheter q1 min prn Loan Aguilar MD Physical Exam: Vitals: Temp: 97.8 ??F (36.6 ??C) Temp src: Axillary BP: 94/46 Pulse: 111 Resp: 18 SpO2: 96 % O2 Device: Nasal cannula Oxygen Delivery: 2 LPM Vital Signs with Ranges: Temp: [97.1 ??F (36.2 ??C)-98.7 ??F (37.1 ??C)] 97.8 ??F (36.6 ??C) Pulse: [96-116] 111 Resp: [14-18] 18 BP: (70-109)/(23-87) 94/46 SpO2: [83 %-100 %] 96 % General Appearance: No acute distress Neuro: Ftvwqnbsu-xgeoxszl-muocorz simple commands Extremities: No clubbing, no cyanosis, no edema Data: ROUTINE IP LABS (Last 3results) CBC RESULTS: Recent Labs Lab Test 07/16/24 0507/15/24 2326 07/15/2462507/14/24 0517 WBC 10.4 -- 8.6 7.1 RBC 2.74* -- 2.71* 2.52* HGB 8.6* -- 8.6* 7.9* HCT 26.1* -- 26.6* 25.0* PLT 227 234 225 215 Basic Metabolic Panel: Recent Labs Lab Test 07/17/24 0538 07/16/24 0522 07/15/24 0607/14/24 0517 NA -- 144 141 140 POTASSIUM 4.4 4.0 3.6 3.4 CHLORIDE -- 115* 115* 112* CO2 -- 21* 21* 21* BUN -- 13.2 13.0 13.9 CR -- 0.96* 0.94 1.02* GLC -- 97 79 107* KELSEY -- 7.7* 7.5* 7.4* Liver panel: Recent Labs Lab Test 07/12/24 0543 04/08/18 1103 04/01/18 0647 03/31/18 0622 03/25/18 0400 03/18/18 0432 PROTTOTAL 5.1* 5.6* 5.1* -- 5.1* 4.7* ALBUMIN 2.3* 2.3* 2.1* 2.1* 2.0* 2.1* BILITOTAL 0.2 0.3 0.1 -- 0.2 0.2 ALKPHOS 212* 55 42* -- 45 41* AST 57* 26 15 -- 13 14 ALT 33 12 <9 -- <9 <9 Independent interpretation of the following studies by myself as part of today's encounter.-Reveal significant atrophy and T2 signal hyperintensities which are nonspecific-likely combination of microvascular changes and demyelinating disease MR BRAIN W/O and W CONTRAST LOCATION: [facility] DATE: 07/17/2024 INDICATION: progressive cognitive decline chronic ME with paraplegia. r o evidence of stroke space occupyinglesion COMPARISON: CT head November 18, 2020. CONTRAST: 9 mL [employer] TECHNIQUE: Routine multiplanar multisequence head MRI without and with intravenous contrast. FINDINGS: Examination degraded by patient motion. INTRACRANIAL CONTENTS: No acute or subacute infarct. Remote right cerebellar hemisphere lacunar infarct. No mass, acute hemorrhage, or extra-axial fluid collections. Unchanged tectal region lipoma. Patchy and confluent nonspecific T2/FLAIR hyperintensities within the cerebral white matter most consistent with moderate chronic microvascular ischemic change. Advanced generalized cerebral atrophy. No hydrocephalus. Normal position of the cerebellar tonsils. No pathologic contrast enhancement. SELLA: No abnormality accounting for technique. OSSEOUS STRUCTURES/SOFT TISSUES: Normal marrow signal. The major intracranial vascular flow voids are maintained. ORBITS: No abnormality accounting for technique. SINUSES/MASTOIDS: No paranasal sinus mucosal disease. No middle ear or mastoid effusion. IMPRESSION: 1. No acute intracranial abnormality. 2. Moderate sequela of chronic ischemic small vessel disease. 3. Advanced global cerebral volume loss. Albania Huerta M.D. Neurologist [facility] Neurology Office [phone] * Albania Huerta MD - 07/16/2024 1:03 PM CDTAssociated Order(s): NEUROLOGY IP CONSULT Neurology Consultation Arslan Lima Date of : 1955 Age: [age] year old Code Status:Full Code Date of Admission: 07/12/2024 Date of Consult:07/16/2024 Assessment and Plan: #. Chronic MS with chronic paraplegia/UE incoordination. . Similar motor exam to that recorded in 2018 other than patient with cognitive impairment today. #. Infectious encephalopathy improving after treatment of pneumonia # Dysphagia/dysarthria- may be attributable to MS ?contribute to pneumonia risk. May benefit from speech evaluation of swallowing as in/out patient. #family notes that cognition is worsening after medical/infectious illnesses. May be dementia/or context of aging and MS and declining medical condition. --MRI brain ordered. Son wishes to understand the prognosis of her neurologic status. Given cognitive /behavioral difficulties, patient may not cooperate, if so, cancel MRI and considerCT brain instead. Will followup tomorrow. -- -- Reason for consult: as above Chief Complaint: Unaware of consult/confused History of Present Illness: This patient is a 69 year old female who was admitted to on 07/12 as transfer from [facility] for [facility]. She has been dx with community acquired pneumonia and encephalopathy has improved butstill with ongoing cognitive impairment/behavioral issues. Hx of MS 1996 multiple previous providers. Records indicate Avonex treatment till 2014 then discontinued. [place] since 2011 Last neurology visit 2018 with at that time experiencing Decubitus ulcer Now living in assisted care. Still able to feed self Reports occasional choking. Son, Ramsey interviewed by phone. He and family note cognitive decline after recent hospitalization/medical illnesses Wondering explanation and prognosis. MEDICAL DOCUMENTATION REVIEWED: Prior neurology notes 2018 Hospitalist/ Past Medical History: No past medical history on file. MS as above, neurogenic bowel/bladder, cAD, recurrent UTI suprapubic cath, sacral wond, DAMIEN, kidney injury, Rlung nodule, chronic opiods, anemia, hearing loss, obesity, nephrolithiasis, HTN, HF Past Surgical History: Past Surgical History: Procedure Laterality Date BUNIONECTOMY CYST REMOVAL CYSTOSCOPY ESOPHAGOSCOPY, GASTROSCOPY, DUODENOSCOPY (EGD), COMBINED HYSTERECTOMY VIJAY and BSO HYSTERECTOMY TOTAL ABDOMINAL, BILATERAL SALPINGO-OOPHORECTOMY, COMBINED LAMINECTOMY OOPHORECTOMY OTHER SURGICAL HISTORY IL REMOVE GALLBLADDER EXPLOR COMMON DUCT SUPRAPUBIC TUBE PLACEMENT URETHRAL SLING Social History: Social History Socioeconomic History Marital status: Tobacco Use Smoking status: Former Current packs/day: 0.00 Types: Cigarettes Start date: 11/02/1966 Quit date: 07/15/2018 Years since quittin.0 Smokeless tobacco: Never Substance and Sexual Activity Alcohol use: No Drug use: No Comment: MEDICAL CANNABIS USER/ CURRENTLY Sexual activity: Never Social Drivers of Health Financial Resource Strain: Low Risk (06/26/2024) Received from [facility] Financial Resource Strain Difficulty of Paying Living Expenses: 3 Food Insecurity: No Food Insecurity (06/26/2024) Received from [facility] Food Insecurity Do you worry your food will run out before you are able to buy more?: 1 Transportation Needs: No Transportation Needs (06/26/2024) Received from [facility] Transportation Needs Does lack of transportation keep you from medical appointments?: 1 Does lack of transportation keep you from work, meetings or getting things that you need?: 1 Social Connections: Socially Integrated (06/26/2024) Received from [facility] Social Connections Do you often feel lonely or isolated from those around you?: 0 Housing Stability: Low Risk (06/26/2024) [facility] Housing Stability What is your housing situation today?: 1 Family History: Family History Problem Relation Age of Onset Brain Tumor Father Dcd age 56 Alzheimer Disease Mother Dcd age 78 Reviewed and not felt to be contributory. Home Medications: Prior to Admission Medications Prescriptions Last Dose Informant Patient Reported? Taking? ASPIRIN PO 07/11/2024 Morning Yes Yes Sig: Take 81 mg by mouth daily Furosemide (LASIX PO) 07/11/2024 Morning Yes Yes Sig: Take 20 mg by mouth 2 times daily. acetaminophen (TYLENOL) 325 MG tablet 07/11/2024 Morning Yes Yes Sig: Take 1,000 mg by mouth every 6 hours as needed for mild pain or fever. famotidine (PEPCID) 20 MG tablet 07/10/2024 Bedtime Yes Yes Sig: Take 40 mg by mouth at bedtime. fluconazole (DIFLUCAN) 200 MG tablet 07/11/2024 Morning Yes Yes Sig: Take 200 mg by mouth daily. gabapentin (NEURONTIN) 300 MG capsule 07/11/2024 Morning Yes Yes Sig: Take 900 mg by mouth 2 times daily. hydrocortisone 1 % CREA cream 07/11/2024 Morning Yes Yes Sig: Place rectally daily as needed for itching. morphine (MS CONTIN) 15 MG CR tablet 07/11/2024 Morning Yes Yes Sig: Take 15 mg by mouth every 12 hours. multivitamin w/minerals (THERA-VIT-M) tablet 07/11/2024 Morning Yes Yes Sig: Take 2 tablets by mouth daily. nystatin (MYCOSTATIN) 783931 UNIT/GM external cream Past Month Yes Yes Sig: Apply topically 2 times daily ondansetron (ZOFRAN-ODT) 4 MG disintegrating tablet Past Week Yes Yes Sig: Place 4 mg under the tongue every 8 hours as needed. order for DME No No Sig: Equipment being ordered: Seat for wheelchair oxyBUTYnin ER (DITROPAN XL) 10 MG 24 hr tablet 07/11/2024 Morning Yes Yes Sig: Take 10 mg by mouth daily. potassium chloride eloy ER (KLOR-CON M20) 20 MEQ CR tablet 07/07/2024 Morning Yes Yes Sig: Take 20 mEq by mouth 2 times daily. spironolactone (ALDACTONE) 25 MG tablet 07/11/2024 Morning Yes Yes Sig: Take 12.5 mg by mouth every 48 hours. Facility-Administered Medications: None Allergy: Allergies Allergen Reactions Citalopram Nausea Pt unaware of this as an allergy. Nsaids Hx of stomach ulcer. Pt reports only takes APAP. Inpatient Medications: Scheduled Meds: Current Facility-Administered Medications Medication Dose Route Frequency Provider Last Rate Last Admin aspirin EC tablet 81 mg 81 mg Oral Daily Alyse Duenas MD 81 mg at 07/16/24 1029 ceFEPIme (MAXIPIME) 2 g vial to attach to NS 100 mL bag for ADULTS or NS 50 mL bag for PEDS 2 g Intravenous Q12H Alyse Duenas MD 2 g at 07/16/24 1029 famotidine (PEPCID) tablet 20 mg 20 mg Oral At Bedtime Alyse Duenas MD 20 mg at 07/15/242116 [Held by provider] furosemide (LASIX) tablet 20 mg 20 mg Oral BID Sudeep Back MD 20 mg at07/15/242116 [Held by provider] gabapentin (NEURONTIN) capsule 900 mg 900 mg Oral BID Sudeep Back MD heparin ANTICOAGULANT injection 5,000 Units 5,000 Units Subcutaneous Q8H Alyse Duenas MD 5,000 Units at 07/16/24 1029 heparin lock flush 10 unit/mL injection 5-15 mL 5-15 mL Intracatheter Q24H Loan Aguilar MD 15 mL at 07/15/24 0037 LORazepam (ATIVAN) injection 0.5 mg 0.5 mg Intravenous Once [place]ia Huerta MD miconazole (MICATIN) 2 % powder Topical BID Loan Aguilar MD Given at 07/16/24 1029 [Held by provider] morphine (MS CONTIN) 12 hr tablet 15 mg 15 mg Oral Q12H Sudeep Back MD nystatin (MYCOSTATIN) cream Topical BID Alyse Duenas MD Given at 07/16/24 1030 oxyBUTYnin ER (DITROPAN XL) 24 hr tablet 10 mg 10 mg Oral Daily Alyse Duenas MD 10 mg at 07/16/24 1029 [Held by provider] potassium chloride eloy ER (KLOR-CON M20) CR tablet 20 mEq 20 mEq Oral BID Sudeep Back MD 20 mEq at 07/16/24 1029 sodium chloride (PF) 0.9% PF flush 10-40 mL 10-40 mL Intracatheter Q8H Loan Aguilar MD 3 mL at 07/16/24 1031 sodium chloride (PF) 0.9% PF flush 3 mL 3 mL Intracatheter Q8H BELL Loan Aguilar MD 3 mLat 07/15/24 2118 spironolactone (ALDACTONE) half-tab 12.5 mg 12.5 mg Oral Q48H Sudeep Back MD 12.5 mg at 07/15/24 0844 PRN Meds: Current Facility-Administered Medications Medication Dose Route Frequency Provider Last Rate Last Admin acetaminophen (TYLENOL) tablet 650 mg 650 mg Oral Q4H PRN Loan Aguilar MD 650 mg at 07/15/24 1158 Or acetaminophen (TYLENOL) Suppository 650 mg 650 mg Rectal Q4H PRN Loan Aguilar MD calcium carbonate (TUMS) chewable tablet 1,000 mg 1,000 mg Oral 4x Daily PRN Loan Aguilar MD glucose gel 15-30 g 15-30 g Oral Q15 Min PRN Alyse Duenas MD Or dextrose 50 % injection 25-50 mL 25-50 mL Intravenous Q15 Min PRN Alyse Duenas MD 25 mL at 07/12/24 1040 Or glucagon injection 1 mg 1 mg Subcutaneous Q15 Min PRN Alyse Duenas MD heparin lock flush 10 unit/mL injection 5-15 mL 5-15 mL Intracatheter Q1H PRN Loan Aguilar MD 15 mL at 07/15/24 2333 hydrocortisone 1 % cream CREA Rectal Daily PRN Sudeep Back MD lidocaine (LMX4) cream Topical Q1H PRN Loan Aguilar MD lidocaine 1 % 0.1-1 mL 0.1-1 mL Other Q1H PRN Loan Aguilar MD melatonin tablet 1 mg 1 mg Oral At Bedtime PRN Loan Aguilar MD naloxone (NARCAN) injection 0.2 mg 0.2 mg Intravenous Q2 Min PRN Alyse Duenas MD Or naloxone (NARCAN) injection 0.4 mg 0.4 mg Intravenous Q2 Min PRN Alyse Duenas MD Or naloxone (NARCAN) injection 0.2 mg 0.2 mg Intramuscular Q2 Min PRN Alyse Duenas MD Or naloxone (NARCAN) injection 0.4 mg 0.4 mg Intramuscular Q2 Min PRN Alyse Duenas MD ondansetron (ZOFRAN ODT) ODT tab 4 mg 4 mg Sublingual Q8H PRN Sudeep Back MD prochlorperazine (COMPAZINE) injection 5 mg 5 mg Intravenous Q6H PRN Loan Aguilar MD Or prochlorperazine (COMPAZINE) tablet 5 mg 5 mg Oral Q6H PRN Loan Aguilar MD QUEtiapine (SEROquel) half-tab 12.5 mg 12.5 mg Oral BID PRN Alyse Duenas MD senna-docusate (SENOKOT-S/PERICOLACE) 8.6-50 MG per tablet 1 tablet 1 tablet Oral BID PRN Loan Aguilar MD Or senna-docusate (SENOKOT-S/PERICOLACE) 8.6-50 MG per tablet 2 tablet 2 tablet Oral BID PRN Loan Aguilar MD sodium chloride (PF) 0.9% PF flush 10-20 mL 10-20 mL Intracatheter q1 min prn Loan Aguilar MD 10 mL at 07/16/24 0523 sodium chloride (PF) 0.9% PF flush 3 mL 3 mL Intracatheter q1 min prn Loan Aguilar MD Physical Exam: Physical Exam Vitals: Height:5' 3 Weight:201 lbs 0 oz Temp: 97.7 ??F (36.5 ??C) Temp src: Oral BP: 103/66 Pulse: 105 Resp: 14 SpO2: 94 % O2 Device: Nasalcannula Oxygen Delivery: 2 LPM General Appearance: Confused, joking with nurse about pulling out Iv line in neck. obesel body habitus Neuro Exam: Mental Status Exam: Alert and oriented to self not month + year, not name of her facility. . Language intact speech: dysarthric Fund of knowledge limited. Cranial Nerves: Vision grossly intact Pupils are equal BL MAI Facial strength and sensation is normal. No jaw or tongue deviation. Motor: UE 4/4 strength, paraplegia- contracture at both ankles. increased tone both legs. Reflexes: Symmetrically intact. Plantar signs normal. Sensory: Vibration and cold intact in all 4 extremities. Coordination: ataxia UE Gait:n/a Neck: No nuchal rigidity Extremities: some edema Data: ROUTINE IP LABS CBC RESULTS: Recent Labs Lab 07/16/24 0522 07/15/24 2326 07/15/24 0626 07/14/24 0517 WBC 10.4 -- 8.6 7.1 RBC 2.74* -- 2.71* 2.52* HGB 8.6* -- 8.6* 7.9* HCT 26.1* -- 26.6* 25.0* PLT 227 234 225 215 Basic Metabolic Panel: Recent Labs Lab Test 07/16/24 0522 07/15/24 0626 07/14/24 0517 NA 144 141 140 POTASSIUM 4.0 3.6 3.4 CHLORIDE 115* 115* 112* CO2 21* 21* 21* BUN 13.2 13.0 13.9 CR 0.96* 0.94 1.02* GLC 97 79 107* KELSEY 7.7* 7.5* 7.4* Liver panel: Recent Labs Lab Test 07/12/24 0543 04/08/18 1103 04/01/18 0647 03/31/18 0622 03/25/18 0400 03/18/18 0432 PROTTOTAL 5.1* 5.6* 5.1* -- 5.1* 4.7* ALBUMIN 2.3* 2.3* 2.1* 2.1* 2.0* 2.1* BILITOTAL 0.2 0.3 0.1 -- 0.2 0.2 ALKPHOS 212* 55 42* -- 45 41* AST 57* 26 15 -- 13 14 ALT 33 12 <9 -- <9 <9 IMAGING: Last MRI brain 2013. C/w MS Albania Huerta M.D. [facility] Office [phone] * Ariana De Los Santos RN - 07/14/2024 12:42 PM CDTAssociated Order(s): WOUND OSTOMY CONTINENCE NURSE IP CONSULT Images from the original note were not included. [facility] WO Nurse Inpatient Assessment Consulted for: 07/12 Pressure Injury Wound sacrum 07/13 Wound sacral wounds Summary: patient with POA stage 4 sacral pressure injury. Also with POA right buttock/right IT stage 3 pressure injury. Initial woc assessment 07/14 WO nurse follow-up plan: weekly Patient History (according to provider note(s): 69 year old female with a complex past medical history of MS, paraplegia, heart failure presents to the hospital with sepsis. Assessment: Areas visualized during today's visit: Focused: and Sacrum/coccyx Wound location: buttock, sacrum Last photo: 07/14 Wound due to: Pressure Injury stage 4 POA Wound history/plan of care: found with wet to moist dressing in use Wound base: Granulation tissue and Slough, membrane over bone Palpation of the wound bed: firm, slick / slimy Drainage: moderate Description of drainage: serosanguinous Measurements (length x width x depth, in cm): ~8 x 13 x 3 cm Tunneling: N/A Undermining: up to 4 cm from all o'clock, greatest depth noted to left side Periwound skin: Intact and Scar tissue Color: pink Temperature: normal Odor: none Pain: no grimacing or signs of discomfort, none Pain interventions prior to dressing change: N/A Treatment goal: Drainage control, Infection control/prevention, and Maintain (prevention of deterioration) STATUS: initial assessment Supplies ordered: supplies stored on unit Wound location: buttock, right buttock / right ischial tuberosity Last photo: 07/14 Wound due to: Pressure Injury stage 3 POA Wound history/plan of care: found with ABD covering Wound base: Granulation tissue and Slough, membrane over bone Palpation of the wound bed: firm, slick / slimy Drainage: moderate Description of drainage: serosanguinous Measurements (length x width x depth, in cm): ~3 x 3 x 0.4 cm Tunneling: N/A Undermining: N/A Periwound skin: Intact and Scar tissue Color: pink Temperature: normal Odor: none Pain: no grimacing or signs of discomfort, none Pain interventions prior to dressing change: N/A Treatment goal: Drainage control, Infection control/prevention, and Maintain (prevention of deterioration) STATUS: initial assessment Supplies ordered: supplies stored on unit Treatment Plan: 07/15/24 0600 Wound care DAILY Comments: Location: buttock sacrum and right buttock 1. Cleanse daily with vashe and 4x4 gauze 2. Apply Aquacel Ag Advantage single layer thickness to wound base 3 Secure with mepilex sacrum 4 Also apply cut to fit smaller piece of Aquacel to right buttock and secure with 4x4 07/14/24 1242 Skin care precautions EFFECTIVE NOW Comments: Pressure Injury Prevention (PIP) Plan: If patient is declining pressure injury prevention interventions: Explore reason why and address patient's concerns, Educate on pressure injury risk and prevention intervention(s), If patient is still declining, document informed refusal , and Ensure Care team is aware ( provider, charge nurse, etc) Mattress: Follow bed algorithm, add Low Air Loss (Air+) mattress pump if skin is very moist or constantly moist. HOB: Maintain at or below 30 degrees, unless contraindicated Repositioning in bed: Every 1-2 hours , Left/right positioning; avoid supine, Raise foot of bed prior to raising head of bed, to reduce patient sliding down (shear), and Frequent microturns using positioning wedges, as patient tolerates Heels: Keep elevated off mattress and Pillows under calves Protective Dressing: Sacral Mepilex for prevention (#[id number]), especially for the agitated patient Positioning Equipment:Positioning wedges (#[id number]) to help maintain 30 degree side lying position Chair positioning: Chair cushion (#[id number]) , Assist patient to reposition hourly, and Do NOT use a donut for sitting (this increases pressure to smaller area and creates a higher potential for injury) If patient has a buttock pressure injury, or high risk for PI use chair cushion or SPS. Moisture Management: Perineal cleansing /protection: Follow Incontinence Protocol, Avoid brief in bed, Clean and dry skin folds with bathing , and Moisturize dry skin Under Devices: Inspect skin under all medical devices during skin inspection , Ensure tubes are stabilized without tension, and Ensure patient is not lying on medical devices or equipment when repositioned Ask provider to discontinue device when no longer needed. Orders: Written RECOMMEND PRIMARY TEAM ORDER: None, at this time Education provided: plan of care Discussed plan of care with: Patient, Nurse, and Physician Notify [facility] if wound(s) deteriorate. Nursing to notify the Provider(s) and re-consult the [facility] Nurse if new skin concern. DATA: Current support surface: Standard Standard gel mattress (Isoflex) Containment of urine/stool: Incontinence Protocol and Incontinent pad in bed BMI: Body mass index is 34.76 kg/m??. Active diet order: Orders Placed This Encounter Combination Diet Regular Diet Adult Output: I/O last 3 completed shifts: In: 4846.67 [P.O.:990; I.V.:2941.67; IV Piggyback:915] Out: 1100 [Urine:1075; Stool:25] Labs: Recent Labs Lab 07/14/24 0517 07/12/24 1804 07/12/24 1152 07/12/24 0543 ALBUMIN -- -- -- 2.3* HGB 7.9* < > -- 9.6* WBC 7.1 < > -- 14.4* A1C -- -- 4.7 -- < > = values in this interval not displayed. Pressure injury risk assessment: Sensory Perception: 2-->very limited Moisture: 3-->occasionally moist Activity: 1-->bedfast Mobility: 2-->very limited Nutrition: 2-->probably inadequate Friction and Shear: 2-->potential problem Brian Score: 12 Ariana BRYANT 1st choice: Securely message with [employer] ([facility]) (2nd option: [facility] Office , messages checked periodically Mon- Fri 8a-4p) * Rossy Dyer MD - 07/14/2024 10:00 AM CDTAssociated Order(s): INFECTIOUS DISEASES IP CONSULT Images from the original note were not included. [facility] Infectious Disease Consultation Date of Admission: 07/12/2024 Date of Consult (When I saw the patient): 07/14/24 Assessment: 69 year old female with a complex past medical history of MS, paraplegia, heart failure , who has been admitted due to weakness, confusion and concern for sepsis, with findings of patchy groundglass pulmonary opacities most prominent in the right upper and lower lobes. UA shows pyuria but difficultto interpret in the setting of neurogenic bladder, cx is pending -Sepsis syndrome possibly of respiratory source -Multiple patchy groundglass pulmonary opacities most prominent in the right upper and lower lobes. Recommendations: Check BNP Check respiratory viral PCR panel Discontinue Zosyn and Vancomycin (given negative MRSA PCR) Follow blood cx and urine cx Maintain on Cefepime ID will continue to follow Rossy Dyer MD Reason for Consult Reason for consult: I was asked to evaluate this patient for sepsis. Primary Care Physician ERWIN LIND Chief Complaint weakness History is obtained from the patient and medical records History of Present Illness Arslan Lima is a 69 year old female with a complex history of MS, paraplegia, heart failure , who has been admitted due to weakness, confusion and concern for sepsis, with findings of patchy groundglass pulmonary opacities most prominent in the right upper and lower lobes. UA shows pyuria but difficult to interpret in the setting of neurogenic bladder, cx is pending. She was evaluated at [facility] on 07/11/2024 for similar symptoms. She was hypoxic and hypotensive, with leukocytosis of 11.5k and ARABELLA. She was initiated on ceftriaxone and azithromycin along withfluid resuscitation and transferred for further management. She has remained afebrile, leukocytosis has resolved, though she has a procalcitonin of 26.8, bloodand urine cxs are positive and CT chest shows findings of Multiple patchy groundglass pulmonary opacities most prominent in the right upper and lower lobes, indeterminate, could be infectious. Small bilateral pleural effusions and associated basilar atelectasis/consolidation. Patient has been initiated on vancomycin and zosyn and ID has been asked to assist with further management Past Medical History I have reviewed this patient's medical history and updated it with pertinent information if needed. No past medical history on file. Past Surgical History I have reviewed this patient's surgical history and updated it with pertinent information if needed. Past Surgical History: Procedure Laterality Date BUNIONECTOMY CYST REMOVAL CYSTOSCOPY ESOPHAGOSCOPY, GASTROSCOPY, DUODENOSCOPY (EGD), COMBINED HYSTERECTOMY VIJAY and BSO HYSTERECTOMY TOTAL ABDOMINAL, BILATERAL SALPINGO-OOPHORECTOMY, COMBINED LAMINECTOMY OOPHORECTOMY OTHER SURGICAL HISTORY IL REMOVE GALLBLADDER EXPLOR COMMON DUCT SUPRAPUBIC TUBE PLACEMENT URETHRAL SLING Prior to Admission Medications Prior to Admission Medications Prescriptions Last Dose Informant Patient Reported? Taking? ASPIRIN PO 07/11/2024 Morning Yes Yes Sig: Take 81 mg by mouth daily Furosemide (LASIX PO) 07/11/2024 Morning Yes Yes Sig: Take 20 mg by mouth 2 times daily. acetaminophen (TYLENOL) 325 MG tablet 07/11/2024 Morning Yes Yes Sig: Take 1,000 mg by mouth every 6 hours as needed for mild pain or fever. famotidine (PEPCID) 20 MG tablet 07/10/2024 Bedtime Yes Yes Sig: Take 40 mg by mouth at bedtime. fluconazole (DIFLUCAN) 200 MG tablet 07/11/2024 Morning Yes Yes Sig: Take 200 mg by mouth daily. gabapentin (NEURONTIN) 300 MG capsule 07/11/2024 Morning Yes Yes Sig: Take 900 mg by mouth 2 times daily. hydrocortisone 1 % CREA cream 07/11/2024 Morning Yes Yes Sig: Place rectally daily as needed for itching. morphine (MS CONTIN) 15 MG CR tablet 07/11/2024 Morning Yes Yes Sig: Take 15 mg by mouth every 12 hours. multivitamin w/minerals (THERA-VIT-M) tablet 07/11/2024 Morning Yes Yes Sig: Take 2 tablets by mouth daily. nystatin (MYCOSTATIN) 259644 UNIT/GM external cream Past Month Yes Yes Sig: Apply topically 2 times daily ondansetron (ZOFRAN-ODT) 4 MG disintegrating tablet Past Week Yes Yes Sig: Place 4 mg under the tongue every 8 hours as needed. order for DME No No Sig: Equipment being ordered: Seat for wheelchair oxyBUTYnin ER (DITROPAN XL) 10 MG 24 hr tablet 07/11/2024 Morning Yes Yes Sig: Take 10 mg by mouth daily. potassium chloride eloy ER (KLOR-CON M20) 20 MEQ CR tablet 07/07/2024 Morning Yes Yes Sig: Take 20 mEq by mouth 2 times daily. spironolactone (ALDACTONE) 25 MG tablet 07/11/2024 Morning Yes Yes Sig: Take 12.5 mg by mouth every 48 hours. Facility-Administered Medications: None Allergies Allergies Allergen Reactions Citalopram Nausea Pt unaware of this as an allergy. Nsaids Hx of stomach ulcer. Pt reports only takes APAP. Immunization History Immunization History Administered Date(s) Administered Pneumo Conj 13-V (2010&after) 11/28/2013, 10/09/2016 Pneumococcal 23 valent 11/28/2013, 12/11/2014 TDAP Vaccine (Boostrix) 08/08/2011 Zoster vaccine, live 12/26/2011 Social History I have reviewed this patient's social history and updated it with pertinent information if needed. Arslan Lima reports that she quit smoking about 6 years ago. Her smoking use included cigarettes, cigarettes, and cigarettes. She started smoking about 57 years ago. She has never used smokeless tobacco. She reports that she does not drink alcohol and does not use drugs. Family History I have reviewed this patient's family history and updated it with pertinent information if needed. Family History Problem Relation Age of Onset Brain Tumor Father Dcd age 56 Alzheimer Disease Mother Dcd age 78 Review of Systems The 10 point Review of Systems is as per HPI Physical Exam Temp: 97.3 ??F (36.3 ??C) Temp src: Axillary BP: 97/50 Pulse: 88 Resp: 18 SpO2: 96 % O2 Device: Nasal cannula Oxygen Delivery: 3 LPM Vital Signs with Ranges Temp: [95.8 ??F (35.4 ??C)-97.6 ??F (36.4 ??C)] 97.3 ??F (36.3 ??C) Pulse: [68-118] 88 Resp: [18-22] 18 BP: (87-115)/(48-99) 97/50 SpO2: [91 %-97 %] 96 % 196 lbs 3.35 oz Body mass index is 34.76 kg/m??. GENERAL APPEARANCE: awake, chronically ill appearing female EYES: Eyes grossly normal to inspection NECK: no adenopathy RESP: lungs clear CV: S1S2 ABDOMEN: soft, nontender MS contractures SKIN: bruising Data All laboratory data reviewed Component Latest Ref Rng 07/14/2024 5:17 AM Sodium 135 - 145 mmol/L 140 Potassium 3.4 - 5.3 mmol/L 3.4 Chloride 98 - 107 mmol/L 112 (H) Carbon Dioxide (CO2) 22 - 29 mmol/L 21 (L) Anion Gap 7 - 15 mmol/L 7 Urea Nitrogen 8.0 - 23.0 mg/dL 13.9 Creatinine 0.51 - 0.95 mg/dL 1.02 (H) GFR Estimate >60 mL/min/1.73m2 59 (L) Calcium 8.8 - 10.4 mg/dL 7.4 (L) Glucose 70 - 99 mg/dL 107 (H) WBC 4.0 - 11.0 10e3/uL 7.1 RBC Count 3.80 - 5.20 10e6/uL 2.52 (L) Hemoglobin 11.7 - 15.7 g/dL 7.9 (L) Hematocrit 35.0 - 47.0 % 25.0 (L) MCV 78 - 100 fL 99 MCH 26.5 - 33.0 pg 31.3 MCHC 31.5 - 36.5 g/dL 31.6 RDW 10.0 - 15.0 % 19.1 (H) Platelet Count 150 - 450 10e3/uL 215 Microbiology 07/13/2024 1244 07/13/2024 1729 MRSA MSSA PCR, Nasal Swab [[id number]] Swab from Nares, Bilateral Final result Component Value MRSA Target DNA Negative SA Target DNA Negative 07/12/2024 1851 07/13/2024 2331 Blood Culture Peripheral blood (BC) Hand, Right [[id number]] Peripheral blood (BC) from Hand, Right Preliminary result Component Value Culture No growth after 1 day P 07/12/2024 1848 07/13/2024 2331 Blood Culture Peripheral blood (BC) Hand, Left [[id number]] Peripheral blood (BC) from Hand, Left Preliminary result Component Value Culture No growth after 1 day P 07/12/2024 0249 07/12/2024 1132 Legionella Urinary Antigen and Streptococcus pneumoniae antigen [[id number]] Urine from Urostomy Final result Component Value Legionella pneumophila serogroup 1 urinary antigen Negative A negative result does not exclude the possibility of a Legionella infection, as it can be caused by other serogroups and species of Legionella. Streptococcus pneumoniae antigen Negative A negative result does not exclude a Streptococcus pneumoniae infection. Legionella pneumophila Urinary/Strep pneumoniae Antigen Specimen Type Urine 07/12/2024 0249 07/13/2024 0746 Urine Culture [[id number]] Urine from Urostomy Final result Component Value Culture >100,000 CFU/mL Mixture of urogenital brenden Imaging EXAM: CT CHEST PULMONARY EMBOLISM W CONTRAST LOCATION: [facility] DATE: 07/13/2024 INDICATION: PNA, persistent sxs. COMPARISON: Chest CTA on 09/30/2023. TECHNIQUE: CT chest pulmonary angiogram during arterial phase injection of IV contrast. Multiplanarreformats and MIP reconstructions were performed. Dose reduction techniques were used. CONTRAST: 72 mL Isovue 370. FINDINGS: ANGIOGRAM CHEST: No evidence of pulmonary embolism, the main pulmonary artery is mildly enlarged measuring 3.4 cm in diameter. No evidence of thoracic aortic aneurysm or dissection. No evidence for right heart strain. LUNGS AND PLEURA: Small bilateral pleural effusions. No significant pneumothorax. Left basilar pulmonary opacities, could be atelectatic. 1.2 cm right upper lobe nodule (series 7 image 107), new as compared to 09/30/2023 exam, indeterminate, could be metastatic. 5 mm left apical nodule (series 7 image 67), not significantly changed as compared to 09/30/2023 exam. Multiple patchy groundglass pulmonary opacities most prominent in the right upper andlower lobes, indeterminate, could be infectious. MEDIASTINUM/AXILLAE: Right IJ central catheter tip is in the right atrium. No cardiomegaly or significant pericardial effusion. No significant mediastinal or hilar lymphadenopathy. Few calcified mediastinal granulomas. CORONARY ARTERY CALCIFICATION: None. UPPER ABDOMEN: Limited evaluation of the upper abdomen due to lack of coverage and timing of contrast. Multiple calcified splenic granulomas. MUSCULOSKELETAL: Multilevel degenerative changes of the spine. No suspicious osseous lesion. IMPRESSION: 1. No evidence of pulmonary embolism. The main pulmonary artery is mildly enlarged measuring 3.4 cmin diameter, this can be seen with pulmonary hypertension. 2. Multiple patchy groundglass pulmonary opacities most prominent in the right upper and lower lobes, indeterminate, could be infectious. 3. Small bilateral pleural effusions and associated basilar atelectasis/consolidation. 4. 1.2 cm right upper lobe nodule, new as compared to 09/30/2023 exam, indeterminate, could be metastatic. * Lana Garduno LSW - 07/13/2024 7:41 AM CDTAssociated Order(s): CARE MANAGEMENT / SOCIAL WORK IP CONSULT Care Management is following for discharge planning. Please see consult from 07/12 Lana Anna. REN Garduno * Lana Garduno LSW - 07/12/2024 2:23 PM CDTAssociated Order(s): CARE MANAGEMENT / SOCIAL WORK IP CONSULT Care Management Initial Consult General Information Assessment completed with: VM-chart review, Type of CM/SW Visit: Initial Assessment Primary Care Provider verified and updated as needed: Yes Readmission within the last 30 days: unable to assess Reason for Consult: discharge planning Advance Care Planning: Communication Assessment Patient's communication style: Cognitive Cognitive/Neuro/Behavioral: .WDL except Level of Consciousness: sedated Arousal Level: arouses to voice Orientation: disoriented to, time, situation, place Mood/Behavior: restless Best Language: 0 - No aphasia Speech: illogical, spontaneous Living Environment: People in home: facility resident Current living Arrangements: other (see comments) Name of Facility: [facility] Able to return to prior arrangements: yes Family/Social Support: Care provided by: other (see comments) (facility staff) Provides care for: no one, unable/limited ability to care for self Marital Status: Single Support system: Children, Facility resident(s)/Staff Description of Support System: Involved, Supportive Support Assessment: Adequate social supports, Adequate family and caregiver support Current Resources: Patient receiving home care services: No Community Resources: None Equipment currently used at home: Supplies currently used at home: Employment/Financial: Employment Status: Financial Concerns: Does the patient's insurance plan have a 3 day qualifying hospital stay waiver? No Lifestyle & Psychosocial Needs: Social Drivers of Health Food Insecurity: No Food Insecurity (06/26/2024) [facility] Food Insecurity Do you worry your food will run out before you are able to buy more?: 1 Depression: Not at risk (04/13/2018) Received from [facility] PHQ-2 PHQ-2 Score: 0 Housing Stability: Low Risk (06/26/2024) Received from [facility] [employer] [facility] Housing Stability What is your housing situation today?: 1 Tobacco Use: High Risk (06/26/2024) Received from [facility] Patient History Smoking Tobacco Use: Some Days Smokeless Tobacco Use: Never Passive Exposure: Not on file Financial Resource Strain: Low Risk (06/26/2024) Received from [facility] Financial Resource Strain Difficulty of Paying Living Expenses: 3 Difficulty of Paying Living Expenses: Not on file Alcohol Use: Not on file Transportation Needs: No Transportation Needs (06/26/2024) [facility] Transportation Needs Does lack of transportation keep you from medical appointments?: 1 Does lack of transportation keep you from work, meetings or getting things that you need?: 1 Physical Activity: Not on file Interpersonal Safety: Not on file Stress: Not on file Social Connections: Socially Integrated (06/26/2024) Received from [facility] Social Connections Do you often feel lonely or isolated from those around you?: 0 Health Literacy: Not on file Functional Status: Prior to admission patient needed assistance: Mental Health Status: Chemical Dependency Status: Values/Beliefs: Spiritual, Cultural Beliefs, Sabianist Practices, Values that affect care: Discussed ???Partnership in Safe Discharge Planning??? document with patient/family: No Additional Information: General Technician received consult for discharge planning. Per H&P, patient is a 69 year old female with acomplex past medical history of MS, paraplegia, heart failure presents to the hospital with sepsis. General Technician reviewed chart and [facility]. Patient had a recent hospital stay. Per Care Management notes on 06/26/24 Patient's baseline prior to hospitalization: [place] [phone] How does patient transfer/ambulate? [place] lift and 2 assist and then into electric scooter. She does not ambulate. Who administers patient's medication? Staff Any special instructions for medication administration? Carmen takes her meds with water Does patient use oxygen? Has had 02 in the past but does not have any currently Patient's diet at facility? Regular diet with thin liquids. Does patient need assistance with eating? No assistance with feeding, she may sometimes need her food cut up depending on what she is eating. What assistance does the facility staff provide to patient? Facility provides full cares with woundcare. Staff state that she has very fragile skin that tends to breakdown easily. Does patient have any behaviors hospital staff need to be aware of? Not compliant with repositioning, try to let her make decisions. Call son if need help doing cares. Does patient have a health care directive or POLST? Yes on file here, she is a Full code. Are there any outside providers involved in patient's care (PT, Home Care, Hospice)? Does go to outside providers for appointments and will see the in- house provider there sometimes as well. Goes to Esther MD for suprapubic catheter changes. Is patient's bed held? Yes Can patient return to facility? Yes How does patient normally transport? Stretcher transport from hospital. Family has a wheelchair vanthey transport her to appointment's in but are not able to use the van to transport her back from hospital. Spoke with daughter, Debra and she reported they can not transport her back form a hospital. General Technician sent referral to [facility] to confirm bed hold. Next Steps: Care Management will continue to follow for safe discharge planning. REN Severino documented in this encounter Miscellaneous Notes * Plan of Care - Mariposa Coats RN - 07/17/2024 2:33 PM CDT ..Patient Name: Angeles Date of Admission: 07/12/2024 Reason for Admission: UTI, pneumonia & sepsis Level of Care: [facility] Vitals: BP Readings from Last 1 Encounters: 07/17/24 : 94/46 Pulse Readings from Last 1 Encounters: 07/17/24 : 111 Wt Readings from Last 1 Encounters: 07/16/24 : 91.2 kg (201 lb) Ht Readings from Last 1 Encounters: 07/12/24 : 1.6 m (5' 3) Estimated body mass index is 35.61 kg/m?? as calculated from the following: Height as of this encounter: 1.6 m (5' 3). Weight as of this encounter: 91.2 kg (201 lb). Temp Readings from Last 1 Encounters: 07/17/24 : 97.8 ??F (36.6 ??C) (Axillary) Pain: Pain goal 0 Pain Rating 0 Effective pain medication/regimen none CV Surgery Patient: No Assessment Resp: 16 Telemetry: ST w BBB Neuro: Intact except confused; only oriented to self. GI/: Ostomy & suprapubic cath. Skin/Wounds: Buttocks/IT; abdominal folds, breast folds & groin folds; interdry & powder. Lines/Drains: internal jugular (removed). Activity: Bed bound Sleep: n/a Abnormal Labs: none Aggression Stop Light: Green Patient Care Plan: Pt. A & O x 1. VSS on RA (soft bp's). Repo Q [address] w/ BBB.LS Course. BLE edema. Mg+ & K+ recheck in for a.m. Pt. Picked up to go back to LTC facility today. * Plan of Care - Jason Pina OT - 07/17/2024 10:32 AM CDT Occupational Therapy: Orders received. Chart reviewed and discussed with care team. Per SW note, ptlives at LT and requires A x 2 with kashmir lift for transfers. Uses electric scooter at baseline and has assist in all ADLs. OT not warranted. Will complete orders. * Plan of Care - Wayne Saunders, PT - 07/17/2024 8:28 AM CDT PT: Chart reviewed and orders received. Per SW note, pt lives at [facility] and requires A x 2 with kashmir lift for transfers at baseline. Uses electric scooter at baseline. No PT need at this time. Will complete orders. * Plan of Care - Stephanie Baer, CHRISTEN - 07/16/2024 6:45 PM CDT Orientations: A/OX2-3. Disoriented to situation. Forgetful. Intermittently lethargic. Vitals/Pain: VSS except pressures soft. Only mild pain with movement. Tele: ST with BBB Lines/Drains: Triple lumen internal jugular in place hep. Locked. Dressing changed today Skin/Wounds: Multiple bruises, abrasions, scattered. Excoriated skin under breast abdomen and naomi area. Wound care complete on sacrum. GI/: Suprapubic cath in place. Ostomy with small amount of loose output. Very poor appetite. Onlywanted orange juice today encouraging oral intake. Labs: Abnormal/Trends, Electrolyte Replacement- Hgb 8.6 COWS 4,4,4. Ambulation/Assist: AX2 and lift. Turn and repo Q2hrs Paraplegic Sleep Quality: Good Plan: Son assisted with MRI check list. Plan for MRI this evening if able to be still. Possible discharge tomorrow after neuro workup and if medically ready. * Plan of Care - Nayely Rodriguez RN - 07/15/2024 6:40 PM CDT A&O to self and occasionally place lethargic, COWS 4,4,3.VSS on RA, bp soft systolic 90's-100.TELE ST with BBB.Lung Sounds diminished.Bowel Sounds active, LLQ ostomy. Suprapubic cath, urine output low 200ml out today. Wound to coccyx dressing changed, scattered bruising, redness and excoriationunder abdominal and breast folds, blanchable redness to heels, +2-3 BLE edema, skin tear to R ear lobe. Assist 2 frequent turn and repo.Pain Controlled with PRN tylenol X1. Tolerating regular diet, appetite poor, minimal intake. Procal 16.3, K and mag protocol recheck in for tomorrow am. RIJ, heparin locked bruising around site. * Provider Notification - Nayely Rodriguez RN - 07/15/2024 6:03 PM CDT MD Notification Notified Person: MD Notified Person Name: Dr. Back Notification Date/Time: 1800 Notification Interaction: lionel Purpose of Notification: low urine output, minimal oral intake Orders Received: Comments: continue to monitor * Plan of Care - Griselda Cornell RN - 07/15/2024 6:55 AM CDT Patient Name: Arslan Lima Date of Admission: 07/12/2024 Reason for Admission: Sepsis Level of Care: IMC Assessment Resp: LS diminished on 2L NC, unable to wean O2 during the night Telemetry: SR/ST with BBB Neuro: A&O to self only, lethergic at times; paraplegia to BLE; [place]; Typically on medication for chronic pain, assessing pt using COWS q4h, score was 3-4 each time, depending on HR, also scoring points for tremor Pain: Pt not rating pain on pain scale, using PAINAD scale and scoring one for tense BUE GI/: Suprapubic catheter to leg bag in place with minimally adequate output, yellow and malodorous; LLQ colostomy in place with soft/loose brown BM Skin/Wounds: Pressure injury to sacrum/coccyx, encouraging repositioning often and re-approaching when refused; excoriation to abdominal fold/groin and under breasts, cleansed dried and medication applied; wicking textile in place; scattered bruising; significant edema to BLE and some to BUE, BLE appear to be starting to get fluid filled blisters in some places; peeling to BLE and flaky to BLE Lines/Drains: Triple lumen RIJ in place heparin locked between meds Diet: Regular diet; poor appetite, encouraging sips with encounters; requires assistance with feeding per flowsheet Activity: Turn/repo q2h, elevating BLE to help with edema Sleep: Resting frequently, arouses to voice, but lethargic at times Abnormal Labs: Pt is on Mag and K replacement protocol (refused K replacement yesterday); Pro-calc=26.82; Pro-WOJ=4449; Ca=7.4; Hgb=8.6 Aggression Stop Light: Green Patient Care Plan: Wound cares; Encourage turn/repo often * Plan of Care - Nayely Rodriguez RN - 07/14/2024 6:46 PM CDT A&O to self and occasionally place, COWS 3,4,4.VSS on 2L nc, bp soft.TELE ST with BBB.Lung Sounds diminished.Bowel Sounds active, LLQ ostomy. Suprapubic cath, low urine output 300ml. Wound to coccyx dressing changed, scattered bruising, redness and excoriation under abdominal and breast folds, blanchable redness to heels, +2-3 BLE edema. Assist 2 frequent turn and repo.Pain Controlled with PRN tylenol X1. Tolerating regular diet, appetite poor. K 3.4 pt refused replacement , procal 26.82, BNP 8,540, creatinine 1.02. R triple lumen internal jugular. * Care Plan - Alyse Duenas MD - 07/14/2024 6:16 PM CDT Elevated Probnp at 8000. Hold IVF and encourage PO intake. TTE in am. IV diuretics trial tonight if significant hypoxia. * Provider Notification - Nayely Rodriguez RN - 07/14/2024 5:43 PM CDT MD Notification Notified Person: MD Notified Person Name: Dr. Duenas Notification Date/Time: 1736 Notification Interaction: lionel Purpose of Notification: pt had 250ml urine since 6am Orders Received: increase IVF to 100ml/hr Comments: * Plan of Care - Ugo Joel RN - 07/14/2024 6:36 AM CDT Patient Name: Angeles Date of Admission: 07/12/2024 Reason for Admission: Sepsis Level of Care: [facility] Vitals: BP Readings from Last 1 Encounters: 07/14/24 100/59 Pulse Readings from Last 1 Encounters: 07/14/24 77 Wt Readings from Last 1 Encounters: 07/13/24 89 kg (196 lb 3.4 oz) Ht Readings from Last 1 Encounters: 07/12/24 1.6 m (5' 3) Estimated body mass index is 34.76 kg/m?? as calculated from the following: Height as of this encounter: 1.6 m (5' 3). Weight as of this encounter: 89 kg (196 lb 3.4 oz). Temp Readings from Last 1 Encounters: 07/14/24 (!) 96.6 ??F (35.9 ??C) (Axillary) Pain: Denies CV Surgery Patient: No Assessment Resp: LS dim on 1L NC VS: BP soft but stable overnight. Cuff on L-leg. Telemetry: SR Neuro: Alert to self only. Confused and lethargic. GI/: No BM overnight. 25 ml output from colostomy - soft/brown. Adequate UOP with suprapubic catheter Skin/Wounds: Tunneling coccyx wound - mepilex in place. Scattered bruising. Edema in all extremities. Redness and excoriated skin in abdominal and breast folds, few open areas in abdominal folds. Scattered bruising Lines/Drains: 3 lumen internal jugular line infusing D5 NS @100ml/hr. Suprapubic catheter Activity: Not oob, Ax2 lift. Turn and repo q2h Sleep: good Abnormal Labs:Hgb 7.9 K/Mg replacement protocol Aggression Stop Light: Green Patient Care Plan: Routine CT scan completed - see results. WOC consult. ID consult. Continue plan of care. * Plan of Care - Tani Valadez RN - 07/13/2024 4:53 PM CDT Vitals: BP Readings from Last 1 Encounters: 07/13/24 102/60 Pulse Readings from Last 1 Encounters: 07/13/24 80 Wt Readings from Last 1 Encounters: 07/13/24 89 kg (196 lb 3.4 oz) Ht Readings from Last 1 Encounters: 07/12/24 1.6 m (5' 3) Estimated body mass index is 34.76 kg/m?? as calculated from the following: Height as of this encounter: 1.6 m (5' 3). Weight as of this encounter: 89 kg (196 lb 3.4 oz). Temp Readings from Last 1 Encounters: 07/13/24 97.4 ??F (36.3 ??C) (Axillary) Patient Name: Angeles Date of Admission: 07/12/2024 Reason for Admission: Sepsis, UTI [place] [facility] [place] [facility] Pain: Pain goal 0 Pain Rating 0 Effective pain medication/regimen - CV Surgery Patient: No Assessment Resp: LSD - 1L NC Telemetry: SR/ST Neuro: A/Ox1-2 GI/: Ostomy with soft output, Suprapubic catheter with low UO Skin/Wounds: Coccyx injury - WOC order in place, excoriation under skin folds - powder ordered Lines/Drains: 3L internal jugular catheter in place, ostomy, suprapubic catheter Activity: Q2hr turns Sleep: - Abnormal Labs: Aggression Stop Light: green Patient Care Plan: continue to monitor Goal Outcome Evaluation: Goal Outcome Evaluation: * Pharmacy-Vancomycin Dosing Service - Nhi Rizo RP - 07/13/2024 12:58 PM CDT Pharmacy Vancomycin Initial Note Date of Service July 13, 2024 Patient's 1955 69 year old, female Indication: Community Acquired Pneumonia Current estimated CrCl = Estimated Creatinine Clearance: 41.9 mL/min (A) (based on SCr of 1.34 mg/dL (H)). Creatinine for last 3 days 07/12/2024: 5:43 AM Creatinine 1.63 mg/dL; 6:04 PM Creatinine 1.50 mg/dL 07/13/2024: 5:18 AM Creatinine 1.34 mg/dL Recent Vancomycin Level(s) for last 3 days No results found for requested labs within last 3 days. Vancomycin IV Administrations (past 72 hours) No vancomycin orders with administrations in past 72 hours. Nephrotoxins and other renal medications (From now, onward) None Contrast Orders - past 72 hours (72h ago, onward) None Insight[employer] Prediction of Planned Initial Vancomycin Regimen Regimen: 1500 mg IV every 24 hours. Start time: 14:00 on 07/13/2024 Exposure target: AUC24 (range) 400-600 mg/L.hr AUC24,ss: 567 mg/L.hr Probability of AUC24 > 400: 86 % Ctrough,ss: 17.6 mg/L Probability of Ctrough,ss > 20: 37 % Probability of nephrotoxicity (Lodise ANNABELLE 2008): 13 % Plan: Start vancomycin 1500 mg IV q24h. Vancomycin monitoring method: AUC Vancomycin therapeutic monitoring goal: 400-600 mg*h/L Pharmacy will check vancomycin levels as appropriate in 1-3 Days. Serum creatinine levels will be ordered every 48 hours. Nhi Rizo RPH, PharmD, BCPS * Plan of Care - Ugo Joel RN - 07/13/2024 6:30 AM CDT Patient Name: Angeles Date of Admission: 07/12/2024 Reason for Admission: Sepsis Level of Care: [facility] Vitals: BP Readings from Last 1 Encounters: 07/13/24 97/51 Pulse Readings from Last 1 Encounters: 07/13/24 84 Wt Readings from Last 1 Encounters: 07/13/24 89 kg (196 lb 3.4 oz) Ht Readings from Last 1 Encounters: 07/12/24 1.6 m (5' 3) Estimated body mass index is 34.76 kg/m?? as calculated from the following: Height as of this encounter: 1.6 m (5' 3). Weight as of this encounter: 89 kg (196 lb 3.4 oz). Temp Readings from Last 1 Encounters: 07/13/24 97.6 ??F (36.4 ??C) (Oral) Pain: Denies pain CV Surgery Patient: No Assessment Resp: LS dim on 1L NC VS: Labile Bps overnight. Repositioned cuff to L-leg. Telemetry: SR/ST Neuro: Alert to self only. Confused and lethargic. PRN Seroquel given for restlessness GI/: No BM overnight. 50 ml output from colostomy - soft/brown. Low UOP throughout night. Skin/Wounds: Tunneling coccyx wound, bilateral heel wounds - mepilex in place. Scattered bruising. Edema in all extremities, compression stocking placed on feet. Redness and excoriated skin in abdominal and breast folds. Lines/Drains: 3 lumen internal jugular line infusing D5 NS @100ml/hr. Albumin infusing. Blue port heparin locked Activity: Not oob, Ax2 lift. Turn and repo q2h Sleep: restless during evening and into night. Got 4-5 hours sleep at end of shift Abnormal Labs: Creat 1.34 Hgb: 7.8 K: 3.3 K/Mg replacement protocol Aggression Stop Light: Green Note: patient received 1L total LR bolus overnight. Pt remained hypotensive. Received ordered for compressing stockings, anf IV albumin. BP improving after albumin. Patient Care Plan: Monitor BP. Continue plan of care. WOC consult pending * Code/Rapid Response - Chaitanya Nuñez PA-C - 07/12/2024 5:46 PM CDT Images from the original note were not included. [facility] TRACTOR DRIVER TEAMSTER (Rapid Response Team) Professor Of Art TAMELA Progress Note Date of Service: 07/12/2024 Time Called: 1746 TRACTOR DRIVER TEAMSTER initiated due to (per RN): hypotension Assessment & Plan Assessment and Dx: Arslan Lima is a 69 year old female w/ PMH of MS with urinary incontinence and chronic suprapubic catheter, fecal incontinence status post colostomy, paraplegia, heart failure who was transferred from outside hospital and admitted on 07/12/2024 for sepsis. TRACTOR DRIVER TEAMSTER initiated today by RN for hypotension to clearing over the day. Earlier BP 70 over 40s. Given a500 cc bolus. On recheck left arm BP 60/30. TRACTOR DRIVER TEAMSTER called. Recheck 65/55 left arm but in right arm 85/70 and 96/66 without any additional treatment. Heart rate stable 100. Sepsis is suspected. Unclear adequate GI gram- negative source. TRAIN PLANNER ceftriaxone/azithromycin was changed and started Zosyn. Blood cultures need to be drawn. 1 view chest x-ray clear. No O2 needs. UA in process. Stat CBC BMP lactateand VBG. after added 500 cc bolus, BP had improved and was stable Impression/Working diagnosis: Hypotension with severe sepsis, possibly secondary to urinary source/CAUTI History of chronic indwelling Amador secondary to urinary incontinence, MS Recent complex UTI hospitalized 06/26/06/28 Cough, possible Comm Ac PNA/rule out pulmonary source Severe MS, paraplegia, history of chronic Amador, colostomy New Orders/Plan: - IVF-s/p 500 cc earlier, repeat 500 cc LR bolus now. - Thereafter 75 cc an hour overnight - No pressors needed - ABX-- Start Zosyn (cover gram neg and likely CAUTI source) - prev ceftriaxone/azithromycin x1 but had not been resumed, defer to day provider - note hx MRSA, but not starting vanco for now and defer to day provider - CXR 1 view no clear infiltrate - Stable minimal O2 needs. --consider CT chest in am - still need sputum culture, urine strep/legionella neg - stat labs: - new Blood cultures x 2. - CBC/BMP-Updated , similar. - Lactate-low 0.6 reassuring. - VBG-ruled out hypercarbia - prev UA abnormal - UCx from a.m. in process - consider suprapubic cath change if not done in past 2d, defer to day provider Re infection/sepsis eval, patient is currently on the following antibiotics: Anti-infectives (From now, onward) Start Dose/Rate Route Frequency Ordered Stop 07/13/24 0200 azithromycin (ZITHROMAX) 250 mg in sodium chloride 0.9 % 250 mL intermittent infusion 250 mg over 1 Hours Intravenous EVERY 24 HOURS 07/12/24 0148 07/17/24 0159 07/12/24 0300 cefTRIAXone (ROCEPHIN) 2 g vial to attach to NS 100 ml bag for ADULTS or NS 50 ml bagfor PEDS 2 g over 30 Minutes Intravenous EVERY 24 HOURS 07/12/24 0148 07/19/24 0259 Current antibiotic coverage requires additional antibiotics for gram- negative/urinary source. Fluid: 500 mL fluids ALREADY ADMINISTERED within the 6 hours prior to sepsis time-zero and 500 mL fluids ORDERED to be given . Lab: Repeat lactic acid is not indicated. NICOM Testing indicated for fluid responsiveness: No Code Status: Full Code At the end of the TRACTOR DRIVER TEAMSTER, pt appears to be stable / improved, with improved BP even before given the second bolus. Stable tachycardia, o2 needs. Above occurred in conjunction w multiple other oracle application consultant, and appreciate Flyer RN collaboration w reeval Disposition- remains in room w close monitoring and plan as per above Discussed TRACTOR DRIVER TEAMSTER in detail afterwards with [employer] TAMELA as an FYI. Allergies Allergies Allergen Reactions Citalopram Nausea Pt unaware of this as an allergy. Nsaids Hx of stomach ulcer. Pt reports only takes APAP. Last 24H PRN: glucose gel 15-30 g OR dextrose 50 % injection 25-50 mL, 25 mL at 07/12/24 1040 OR glucagoninjection 1 mg heparin lock flush 10 unit/mL injection 5-15 mL, 5 mL at 07/12/24 1206 Interval History Subjective: RN called TRACTOR DRIVER TEAMSTER due to hypotension slowly progressed over the day. Got a 500 cc bolus but afternoon blood pressure was down to 60/30. RN reports somewhat low urinary output this evening. - Patient is a little sleepy and lethargic. Confused at times but does follow commands. At times states do not pull me. Likely has a degree of acute encephalopathy. Endorses mild cough. No shortness of breath. No chest pain or pressure. Has a chronic suprapubic cath. Does not endorse pain. No othernew symptoms were offered by the patient Physical Exam Physical Exam: Vital Signs with Ranges: Vitals: 07/12/24 1745 07/12/24 1800 07/12/24 1802 07/12/24 1815 BP: (!) 62/31 (!) 65/55 (!) 85/70 96/66 BP Location: Left arm Left arm Right arm Right arm Patient Position: Right side Cuff Size: Adult Regular Adult Large Pulse: 86 109 110 Resp: Temp: TempSrc: SpO2: 96% 93% 93% 94% Weight: Height: Temp: [97.8 ??F (36.6 ??C)-98.2 ??F (36.8 ??C)] 97.8 ??F (36.6 ??C) Pulse: [82-117] 110 Resp: [16-24] 18 BP: (62-116)/(31-90) 96/66 SpO2: [92 %-99 %] 94 % I/O last 3 completed shifts: In: 1876 [P.O.:350; I.V.:826; IV Piggyback:700] Out: 345 [Urine:345] Lines, PIV , chronic suprapubic Cath, urine in leg bag is clear. Colostomy, with liquid+ colostomy in lower, Constitutional: vs as above and/or per EMR. Wasted lower extremities interning consistent with chronic paraplegia secondary to MS. General: adult pt lying in bed without acute distress HEENT: NC/AT, mouth moist oral mucosa, Neck: w/o JVD, supple CV: S1S2, w/o obvious murmur Resp: on O2 at 1lpm, Spo2 94, chest rise unlabored, lungs clr , w/o rhonchi, rales, whz upper and lower lobes GI:bowel sounds present, soft, nontender, nondistended+ suprapubic cath, Musculoskeletal: MAEW, no bony joint deformities, no lower edema or mottling Skin: Small petechiae in lower legs noted. Somewhat pale. He great if you could no obvious rashes on exposed skin Lymph: defer Neuro: non focal, faces symmetric Psych: Somewhat sleepy and confused although able to interact. Data Data: CBC with Diff: Recent Labs Lab Test 07/12/24 1804 07/12/24 0543 04/09/18 0950 04/08/18 1103 WBC 11.5* 14.4* 5.5 6.7 HGB 8.9* 9.6* -- 10.6* MCV 95 97 -- 94 PLT 277 311 -- 207 Comprehensive Metabolic Panel: Recent Labs Lab 07/12/24 1804 07/12/24 1700 07/12/24 1416 07/12/24 0739 07/12/24 0543 NA 137 -- -- -- 136 POTASSIUM 3.6 -- -- -- 4.1 CHLORIDE 104 -- -- -- 101 CO2 24 -- -- -- 24 ANIONGAP 9 -- -- -- 11 GLC 112* 105* 95 < > 69* BUN 18.4 -- -- -- 19.2 CR 1.50* -- -- -- 1.63* GFRESTIMATED 37* -- -- -- 34* KELSEY 7.1* -- -- -- 7.3* MAG 2.6* -- -- -- 1.4* PROTTOTAL -- -- -- -- 5.1* ALBUMIN -- -- -- -- 2.3* BILITOTAL -- -- -- -- 0.2 ALKPHOS -- -- -- -- 212* AST -- -- -- -- 57* ALT -- -- -- -- 33 < > = values in this interval not displayed. Lactic Acid: Lab Results Component Value Date LACT 0.6 07/12/2024 LACT 1.1 07/12/2024 VBG: Recent Labs Lab 07/12/24 18007/12/24 1152 PHV 7.34 7.37 PCO2V 47 44 PO2V 38 45 HCO3V 25 25 RUSSELL -0.7 -0.5 O2PER 24 22 ABG Recent Labs Lab 07/12/24 180 O2PER 24 Micro Recent Labs Lab 07/12/24 0249 COLOR [place]* APPEARANCE Cloudy* URINEGLC Negative URINEBILI Negative URINEKETONE Negative SG 1.010 UBLD Small* URINEPH 5.5 PROTEIN 20* NITRITE Positive* LEUKEST Large* RBCU 23* WBCU >182* 7-Day Micro Results Collected Updated Procedure Result Status 07/12/2024 0249 07/12/2024 1132 Legionella Urinary Antigen and Streptococcus pneumoniae antigen [[id number]] Urine from Urostomy Final result Component Value Legionella pneumophila serogroup 1 urinary antigen Negative A negative result does not exclude the possibility of a Legionella infection, as it can be caused by other serogroups and species of Legionella. Streptococcus pneumoniae antigen Negative A negative result does not exclude a Streptococcus pneumoniae infection. Legionella pneumophila Urinary/Strep pneumoniae Antigen Specimen Type Urine 07/12/2024 0249 07/12/2024 0454 Urine Culture [[id number]] Urine from Urostomy In process Component Value No component results ECG: None in TRACTOR DRIVER TEAMSTER IMAGING: past 3 days of current Admission I personally reviewed the 1v CXR radiographic imaging I ordered, and agree with radiology interpretation below XR Chest Port 1 View: 07/12/2024 6:16 PM EXAM: XR CHEST PORT 1 VIEW LOCATION: [facility] DATE: 07/12/2024 INDICATION: Sepsis, hypotension, tachycardia, hypoxia COMPARISON: CT 09/30/2023 IMPRESSION: Right IJ central catheter with the tip located in the upper right atrium. Trace left pleural effusion and left basilar opacities which likely reflect atelectasis. The right lung is grossly clear. Upper normal heart size. No vascular congestion or overt pulmonary edema. Time Spent on this Encounter I spent 45 minutes of critical care time on the unit/floor managing the care of this patient. Upon evaluation, this patient had a high probability of imminent or life-threatening deterioration due toacute hypotension, sepsis, which required my direct attention, intervention, and personal management including 100% of my time was spent at the bedside counseling the patient and/or coordinating careregarding services listed in this note. Chaitanya Nuñez PA-C [facility] TAMELA Professor Of Art and Hospitalist Securely message with the [employer] Console (learn more here) Text page via [facility] Analysis Paging/Directory Please note this documentation was partially completed using [employer] transcriptionsoftware. It was briefly proofread, but will likely have unrecognized and unintended incorrect words, numbers/values or phrases in trace evidence technician Also this is primarily intended as a direct peer to peer communication with medical abbreviations and verbiage that may appear to be 'direct' as to succinctly relay medical info and opinions to care teams. If there are any questions on content/trace evidence technician, or diagnosis, please contact me immediately for clarification. * Provider Notification - Tani Valadez RN - 07/12/2024 4:36 PM CDT Notification Notified Person: Notified Person Name: Dr. Duenas Notification Date/Time: 151 Notification Interaction: Vocera message Purpose of Notification: BP 86/49, HR of 83. she also has low UO over course of hospitalization. currently at 25ml/hr since 7am Orders Received: 500ml bolus of NS, increase D5 NS to 100ml/hr Comments: * Provider Notification - Tani Valadez RN - 07/12/2024 4:35 PM CDT Notification Notified Person: Notified Person Name: Dr. Duenas Notification Date/Time: 121 Notification Interaction: Vocera Message Purpose of Notification: Magnesium of 1.4 - do you want replacement protocol Orders Received: Replacement protocol ordered Comments: * Provider Notification - Tani Valadez RN - 07/12/2024 4:33 PM CDT Notification Notified Person: Notified Person Name: Dr. Duenas Notification Date/Time: 829 Notification Interaction: Vocera/Eipf-co-xdgv Purpose of Notification: Confirmation that R 3L internal jugular access site was okay to use and necessary for the patient. Orders Received: Keep internal jugular in place and okay to use Comments: * Care Plan - Alyse Duenas MD - 07/12/2024 3:18 PM CDT Soft BP. Not tachy. Low urine output. Fluid bolus ordered. Increased rate of maint IVF. Monitor vitals and urine output. * Plan of Care - Lana Garduno LSW - 07/12/2024 2:19 PM CDT Goal Outcome Evaluation: Plan of Care Reviewed With: patient Outcome Evaluation: Patient is from the [facility]. Will return there upon discharge REN Severino * Pharmacy-Admission Medication History - Avelina Vidales - 07/12/2024 11:17 AM CDT Sluice Tender Admission Medication History Admission medication history is complete. The information provided in this note is only as accurateas the sources available at the time of the update. Information Source(s): Facility ([facility]/) medication list/MAR via N/A Pertinent Information: All information gathered from MAR provided by [facility] Changes made to TRAIN PLANNER medication list: Added: Multivitamin, spironolactone, hydrocortisone, oxybutynin, famotidine, fluconazole Deleted: Creon 12, vitamin B12, colace, fentanyl, folic acid, avonex, magnesium, metoprolol, mirabegron, duplicate morphines, bactroban, nitrofurantoin, duplicate nystatin and zofran, pantoprazole, miralax, zantac, sodium bicarbonate, triamcinolone, vitamin D Changed: Furosemide every day -> BID Allergies reviewed with patient and updates made in EHR: no Medication History Completed By: Avelina Vidales 07/12/2024 11:17 AM TRAIN PLANNER Med List Medication Sig Last Dose/Taking acetaminophen (TYLENOL) 325 MG tablet Take 1,000 mg by mouth every 6 hours as needed for mild pain or fever. 07/11/2024 Morning ASPIRIN PO Take 81 mg by mouth daily 07/11/2024 Morning famotidine (PEPCID) 20 MG tablet Take 40 mg by mouth at bedtime. 07/10/2024 Bedtime fluconazole (DIFLUCAN) 200 MG tablet Take 200 mg by mouth daily. 07/11/2024 Morning Furosemide (LASIX PO) Take 20 mg by mouth 2 times daily. 07/11/2024 Morning gabapentin (NEURONTIN) 300 MG capsule Take 900 mg by mouth 2 times daily. 07/11/2024 Morning hydrocortisone 1 % CREA cream Place rectally daily as needed for itching. 07/11/2024 Morning morphine (MS CONTIN) 15 MG CR tablet Take 15 mg by mouth every 12 hours. 07/11/2024 Morning multivitamin w/minerals (THERA-VIT-M) tablet Take 2 tablets by mouth daily. 07/11/2024 Morning nystatin (MYCOSTATIN) 475258 UNIT/GM external cream Apply topically 2 times daily Past Month ondansetron (ZOFRAN-ODT) [address] 4 mg under the tongue every 8 hours as needed. Past Week oxyBUTYnin ER (DITROPAN XL) 10 MG 24 hr tablet Take 10 mg by mouth daily. 07/11/2024 Morning potassium chloride eloy ER (KLOR-CON M20) 20 MEQ CR tablet Take 20 mEq by mouth 2 times daily. 07/07/2024 Morning spironolactone (ALDACTONE) 25 MG tablet Take 12.5 mg by mouth every 48 hours. 07/11/2024 Morning Cosigned by Nhi Rizo RPH at 07/12/2024 11:53 AM CDT Associated attestation - Nhi Rizo RPH - 07/12/2024 11:53 AM CDT Reviewed documentation. * Plan of Care - Tani Valadez RN - 07/12/2024 8:37 AM CDT Patient Name: Angeles Date of Admission: 07/12/2024 Reason for Admission: Sepsis, UTI Level of Care: [facility] Vitals: BP Readings from Last 1 Encounters: 07/12/24 96/66 Pulse Readings from Last 1 Encounters: 07/12/24 110 Wt Readings from Last 1 Encounters: 07/12/24 84.8 kg (186 lb 15.2 oz) Ht Readings from Last 1 Encounters: 07/12/24 1.6 m (5' 3) Estimated body mass index is 33.12 kg/m?? as calculated from the following: Height as of this encounter: 1.6 m (5' 3). Weight as of this encounter: 84.8 kg (186 lb 15.2 oz). Temp Readings from Last 1 Encounters: 07/12/24 97.8 ??F (36.6 ??C) (Oral) Pain: Pain goal 0 Pain Rating 2-4 Effective pain medication/regimen - CV Surgery Patient: No Assessment Resp: LSD - 1L NC Telemetry: SR/ST Neuro: A/Ox1-2 GI/: Ostomy with soft output, Suprapubic catheter with low UO Skin/Wounds: Coccyx injury - WOC order in place, excoriation under skin folds - powder ordered Lines/Drains: 3L internal jugular catheter in place, 24G IV, ostomy, suprapubic catheter Activity: Q2hr turns Sleep: - Abnormal Labs: WBC Aggression Stop Light: Yellow Patient Care Plan: continue to monitor Goal Outcome Evaluation: * Plan of Care - Evon Garduno RN - 07/12/2024 8:03 AM CDT Pt direct admit from [place], pt arrived via EMS with belongings. Patient Name: Angeles Date of Admission: 07/12/2024 Reason for Admission: PNA, sepsis Level of Care: [facility] Vitals: BP Readings from Last 1 Encounters: 07/12/24 116/79 Pulse Readings from Last 1 Encounters: 07/12/24 110 Wt Readings from Last 1 Encounters: 07/12/24 84.8 kg (186 lb 15.2 oz) Ht Readings from Last 1 Encounters: 07/12/24 1.6 m (5' 3) Estimated body mass index is 33.12 kg/m?? as calculated from the following: Height as of this encounter: 1.6 m (5' 3). Weight as of this encounter: 84.8 kg (186 lb 15.2 oz). Temp Readings from Last 1 Encounters: 07/12/24 97.9 ??F (36.6 ??C) (Axillary) Pain: denies pain CV Surgery Patient: No Assessment Resp: Soft BP earlier in shift, otherwise VSS on 1L NC Telemetry: ST Neuro: A&O to self, confused, restless/agitated-see provider notification note. Pt more calm after PO zyprexa. Bilateral mitts ordered for pulling at lines. GI/: Regular diet, takes pills whole. Urostomy bag w/low UO, MD aware. LLQ colostomy bag, brown liquid stool. Skin/Wounds: Scattered bruising and scabs. R heel/ankle weeping, elevated w/pad underneath. Coccyx PI, dressing changed and photo taken-see flowsheet. Small wound opening at posterior perineum-possible tunneling from coccyx. PI. Abrasions/excoriation under bilateral breast folds and abdominal folds-interdry in place and powder ordered. Redness/drainage seen around urostomy site. Lines/Drains: Midline urostomy, LLQ colostomy. Triple lumen R internal jugular CVC, white lumen infusing NS 75mL/hr, brown and blue lumens heparin locked. Bilateral hand PIV SL Activity: Assist x2 w/lift, turn/repo q2h, pt bedbound at baseline Sleep: Poor, improved after PO zyprexa Abnormal Labs: Sepsis protocol fired, lactic 1.1 Aggression Stop Light: Yellow Patient Care Plan: BP improved throughout shift. WOC consult ordered. Goal Outcome Evaluation: Plan of Care Reviewed With: patient Overall Patient Progress: improvingOverall Patient Progress: improving * Provider Notification - Evon Garduno RN - 07/12/2024 6:[address] Aguilar approx [phone] via [employer]. Pt pulling at lines, agitated/restless. Pt also hallucinating, pointing at things that aren't there, confused. Bilateral mitts. PO zyprexa one time dose, and PRN seroquel ordered. PO zyprexa given per orders. documented in this encounter Plan of Treatment Not on file documented as of this encounter Procedures Procedure Name Priority Date/Time Associated Diagnosis Comments POTASSIUM Routine 07/17/2024 5:38 AM CDT MAGNESIUM Routine 07/17/2024 5:38 AM CDT MR BRAIN W/O & W CONTRAST Routine 07/17/2024 1:50 AM CDT MAGNESIUM Routine 07/16/2024 5:22 AM CDT BASIC METABOLIC PANEL Routine 07/16/2024 5:22 AM CDT CBC WITH PLATELETS Routine 07/16/2024 5: 22 AM CDT PLATELET COUNT Routine 07/15/2024 11:26 PM CDT ECHO LIMITED Routine 07/15/2024 11:15 AM CDT PROCALCITONIN Add-On 07/15/2024 6:26 AM CDT MAGNESIUM Routine 07/15/2024 6:26 AM CDT BASIC METABOLIC PANEL Routine 07/15/2024 6:26 AM CDT CBC WITH PLATELETS Routine 07/15/2024 6: 26 AM CDT RESPIRATORY PANEL PCR Routine 07/14/2024 2:57 PM CDT PROCALCITONIN Add-On 07/14/2024 5:17 AM CDT NT-PROBNP Add-On 07/14/2024 5:17 AM CDT MAGNESIUM Routine 07/14/2024 5:17 AM CDT BASIC METABOLIC PANEL Routine 07/14/2024 5:17 AM CDT CBC WITH PLATELETS Routine 07/14/2024 5: [address] CHEST PULMONARY EMBOLISM W CONTRAST Routine 07/13/2024 10:03 PM CDT LACTIC ACID WHOLE BLOOD WITH 1X REPEAT IN 2 HR WHEN >2 STAT Add-on 07/13/2024 1:19 PM CDT POTASSIUM Timed 07/13/2024 1:19 PM CDT GLUCOSE BY METER Routine 07/13/2024 12:5 0 PM CDT MRSA MSSA PCR, NASAL SWAB Routine 07/13/2024 12:44 PM CDT IONIZED CALCIUM Routine 07/13/2024 8:58 AM CDT MAGNESIUM Routine 07/13/2024 5:18 AM CDT BASIC METABOLIC PANEL Routine 07/13/2024 5:18 AM CDT CBC WITH PLATELETS Routine 07/13/2024 5: 18 AM CDT GLUCOSE BY METER Routine 07/13/2024 2:18 AM CDT GLUCOSE BY METER Routine 07/12/2024 11:0 8 PM CDT BLOOD CULTURE STAT 07/12/2024 6:51 PM CDT BLOOD CULTURE STAT 07/12/2024 6:48 PM CDT XR CHEST PORT 1 VIEW STAT 07/12/2024 6:16 PM CDT CBC WITH PLATELETS AND DIFFERENTIAL STAT 07/12/2024 6:04 PM CDT CBC WITH PLATELETS & DIFFERENTIAL STAT 07/12/2024 6:04 PM CDT MAGNESIUM Timed 07/12/2024 6:04 PM CDT LACTIC ACID WHOLE BLOOD STAT 07/12/2024 6:04 PM CDT BLOOD GAS VENOUS STAT 07/12/2024 6:04 PM CDT BASIC METABOLIC PANEL STAT 07/12/2024 6:04 PM CDT GLUCOSE BY METER Routine 07/12/2024 5:00 PM CDT GLUCOSE BY METER Routine 07/12/2024 2:16 PM CDT GLUCOSE BY METER Routine 07/12/2024 12:0 1 PM CDT HEMOGLOBIN A1C Routine 07/12/2024 11:52 AM CDT BLOOD GAS VENOUS Timed 07/12/2024 11:5 2 AM CDT GLUCOSE BY METER Routine 07/12/2024 11:0 9 AM CDT GLUCOSE BY METER Routine 07/12/2024 10:0 9 AM CDT GLUCOSE BY METER Routine 07/12/2024 7:39 AM CDT MAGNESIUM Routine 07/12/2024 5:43 AM CDT COMPREHENSIVE METABOLIC PANEL Routine 07/12/2024 5:43 AM CDT CBC WITH PLATELETS Routine 07/12/2024 5: 43 AM CDT LEGIONELLA URINARY ANTIGEN AND STREPTOCOCCUS PNEUMONIAE ANTIGEN Routine 07/12/2024 2:49 AM CDT UA MACROSCOPIC WITH REFLEX TO MICRO AND CULTURE STAT 07/12/2024 2:49 AM CDT URINE CULTURE STAT 07/12/2024 2:49 AM CDT LACTIC ACID WHOLE BLOOD WITH 1X REPEAT IN 2 HR WHEN >2 STAT 07/12/2024 2:48 AM CDT EKG 12-LEAD, TRACING ONLY STAT 07/12/2024 2:21 AM CDT GLUCOSE BY METER Routine 07/12/2024 1:00 AM CDT documented in this encounter Results * Magnesium (07/17/2024 5:38 AM CDT) Magnesium 2.1 1.7 - 2.3 mg/dL 07/17/2024 6:15 AM CDT LABORATORY Blood BLOOD SPECIMEN / Unknown Venipuncture / Unknown 07/17/2024 5:38 AM CDT 07/17/2024 5:50 AM CDT Flash Lehman MD LAB - BLOOD ORDERABLES Fi nal Result LABORATORY [facility] [address], [address] [address], [facility] [phone] * Potassium (07/17/2024 5:38 AM CDT) Potassium 4.4 3.4 - 5.3 mmol/L 07/17/2024 6:15 AM CDT LABORATORY Blood BLOOD SPECIMEN / Unknown Venipuncture / Unknown 07/17/2024 5:38 AM CDT 07/17/2024 5:50 AM CDT Flash Lehman MD LAB - BLOOD ORDERABLES Fi nal Result LABORATORY [facility] [address] floor, [address] [address], [facility] [phone] * MR Brain w/o & w Contrast (07/17/2024 1:50 AM CDT) Anatomical Region Laterality Modality Head, SUBRAD MR NEURO, UMP MR NEURO, RAD MR Magnetic Resonance 07/17/2024 1:50 AM CDT Impressions 07/17/2024 2:19 AM CDT IMPRESSION: 1. No acute intracranial abnormality. 2. Moderate sequela of chronic ischemic small vessel disease. 3. Advanced global cerebral volume loss. Narrative 07/17/2024 2:19 AM CDT EXAM: MR BRAIN W/O and W CONTRAST LOCATION: [facility] DATE: 07/17/2024 INDICATION: progressive cognitive decline chronic ME with paraplegia. r o evidence of stroke space occupyinglesion COMPARISON: CT head November 18, 2020. CONTRAST: 9 mL Gadavist TECHNIQUE: Routine multiplanar multisequence head MRI without and with intravenous contrast. FINDINGS: Examination degraded by patient motion. INTRACRANIAL CONTENTS: No acute or subacute infarct. Remote right cerebellar hemisphere lacunar infarct. No mass, acute hemorrhage, or extra-axial fluid collections. Unchanged tectal region lipoma. Patchy and confluent nonspecific T2/FLAIR hyperintensities within the cerebral white matter most consistent with moderate chronic microvascular ischemic change. Advanced generalized cerebral atrophy. No hydrocephalus. Normal position of the cerebellar tonsils. No pathologic contrast enhancement. SELLA: No abnormality accounting for technique. OSSEOUS STRUCTURES/SOFT TISSUES: Normal marrow signal. The major intracranial vascular flow voids are maintained. ORBITS: No abnormality accounting for technique. SINUSES/MASTOIDS: No paranasal sinus mucosal disease. No middle ear or mastoid effusion. Procedure Note Arcenio Knutson MD - 07/17/2024 EXAM: MR BRAIN W/O and W CONTRAST LOCATION: [facility] DATE: 07/17/2024 INDICATION: progressive cognitive decline chronic ME with paraplegia. r oevidence of stroke space occupyinglesion COMPARISON: CT head November 18, 2020. CONTRAST: 9 mL Gadavist TECHNIQUE: Routine multiplanar multisequence head MRI without and withintravenous contrast. FINDINGS: Examination degraded by patient motion. INTRACRANIAL CONTENTS: No acute or subacute infarct. Remote rightcerebellar hemisphere lacunar infarct. No mass, acute hemorrhage, orextra-axial fluid collections. Unchanged tectal region lipoma. Patchy andconfluent nonspecific T2/FLAIR hyperintensities within the cerebral white matter most consistent withmoderate chronic microvascular ischemic change. Advanced generalizedcerebral atrophy. No hydrocephalus. Normal position of the cerebellartonsils. No pathologic contrast enhancement. SELLA: No abnormality accounting for technique. OSSEOUS STRUCTURES/SOFT TISSUES: Normal marrow signal. The majorintracranial vascular flow voids are maintained. ORBITS: No abnormality accounting for technique. SINUSES/MASTOIDS: No paranasal sinus mucosal disease. No middle ear ormastoid effusion. IMPRESSION: 1. No acute intracranial abnormality. 2. Moderate sequela of chronic ischemic small vessel disease. 3. Advanced global cerebral volume loss. Albania Huerta MD [facility] MRI ORDERABLES Fin al Result * (ABNORMAL) Basic metabolic panel (07/16/2024 5:22 AM [facility]) Sodium 144 135 - 145 mmol/L 07/16/2024 6:23 AM [facility] Potassium 4.0 3.4 - 5.3 mmol/L 07/16/2024 6:23 AM [facility] Chloride 115(H) 98 - 107 mmol/L 07/16/2024 6:23 AM [facility] Carbon Dioxide (CO2) 21(L) 22 - 29 mmol/L 07/16/2024 6:23 AM [facility] Anion Gap 8 7 - 15 mmol/L 07/16/2024 6:23 AM [facility] Urea Nitrogen 13.2 8.0 - 23.0 mg/dL 07/16/2024 6:23 AM [facility] Creatinine 0.96(H) 0.51 - 0.95 mg/dL 07/16/2024 6:23 AM [facility] GFR Estimate 64 >60 mL/min/1.7 3m2 07/16/2024 6:23 AM [facility] Comment:eGFR calculated usin 2020 CKD-EPI equation. Calcium 7.7(L) 8.8 - 10.4 mg/dL 07/16/2024 6:23 AM [facility] Glucose 97 70 - 99 mg/dL 07/16/2024 6:23 AM CDT LABORATORY Blood CENTRAL VENOUS CATHETER / Unknown Venipuncture / Unknown 07/16/2024 5:22 AM CDT 07/16/2024 5:58 AM CDT Sudeep Back MD LAB - BLOOD ORDERABLES Fi nal Result [facility] [address], [address] [place] [address], [facility] [phone] * (ABNORMAL) CBC with platelets (07/16/2024 5:22 AM CDT) [facility] WBC Count 10.4 4.0 - 11.0 10e3/uL 07/16/2024 6:02 AM CDT LABORATORY RBC Count 2.74(L) 3.80 - 5.20 10e6/uL 07/16/2024 6:02 AM CDT LABORATORY Hemoglobin 8.6(L) 11.7 - 15.7 g/dL 07/16/2024 6:02 AM [facility] Hematocrit 26.1(L) 35.0 - 47.0 % 07/16/2024 6:02 AM [facility] MCV 95 78 - 100 fL 07/16/2024 6:02 AM CDT LABORATORY MCH 31.4 26.5 - 33.0 pg 07/16/2024 6:02 AM [facility] MCHC 33.0 31.5 - 36.5 g/dL 07/16/2024 6:02 AM [facility] RDW 19.9(H) 10.0 - 15.0 % 07/16/2024 6:02 AM [facility] Platelet Count 227 150 - 450 10e3/uL 07/16/2024 6:02 AM T LABORATORY Blood CENTRAL VENOUS CATHETER / Unknown Venipuncture / Unknown 07/16/2024 5:22 AM CDT 07/16/2024 5:58 AM CDT Sudeep Back MD LAB - BLOOD ORDERABLES Fi nal Result LABORATORY [facility] [address], [address] [address], [place] [phone] * Magnesium (07/16/2024 5:22 AM CDT) Magnesium 2.1 1.7 - 2.3 mg/dL 07/16/2024 6:23 AM CDT LABORATORY Blood CENTRAL VENOUS CATHETER / Unknown Venipuncture / Unknown 07/16/2024 5:22 AM CDT 07/16/2024 5:58 AM CDT Alyse Duenas MD LAB - BLOOD ORDERABLES Final Re sult LABORATORY [facility] [address], [address] [address], [place] [phone] * Platelet count (07/15/2024 11:26 PM CDT) Platelet Count 234 150 - 450 10e3/uL 07/15/2024 11:44 PM CDT LABORATORY MCV 95 78 - 100 fL 07/15/2024 11:44 PM CDT LABORATORY Blood CENTRAL VENOUS CATHETER / Unknown Venipuncture / Unknown 07/15/2024 11:26 PM CDT 07/15/2024 11:42 PM CDT Alyse Duenas MD LAB - BLOOD ORDERABLES Final Re sult LABORATORY [facility] [address], [address] [address], [place] [phone] * ECHO LIMITED (07/15/2024 11:15 AM CDT) Anatomical Region Laterality Modality Echocardiography 07/15/2024 10:1 1 AM CDT Narrative 07/15/2024 12:44 PM CDT [id number]^ALISTAIR^ALYSE^Bridget. [facility] Echocardiography Laboratory [address] [place] [address] Name: ARSLAN LIMA : 1955 Study Date: 07/15/2024 10:11 AM Age: 69 yrs Gender: Female Patient Location: [facility] Reason For Study: CHF, CHF Ordering Physician: ALYSE DUENAS Referring Physician: SYSTEM, PROVIDER NOT IN Performed By: LI Adams BSA: 1.9 m2 Height: 63 in Weight: 196 lb HR: 126 BP: 108/70 mmHg Procedure Technically difficult study. Interpretation Summary 1. Non-diagnostic echocardiogram. Very limited parasternal images performed before exam ended prematurely at patient request. 2. Left ventricle not well visualized. On limited views left ventricular systolic function appears hyperdynamic with estimated ejection fraction 70%. 3. Regional wall motion analysis was not possible. 4. Right ventricle not well visualized. 5. Cardiac valves not well visualized. Non-diagnostic Doppler evaluation. 6. No pericardial effusion. 7. No prior exam available for comparison. Right Ventricle The right ventricle is not well visualized. Mitral Valve The mitral valve is not well visualized. Aortic Valve The aortic valve is not well visualized. Vessels The aortic root is normal size. Normal size ascending aorta. Pericardium There is no pericardial effusion. MMode/2D Measurements & Calculations Ao root diam: 3.4 cm asc Aorta Diam: 3.3 cm LVOT diam: 2.3 cm LVOT area: 4.2 cm2 Ao root diam index Ht(cm/m): 2.1 Ao root diam index BSA (cm/m2): 1.8 Asc Ao diam index BSA (cm/m2): 1.7 Asc Ao diam index Ht(cm/m): 2.1 Doppler Measurements & Calculations PA acc time: 0.10 sec Report approved by: Jose Cedillo MD on 07/15/2024 12:44 PM Procedure Note Jose Cedillo MD, - 07/15/2024 [id number]^ALISTAIR^ALYSE^Bridget. [facility] Echocardiography Laboratory [address] [place] [address] Name: ARSLAN LIMA : 1955 Study Date: 07/15/2024 10:11 AM Age: 69 yrs Gender: Female Patient Location: [facility] Reason For Study: CHF, CHF Ordering Physician: ALYSE DUENAS Referring Physician: SYSTEM, PROVIDER NOT IN Performed By: LI Adams BSA: 1.9 m2 Height: 63 in Weight: 196 lb HR: 126 BP: 108/70 mmHg Procedure Technically difficult study. Interpretation Summary 1. Non-diagnostic echocardiogram. Very limited parasternal imagesperformed before exam ended prematurely at patient request. 2. Left ventricle not well visualized. On limited views left ventricular systolic function appears hyperdynamic with estimated ejection %. 3. Regional wall motion analysis was not possible. 4. Right ventricle not well visualized. 5. Cardiac valves not well visualized. Non-diagnostic Dopplerevaluation. 6. No pericardial effusion. 7. No prior exam available for comparison. Right Ventricle The right ventricle is not well visualized. Mitral Valve The mitral valve is not well visualized. Aortic Valve The aortic valve is not well visualized. Vessels The aortic root is normal size. Normal size ascending aorta. Pericardium There is no pericardial effusion. MMode/2D Measurements & Calculations Ao root diam: 3.4 cm asc Aorta Diam: 3.3 cm LVOT diam: 2.3 cm LVOT area: 4.2 cm2 Ao root diam index Ht(cm/m): 2.1 Ao root diam index BSA (cm/m2): 1.8 Asc Ao diam index BSA (cm/m2): 1.7 Asc Ao diam index Ht(cm/m): 2.1 Doppler Measurements & Calculations PA acc time: 0.10 sec Report approved by: Jose Cedillo MD on 07/15/2024 12:44 PM Alyse Duenas MD CV ECHO ORDERABLES Edited Resul t - Final * (ABNORMAL) Procalcitonin (07/15/2024 6:26 AM CDT) [facility] Procalcitonin 16.30(HH) <0.50 ng/mL 07/15/2024 11:31 AM CDT LABORATORY Comment: Interpretation and Recommendations <0.5 ng/mL: Systemic bacterial infection unlikely. Local bacterial infection is possible. 0.5-1.99 ng/mL: Systemic bacterial infection possible, but various other conditions are known to induce PCT as well. >=2.00 ng/mL: Systemic bacterial infection likely, unless other causes are known. Decision to start antibiotics should not be based on procalcitonin level alone. See Procalcitonin Guidance document for more details. [email or web address] Factors that may affect PCT levels (not all-inclusive): - Increased PCT level Severe trauma/schwab Invasive surgery Cooling therapy after cardiac arrest/surgery Treatment with agents which stimulate cytokines Acute kidney injury Chronic kidney disease and end stage renal disease Acute graft vs host disease Non-specific shock causing decreased organ perfusion and/or infarction - Normal or unchanged PCT level Early in infections (if low and infection is suspected, repeating in 6-12 hours is recommended) Chronic infections (endocarditis, osteomyelitis, prosthetic device/graft infections) Localized infections (cellulitis, wound infections, intra-abdominal abscess) Note: PCT has not been extensively studied in /, pediatrics, severe immunosuppression, and cystic fibrosis. Blood VENOUS LINE / Unknown VAD(CVC, PICC) / Unknown 07/15/2024 6:26 AM CDT 07/15/2024 6:30 AM CDT Sudeep Back MD LAB - BLOOD ORDERABLES nal Result LABORATORY [facility] [address] 1[address], [address] [place] [address], [facility] [phone] * (ABNORMAL) Basic metabolic panel (07/15/2024 6:26 AM CDT) Sodium 141 135 - 145 mmol/L 07/15/2024 6:56 AM [facility] Potassium 3.6 3.4 - 5.3 mmol/L 07/15/2024 6:56 AM [facility] Chloride 115(H) 98 - 107 mmol/L 07/15/2024 6:56 AM [facility] Carbon Dioxide (CO2) 21(L) 22 - 29 mmol/L 07/15/2024 6:56 AM [facility] Anion Gap 5(L) 7 - 15 mmol/L 07/15/2024 6:56 AM [facility] Urea Nitrogen 13.0 8.0 - 23.0 mg/dL 07/15/2024 6:56 AM [facility] Creatinine 0.94 0.51 - 0.95 mg/dL 07/15/2024 6:56 AM [facility] GFR Estimate 65 >60 mL/min/1.7 3m2 07/15/2024 6:56 AM [facility] Comment:eGFR calculated usin 2020 CKD-EPI equation. Calcium 7.5(L) 8.8 - 10.4 mg/dL 07/15/2024 6:56 AM [facility] Glucose 79 70 - 99 mg/dL 07/15/2024 6:56 AM [facility] Blood VENOUS LINE / Unknown VAD(CVC, PICC) / Unknown 07/15/2024 6:26 AM CDT 07/15/2024 6:30 AM CDT us Chaitanya Nuñez PA-C LAB - BLOOD ORDERABLES Fi nal Result LABORATORY [facility] [address], [address] [place] [address], [facility] [phone] * (ABNORMAL) CBC with platelets (07/15/2024 6:26 AM CDT) WBC Count 8.6 4.0 - 11.0 10e3/uL 07/15/2024 6:35 AM CDT LABORATORY RBC Count 2.71(L) 3.80 - 5.20 10e6/uL 07/15/2024 6:35 AM CDT LABORATORY Hemoglobin 8.6(L) 11.7 - 15.7 g/dL 07/15/2024 6:35 AM CDT LABORATORY Hematocrit 26.6(L) 35.0 - 47.0 % 07/15/2024 6:35 AM CDT LABORATORY MCV 98 78 - 100 fL 07/15/2024 6:35 AM CDT LABORATORY MCH 31.7 26.5 - 33.0 pg 07/15/2024 6:35 AM CDT LABORATORY MCHC 32.3 31.5 - 36.5 g/dL 07/15/2024 6:35 AM CDT LABORATORY RDW 19.6(H) 10.0 - 15.0 % 07/15/2024 6:35 AM CDT LABORATORY Platelet Count 225 150 - 450 10e3/uL 07/15/2024 6:35 AM CDT LABORATORY Blood VENOUS LINE / Unknown VAD(CVC, PICC) / Unknown 07/15/2024 6:26 AM CDT 07/15/2024 6:30 AM CDT Chaitanya Nuñez PA-C LAB - BLOOD ORDERABLES Fi nal Result Performing Organization Address City/[facility]/ZIP Co de Phone Number LABORATORY [facility] [address], [address] [place] [address], [facility] [phone] * Magnesium (07/15/2024 6:26 AM CDT) Pathologist [facility] Magnesium 2.2 1.7 - 2.3 mg/dL 07/15/2024 6:56 AM CDT LABORATORY Blood VENOUS LINE / Unknown VAD(CVC, PICC) / Unknown 07/15/2024 6:26 AM CDT 07/15/2024 6:30 AM CDT Alyse Duenas MD LAB - BLOOD ORDERABLES Final Re sult Performing Organization Address City/[facility]/ZIP Co de Phone Number LABORATORY [facility] [address], [address] [address], [facility] [phone] * Respiratory Panel PCR (07/14/2024 2:57 PM CDT) [facility] Adenovirus Not Detected Not Detected 07/14/2024 7:08 PM CDT [facility] Coronavirus Not Detected Not Detected 07/14/2024 7:08 PM CDT [facility] Comment:This test detects Co ronavirus 229E, HKU1, NL63 and OC43 but does not distinguish between them. It does not detect MERS ( Respiratory Syndrome), SARS (Severe Acute Respiratory Syndrome) or 2019-nCoV (Novel 2018) Coronavirus. Human Metapneumovirus Not Detected Not Detected 07/14/2024 7:08 PM CDT [facility] Human Rhin/Enterovirus Not Detected Not Detected 07/14/2024 7:08 PM CDT [facility] Influenza A Not Detected Not Detected 07/14/2024 7:08 PM CDT [facility] Influenza A, H1 Not Detected Not Detected 07/14/2024 7:08 PM CDT [facility] Influenza A 2009 H1N1 Not Detected Not Detected 07/14/2024 7:08 PM CDT [facility] Influenza A, H3 Not Detected Not Detected 07/14/2024 7:08 PM CDT [facility] Influenza B Not Detected Not Detected 07/14/2024 7:08 PM CDT [facility] Parainfluenza Virus 1 Not Detected Not Detected 07/14/2024 7:08 PM CDT [facility] Parainfluenza Virus 2 Not Detected Not Detected 07/14/2024 7:08 PM CDT [facility] Parainfluenza Virus 3 Not Detected Not Detected 07/14/2024 7:08 PM CDT [facility] Parainfluenza Virus 4 Not Detected Not Detected 07/14/2024 7:08 PM CDT [facility] Respiratory Syncytial Virus A Not Detected Not Detected 07/14/2024 7:08 PM CDT [facility] Respiratory Syncytial Virus B Not Detected Not Detected 07/14/2024 7:08 PM CDT [facility] Chlamydia Pneumoniae Not Detected Not Detected 07/14/2024 7:08 PM CDT [facility] Mycoplasma Pneumoniae Not Detected Not Detected 07/14/2024 7:08 PM CDT [facility] Swab NASOPHARYNGEAL STRUCTURE / Unknown Non-blood Collection / Unknown 07/14/2024 2:57 PM CDT 07/14/2024 3:02 PM CDT Narrative [facility] - 07/14/2024 7:08 PM CDT The ePlex Respiratory Panel is a qualitative nucleic acid, multiplex, in vitro diagnostic test for the simultaneous detection and identification of multiple respiratory viral and bacterial nucleic acids in nasopharyngeal swabs collected in viral transport media from individual exhibiting signs and symptoms of respiratory infection. The assay has received FDA approval for the testing of nasopharyngeal (G[employer]OLINE ENGINE INSPECTOR) swabs only. This test is used for clinical purposes and should not be regarded as investigational or for research. This laboratory is certified under the Clinical Laboratory Improvement Amendments of 1988 (CLIA-88) as qualified to perform high complexity clinical laboratory testing. Rossy Dyer MD LAB - MICRO GENERAL ORDERABLES F inal Result [facility] Inf. Diseases Diag. Lab [address] [facility], [address] [place] [address] * (ABNORMAL) NT-proBNP (07/14/2024 5:17 AM CDT) [facility] NT-proBNP 8,540(H) 0 - 353 pg/mL 07/14/2024 5:59 PM CDT LABORATORY Comment: Starting on 06/18/2024, [facility] laboratory began flagging abnormal values for plasma NT-proBNP results for adults using age-specific reference ranges instead of clinical cut-points/thresholds (see interpretation comment below for clinical threshold values) as part of a test standardization effort. Pediatric abnormal values were already previously flagged using age-specific reference intervals, which are not currently changing. The test methodology remains unchanged, and previous results performed with this methodology can be interpreted with the updated reference intervals. [facility]'s Pediatric (boys and girls) Reference Ranges in pg/mL * 0 up to 3 days: 0 - 54367 3 days up to 1 month: 0 - 6500 1 month up to 1 year: 0 - 1000 2 up to 6 years: 0 - 330 6 up to 18 years: 0 - 240 Male Reference Ranges in pg/mL 18-44 years: 0 - 93 45-54 years: 0 - 138 55-64 years: 0 - 177 65-74 years: 0 - 229 75 years or older: 0 - 852 Female Reference Ranges in pg/mL 8-44 years: 0 - 178 45-54 years: 0 - 192 55-64 years: 0 - 226 65-74 years: 0 - 353 75 years or older: 0 - 624 Reference ranges in adults reflect 95th percentiles for NT-pro-BNP levels in patients without congestive heart failure (CHF). Knowledge of each individual patient's NT-proBNP range may be more useful than using similar cut-points for every patient. For adult chronic CHF patients according to [place] [employer] ([employer]HA) Functional Class, the mean NT-proBNP concentration is as following (5th and 95th percentile values respectively displayed in parentheses): Class I: 1016 pg/mL (33-3410) Class II: 1666 pg/mL (103-6567) Class III: 3029 pg/mL (126-87100) Class IV: 3465 pg/mL (148-73835) Clinical thresholds for acute (emergency department) settings: < 300 pg/mL effectively rules out acute decompensated heart failure (ADHF), with 99% negative predictive value. The following values may rule in potential acute decompensated heart failure (ADHF) in individuals (with a PPV of 50-60%): Under 50 years: >450 pg/mL Between 50-75 years: >900 pg/mL Over 75 years: >1800 pg/mL Among patients with dyspnea, NT-proBNP is highly sensitive for detection of acute CHF. Elevations in NT-proBNP levels may be observed in states other than left ventricular congestive failure including: acute coronary syndromes, right heart strain/failure (including pulmonary embolism and cor pulmonale), critical illness, and renal failure. Falsely low NT-proBNP in CHF patients may be observed in increased body mass index. * References: (1) Dereck Willingham et al. Pediatr Cardiol 30:3-8, 2008. Blood VENOUS LINE / Unknown VAD(CVC, PICC) / Unknown 07/14/2024 5:17 AM CDT 07/14/2024 5:37 AM CDT Rossy Dyer MD LAB - BLOOD ORDERABLES Final Res ult LABORATORY [facility] [address], [address] [place] [address], [facility] [phone] * (ABNORMAL) Procalcitonin (07/14/2024 5:17 AM CDT) Procalcitonin 26.82(HH) <0.50 ng/mL 07/14/2024 3:47 PM CDT LABORATORY Comment: Interpretation and Recommendations <0.5 ng/mL: Systemic bacterial infection unlikely. Local bacterial infection is possible. 0.5-1.99 ng/mL: Systemic bacterial infection possible, but various other conditions are known to induce PCT as well. >=2.00 ng/mL: Systemic bacterial infection likely, unless other causes are known. Decision to start antibiotics should not be based on procalcitonin level alone. See Procalcitonin Guidance document for more details. [email or web address] Factors that may affect PCT levels (not all-inclusive): - Increased PCT level Severe trauma/schwab Invasive surgery Cooling therapy after cardiac arrest/surgery Treatment with agents which stimulate cytokines Acute kidney injury Chronic kidney disease and end stage renal disease Acute graft vs host disease Non-specific shock causing decreased organ perfusion and/or infarction - Normal or unchanged PCT level Early in infections (if low and infection is suspected, repeating in 6-12 hours is recommended) Chronic infections (endocarditis, osteomyelitis, prosthetic device/graft infections) Localized infections (cellulitis, wound infections, intra-abdominal abscess) Note: PCT has not been extensively studied in /, pediatrics, severe immunosuppression, and cystic fibrosis. Blood VENOUS LINE / Unknown VAD(CVC, PICC) / Unknown 07/14/2024 5:17 AM CDT 07/14/2024 5:37 AM CDT us Rossy Dyer MD LAB - BLOOD ORDERABLES Final Res ult LABORATORY [facility] [address], [address] [place] [address], [facility] [phone] * (ABNORMAL) Basic metabolic panel (07/14/2024 5:17 AM CDT) Sodium 140 135 - 145 mmol/L 07/14/2024 6:03 AM CDT LABORATORY Potassium 3.4 3.4 - 5.3 mmol/L 07/14/2024 6:03 AM CDT LABORATORY Chloride 112(H) 98 - 107 mmol/L 07/14/2024 6:03 AM CDT LABORATORY Carbon Dioxide (CO2) 21(L) 22 - 29 mmol/L 07/14/2024 6:03 AM CDT LABORATORY Anion Gap 7 7 - 15 mmol/L 07/14/2024 6:03 AM CDT LABORATORY Urea Nitrogen 13.9 8.0 - 23.0 mg/dL 07/14/2024 6:03 AM CDT LABORATORY Creatinine 1.02(H) 0.51 - 0.95 mg/dL 07/14/2024 6:03 AM CDT LABORATORY GFR Estimate 59(L) >60 mL/min/1.7 3m2 07/14/2024 6:03 AM CDT LABORATORY Comment:eGFR calculated us2020 CKD-EPI equation. Calcium 7.4(L) 8.8 - 10.4 mg/dL 07/14/2024 6:03 AM CDT LABORATORY Glucose 107(H) 70 - 99 mg/dL 07/14/2024 6:03 AM T LABORATORY Blood VENOUS LINE / Unknown VAD(CVC, PICC) / Unknown 07/14/2024 5:17 AM CDT 07/14/2024 5:37 AM CDT us Chaitanya Nuñez PA-C LAB - BLOOD ORDERABLES Fi nal Result LABORATORY [facility] [address], [address] [place] [address], [facility] [phone] * (ABNORMAL) CBC with platelets (07/14/2024 5:17 AM CDT) WBC Count 7.1 4.0 - 11.0 10e3/uL 07/14/2024 5:40 AM CDT LABORATORY RBC Count 2.52(L) 3.80 - 5.20 10e6/uL 07/14/2024 5:40 AM CDT LABORATORY Hemoglobin 7.9(L) 11.7 - 15.7 g/dL 07/14/2024 5:40 AM CDT LABORATORY Hematocrit 25.0(L) 35.0 - 47.0 % 07/14/2024 5:40 AM CDT LABORATORY MCV 99 78 - 100 fL 07/14/2024 5:40 AM CDT LABORATORY MCH 31.3 26.5 - 33.0 pg 07/14/2024 5:40 AM CDT LABORATORY MCHC 31.6 31.5 - 36.5 g/dL 07/14/2024 5:40 AM CDT LABORATORY RDW 19.1(H) 10.0 - 15.0 % 07/14/2024 5:40 AM CDT LABORATORY Platelet Count 215 150 - 450 10e3/uL 07/14/2024 5:40 AM CDT LABORATORY Blood VENOUS LINE / Unknown VAD(CVC, PICC) / Unknown 07/14/2024 5:17 AM CDT 07/14/2024 5:37 AM CDT us Chaitanya Nuñez PA-C LAB - BLOOD ORDERABLES Fi nal Result LABORATORY [facility] [address], [address] [place] [address], [place] [phone] * Magnesium (07/14/2024 5:17 AM CDT) [facility] Magnesium 2.1 1.7 - 2.3 mg/dL 07/14/2024 6:03 AM CDT LABORATORY Blood VENOUS LINE / Unknown VAD(CVC, PICC) / Unknown 07/14/2024 5:17 AM CDT 07/14/2024 5:37 AM CDT us Alyse Duenas MD LAB - BLOOD ORDERABLES Final Re sult LABORATORY [facility] [address], [address] [place] [address], [place] [phone] * CT Chest Pulmonary Embolism w Contrast (07/13/2024 10:03 PM CDT) Anatomical Region Laterality Modality Chest, SUBRAD CT BODY, UMP CT CHEST Computed Tomography 07/13/2024 10:0 3 PM CDT Impressions 07/14/2024 2:06 AM CDT IMPRESSION: 1. No evidence of pulmonary embolism. The main pulmonary artery is mildly enlarged measuring 3.4 cm in diameter, this can be seen with pulmonary hypertension. 2. Multiple patchy groundglass pulmonary opacities most prominent in the right upper and lower lobes, indeterminate, could be infectious. 3. Small bilateral pleural effusions and associated basilar atelectasis/consolidation. 4. 1.2 cm right upper lobe nodule, new as compared to 09/30/2023 exam, indeterminate, could be metastatic. Narrative 07/14/2024 2:06 AM CDT EXAM: CT CHEST PULMONARY EMBOLISM W CONTRAST LOCATION: [facility] DATE: 07/13/2024 INDICATION: PNA, persistent sxs. COMPARISON: Chest CTA on 09/30/2023. TECHNIQUE: CT chest pulmonary angiogram during arterial phase injection of IV contrast. Multiplanar reformats and MIP reconstructions were performed. Dose reduction techniques were used. CONTRAST: 72 mL Isovue 370. FINDINGS: ANGIOGRAM CHEST: No evidence of pulmonary embolism, the main pulmonary artery is mildly enlarged measuring 3.4 cm in diameter. No evidence of thoracic aortic aneurysm or dissection. No evidence for right heart strain. LUNGS AND PLEURA: Small bilateral pleural effusions. No significant pneumothorax. Left basilar pulmonary opacities, could be atelectatic. 1.2 cm right upper lobe nodule (series 7 image 107), new as compared to 09/30/2023 exam, indeterminate, could be metastatic. 5 mm left apical nodule (series 7 image 67), not significantly changed as compared to 09/30/2023 exam. Multiple patchy groundglass pulmonary opacities most prominent in the right upper and lower lobes, indeterminate, could be infectious. MEDIASTINUM/AXILLAE: Right IJ central catheter tip is in the right atrium. No cardiomegaly or significant pericardial effusion. No significant mediastinal or hilar lymphadenopathy. Few calcified mediastinal granulomas. CORONARY ARTERY CALCIFICATION: None. UPPER ABDOMEN: Limited evaluation of the upper abdomen due to lack of coverage and timing of contrast. Multiple calcified splenic granulomas. MUSCULOSKELETAL: Multilevel degenerative changes of the spine. No suspicious osseous lesion. Procedure Note Yon West MD - 07/14/2024 EXAM: CT CHEST PULMONARY EMBOLISM W CONTRAST LOCATION: [facility] DATE: 07/13/2024 INDICATION: PNA, persistent sxs. COMPARISON: Chest CTA on 09/30/2023. TECHNIQUE: CT chest pulmonary angiogram during arterial phase injection ofIV contrast. Multiplanar reformats and MIP reconstructions were performed.Dose reduction techniques were used. CONTRAST: 72 mL Isovue 370. FINDINGS: ANGIOGRAM CHEST: No evidence of pulmonary embolism, the main pulmonaryartery is mildly enlarged measuring 3.4 cm in diameter. No evidence ofthoracic aortic aneurysm or dissection. No evidence for right heartstrain. LUNGS AND PLEURA: Small bilateral pleural effusions. No significantpneumothorax. Left basilar pulmonary opacities, could be atelectatic. 1.2cm right upper lobe nodule (series 7 image 107), new as compared to09/30/2023 exam, indeterminate, could be metastatic. 5 mm left apical nodule (series 7 image 67), not significantlychanged as compared to 09/30/2023 exam. Multiple patchy groundglasspulmonary opacities most prominent in the right upper and lower lobes,indeterminate, could be infectious. MEDIASTINUM/AXILLAE: Right IJ central catheter tip is in the right atrium.No cardiomegaly or significant pericardial effusion. No significantmediastinal or hilar lymphadenopathy. Few calcified mediastinalgranulomas. CORONARY ARTERY CALCIFICATION: None. UPPER ABDOMEN: Limited evaluation of the upper abdomen due to lack ofcoverage and timing of contrast. Multiple calcified splenic granulomas. MUSCULOSKELETAL: Multilevel degenerative changes of the spine. Nosuspicious osseous lesion. IMPRESSION: 1. No evidence of pulmonary embolism. The main pulmonary artery is mildlyenlarged measuring 3.4 cm in diameter, this can be seen with pulmonaryhypertension. 2. Multiple patchy groundglass pulmonary opacities most prominent in theright upper and lower lobes, indeterminate, could be infectious. 3. Small bilateral pleural effusions and associated basilaratelectasis/consolidation. 4. 1.2 cm right upper lobe nodule, new as compared to 09/30/2023 exam,indeterminate, could be metastatic. us Alyes Duenas MD IMG CT ORDERABLES Final Result * Lactic Acid Whole Blood w/ 1x repeat in 2 hrs when >2 (07/13/2024 1:19 PM CDT) Lactic Acid, Initial 0.8 0.7 - 2.0 mmol/L 07/13/2024 1:29 PM CDT LABORATORY Blood VENOUS LINE / Unknown VAD(CVC, PICC) / Unknown 07/13/2024 1:19 PM CDT 07/13/2024 1:25 PM CDT Alyse Duenas MD LAB - BLOOD ORDERABLES Final Re sult LABORATORY [facility] [address], [address] [place] [address], [place] [phone] * Potassium (07/13/2024 1:19 PM CDT) Potassium 3.7 3.4 - 5.3 mmol/L 07/13/2024 1:38 PM CDT LABORATORY Blood VENOUS LINE / Unknown VAD(CVC, PICC) / Unknown 07/13/2024 1:19 PM CDT 07/13/2024 1:25 PM CDT Alyse Duenas MD LAB - BLOOD ORDERABLES Final Re sult Performing Organization Address City/[facility]/ZIP Co de Phone Number LABORATORY [facility] [address], [address] [place] [address], [place] [phone] * (ABNORMAL) Glucose by meter (07/13/2024 12:50 PM CDT) GLUCOSE BY METER POCT 104(H) 70 - 99 mg/dL 07/13/2024 12:56 PM CDT LABORATORY POC Blood, Capillary BLOOD SPECIMEN / Unknown 07/13/2024 12:50 PM CDT 07/13/2024 12:56 PM CDT Alyse Duenas MD LAB - BEAKER POCT Final Result LABORATORY POC [facility] [address], [address] [place] [address], [place] * MRSA MSSA PCR, Nasal Swab (07/13/2024 12:44 PM CDT) MRSA Target DNA Negative Negative 07/13/2024 5:29 PM CDT [facility] SA Target DNA Negative 07/13/2024 5:29 PM CDT [facility] Swab BOTH ANTERIOR NARES / Unknown Non-blood Collection / Unknown 07/13/2024 12:44 PM CDT 07/13/2024 12:53 PM CDT Narrative [facility] - 07/13/2024 5:29 PM CDT The [employer] Xpert SA Nasal Complete assay performed in the [employer] D[employer] System is a qualitative in vitro diagnostic test designed for rapid detection of Staphylococcus aureus (SA) and methicillin-resistant Staphylococcus aureus (MRSA) from nasal swabs in patients at risk for nasal colonization. The test utilizes automated real-time polymerase chain reaction (PCR) to detect MRSA/SA DNA. The Xpert SA Nasal Complete assay is intended to aid in the prevention and control of MRSA/SA infections in healthcare settings. The assay is not intended to diagnose, guide or monitor treatment for MRSA/SA infections, or provide results of susceptibility to methicillin. A negative result does not preclude MRSA/SA nasal colonization. us Alyse Duenas MD LAB - MICRO GENERAL ORDERABLES Final Result [facility] LABORATORY [facility] Inf. Diseases Diag. Lab [address] [facility], [address] [place], [place] [id number] * (ABNORMAL) Ionized Calcium (07/13/2024 8:58 AM CDT) [facility] Calcium Ionized Whole Blood 4.1(L) 4.4 - 5.2 mg/dL 07/13/2024 9:07 AM CDT LABORATORY Blood VENOUS LINE / Unknown VAD(CVC, PICC) / Unknown 07/13/2024 8:58 AM CDT 07/13/2024 9:04 AM CDT us Chaitanya Nuñez PA-C LAB - BLOOD ORDERABLES Fi nal Result LABORATORY [facility] [address], [address] [place] [address], [facility] [phone] * (ABNORMAL) Magnesium (07/13/2024 5:18 AM CDT) [facility] Magnesium 2.4(H) 1.7 - 2.3 mg/dL 07/13/2024 5:42 AM CDT LABORATORY Blood VENOUS LINE / Unknown VAD(CVC, PICC) / Unknown 07/13/2024 5:18 AM CDT 07/13/2024 5:23 AM CDT us Alyse Duenas MD LAB - BLOOD ORDERABLES Final Re sult LABORATORY [facility] [address], [address] [place] [address], [facility] [phone] * (ABNORMAL) CBC with platelets (07/13/2024 5:18 AM CDT) [facility] WBC Count 9.8 4.0 - 11.0 10e3/uL 07/13/2024 5:26 AM CDT LABORATORY RBC Count 2.46(L) 3.80 - 5.20 10e6/uL 07/13/2024 5:26 AM CDT LABORATORY Hemoglobin 7.8(L) 11.7 - 15.7 g/dL 07/13/2024 5:26 AM CDT LABORATORY Hematocrit 24.1(L) 35.0 - 47.0 % 07/13/2024 5:26 AM CDT LABORATORY MCV 98 78 - 100 fL 07/13/2024 5:26 AM CDT LABORATORY MCH 31.7 26.5 - 33.0 pg 07/13/2024 5:26 AM CDT LABORATORY MCHC 32.4 31.5 - 36.5 g/dL 07/13/2024 5:26 AM CDT LABORATORY RDW 18.6(H) 10.0 - 15.0 % 07/13/2024 5:26 AM CDT LABORATORY Platelet Count 216 150 - 450 10e3/uL 07/13/2024 5:26 AM [facility] LABORATORY Blood VENOUS LINE / Unknown VAD(CVC, PICC) / Unknown 07/13/2024 5:18 AM CDT 07/13/2024 5:23 AM CDT Alyse Duenas MD LAB - BLOOD ORDERABLES Final Re sult LABORATORY [facility] [address], [address] [place] [address], [facility] [phone] * (ABNORMAL) Basic metabolic panel (07/13/2024 5:18 AM CDT) Sodium 139 135 - 145 mmol/L 07/13/2024 5:42 AM [facility] LABORATORY Potassium 3.3(L) 3.4 - 5.3 mmol/L 07/13/2024 5:42 AM [facility] LABORATORY Chloride 107 98 - 107 mmol/L 07/13/2024 5:42 AM [facility] LABORATORY Carbon Dioxide (CO2) 23 22 - 29 mmol/L 07/13/2024 5:42 AM [facility] LAB[facility] Anion Gap 9 7 - 15 mmol/L 07/13/2024 5:42 AM [facility] Urea Nitrogen 17.0 8.0 - 23.0 mg/dL 07/13/2024 5:42 AM [facility] LAB[facility] Creatinine 1.34(H) 0.51 - 0.95 mg/dL 07/13/2024 5:42 AM [facility] LABORATORY GFR Estimate 43(L) >60 mL/min/1.7 3m2 07/13/2024 5:42 AM [facility] LABORATORY Comment:eGFR calculated usin 2020 CKD-EPI equation. Calcium 6.9(L) 8.8 - 10.4 mg/dL 07/13/2024 5:42 AM [facility] LABORATORY Glucose 121(H) 70 - 99 mg/dL 07/13/2024 5:42 AM [facility] LABORATORY Blood VENOUS LINE / Unknown VAD(CVC, PICC) / Unknown 07/13/2024 5:18 AM CDT 07/13/2024 5:23 AM CDT us Alyse Duenas MD LAB - BLOOD ORDERABLES Final Re sult Performing Organization Address City/[facility]/ZIP Co de Phone Number [facility] [address], [address] [place] [address], [facility] [phone] * (ABNORMAL) Glucose by meter (07/13/2024 2:18 AM CDT) GLUCOSE BY METER POCT 115(H) 70 - 99 mg/dL 07/13/2024 2:25 AM CDT LABORATORY POC Blood, Capillary BLOOD SPECIMEN / Unknown 07/13/2024 2:18 AM CDT 07/13/2024 2:25 AM CDT us Alyse CARDONA - BEAKER POCT Final Result Performing Organization Address [facility] Co de Phone Number LABORATORY [facility] [address], [address] [address], [facility] * (ABNORMAL) Glucose by meter (07/12/2024 11:08 PM CDT) GLUCOSE BY METER POCT 117(H) 70 - 99 mg/dL 07/12/2024 11:15 PM CDT LABORATORY POC Blood, Capillary BLOOD SPECIMEN / Unknown 07/12/2024 11:08 PM CDT 07/12/2024 11:15 PM CDT us Alyse CARDONA - BEMCKENZIE POCT Final Result Performing Organization Address City/[facility]/ZIP Co de Phone Number LABORATORY [facility] [address], [address] [place] [address], [facility] * Blood Culture Peripheral blood (BC) Hand, Right (07/12/2024 6:51 PM CDT) Culture No Growth 07/17/2024 11:31 PM CDT [facility] Peripheral blood (BC) STRUCTURE OF RIGHT HAND / Unknown Venipuncture / Unknown 07/12/2024 6:51 PM CDT 07/12/2024 7:28 PM CDT Narrative [facility] - 07/17/2024 11:31 PM CDT Only an Aerobic Blood Culture Bottle was collected, interpret results with caution. us Chaitanya Nuñez PA-C LAB - MICRO GENERAL ORDER PEYMAN Final Result [facility] Inf. Diseases Diag. Lab [address] [facility], [address] * Blood Culture Peripheral blood (BC) Hand, Left (07/12/2024 6:48 PM CDT) Culture No Growth 07/17/2024 11:31 PM CDT [facility] Peripheral blood (BC) STRUCTURE OF LEFT HAND / Unknown Venipuncture / Unknown 07/12/2024 6:48 PM CDT 07/12/2024 7:28 PM CDT Narrative [facility] - 07/17/2024 11:31 PM CDT Only an Aerobic Blood Culture Bottle was collected, interpret results with caution. us Chaitanya Nuñez PA-C LAB - MICRO GENERAL ORDER PEYMAN Final Result [facility] Inf. Diseases Diag. Lab [address] [facility], [address] [phone] * XR Chest Port 1 View (07/12/2024 6:16 PM CDT) Anatomical Region Laterality Modality Chest Digital Radiogra phy 07/12/2024 6:16 PM CDT Impressions 07/12/2024 6:45 PM CDT IMPRESSION: Right IJ central catheter with the tip located in the upper right atrium. Trace left pleural effusion and left basilar opacities which likely reflect atelectasis. The right lung is grossly clear. Upper normal heart size. No vascular congestion or overt pulmonary edema. Narrative 07/12/2024 6:45 PM CDT EXAM: XR CHEST PORT 1 VIEW LOCATION: [facility] DATE: 07/12/2024 INDICATION: Sepsis, hypotension, tachycardia, hypoxia COMPARISON: CT 09/30/2023 Procedure Note Leon Olivas MD - 07/12/2024 EXAM: XR CHEST PORT 1 VIEW LOCATION: [facility] DATE: 07/12/2024 INDICATION: Sepsis, hypotension, tachycardia, hypoxia COMPARISON: CT 09/30/2023 IMPRESSION: Right IJ central catheter with the tip located in the upperright atrium. Trace left pleural effusion and left basilar opacities whichlikely reflect atelectasis. The right lung is grossly clear. Upper normalheart size. No vascular congestion or overt pulmonary edema. Chaitanya Nuñez PA-C [facility]NOST[facility] IM[facility] OR DERABLES Final Result * (ABNORMAL) CBC with platelets and differential (07/12/2024 6:04 PM CDT) WBC Count 11.5(H) 4.0 - 11.0 10e3/uL 07/12/2024 6:18 PM CDT LABORATORY RBC Count 2.81(L) 3.80 - 5.20 10e6/uL 07/12/2024 6:18 PM CDT LABORATORY Hemoglobin 8.9(L) 11.7 - 15.7 g/dL 07/12/2024 6:18 PM CDT LABORATORY Hematocrit 26.7(L) 35.0 - 47.0 % 07/12/2024 6:18 PM CDT LABORATORY MCV 95 78 - 100 fL 07/12/2024 6:18 PM CDT LABORATORY MCH 31.7 26.5 - 33.0 pg 07/12/2024 6:18 PM CDT LABORATORY MCHC 33.3 31.5 - 36.5 g/dL 07/12/2024 6:18 PM CDT LABORATORY RDW 18.6(H) 10.0 - 15.0 % 07/12/2024 6:18 PM CDT LABORATORY Platelet Count 277 150 - 450 10e3/uL 07/12/2024 6:18 PM CDT LABORATORY % Neutrophils 71 % 07/12/2024 6:18 PM CDT LABORATORY % Lymphocytes 24 % 07/12/2024 6:18 PM CDT LABORATORY % Monocytes 4 % 07/12/2024 6:18 PM CDT LABORATORY % Eosinophils 0 % 07/12/2024 6:18 PM CDT LABORATORY % Basophils 0 % 07/12/2024 6:18 PM CDT LABORATORY % Immature Granulocytes 1 % 07/12/2024 6:18 PM CDT LABORATORY NRBCs per 100 WBC 0 <1 /100 025 6:18 PM CDT LABORATORY Absolute Neutrophils 8.2 1.6 - 8.3 10e3/uL 07/12/2024 6:18 PM CDT LABORATORY Absolute Lymphocytes 2.8 0.8 - 5.3 10e3/uL 07/12/2024 6:18 PM CDT LABORATORY Absolute Monocytes 0.5 0.0 - 1.3 10e3/uL 07/12/2024 6:18 PM CDT LABORATORY Absolute Eosinophils 0.0 0.0 - 0.7 10e3/uL 07/12/2024 6:18 PM CDT LABORATORY Absolute Basophils 0.0 0.0 - 0.2 10e3/uL 07/12/2024 6:18 PM CDT LABORATORY Absolute Immature Granulocytes 0.1 <=0.4 10e3/uL 07/12/2024 6:18 PM CDT LABORATORY Absolute NRBCs 0.0 10e3/uL 07/12/2024 6:18 PM CDT LABORATORY Blood VENOUS LINE / Unknown Venipuncture / Unknown 07/12/2024 6:04 PM CDT 07/12/2024 6:13 PM CDT us Chaitanya Nuñez PA-C LAB - BLOOD ORDERABLES Fi nal Result LABORATORY [facility] [address], [address] [place] [address], [facility] [phone] * (ABNORMAL) Basic metabolic panel (07/12/2024 6:04 PM CDT) Sodium 137 135 - 145 mmol/L 07/12/2024 6:43 PM CDT LABORATORY Potassium 3.6 3.4 - 5.3 mmol/L 07/12/2024 6:43 PM CDT LABORATORY Chloride 104 98 - 107 mmol/L 07/12/2024 6:43 PM CDT LABORATORY Carbon Dioxide (CO2) 24 22 - 29 mmol/L 07/12/2024 6:43 PM CDT LABORATORY Anion Gap 9 7 - 15 mmol/L 07/12/2024 6:43 PM CDT LABORATORY Urea Nitrogen 18.4 8.0 - 23.0 mg/dL 07/12/2024 6:43 PM CDT LABORATORY Creatinine 1.50(H) 0.51 - 0.95 mg/dL 07/12/2024 6:43 PM CDT LABORATORY GFR Estimate 37(L) >60 mL/min/1.7 3m2 07/12/2024 6:43 PM CDT LABORATORY Comment:eGFR calculated 2020 CKD-EPI equation. Calcium 7.1(L) 8.8 - 10.4 mg/dL 07/12/2024 6:43 PM CDT LABORATORY Glucose 112(H) 70 - 99 mg/dL 07/12/2024 6:43 PM CDT LABORATORY Blood VENOUS LINE / Unknown Venipuncture / Unknown 07/12/2024 6:04 PM CDT 07/12/2024 6:13 PM CDT us Chaitanya Nuñez PA-C LAB - BLOOD ORDERABLES Fi nal Result LABORATORY [facility] [address], [address] [place] [address], [facility] [phone] * (ABNORMAL) Blood gas venous (07/12/2024 6:04 PM CDT) pH Venous 7.34 7.32 - 7.43 07/12/2024 6:15 PM CDT LABORATORY pCO2 Venous 47 40 - 50 mm Hg 07/12/2024 6:15 PM CDT LABORATORY pO2 Venous 38 25 - 47 mm Hg 07/12/2024 6:15 PM CDT LABORATORY Bicarbonate Venous 25 21 - 28 mmol/L 07/12/2024 6:15 PM CDT LABORATORY Base Excess/Deficit Venous -0.7 -3.0 - 3.0 mmol/L 07/12/2024 6:15 PM CDT LABORATORY FIO2 24 FAITH 07/12/2024 6:15 PM CDT LABORATORY Oxyhemoglobin Venous 69(L) 70 - 75 % 07/12/2024 6:15 PM CDT LABORATORY O2 Sat, Venous 70.2 70.0 - 75.0 % 07/12/2024 6:15 PM CDT LABORATORY Blood, venous VENOUS LINE / Unknown Venipuncture / Unknown 07/12/2024 6:04 PM CDT 07/12/2024 6:13 PM CDT Narrative LABORATORY - 07/12/2024 6:15 PM CDT In healthy individuals, oxyhemoglobin (O2Hb) and oxygen saturation (SO2) are approximately equal. In the presence of dyshemoglobins, oxyhemoglobin can be considerably lower than oxygen saturation. Chaitanya Nuñez PA-C LAB - BLOOD ORDERABLES Fi nal Result LABORATORY [facility] [address], [address] [place] [address], [facility] [phone] * (ABNORMAL) Lactic acid whole blood (07/12/2024 6:04 PM CDT) Lactic Acid 0.6(L) 0.7 - 2.0 mmol/L 07/12/2024 6:22 PM CDT LABORATORY Blood VENOUS LINE / Unknown Venipuncture / Unknown 07/12/2024 6:04 PM CDT 07/12/2024 6:13 PM CDT Chaitanya Nuñez PA-C LAB - BLOOD ORDERABLES Fi nal Result LABORATORY [facility] [address], [address] [place] [address], [facility] [phone] * (ABNORMAL) Magnesium (07/12/2024 6:04 PM CDT) Magnesium 2.6(H) 1.7 - 2.3 mg/dL 07/12/2024 6:43 PM CDT LABORATORY Blood VENOUS LINE / Unknown Venipuncture / Unknown 07/12/2024 6:04 PM CDT 07/12/2024 6:13 PM CDT Alyse Duenas MD LAB - BLOOD ORDERABLES Final Re sult Performing Organization Address City/[facility]/ZIP Co de Phone Number LABORATORY [facility] [address], [address] [address], [facility] [phone] * (ABNORMAL) Glucose by meter (07/12/2024 5:00 PM CDT) GLUCOSE BY METER POCT 105(H) 70 - 99 mg/dL 07/12/2024 5:07 PM CDT LABORATORY POC Blood, Capillary BLOOD SPECIMEN / Unknown 07/12/2024 5:00 PM CDT 07/12/2024 5:07 PM CDT Alyse Duenas MD LAB - BEAKER POCT Final Result LABORATORY POC [facility] [address], [address] [place] [address], [facility] * Glucose by meter (07/12/2024 2:16 PM CDT) GLUCOSE BY METER POCT 95 70 - 99 mg/dL 07/12/2024 2:22 PM CDT LABORATORY POC Blood, Capillary BLOOD SPECIMEN / Unknown 07/12/2024 2:16 PM CDT 07/12/2024 2:22 PM CDT us Alyse Duenas MD LAB - BEAKER POCT Final Result LABORATORY POC [facility] [address], [address] [address], [facility] * Glucose by meter (07/12/2024 12:01 PM CDT) GLUCOSE BY METER POCT 96 70 - 99 mg/dL 07/12/2024 12:08 PM CDT LABORATORY POC Blood, Capillary BLOOD SPECIMEN / Unknown 07/12/2024 12:01 PM CDT 07/12/2024 12:08 PM CDT us Alyse Duenas MD LAB - BEAKER POCT Final Result Performing Organization Address City/[facility]/ZIP Co de Phone Number LABORATORY [facility] [address], [address] [address], [facility] * Hemoglobin A1c (07/12/2024 11:52 AM CDT) Estimated Average Glucose 88 <117 mg/dL 07/12/2024 1:47 PM CDT LABORATORY Hemoglobin A1C 4.7 <5.7 % 07/12/2024 1:47 PM CDT LABORATORY Comment: Normal <5.7% Prediabetes 5.7-6.4% Diabetes 6.5% or higher Note: Adopted from ADA consensus guidelines. Blood VENOUS LINE / Unknown VAD(CVC, PICC) / Unknown 07/12/2024 11:52 AM CDT 07/12/2024 12:17 PM CDT us Alyse Duenas MD LAB - BLOOD ORDERABLES Final Re sult LABORATORY [facility] [address], [address] [address], [facility] [phone] * (ABNORMAL) Blood gas venous (07/12/2024 11:52 AM CDT) pH Venous 7.37 7.32 - 7.43 07/12/2024 12:18 PM CDT LABORATORY pCO2 Venous 44 40 - 50 mm Hg 07/12/2024 12:18 PM CDT LABORATORY pO2 Venous 45 25 - 47 mm Hg 07/12/2024 12:18 PM CDT LABORATORY Bicarbonate Venous 25 21 - 28 mmol/L 07/12/2024 12:18 PM CDT LABORATORY Base Excess/Deficit Venous -0.5 -3.0 - 3.0 mmol/L 07/12/2024 12:18 PM CDT LABORATORY FIO2 22 FAITH 07/12/2024 12:18 PM CDT LABORATORY Comment:2L NC Oxyhemoglobin Venous 80(H) 70 - 75 % 07/12/2024 12:18 PM CDT LABORATORY O2 Sat, Venous 81.0(H) 70.0 - 75.0 % 07/12/2024 12:18 PM CDT LABORATORY Blood, venous VENOUS LINE / Unknown VAD(CVC, PICC) / Unknown 07/12/2024 11:52 AM CDT 07/12/2024 12:17 PM CDT Narrative LABORATORY - 07/12/2024 12:18 PM CDT In healthy individuals, oxyhemoglobin (O2Hb) and oxygen saturation (SO2) are approximately equal. In the presence of dyshemoglobins, oxyhemoglobin can be considerably lower than oxygen saturation. us Alyse Duenas MD LAB - BLOOD ORDERABLES Final Re sult LABORATORY [facility] [address], [address] [place] [address], [place] [phone] * (ABNORMAL) Glucose by meter (07/12/2024 11:09 AM CDT) GLUCOSE BY METER POCT 124(H) 70 - 99 mg/dL 07/12/2024 11:16 AM CDT LABORATORY POC Blood, Capillary BLOOD SPECIMEN / Unknown 07/12/2024 11:09 AM CDT 07/12/2024 11:16 AM CDT us Alyse Duenas MD LAB - BEAKER POCT Final Result LABORATORY [facility] [address] 1[address] floor, [address] [place] [address], [facility] * (ABNORMAL) Glucose by meter (07/12/2024 10:09 AM CDT) GLUCOSE BY METER POCT 58(L) 70 - 99 mg/dL 07/12/2024 10:16 AM CDT LABORATORY POC Comment:Dr/RN Notified Blood, Capillary BLOOD SPECIMEN / Unknown 07/12/2024 10:09 AM CDT 07/12/2024 10:16 AM CDT us Alyse Duenas MD LAB - BEMCKENZIE POCT Final Result Performing Organization Address City/[facility]/ZIP Co de Phone Number LABORATORY [facility] [address], [address] [place] [address], [place] * Glucose by meter (07/12/2024 7:39 AM CDT) GLUCOSE BY METER POCT 80 70 - 99 mg/dL 07/12/2024 7:45 AM CDT LABORATORY POC Blood, Capillary BLOOD SPECIMEN / Unknown 07/12/2024 7:39 AM CDT 07/12/2024 7:45 AM CDT us Alyse Duenas MD LAB - BEMCKENZIE POCT Final Result LABORATORY [facility] [address] 1[address], [address] [place] [address] * (ABNORMAL) Magnesium (07/12/2024 5:43 AM CDT) Magnesium 1.4(L) 1.7 - 2.3 mg/dL 07/12/2024 6:37 AM CDT LABORATORY Blood CATHETER / Unknown VAD(CVC, PICC ) / Unknown 07/12/2024 5:43 AM CDT 07/12/2024 6:12 AM CDT Loan Aguilar MD LAB - BLOOD ORDERABLES Final Result LABORATORY [facility] [address] 1st floor, [address] [address] [phone] * (ABNORMAL) Comprehensive metabolic panel (07/12/2024 5:43 AM CDT) Sodium 136 135 - 145 mmol/L 07/12/2024 6:37 AM CDT LABORATORY Potassium 4.1 3.4 - 5.3 mmol/L 07/12/2024 6:37 AM CDT LABORATORY Carbon Dioxide (CO2) 24 22 - 29 mmol/L 07/12/2024 6:37 AM CDT LABORATORY Anion Gap 11 7 - 15 mmol/L 07/12/2024 6:37 AM CDT LABORATORY Urea Nitrogen 19.2 8.0 - 23.0 mg/dL 07/12/2024 6:37 AM CDT LABORATORY Creatinine 1.63(H) 0.51 - 0.95 mg/dL 07/12/2024 6:37 AM CDT LABORATORY GFR Estimate 34(L) >60 mL/min/1.7 3m2 07/12/2024 6:37 AM CDT LABORATORY Comment:eGFR calculated usin g 2020 CKD-EPI equation. Calcium 7.3(L) 8.8 - 10.4 mg/dL 07/12/2024 6:37 AM CDT LABORATORY Chloride 101 98 - 107 mmol/L 07/12/2024 6:37 AM CDT LABORATORY Glucose 69(L) 70 - 99 mg/dL 07/12/2024 6:37 AM CDT LABORATORY Alkaline Phosphatase 212(H) 40 - 150 U/L 07/12/2024 6:37 AM CDT LABORATORY AST 57(H) 0 - 45 U/L 07/12/2024 6:37 AM CDT LABORATORY ALT 33 0 - 50 U/L 07/12/2024 6:37 AM CDT LABORATORY Protein Total 5.1(L) 6.4 - 8.3 g/dL 07/12/2024 6:37 AM CDT LABORATORY Albumin 2.3(L) 3.5 - 5.2 g/dL 07/12/2024 6:37 AM CDT LABORATORY Bilirubin Total 0.2 <=1.2 mg/dL 07/12/2024 6:37 AM CDT LABORATORY Blood CATHETER / Unknown VAD(CVC, PICC ) / Unknown 07/12/2024 5:43 AM CDT 07/12/2024 6:12 AM CDT us Loan Aguilar MD LAB - BLOOD ORDERABLES Final Result LABORATORY [facility] [address] 1[address] floor, [address] [place] [address], [facility] [phone] * (ABNORMAL) CBC with platelets (07/12/2024 5:43 AM CDT) Pathologist [facility] WBC Count 14.4(H) 4.0 - 11.0 10e3/uL 07/12/2024 6:15 AM CDT LABORATORY RBC Count 3.06(L) 3.80 - 5.20 10e6/uL 07/12/2024 6:15 AM CDT LABORATORY Hemoglobin 9.6(L) 11.7 - 15.7 g/dL 07/12/2024 6:15 AM CDT LABORATORY Hematocrit 29.8(L) 35.0 - 47.0 % 07/12/2024 6:15 AM CDT LABORATORY MCV 97 78 - 100 fL 07/12/2024 6:15 AM CDT LABORATORY MCH 31.4 26.5 - 33.0 pg 07/12/2024 6:15 AM CDT LABORATORY MCHC 32.2 31.5 - 36.5 g/dL 07/12/2024 6:15 AM CDT LABORATORY RDW 18.6(H) 10.0 - 15.0 % 07/12/2024 6:15 AM CDT LABORATORY Platelet Count 311 150 - 450 10e3/uL 07/12/2024 6:15 AM CDT LABORATORY Blood CATHETER / Unknown VAD(CVC, PICC ) / Unknown 07/12/2024 5:43 AM CDT 07/12/2024 6:12 AM CDT us Loan Aguilar MD LAB - BLOOD ORDERABLES Final Result LABORATORY [facility] [address], [address] [place] [address], [facility] [phone] * Urine Culture (07/12/2024 2:49 AM CDT) Culture >100,000 CFU/mL Mixture of urogenital brenden 07/13/2024 7:46 AM CDT [facility] Urine UROLOGICAL STOMA / Unknown Non-blood Collection / Unknown 07/12/2024 2:49 AM CDT 07/12/2024 4:54 AM CDT Narrative [facility]AT[facility] - 07/13/2024 7:46 AM CDT Multiple morphotypes present with no predominant organism. Growth consistent with probable contamination during collection. Suggest repeat specimen if clinically indicated. us Loan Aguilar MD LAB - MICRO GENERAL OR DERABLES Final Result [facility]ORATORY [facility] Inf. Diseases Di[facility]. Lab [address] [facility], [address] [place] [address], [facility] * Legionella Urinary Antigen and Streptococcus pneumoniae antigen (07/12/2024 2:49 AM CDT) Legionella pneumophila serogroup 1 urinary antigen Negative Negative FAITH 07/12/2024 11:32 AM CDT [facility] Comment:A negative result do es not exclude the possibility of a Legionella infection, as it can be caused by other serogroups and species of Legionella. Streptococcus pneumoniae antigen Negative Negative FAITH 07/12/2024 11:32 AM CDT [facility] Comment:A negative result do es not exclude a Streptococcus pneumoniae infection. Legionella pneumophila Urinary/Strep pneumoniae Antigen Specimen Type Urine 07/12/2024 11:32 AM CDT [facility] Urine UROLOGICAL STOMA / Unknown Non-blood Collection / Unknown 07/12/2024 2:49 AM CDT 07/12/2024 4:32 AM CDT [facility] LABORATORY - 07/12/2024 11:32 AM CDT The result of this test as well as culture, serology, or other antigen detection methods should be used in conjunction with clinical findings to make an accurate diagnosis. Loan Aguilar MD LAB - MICRO GENERAL OR DERABLES Final Result [facility] LABORATORY [facility] Inf. Diseases Diag. Lab [address] [facility], [address] [place] [phone] * (ABNORMAL) UA Macroscopic with reflex to Microscopic and Culture (07/12/2024 2:49 AM CDT) Color Urine [place](A) Colorless, Straw, Light Yellow, Yellow 07/12/2024 4:54 AM CDT LABORATORY Appearance Urine Cloudy(A) Clear 07/13/19 4:54 AM CDT LABORATORY Glucose Urine Negative Negative mg/dL 07/12/2024 4:54 AM CDT LABORATORY Bilirubin Urine Negative Negative 4:54 AM CDT LABORATORY Ketones Urine Negative Negative mg/dL 07/12/2024 4:54 AM CDT LABORATORY Specific [place] Urine 1.010 1.003 - 1.035 FAITH 07/12/2024 4:54 AM CDT LABORATORY Blood Urine Small(A) Negative 07/12/2024 4:54 AM CDT LABORATORY pH Urine 5.5 5.0 - 7.0 07/12/2024 4:54 AM CDT LABORATORY Protein Albumin Urine 20(A) Negative mg/dL 07/12/2024 4:54 AM CDT LABORATORY Urobilinogen Urine Normal Normal mg/dL 07/12/2024 4:54 AM CDT LABORATORY Nitrite Urine Positive(A) Negative 07/12/2024 4:54 AM CDT LABORATORY Leukocyte Esterase Urine Large(A) Negative 07/12/2024 4:54 AM CDT LABORATORY WBC Clumps Urine Present(A) None Seen /HPF 07/12/2024 4:54 AM CDT LABORATORY RBC Urine 23(H) <=2 /HPF 07/12/2024 4:54 AM CDT LABORATORY WBC Urine >182(H) <=5 /HPF 07/12/2024 4:54 AM CDT LABORATORY Hyaline Casts Urine 15(H) <=2 /LPF 07/12/2024 4:54 AM CDT LABORATORY Urine UROLOGICAL STOMA / Unknown Non-blood Collection / Unknown 07/12/2024 2:49 AM CDT 07/12/2024 4:32 AM CDT Narrative LABORATORY - 07/12/2024 4:54 AM CDT Urine Culture ordered based on laboratory criteria us Loan Aguilar MD LAB - URINE ORDERABLES Final Result LABORATORY [facility] [address] 1st floor, [address] [place] [address], [facility] [phone] * Lactic Acid Whole Blood w/ 1x repeat in 2 hrs when >2 (07/12/2024 2:48 AM CDT) Lactic Acid, Initial 1.1 0.7 - 2.0 mmol/L 07/12/2024 3:12 AM CDT LABORATORY Blood CATHETER / Unknown VAD(CVC, PICC ) / Unknown 07/12/2024 2:48 AM CDT 07/12/2024 3:10 AM CDT us Kong John MD LAB - BLOOD ORDERABLES F inal Result LABORATORY [facility] [address], [address] [place] [address], [facility] [phone] * EKG 12-lead, tracing only (07/12/2024 2:21 AM CDT) Systolic Blood Pressure mmHg RADIOLOGY RESULTS Diastolic Blood Pressure mmHg RADIOLOGY RESULTS Ventricular Rate 109 BPM RAD IOLOGY RESULTS Atrial Rate 109 BPM RADIOLOG Y RESULTS IL Interval 154 ms RADIOLOG Y RESULTS QRS Duration 100 ms RADIOLO GY RESULTS QT 362 ms RADIOLOGY RESULTS QTc 487 ms RADIOLOGY RESULTS P [place] 72 degrees RADIOLOGY RESULTS R AXIS -9 degrees RADIOLOGY RESULTS T [place] 3 degrees RADIOLOGY RESULTS Interpretation ECG Limited quality tracing Sinus tachycardia Low voltage QRS Incomplete right bundle branch block Nonspecific T wave abnormality Abnormal ECG No previous ECGs available Confirmed by MD FELICITY, KATHRIN ([id number]) on 07/14/2024 7:19:27 AM RADIOLOGY RESULTS 07/12/2024 2:21 AM CDT 07/14/2024 7:19 AM CDT us Loan Aguilar MD ECG ORDERABLES Edited Result - Final RADIOLOGY RESULTS * Glucose by meter (07/12/2024 1:00 AM CDT) GLUCOSE BY METER POCT 94 70 - 99 mg/dL 07/12/2024 1:07 AM CDT LABORATORY POC Blood, Capillary BLOOD SPECIMEN / Unknown 07/12/2024 1:00 AM CDT 07/12/2024 1:07 AM CDT us Kong John MD LAB - BEAKER POCT Final Result LABORATORY POC [facility] [address], [address] [place] [address], [facility] documented in this encounter Visit Diagnoses Diagnosis Pneumonia of right lung due to infectious organism, unspecified part of lung- Primary Sepsis (H) documented in this encounter Admitting Diagnoses Diagnosis Sepsis (H) documented in this encounter Administered Medications Inactive Administered Medications - up to 3 most recent administrations Medication Order MAR Action Action Date Dose Rate Site acetaminophen (TYLENOL) Suppository 650 mg 650 mg, Rectal, EVERY 4 HOURS PRN, mild pain, other, and adjunct with moderate or severe pain or per patient request, Starting on 07/12/24 at 0152, Alternate with ibuprofen if ordered. Maximum acetaminophen dose from all sources = 75 mg/kg/day not to exceed 4 grams/day. acetaminophen (TYLENOL) tablet 650 mg 650 mg, Oral, EVERY 4 HOURS PRN, mild pain, other, and adjunct with moderate or severe pain or per patient request, Starting on 07/12/24 at 0152, Alternate with ibuprofen if ordered. Maximum acetaminophen dose from all sources = 75 mg/kg/day not to exceed 4 grams/day. $Given 07/15/2024 11:58 AM CDT 650 mg $Given 07/14/2024 12:14 PM CDT 650 mg albumin human 5 % injection 25 g 25 g, Intravenous, ONCE, On 07/13/24 at 0500, For 1 dose, Infusion rates should be adjusted based on patient condition and response. - For shock/hypovolemia, infuse as rapidly as tolerated. For patients with cardiac or circulatory disease at risk for rapid blood pressure increases, do not exceed 5-10 mL/min. - For patients with normal plasma volume, do not exceed 1-2 mL/min to avoid circulatory overload and pulmonary edema. - For procedure specific rates, please refer to procedure protocol., Reason for Use: Persistent hypotension despite adequate fluid resuscitation $New Bag 07/13/2024 5:21 AM CDT 25 g aspirin EC tablet 81 mg 81 mg, Oral, DAILY, First dose on 07/13/24 at 1500 $Given 07/17/2024 7:47 AM CDT 81 mg $Given 07/16/2024 10:29 AM CDT 81 mg $Given 07/15/2024 8:37 AM CDT 81 mg azithromycin (ZITHROMAX) 500 mg vial to attach to NS 250 mL bag STAT, 500 mg, Intravenous, EVERY 24 HOURS, First dose on 07/12/24 at 0200, For 1 dose, FIRST DOSE STAT., Indications: Community Acquired PneumoniaIndications:Community Acquired Pneumonia $New Bag 07/12/2024 2:39 AM CDT 500 mg azithromycin (ZITHROMAX) 500 mg vial to attach to NS 250 mL bag STAT, 500 mg, Intravenous, EVERY 24 HOURS, First dose on 07/13/24 at 1100, For 1 dose, Indications: Community Acquired PneumoniaIndications:Community Acquired Pneumonia $New Bag 07/13/2024 12:32 PM CDT 500 mg 250 mL/hr calcium carbonate (TUMS) chewable tablet 1,000 mg 1,000 mg, Oral, 4 TIMES DAILY PRN, heartburn, Starting on 07/12/24 at 0150 calcium gluconate 2 g in NS 100 mL intermittent infusion 2 g, Intravenous, Administer over 60 Minutes, ONCE, On Michael 07/13/24 at 0600, For 1 dose, Do not infuse in the same IV line as phosphate-containing solutions. $Given 07/13/2024 9:48 AM CDT 2 g ceFEPIme (MAXIPIME) 2 g vial to attach to NS 100 mL bag for ADULTS or NS 50 mL bag for PEDS Routine, 2 g, Intravenous, EVERY 12 HOURS, First dose on 07/13/24 at 1100, Indications: Sepsis, Urinary Tract Infection, PNA, UTIIndications:Sepsis,Urinary Tract Infection,PNA, UTI $New Bag 07/17/2024 10:48 AM CDT 2 g $New Bag 07/16/2024 10:00 PM CDT 2 g $New Bag 07/16/2024 10:29 AM CDT 2 g cefTRIAXone (ROCEPHIN) 2 g vial to attach to NS 100 ml bag for ADULTS or NS 50 ml bag for PEDS STAT, 2 g, Intravenous, EVERY 24 HOURS, First dose on 07/12/24 at 0300, For 7 days, First dose STAT and to be started in the unit ordered (ED) PRIOR to transfer or admission. Lactated Ringer's solution is not compatible with ceftriaxone for injection, Indications: Community Acquired PneumoniaIndications:Community Acquired Pneumonia $New Bag 07/12/2024 4:06 AM CDT 2 g dextrose 5% and 0.9% NaCl infusion at 100 mL/hr, Intravenous, CONTINUOUS, Starting on 07/12/24 at 1100, Until Sun07/14/24 at 1059 $New Bag 07/14/2024 8:36 AM CDT 100 mL/hr Restarted 07/13/2024 10:00 PM CDT 100 mL/hr $New Bag 07/13/2024 8:58 PM CDT 100 mL/hr dextrose 5% and 0.9% NaCl infusion at 100 mL/hr, Intravenous, CONTINUOUS, Starting on Sun07/14/24 at 1130, Until Sun07/14/24 at 1816 Rate/Dose Change 07/14/2024 5:49 PM CDT 100 mL/hr Rate/Dose Change 07/14/2024 12:14 PM CDT 50 mL/ hr dextrose 50 % injection 25-50 mL 25-50 mL, Intravenous, EVERY 15 MIN PRN, low blood sugar, Administer over 1-5 Minutes, Starting on 07/12/24 at 1014, Use if have IV access, BG less than 70 mg/dL and meet dose criteria below: Dose if conscious and alert (or disorientated) and NPO = 25 mL Dose if unconscious / not alert = 50 mL Give first dose for initial blood glucose less than 70 mg/dL. If blood glucose at 15 minute recheck is less than or equal to 80 mg/dL continue to administer carbohydrate treatment every 15 minutes, as needed, based on blood glucose and assessment parameters until blood glucose level is above 80 mg/dL x 2 consecutive 15 minute checks. $Given 07/12/2024 10:40 AM CDT 25 mLs famotidine (PEPCID) tablet 20 mg 20 mg, Oral, AT BEDTIME, First dose on Sun07/13/24 at 2200, Dose adjusted per renal dosing policy. Estimated CrCl = < 60 mL/min. $Given 07/16/2024 9:57 PM CDT 20 mg $Given 07/15/2024 9:17 PM CDT 20 mg $Given 07/14/2024 9:31 PM CDT 20 mg fluconazole (DIFLUCAN) tablet 200 mg Routine, 200 mg, Oral, DAILY, First dose on Sun07/13/24 at 1800, Indications: CandidiasisIndications:Candidiasis $Given 07/15/2024 8:37 AM CDT 200 mg $Given 07/14/2024 8:37 AM CDT 200 mg $Given 07/13/2024 6:10 PM CDT 200 mg furosemide (LASIX) tablet 20 mg 20 mg, Oral, 2 TIMES DAILY, First dose (after last modification) on Sun07/15/24 at 1130, Hold if SBP <90, On hold since Sun07/16/2024 at 1030 until manually unheld $Given 07/15/2024 9:17 PM CDT 20 mg $Given 07/15/2024 11:28 AM CDT 20 mg gadobutrol (GADAVIST) injection 9 mL 9 mL, Intravenous, ONCE, On Pam 07/17/24 at 0200, For 1 dose, Supplied by, and administered by MRI. $Given 07/17/2024 1:37 AM CDT 9 mLs glucagon injection 1 mg 1 mg, Subcutaneous, EVERY 15 MIN PRN, low blood sugar, May repeat x 1 only, Starting on 07/12/24 at 1014, May give SQ or IM. ONLY use glucagon IF patient has NO IV access AND is UNABLE to swallow AND blood glucose is LESS than or EQUAL to 50 mg/dL. glucose gel 15-30 g 15-30 g, Oral, EVERY 15 MIN PRN, low blood sugar, Starting on 07/12/24 at 1014, Give first dose for initial blood glucose less than 70 mg/dL per the dosing instructions below. If blood glucose at 15 minute rechecks is still less than or equal to 80 mg/dL, continue to administer doses per blood glucose parameters every 15 minutes, as needed, until blood glucose level is at or above 80 mg/dL x 2 consecutive 15 minute checks. Dosing Instructions: ~If patient is conscious and able to swallow and NO enteral tube For initial BG 51-69mg/dL OR 15 minute recheck BG 51- 80 mg/dL - give 15 g For BG less than or equal to 50 mg/dL - give 30 g ~ If Enteral tube For initial BG 51-69mg/dL OR 15 minute recheck BG 51- 80 mg/dL - give apple juice 120 mL (4 oz or 15 g of CHO) via enteral tube For BG less than or equal to 50 mg/dL - Give apple juice 240 mL (8 oz or 30 g of CHO) via enteral tube ~Oral gel is preferable for conscious and able to swallow patient. ~IF gel unavailable or patient refuses may provide apple juice per Enteral tube dosing instructions. Document juice on I and O flowsheet. heparin ANTICOAGULANT injection 5,000 Units 5,000 Units, Subcutaneous, EVERY 8 HOURS, First dose on 07/13/24 at 1600, Contact provider if platelet count drops by 50% or more after heparin initiation OR if platelet count falls below 50 x 10e3/uL High concentration heparin. Not for line flush or cath care. $Given 07/17/2024 7:47 AM CDT 5,000 Units $Given 07/16/2024 11:11 PM CDT 5,000 Units $Given 07/16/2024 5:34 PM CDT 5,000 Units heparin lock flush 10 unit/mL injection 5-15 mL 5-15 mL, Intracatheter, EVERY 24 HOURS, First dose on 07/12/24 at 0200, To lock each CVC Open Ended (Tunneled and Non-Tunneled) dormant lumen. MAX dose: 5 mL for each lumen Check PRN heparin flush order to see when the last dose of the PRN heparin was given before administering this heparin dose. To lock the lumens: Flush with 10 mL sodium chloride 0.9% for each lumen to ensure patency and then flush each dormant lumen with 5 mL of heparin to lock the dormant line. $Given 07/15/2024 12:37 AM CDT 15 mLs $Given 07/14/2024 5:19 AM CDT 10 mLs $Given 07/13/2024 2:03 AM CDT 5 mLs heparin lock flush 10 unit/mL injection 5-15 mL 5-15 mL, Intracatheter, EVERY 1 HOUR PRN, other, to lock each CVC Open Ended (Tunneled and Non-Tunneled) dormant lumen, Starting on 07/12/24 at 0146, MAX dose: 5 mL for each lumen Check PRN heparin flush order to see when the last dose of the PRN heparin was given before administering this heparin dose. To lock the lumens: Flush with 10 mL sodium chloride 0.9% for each lumen to ensure patency and then flush each dormant lumen with 5 mL of heparin to lock the dormant line. $Given 07/17/2024 5:50 AM CDT 15 mLs $Given 07/16/2024 10:45 PM CDT 5 mLs $Given 07/15/2024 11:33 PM CDT 15 mLs iopamidol (ISOVUE-370) solution 72 mL 72 mL, Intravenous, ONCE, On 07/13/24 at 2130, For 1 dose $Given 07/13/2024 9:43 PM CDT 72 mLs lactated ringers BOLUS 500 mL Intravenous, 500 mL, ONCE PRN, at 500 mL/hr, Administer over 1 Hours, other, Prn SBP not > 100 after bolus, Starting on 07/12/24 at 1936, For 1 dose $New Bag 07/13/2024 3:11 AM CDT 500 mLs 500 mL/hr lactated ringers BOLUS 500 mL Intravenous, 500 mL, ONCE, at 500 mL/hr, Administer over 1 Hours, On 07/12/24 at 2000, For 1 dose $New Bag 07/12/2024 8:07 PM CDT 500 mLs 500 mL/hr lidocaine (LMX4) cream Topical, EVERY 1 HOUR PRN, pain, with VAD insertion, Starting on 07/12/24 at 0150, Apply at least 30 minutes prior to VAD insertion in divided doses as needed for size of site for insertion. MAX Dose: 2.5 g ( of 5 g tube) Do NOT give if patient has a history of allergy to any local anesthetic or any linda product. Do NOT use both lidocaine intradermal/subcutaneous injection and the lidocaine cream on the same site. lidocaine 1 % 0.1-1 mL 0.1-1 mL, Other, EVERY 1 HOUR PRN, mild pain with VAD insertion, Starting on 07/12/24 at 0150, MAX dose 1 mL subcutaneous OR intradermal along the side of the vein in divided doses as needed for VAD insertion. Do NOT give if patient has a history of allergy to any local anesthetic or any linda product. Do NOT use both lidocaine intradermal/subcutaneous injection and the lidocaine cream on the same site. LORazepam (ATIVAN) injection 1 mg 1 mg, Intravenous, ONCE PRN, other, before MRI, Starting on 07/16/24 at 2253, For 1 dose, Please give 20 minutes before MRI IV Route: Dilute with equal volume NS prior to use. This drug may cause significant respiratory depression. Monitor respiratory status and vital signs carefully for 1 hour after each dose. $Given 07/17/2024 12:32 AM CDT 1 mg magnesium sulfate 4 g in 100 mL sterile water intermittent infusion 4 g, Intravenous, Administer over 120 Minutes, at 50 mL/hr, ONCE, On 07/12/24 at 1400, For 1 dose, Magnesium level 1.1-1.5 mg/dL. Administer 4 gm magnesium IV x 1 dose and recheck magnesium level 2-4 hours AFTER the last dose is infused. Ordered from the Magnesium replacement order set. $New Bag 07/12/2024 2:10 PM CDT 4 g 50 mL/hr melatonin tablet 1 mg 1 mg, Oral, AT BEDTIME PRN, sleep, Starting on 07/12/24 at 0152, Do not give unless at least 6 hours of uninterrupted sleep is expected. If patient has multiple medications ordered PRN sleep/insomnia, offer melatonin first. miconazole (MICATIN) 2 % powder Topical, 2 TIMES DAILY, First dose on 07/12/24 at 0900, Apply to breast $Given 07/17/2024 7:48 AM CDT $Given 07/16/2024 9:48 PM CDT $Given 07/16/2024 10:29 AM CDT naloxone (NARCAN) injection 0.2 mg 0.2 mg, Intravenous, EVERY 2 MIN PRN, opioid reversal, Starting on Sun07/15/24 at 0829, Administer intravenous route when available and notify provider when administered. For unintended sedation or respiratory depression if all of the below criteria are met: ~ respiratory rate LESS than or EQUAL to 8. ~SaO2 less than 92% and or/end-tidal CO2 is greater than 50. ~ the patient is receiving an opioid, has unintended sedations assessed as RASS (-3), and is currently not on mechanical ventilation. RASS scale moderate (-3) is movement or eye opening to voice but no eye contact. Patient Monitoring Once the patient has demonstrated a response to the naloxone, continue to monitor respiratory rate, depth, oxygen saturation and end-tidal CO2 (if available) every 15 minutes x 2, then every 30 minutes x 2, then every 1 hour x 1 after each naloxone dose. Consider transfer to ICU if patient respiratory parameters have not improved after 4 naloxone doses. naloxone (NARCAN) injection 0.2 mg 0.2 mg, Intramuscular, EVERY 2 MIN PRN, opioid reversal, Starting on Sun07/15/24 at 0829, Administer intramuscular if an intravenous route is not available and notify provider when administered. For unintended sedation or respiratory depression if all of the below criteria are met: ~ respiratory rate LESS than or EQUAL to 8. ~SaO2 less than 92% and or/end-tidal CO2 is greater than 50. ~ the patient is receiving an opioid, has unintended sedations assessed as RASS (-3), and is currently not on mechanical ventilation. RASS scale moderate (-3) is movement or eye opening to voice but no eye contact. Patient Monitoring Once the patient has demonstrated a response to the naloxone, continue to monitor respiratory rate, depth, oxygen saturation and end-tidal CO2 (if available) every 15 minutes x 2, then every 30 minutes x 2, then every 1 hour x 1 after each naloxone dose. Consider transfer to ICU if patient respiratory parameters have not improved after 4 naloxone doses. naloxone (NARCAN) injection 0.4 mg 0.4 mg, Intravenous, EVERY 2 MIN PRN, opioid reversal, Starting on Sun07/15/24 at 08, Administer intravenous route when available and notify provider when administered. For unintended sedation or respiratory depression if all of the below criteria are met: ~ respiratory rate LESS than or EQUAL to 8. ~ SaO2 less than 92% and or/end-tidal CO2 is greater than 50. ~ the patient is receiving an opioid, has unintended sedation assessed as RASS (-4) or (-5) and patient is currently not on mechanical ventilation. RASS scale (-4) is deep sedation with no response to voice but movement or eye opening to physical stimulation. RASS scale (-5) is unarousable. Patient Monitoring Once the patient has demonstrated a response to the naloxone, continue to monitor respiratory rate, depth, oxygen saturation and end-tidal CO2 (if available) every 15 minutes x 2, then every 30 minutes x 2, then every 1 hour x 1 after each naloxone dose. Consider transfer to ICU if patient respiratory parameters have not improved after 4 naloxone doses. naloxone (NARCAN) injection 0.4 mg 0.4 mg, Intramuscular, EVERY 2 MIN PRN, opioid reversal, Starting on Sun07/15/24 at 0829, Administer intramuscular if an intravenous route is not available and notify provider when administered. For unintended sedation or respiratory depression if all of the below criteria are met: ~ respiratory rate LESS than or EQUAL to 8. ~ SaO2 less than 92% and or/end-tidal CO2 is greater than 50. ~ the patient is receiving an opioid, has unintended sedation assessed as RASS (-4) or (-5) and patient is currently not on mechanical ventilation. RASS scale (-4) is deep sedation with no response to voice but movement or eye opening to physical stimulation. RASS scale (-5) is unarousable. Patient Monitoring Once the patient has demonstrated a response to the naloxone, continue to monitor respiratory rate, depth, oxygen saturation and end-tidal CO2 (if available) every 15 minutes x 2, then every 30 minutes x 2, then every 1 hour x 1 after each naloxone dose. Consider transfer to ICU if patient respiratory parameters have not improved after 4 naloxone doses. nystatin (MYCOSTATIN) cream Topical, 2 TIMES DAILY, First dose on Michael 07/13/24 at 2100, Apply to the affected area $Given 07/17/2024 7:48 AM CDT $Given 07/16/2024 10:30 AM CDT $Given 07/15/2024 9:18 PM CDT OLANZapine zydis (zyPREXA) ODT tab 5 mg 5 mg, Oral, ONCE, On 07/12/24 at 0600, For 1 dose, Combined IM and PO doses may significantly increase the risk of orthostatic hypotension at 30 mg per day or higher. With dry hands, peel back foil backing and gently remove tablet. Do not push oral disintegrating tablet through foil backing. Administer immediately on tongue and oral disintegrating tablet dissolves in seconds, then swallow with saliva. Liquid not required. $Given 07/12/2024 5:40 AM CDT 5 mg oxyBUTYnin ER (DITROPAN XL) 24 hr tablet 10 mg 10 mg, Oral, DAILY, First dose on Michael 07/13/24 at 1500, DO NOT CRUSH. $Given 07/17/2024 7:47 AM CDT 10 mg $Given 07/16/2024 10:29 AM CDT 10 mg $Given 07/15/2024 8:37 AM CDT 10 mg piperacillin-tazobactam (ZOSYN) 3.375 g vial to attach to NS 100 mL bag Routine, 3.375 g, Intravenous, EVERY 6 HOURS, First dose on 07/12/24 at 2000, Lactated Ringer's solution is not compatible with piperacillin-tazobactam for injection., Indications: Community Acquired Pneumonia, Urinary Tract Infection, Sepsis w poss cath assoc UTI (present [employer]), Resp sourceIndications:Community Acquired Pneumonia,Urinary Tract Infection,Sepsis w poss cath assoc UTI (present [employer]), Resp source $New Bag 07/13/2024 7:54 AM CDT 3.375 g $New Bag 07/13/2024 2:02 AM CDT 3.375 g $New Bag 07/12/2024 8:01 PM CDT 3.375 g potassium chloride 20 mEq in 50 mL intermittent infusion 20 mEq, Intravenous, Administer over 1 Hours, at 50 mL/hr, EVERY HOUR, First dose on Sun07/13/24 at 0900, For 2 doses, Potassium level 3.1-3.4 mmol/L. Administer potassium chloride 20 mEq IV x 2 doses and recheck potassium level 1-2 hours hour AFTER after last IV dose INFUSE THROUGH CENTRAL LINE. $New Bag 07/13/2024 9:53 AM CDT 20 mEq 50 mL/hr $New Bag 07/13/2024 9:05 AM CDT 20 mEq 50 mL/hr potassium chloride eloy ER (KLOR-CON M20) CR tablet 20 mEq 20 mEq, Oral, 2 TIMES DAILY, First dose on Sun07/15/24 at 0900, DO NOT CRUSH, On hold since Sun07/16/2024 at 1059 until manually unheld $Given 07/16/2024 10:29 AM CDT 20 mEq $Given 07/15/2024 9:17 PM CDT 20 mEq $Given 07/15/2024 8:44 AM CDT 20 mEq prochlorperazine (COMPAZINE) injection 5 mg 5 mg, Intravenous, EVERY 6 HOURS PRN, nausea/vomiting - 2nd line, Administer over 1-2 Minutes, Starting on 07/12/24 at 0152, IF patient unable to tolerate oral medication. This is Step 2 of nausea and vomiting management. Give if nausea not resolved 15 minutes after giving ondansetron (ZOFRAN). prochlorperazine (COMPAZINE) tablet 5 mg 5 mg, Oral, EVERY 6 HOURS PRN, nausea/vomiting - 2nd line, Starting on 07/12/24 at 0152, This is Step 2 of nausea and vomiting management. Give if nausea not resolved 15 minutes after giving ondansetron (ZOFRAN). QUEtiapine (SEROquel) half-tab 12.5 mg 12.5 mg, Oral, 2 TIMES DAILY PRN, agitation, Starting on 07/13/24 at 1536 $Given 07/17/2024 12:04 P M CDT 12.5 mg QUEtiapine (SEROquel) tablet 25 mg 25 mg, Oral, 2 TIMES DAILY PRN, agitation, Starting on 07/12/24 at 0530 $Given 07/12/2024 9:31 PM CDT 25 mg senna-docusate (SENOKOT-S/PERICOLACE) 8.6-50 MG per tablet 1 tablet 1 tablet, Oral, 2 TIMES DAILY PRN, constipation, Starting on 07/12/24 at 0150, If no bowel movement in 24 hours, increase to 2 tablets by mouth. IF more than 1 constipation PRN medication is ordered, administer step-dominguez as indicated, moving to the next step ONLY if prior step ineffective. Step 1: senna-docusate (SENOKOT-S; PERICOLACE) OR bisacodyl (DULCOLAX) EC tablet Step 2: polyethylene glycol (MIRALAX/GLYCOLAX) Step 3: bisacodyl (DULCOLAX) suppository Step 4: enema Hold for loose stools. senna-docusate (SENOKOT-S/PERICOLACE) 8.6-50 MG per tablet 2 tablet 2 tablet, Oral, 2 TIMES DAILY PRN, constipation, Starting on 07/12/24 at 0150, IF more than 1 constipation PRN medication is ordered, administer step-dominguez as indicated, moving to the next step ONLY if prior step ineffective. Step 1: senna-docusate (SENOKOT-S; PERICOLACE) OR bisacodyl (DULCOLAX) EC tablet Step 2: polyethylene glycol (MIRALAX/GLYCOLAX) Step 3: bisacodyl (DULCOLAX) suppository Step 4: enema Hold for loose stools. sodium chloride (PF) 0.9% PF flush 10 mL 10 mL, Intravenous, ONCE, On Pam 07/17/24 at 0200, For 1 dose $Given 07/17/2024 1:37 AM CDT 10 mLs sodium chloride (PF) 0.9% PF flush 10-20 mL 10-20 mL, Intracatheter, EVERY 1 MIN PRN, line flush, Starting on 07/12/24 at 0146, Sodium chloride 0.9% 10 mL flush pre and post IV medications Sodium chloride 0.9% 20 mL flush pre and post blood draws or blood administration $Given 07/17/2024 12:33 AM CDT 10 mLs $Given 07/16/2024 5:23 AM CDT 10 mLs sodium chloride (PF) 0.9% PF flush 10-40 mL 10-40 mL, Intracatheter, EVERY 8 HOURS, First dose on 07/12/24 at 0200, Max dose: 10 mL for each lumen Administration instructions IF NOT DONE MORE FREQUENTLY $Given 07/17/2024 7:48 AM CDT 10 mLs $Given 07/16/2024 5:34 PM CDT 12 mLs $Given 07/16/2024 10:31 AM CDT 3 mLs sodium chloride (PF) 0.9% PF flush 3 mL 3 mL, Intracatheter, EVERY 8 HOURS SCHEDULED, First dose on 07/12/24 at 0600, to lock peripheral IV dormant line $Given 07/16/2024 9:59 PM CDT 3 mLs $Given 07/16/2024 4:01 PM CDT 3 mLs $Given 07/15/2024 9:18 PM CDT 3 mLs sodium chloride (PF) 0.9% PF flush 3 mL 3 mL, Intracatheter, EVERY 1 MIN PRN, line flush, other, to ensure patency or to lock dormant line, Starting on 07/12/24 at 0147 sodium chloride 0.9 % bag for CT scan flush Intravenous, 95 mL, ONCE, On 07/13/24 at 2130, For 1 dose $Given 07/13/2024 9:43 PM CDT 95 mLs sodium chloride 0.9 % infusion at 75 mL/hr, Intravenous, CONTINUOUS, Starting on 07/12/24 at 0200, Until 07/12/24 at 1048 Rate/Dose Verify 07/12/2024 8:21 AM CDT 75 mL/hr $New Bag 07/12/2024 2:23 AM CDT 75 mL/hr sodium chloride 0.9% BOLUS 500 mL Intravenous, 500 mL, ONCE, at 500 mL/hr, Administer over 1 Hours, On 07/12/24 at 1530, For 1 dose $New Bag 07/12/2024 4:12 PM CDT 500 mLs 500 mL/hr sodium chloride 0.9% BOLUS 500 mL Intravenous, 500 mL, ONCE, On 07/12/24 at 1900, For 1 dose $New Bag 07/12/2024 6:00 PM CDT 500 mLs spironolactone (ALDACTONE) half-tab 12.5 mg 12.5 mg, Oral, EVERY 48 HOURS, First dose on Sun07/15/24 at 0830 $Given 07/17/2024 7:47 AM CDT 12.5 mg $Given 07/15/2024 8:44 AM CDT 12.5 mg vancomycin (VANCOCIN) 1,500 mg in 0.9% NaCl 265 mL intermittent infusion Routine, 1,500 mg, Intravenous, EVERY 24 HOURS, First dose on Sun07/13/24 at 1400, Infuse doses less than 1,250 mg over 1 hour. Infuse doses between 1,250 mg and less than 1,750 mg over 90 minutes. Infuse doses 1,750 mg and above over 2 hours., Indications: Community Acquired PneumoniaIndications:Community Acquired Pneumonia $New Bag 07/13/2024 1:50 PM CDT 1,500 mg documented in this encounter Active and Recently Administered Medications Times are shown in CDT. Scheduled Medication Order 07/15/2024 07/16/2024 07/17/2024 aspirin EC tablet 81 mg 81 mg, Oral, DAILY, First dose on Michael 07/13/24 at 1500 0837 ($Given - Provider: Nayely Rodriguez RN) 1029 ($Given - Provider: Stephanie Baer RN) 0747 ($Given - Provider: Mariposa Coats RN) ceFEPIme (MAXIPIME) 2 g vial to attach to NS 100 mL bag for ADULTS or NS 50 mL bag for PEDS Routine, 2 g, Intravenous, EVERY 12 HOURS, First dose on Sun07/13/24 at 1100, Indications: Sepsis, Urinary Tract Infection, PNA, UTI 1050 ($New Bag - Provider: Nayely Rodriguez RN)2231 ($New Bag - Provider: Loretta Pollard RN) 1029 ($New Bag - Provider: Stephanie Baer, CHRISTEN)2200 ($New Bag - Provider: Loretta Pollard RN) 1048 ($New Bag - Provider: Mariposa Coats RN) famotidine (PEPCID) tablet 20 mg 20 mg, Oral, AT BEDTIME, First dose on Sun07/13/24 at 2200, Dose adjusted per renal dosing policy. Estimated CrCl = < 60 mL/min. 2116 ($Given - Provider: Loretta Pollard RN) 215 ($Given - Provider: Loretta Pollard RN) fluconazole (DIFLUCAN) tablet 200 mg (CANCELED) Routine, 200 mg, Oral, DAILY, First dose on Sun07/13/24 at 1800, Indications: Candidiasis 0837 ($Given - Provider: Nayely Rodriguez RN) furosemide (LASIX) tablet 20 mg 20 mg, Oral, 2 TIMES DAILY, First dose (after last modification) on Sun07/15/24 at 1130, Hold if SBP <90, On hold since Sun07/16/2024 at 1030 until manually unheld 1128 ($Given - Provider: Nayely Rodriguez RN)2117 ($Given - Provider: Loretta Pollard RN) 0952 (Not Given - Provider: Stephanie Baer RN - Reason: Order to hold this dose - Comment: advised not to give verbally)1030 (Held by provider - Provider: Flash Lehman MD - Reason: Other)2100 (Automatically Held - Provider: Flash Lehman MD) 0900 (Automatically Held - Provider: Flash Lehman MD)1722 (Unheld by provider - Provider: Orders Generic Provider) gabapentin (NEURONTIN) capsule 900 mg 900 mg, Oral, 2 TIMES DAILY, First dose on Sun07/15/24 at 0900, On hold since Sun07/15/2024 at 0819 until manually unheld 0819 (Held by provider - Provider: Sudeep Back MD - Reason: Other)0900 (Automatically Held)2100 (Automatically Held) 0900 (Automatically Held)2100 (Automatically Held) 0900 (Automatically Held)1722 (Unheld by provider - Provider: Orders Generic Provider) gadobutrol (GADAVIST) injection 9 mL (COMPLETED) 9 mL, Intravenous, ONCE, On Pam 07/17/24 at 0200, For 1 dose, Supplied by, and administered by MRI. 0137 ($Given - Provider: Elisabeth Bass [facility]) heparin ANTICOAGULANT injection 5,000 Units 5,000 Units, Subcutaneous, EVERY 8 HOURS, First dose on Michael 07/13/24 at 1600, Contact provider if platelet count drops by 50% or more after heparin initiation OR if platelet count falls below 50 x 10e3/uL High concentration heparin. Not for line flush or cath care. 0029 ($Given - Provider: Griselda Cornell RN)0837 ($Given - Provider: Nayely Rdoriguez RN)1543 ($Given - Provider: Nayely Rodriguez RN)2334 ($Given - Provider: Loretta Pollard RN - Comment: injection SQ) 1029 ($Given - Provider: Stephanie Baer RN)1734 ($Given - Provider: Stephanie Baer RN)2311 ($Given - Provider: Loretta Pollard RN - Comment: Inj SQ) 0747 ($Given - Provider: Mariposa Coats RN)1600 (Canceled Entry - Provider: Orders Generic Provider - Comment: Automatically canceled at discontinue of medication order) heparin lock flush 10 unit/mL injection 5-15 mL 5-15 mL, Intracatheter, EVERY 24 HOURS, First dose on [facility] 07/12/24 at 0200, To lock each CVC Open Ended (Tunneled and Non-Tunneled) dormant lumen. MAX dose: 5 mL for each lumen Check PRN heparin flush order to see when the last dose of the PRN heparin was given before administering this heparin dose. To lock the lumens: Flush with 10 mL sodium chloride 0.9% for each lumen to ensure patency and then flush each dormant lumen with 5 mL of heparin to lock the dormant line. 0037 ($Given - Provider: Griselda Cornell RN) 0119 (Canceled Entry - Provider: Loretta Pollard RN - Comment: flushed after lab draw) 0114 (Not Given - Provider: Loretta Pollard RN - Reason: Other - Comment: hep locked @ 224 w/ prn dose) miconazole (MICATIN) 2 % powder Topical, 2 TIMES DAILY, First dose on 07/12/24 at 0900, Apply to breast 0837 ($Given - Provider: Nayely Rodriguez RN)211 ($Given - Provider: Loretta Pollard RN) 1029 ($Given - Provider: Stephanie Baer RN)214 ($Given - Provider: Loretta Pollard RN) 0748 ($Given - Provider: Mariposa Coats RN) morphine (MS CONTIN) 12 hr tablet 15 mg 15 mg, Oral, EVERY 12 HOURS, First dose on Sun07/15/24 at 0830, DO NOT CRUSH., Long-acting opiates are recommended to ONLY use in the setting of chronic opiate use. Does this patient have history of chronic opiate use? Yes, On hold since Sun07/15/2024 at 0819 until manually unheld 0819 (Held by provider - Provider: Sudeep Back MD - Reason: Other)0830 (Automatically Held)2030 (Automatically Held) 0830 (Automatically Held)2030 (Automatically Held) 0830 (Automatically Held)1722 (Unheld by provider - Provider: Orders Generic Provider) nystatin (MYCOSTATIN) cream Topical, 2 TIMES DAILY, First dose on Sun07/13/24 at 2100, Apply to the affected area 0837 ($Given - Provider: Nayely Rodriguez RN)2117 ($Given - Provider: Loretta Pollard RN) 1030 ($Given - Provider: Stephanie Baer RN)2148 (Not Given - Provider: Loretta Pollard RN - Reason: Other - Comment: Pt for MRI) 0748 ($Given - Provider: Mariposa Coats RN) oxyBUTYnin ER (DITROPAN XL) 24 hr tablet 10 mg 10 mg, Oral, DAILY, First dose on Sun07/13/24 at 1500, DO NOT CRUSH. 0837 ($Given - Provider: Nayely Rodriguez RN) 1029 ($Given - Provider: Stephanie Baer RN) 0747 ($Given - Provider: Mariposa Coats RN) potassium chloride eloy ER (KLOR-CON M20) CR tablet 20 mEq 20 mEq, Oral, 2 TIMES DAILY, First dose on Sun07/15/24 at 0900, DO NOT CRUSH, On hold since Sun07/16/2024 at 1059 until manually unheld 0844 ($Given - Provider: Nayely Rodriguez RN)2117 ($Given - Provider: Loretta Pollard, CHRISTEN) 1029 ($Given - Provider: Stephanie Baer, CHRISTEN)1059 (Held by provider - Provider: lFash Lehman MD - Reason: Other)2100 (Automatically Held - Provider: Flash Lehman MD) 0900 (Automatically Held - Provider: Flash Lehman MD)1722 (Unheld by provider - Provider: Orders Generic Provider) sodium chloride (PF) 0.9% PF flush 10 mL (COMPLETED) 10 mL, Intravenous, ONCE, On Sun07/17/24 at 0200, For 1 dose 0137 ($Given - Provider: Elisabeth Bass, [facility]) sodium chloride (PF) 0.9% PF flush 10-40 mL 10-40 mL, Intracatheter, EVERY 8 HOURS, First dose on 07/12/24 at 0200, Max dose: 10 mL for each lumen Administration instructions IF NOT DONE MORE FREQUENTLY 0036 ($Given - Provider: Griselda Cornell RN)1050 ($Given - Provider: Nayely Rodriguez RN)1806 ($Given - Provider: Nayely Rodriguez RN)2332 ($Given - Provider: Loretta Pollard, CHRISTEN) 0125 (Not Given - Provider: Loretta Pollard RN - Reason: Other - Comment: flushed after lab draw)1031 ($Given - Provider: Stephanie Baer RN)1734 ($Given - Provider: Stephanie Baer, CHRISTEN) 0114 (Canceled Entry - Provider: Loretta Pollard RN)0748 ($Given - Provider: Mariposa Coats RN)1600 (Canceled Entry - Provider: Orders Generic Provider - Comment: Automatically canceled at discontinue of medication order) sodium chloride (PF) 0.9% PF flush 3 mL 3 mL, Intracatheter, EVERY 8 HOURS SCHEDULED, First dose on 07/12/24 at 0600, to lock peripheral IV dormant line 0618 ($Given - Provider: Griselda Cornell RN)1400 (Not Given - Provider: Nayely Rodriguez RN - Reason: Other)2118 ($Given - Provider: Loretta Pollard RN) 0619 (Not Given - Provider: Loretta Pollard RN - Reason: Other - Comment: flushed with prn)1601 ($Given - Provider: Stephanie Baer RN)2159 ($Given - Provider: Loretta Pollard RN) 0551 (Canceled Entry - Provider: Loretta Pollard RN - Comment: flushed w/ 10 ml)1446 (Not Given - Provider: Mariposa Coats RN - Reason: Loss of IV access) spironolactone (ALDACTONE) half-tab 12.5 mg 12.5 mg, Oral, EVERY 48 HOURS, First dose on Sun07/15/24 at 0830 0844 ($Given - Provider: Nayely Rodriguez RN) 0747 ($Given - Provider: Mariposa Coats RN) PRN Medication Order 07/15/2024 07/16/2024 07/17/2024 acetaminophen (TYLENOL) Suppository 650 mg(Linked Group 1) 650 mg, Rectal, EVERY 4 HOURS PRN, mild pain, other, and adjunct with moderate or severe pain or per patient request, Starting on 07/12/24 at 0152, Alternate with ibuprofen if ordered. Maximum acetaminophen dose from all sources = 75 mg/kg/day not to exceed 4 grams/day. 1158 (See Alternative - Provider: Nayely Rodriguez RN) acetaminophen (TYLENOL) tablet 650 mg(Linked Group 1) 650 mg, Oral, EVERY 4 HOURS PRN, mild pain, other, and adjunct with moderate or severe pain or per patient request, Starting on 07/12/24 at 0152, Alternate with ibuprofen if ordered. Maximum acetaminophen dose from all sources = 75 mg/kg/day not to exceed 4 grams/day. 1158 ($Given - Provider: Nayely Rodriguez RN) calcium carbonate (TUMS) chewable tablet 1,000 mg 1,000 mg, Oral, 4 TIMES DAILY PRN, heartburn, Starting on 07/12/24 at 0150 dextrose 50 % injection 25-50 mL(Linked Group 2) 25-50 mL, Intravenous, EVERY 15 MIN PRN, low blood sugar, Administer over 1-5 Minutes, Starting on 07/12/24 at 1014, Use if have IV access, BG less than 70 mg/dL and meet dose criteria below: Dose if conscious and alert (or disorientated) and NPO = 25 mL Dose if unconscious / not alert = 50 mL Give first dose for initial blood glucose less than 70 mg/dL. If blood glucose at 15 minute recheck is less than or equal to 80 mg/dL continue to administer carbohydrate treatment every 15 minutes, as needed, based on blood glucose and assessment parameters until blood glucose level is above 80 mg/dL x 2 consecutive 15 minute checks. glucagon injection 1 mg(Linked Group 2) 1 mg, Subcutaneous, EVERY 15 MIN PRN, low blood sugar, May repeat x 1 only, Starting on 07/12/24 at 1014, May give SQ or IM. ONLY use glucagon IF patient has NO IV access AND is UNABLE to swallow AND blood glucose is LESS than or EQUAL to 50 mg/dL. glucose gel 15-30 g(Linked Group 2) 15-30 g, Oral, EVERY 15 MIN PRN, low blood sugar, Starting on 07/12/24 at 1014, Give first dose for initial blood glucose less than 70 mg/dL per the dosing instructions below. If blood glucose at 15 minute rechecks is still less than or equal to 80 mg/dL, continue to administer doses per blood glucose parameters every 15 minutes, as needed, until blood glucose level is at or above 80 mg/dL x 2 consecutive 15 minute checks. Dosing Instructions: ~If patient is conscious and able to swallow and NO enteral tube For initial BG 51-69mg/dL OR 15 minute recheck BG 51- 80 mg/dL - give 15 g For BG less than or equal to 50 mg/dL - give 30 g ~ If Enteral tube For initial BG 51-69mg/dL OR 15 minute recheck BG 51- 80 mg/dL - give apple juice 120 mL (4 oz or 15 g of CHO) via enteral tube For BG less than or equal to 50 mg/dL - Give apple juice 240 mL (8 oz or 30 g of CHO) via enteral tube ~Oral gel is preferable for conscious and able to swallow patient. ~IF gel unavailable or patient refuses may provide apple juice per Enteral tube dosing instructions. Document juice on I and O flowsheet. heparin lock flush 10 unit/mL injection 5-15 mL 5-15 mL, Intracatheter, EVERY 1 HOUR PRN, other, to lock each CVC Open Ended (Tunneled and Non-Tunneled) dormant lumen, Starting on 07/12/24 at 0146, MAX dose: 5 mL for each lumen Check PRN heparin flush order to see when the last dose of the PRN heparin was given before administering this heparin dose. To lock the lumens: Flush with 10 mL sodium chloride 0.9% for each lumen to ensure patency and then flush each dormant lumen with 5 mL of heparin to lock the dormant line. 0618 ($Given - Provider: Griselda Cornell RN)1050 ($Given - Provider: Nayely Rodriguez RN)1806 ($Given - Provider: Nayely Rodriguez RN - Comment: brown lumen)1810 ($Given - Provider: Nayely Rodriguez RN - Comment: white lumen)1811 ($Given - Provider: Nayely Rodriguez RN - Comment: blue lumen)2330 (Canceled Entry - Provider: Loretta Pollard RN)2333 ($Given - Provider: Loretta Pollard RN) 0619 (Canceled Entry - Provider: Loretta Pollard RN - Comment: flushed with prn hep)2245 ($Given - Provider: Loretta Pollard RN) 0550 ($Given - Provider: Loretta Pollard RN) hydrocortisone 1 % cream CREA Rectal, DAILY PRN, itching, Starting on Sun07/15/24 at 0817 lidocaine (LMX4) cream Topical, EVERY 1 HOUR PRN, pain, with VAD insertion, Starting on 07/12/24 at 0150, Apply at least 30 minutes prior to VAD insertion in divided doses as needed for size of site for insertion. MAX Dose: 2.5 g ( of 5 g tube) Do NOT give if patient has a history of allergy to any local anesthetic or any linda product. Do NOT use both lidocaine intradermal/subcutaneous injection and the lidocaine cream on the same site. lidocaine 1 % 0.1-1 mL 0.1-1 mL, Other, EVERY 1 HOUR PRN, mild pain with VAD insertion, Starting on 07/12/24 at 0150, MAX dose 1 mL subcutaneous OR intradermal along the side of the vein in divided doses as needed for VAD insertion. Do NOT give if patient has a history of allergy to any local anesthetic or any linda product. Do NOT use both lidocaine intradermal/subcutaneous injection and the lidocaine cream on the same site. LORazepam (ATIVAN) injection 1 mg (COMPLETED) 1 mg, Intravenous, ONCE PRN, other, before MRI, Starting on Sun07/16/24 at 2253, For 1 dose, Please give 20 minutes before MRI IV Route: Dilute with equal volume NS prior to use. This drug may cause significant respiratory depression. Monitor respiratory status and vital signs carefully for 1 hour after each dose. 0032 ($Given - Provider: Loretta Pollard RN) melatonin tablet 1 mg 1 mg, Oral, AT BEDTIME PRN, sleep, Starting on 07/12/24 at 0152, Do not give unless at least 6 hours of uninterrupted sleep is expected. If patient has multiple medications ordered PRN sleep/insomnia, offer melatonin first. naloxone (NARCAN) injection 0.2 mg(Linked Group 3) 0.2 mg, Intravenous, EVERY 2 MIN PRN, opioid reversal, Starting on Sun07/15/24 at 0829, Administer intravenous route when available and notify provider when administered. For unintended sedation or respiratory depression if all of the below criteria are met: ~ respiratory rate LESS than or EQUAL to 8. ~SaO2 less than 92% and or/end-tidal CO2 is greater than 50. ~ the patient is receiving an opioid, has unintended sedations assessed as RASS (-3), and is currently not on mechanical ventilation. RASS scale moderate (-3) is movement or eye opening to voice but no eye contact. Patient Monitoring Once the patient has demonstrated a response to the naloxone, continue to monitor respiratory rate, depth, oxygen saturation and end-tidal CO2 (if available) every 15 minutes x 2, then every 30 minutes x 2, then every 1 hour x 1 after each naloxone dose. Consider transfer to ICU if patient respiratory parameters have not improved after 4 naloxone doses. naloxone (NARCAN) injection 0.2 mg(Linked Group 3) 0.2 mg, Intramuscular, EVERY 2 MIN PRN, opioid reversal, Starting on Sun07/15/24 at 0829, Administer intramuscular if an intravenous route is not available and notify provider when administered. For unintended sedation or respiratory depression if all of the below criteria are met: ~ respiratory rate LESS than or EQUAL to 8. ~SaO2 less than 92% and or/end-tidal CO2 is greater than 50. ~ the patient is receiving an opioid, has unintended sedations assessed as RASS (-3), and is currently not on mechanical ventilation. RASS scale moderate (-3) is movement or eye opening to voice but no eye contact. Patient Monitoring Once the patient has demonstrated a response to the naloxone, continue to monitor respiratory rate, depth, oxygen saturation and end-tidal CO2 (if available) every 15 minutes x 2, then every 30 minutes x 2, then every 1 hour x 1 after each naloxone dose. Consider transfer to ICU if patient respiratory parameters have not improved after 4 naloxone doses. naloxone (NARCAN) injection 0.4 mg(Linked Group 3) 0.4 mg, Intravenous, EVERY 2 MIN PRN, opioid reversal, Starting on Sun07/15/24 at 0829, Administer intravenous route when available and notify provider when administered. For unintended sedation or respiratory depression if all of the below criteria are met: ~ respiratory rate LESS than or EQUAL to 8. ~ SaO2 less than 92% and or/end-tidal CO2 is greater than 50. ~ the patient is receiving an opioid, has unintended sedation assessed as RASS (-4) or (-5) and patient is currently not on mechanical ventilation. RASS scale (-4) is deep sedation with no response to voice but movement or eye opening to physical stimulation. RASS scale (-5) is unarousable. Patient Monitoring Once the patient has demonstrated a response to the naloxone, continue to monitor respiratory rate, depth, oxygen saturation and end-tidal CO2 (if available) every 15 minutes x 2, then every 30 minutes x 2, then every 1 hour x 1 after each naloxone dose. Consider transfer to ICU if patient respiratory parameters have not improved after 4 naloxone doses. naloxone (NARCAN) injection 0.4 mg(Linked Group 3) 0.4 mg, Intramuscular, EVERY 2 MIN PRN, opioid reversal, Starting on Sun07/15/24 at 0829, Administer intramuscular if an intravenous route is not available and notify provider when administered. For unintended sedation or respiratory depression if all of the below criteria are met: ~ respiratory rate LESS than or EQUAL to 8. ~ SaO2 less than 92% and or/end-tidal CO2 is greater than 50. ~ the patient is receiving an opioid, has unintended sedation assessed as RASS (-4) or (-5) and patient is currently not on mechanical ventilation. RASS scale (-4) is deep sedation with no response to voice but movement or eye opening to physical stimulation. RASS scale (-5) is unarousable. Patient Monitoring Once the patient has demonstrated a response to the naloxone, continue to monitor respiratory rate, depth, oxygen saturation and end-tidal CO2 (if available) every 15 minutes x 2, then every 30 minutes x 2, then every 1 hour x 1 after each naloxone dose. Consider transfer to ICU if patient respiratory parameters have not improved after 4 naloxone doses. ondansetron (ZOFRAN ODT) ODT tab 4 mg 4 mg, Sublingual, EVERY 8 HOURS PRN, nausea/vomiting - 1st line, Starting on Sun07/15/24 at 0816, With dry hands, peel back foil backing and gently remove tablet. Do not push oral disintegrating tablet through foil backing. Administer immediately on tongue and oral disintegrating tablet dissolves in seconds, then swallow with saliva. Liquid not required. prochlorperazine (COMPAZINE) injection 5 mg(Linked Group 4) 5 mg, Intravenous, EVERY 6 HOURS PRN, nausea/vomiting - 2nd line, Administer over 1-2 Minutes, Starting on 07/12/24 at 0152, IF patient unable to tolerate oral medication. This is Step 2 of nausea and vomiting management. Give if nausea not resolved 15 minutes after giving ondansetron (ZOFRAN). prochlorperazine (COMPAZINE) tablet 5 mg(Linked Group 4) 5 mg, Oral, EVERY 6 HOURS PRN, nausea/vomiting - 2nd line, Starting on 07/12/24 at 0152, This is Step 2 of nausea and vomiting management. Give if nausea not resolved 15 minutes after giving ondansetron (ZOFRAN). QUEtiapine (SEROquel) half-tab 12.5 mg 12.5 mg, Oral, 2 TIMES DAILY PRN, agitation, Starting on Sun07/13/24 at 1536 1204 ($Given - Provider: Mariposa Coats RN) senna-docusate (SENOKOT-S/PERICOLACE) 8.6-50 MG per tablet 1 tablet(Linked Group 5) 1 tablet, Oral, 2 TIMES DAILY PRN, constipation, Starting on 07/12/24 at 0150, If no bowel movement in 24 hours, increase to 2 tablets by mouth. IF more than 1 constipation PRN medication is ordered, administer step-dominguez as indicated, moving to the next step ONLY if prior step ineffective. Step 1: senna-docusate (SENOKOT-S; PERICOLACE) OR bisacodyl (DULCOLAX) EC tablet Step 2: polyethylene glycol (MIRALAX/GLYCOLAX) Step 3: bisacodyl (DULCOLAX) suppository Step 4: enema Hold for loose stools. senna-docusate (SENOKOT-S/PERICOLACE) 8.6-50 MG per tablet 2 tablet(Linked Group 5) 2 tablet, Oral, 2 TIMES DAILY PRN, constipation, Starting on 07/12/24 at 0150, IF more than 1 constipation PRN medication is ordered, administer step-dominguez as indicated, moving to the next step ONLY if prior step ineffective. Step 1: senna-docusate (SENOKOT-S; PERICOLACE) OR bisacodyl (DULCOLAX) EC tablet Step 2: polyethylene glycol (MIRALAX/GLYCOLAX) Step 3: bisacodyl (DULCOLAX) suppository Step 4: enema Hold for loose stools. sodium chloride (PF) 0.9% PF flush 10-20 mL 10-20 mL, Intracatheter, EVERY 1 MIN PRN, line flush, Starting on 07/12/24 at 0146, Sodium chloride 0.9% 10 mL flush pre and post IV medications Sodium chloride 0.9% 20 mL flush pre and post blood draws or blood administration 0523 ($Given - Provider: Loretta Pollard RN) 0033 ($Given - Provider: Loretta Pollard RN) sodium chloride (PF) 0.9% PF flush 3 mL 3 mL, Intracatheter, EVERY 1 MIN PRN, line flush, other, to ensure patency or to lock dormant line, Starting on 07/12/24 at 0147 Linked Groups Order Group 1: acetaminophen (TYLENOL) tablet 650 mgJump to med 650 mg, Oral, EVERY 4 HOURS PRN, mild pain, other, and adjunct with moderate or severe pain or per patient request, Starting on 07/12/24 at 0152, Alternate with ibuprofen if ordered. Maximum acetaminophen dose from all sources = 75 mg/kg/day not to exceed 4 grams/day. Or acetaminophen (TYLENOL) Suppository 650 mgJump to med 650 mg, Rectal, EVERY 4 HOURS PRN, mild pain, other, and adjunct with moderate or severe pain or per patient request, Starting on 07/12/24 at 0152, Alternate with ibuprofen if ordered. Maximum acetaminophen dose from all sources = 75 mg/kg/day not to exceed 4 grams/day. Group 2: glucose gel 15-30 gJump to med 15-30 g, Oral, EVERY 15 MIN PRN, low blood sugar, Starting on 07/12/24 at 1014, Give first dose for initial blood glucose less than 70 mg/dL per the dosing instructions below. If blood glucose at 15 minute rechecks is still less than or equal to 80 mg/dL, continue to administer doses per blood glucose parameters every 15 minutes, as needed, until blood glucose level is at or above 80 mg/dL x 2 consecutive 15 minute checks. Dosing Instructions: ~If patient is conscious and able to swallow and NO enteral tube For initial BG 51-69mg/dL OR 15 minute recheck BG 51- 80 mg/dL - give 15 g For BG less than or equal to 50 mg/dL - give 30 g ~ If Enteral tube For initial BG 51-69mg/dL OR 15 minute recheck BG 51- 80 mg/dL - give apple juice 120 mL (4 oz or 15 g of CHO) via enteral tube For BG less than or equal to 50 mg/dL - Give apple juice 240 mL (8 oz or 30 g of CHO) via enteral tube ~Oral gel is preferable for conscious and able to swallow patient. ~IF gel unavailable or patient refuses may provide apple juice per Enteral tube dosing instructions. Document juice on I and O flowsheet. Or dextrose 50 % injection 25-50 mLJump to med 25-50 mL, Intravenous, EVERY 15 MIN PRN, low blood sugar, Administer over 1-5 Minutes, Starting on 07/12/24 at 1014, Use if have IV access, BG less than 70 mg/dL and meet dose criteria below: Dose if conscious and alert (or disorientated) and NPO = 25 mL Dose if unconscious / not alert = 50 mL Give first dose for initial blood glucose less than 70 mg/dL. If blood glucose at 15 minute recheck is less than or equal to 80 mg/dL continue to administer carbohydrate treatment every 15 minutes, as needed, based on blood glucose and assessment parameters until blood glucose level is above 80 mg/dL x 2 consecutive 15 minute checks. Or glucagon injection 1 mgJump to med 1 mg, Subcutaneous, EVERY 15 MIN PRN, low blood sugar, May repeat x 1 only, Starting on 07/12/24 at 1014, May give SQ or IM. ONLY use glucagon IF patient has NO IV access AND is UNABLE to swallow AND blood glucose is LESS than or EQUAL to 50 mg/dL. Group 3: naloxone (NARCAN) injection 0.2 mgJump to med 0.2 mg, Intravenous, EVERY 2 MIN PRN, opioid reversal, Starting on Sun07/15/24 at 0829, Administer intravenous route when available and notify provider when administered. For unintended sedation or respiratory depression if all of the below criteria are met: ~ respiratory rate LESS than or EQUAL to 8. ~SaO2 less than 92% and or/end-tidal CO2 is greater than 50. ~ the patient is receiving an opioid, has unintended sedations assessed as RASS (-3), and is currently not on mechanical ventilation. RASS scale moderate (-3) is movement or eye opening to voice but no eye contact. Patient Monitoring Once the patient has demonstrated a response to the naloxone, continue to monitor respiratory rate, depth, oxygen saturation and end-tidal CO2 (if available) every 15 minutes x 2, then every 30 minutes x 2, then every 1 hour x 1 after each naloxone dose. Consider transfer to ICU if patient respiratory parameters have not improved after 4 naloxone doses. Or naloxone (NARCAN) injection 0.4 mgJump to med 0.4 mg, Intravenous, EVERY 2 MIN PRN, opioid reversal, Starting on Sun07/15/24 at 0829, Administer intravenous route when available and notify provider when administered. For unintended sedation or respiratory depression if all of the below criteria are met: ~ respiratory rate LESS than or EQUAL to 8. ~ SaO2 less than 92% and or/end-tidal CO2 is greater than 50. ~ the patient is receiving an opioid, has unintended sedation assessed as RASS (-4) or (-5) and patient is currently not on mechanical ventilation. RASS scale (-4) is deep sedation with no response to voice but movement or eye opening to physical stimulation. RASS scale (-5) is unarousable. Patient Monitoring Once the patient has demonstrated a response to the naloxone, continue to monitor respiratory rate, depth, oxygen saturation and end-tidal CO2 (if available) every 15 minutes x 2, then every 30 minutes x 2, then every 1 hour x 1 after each naloxone dose. Consider transfer to ICU if patient respiratory parameters have not improved after 4 naloxone doses. Or naloxone (NARCAN) injection 0.2 mgJump to med 0.2 mg, Intramuscular, EVERY 2 MIN PRN, opioid reversal, Starting on Sun07/15/24 at 0829, Administer intramuscular if an intravenous route is not available and notify provider when administered. For unintended sedation or respiratory depression if all of the below criteria are met: ~ respiratory rate LESS than or EQUAL to 8. ~SaO2 less than 92% and or/end-tidal CO2 is greater than 50. ~ the patient is receiving an opioid, has unintended sedations assessed as RASS (-3), and is currently not on mechanical ventilation. RASS scale moderate (-3) is movement or eye opening to voice but no eye contact. Patient Monitoring Once the patient has demonstrated a response to the naloxone, continue to monitor respiratory rate, depth, oxygen saturation and end-tidal CO2 (if available) every 15 minutes x 2, then every 30 minutes x 2, then every 1 hour x 1 after each naloxone dose. Consider transfer to ICU if patient respiratory parameters have not improved after 4 naloxone doses. Or naloxone (NARCAN) injection 0.4 mgJump to med 0.4 mg, Intramuscular, EVERY 2 MIN PRN, opioid reversal, Starting on Sun07/15/24 at 0829, Administer intramuscular if an intravenous route is not available and notify provider when administered. For unintended sedation or respiratory depression if all of the below criteria are met: ~ respiratory rate LESS than or EQUAL to 8. ~ SaO2 less than 92% and or/end-tidal CO2 is greater than 50. ~ the patient is receiving an opioid, has unintended sedation assessed as RASS (-4) or (-5) and patient is currently not on mechanical ventilation. RASS scale (-4) is deep sedation with no response to voice but movement or eye opening to physical stimulation. RASS scale (-5) is unarousable. Patient Monitoring Once the patient has demonstrated a response to the naloxone, continue to monitor respiratory rate, depth, oxygen saturation and end-tidal CO2 (if available) every 15 minutes x 2, then every 30 minutes x 2, then every 1 hour x 1 after each naloxone dose. Consider transfer to ICU if patient respiratory parameters have not improved after 4 naloxone doses. Group 4: prochlorperazine (COMPAZINE) injection 5 mgJump to med 5 mg, Intravenous, EVERY 6 HOURS PRN, nausea/vomiting - 2nd line, Administer over 1-2 Minutes, Starting on 07/12/24 at 0152, IF patient unable to tolerate oral medication. This is Step 2 of nausea and vomiting management. Give if nausea not resolved 15 minutes after giving ondansetron (ZOFRAN). Or prochlorperazine (COMPAZINE) tablet 5 mgJump to med 5 mg, Oral, EVERY 6 HOURS PRN, nausea/vomiting - 2nd line, Starting on 07/12/24 at 0152, This is Step 2 of nausea and vomiting management. Give if nausea not resolved 15 minutes after giving ondansetron (ZOFRAN). Group 5: senna-docusate (SENOKOT-S/PERICOLACE) 8.6-50 MG per tablet 1 tabletJump to med 1 tablet, Oral, 2 TIMES DAILY PRN, constipation, Starting on 07/12/24 at 0150, If no bowel movement in 24 hours, increase to 2 tablets by mouth. IF more than 1 constipation PRN medication is ordered, administer step-dominguez as indicated, moving to the next step ONLY if prior step ineffective. Step 1: senna-docusate (SENOKOT-S; PERICOLACE) OR bisacodyl (DULCOLAX) EC tablet Step 2: polyethylene glycol (MIRALAX/GLYCOLAX) Step 3: bisacodyl (DULCOLAX) suppository Step 4: enema Hold for loose stools. Or senna-docusate (SENOKOT-S/PERICOLACE) 8.6-50 MG per tablet 2 tabletJump to med 2 tablet, Oral, 2 TIMES DAILY PRN, constipation, Starting on 07/12/24 at 0150, IF more than 1 constipation PRN medication is ordered, administer step-dominguez as indicated, moving to the next step ONLY if prior step ineffective. Step 1: senna-docusate (SENOKOT-S; PERICOLACE) OR bisacodyl (DULCOLAX) EC tablet Step 2: polyethylene glycol (MIRALAX/GLYCOLAX) Step 3: bisacodyl (DULCOLAX) suppository Step 4: enema Hold for loose stools. 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
[2024-07-21] VITALS (43 sets, daily range): BP systolic 48–151; BP diastolic 22–139; PULSE 65–99; RESP 9–35; O2SAT 72–90
--- OUTSIDE RECORDS SUMMARY | 2024-07-21 19:18 | XMS_ITS ---
Author Organization [facility] Care Team Providers Care Relationship Counselor Name Role Phone Ayana Glez Unavailable Unavailable Flash Oliveira Unavailable Unavailable Allergies and adverse reactions Code CodeSystem Substance Reaction Severity StartDate Concern Status 535794782 SNOMED CT NSAIDs Unknown 03/23/2014 active Celexa Nausea (code- [id number], SNOMED CT) Unknown Unknown active Care Team Name Role Address Phone Organization Dates Flash Oliveira PCP [facility] [address] [place] [address], [address], [place], [place], [facility], [place] (Office): [facility] 06/01/2014 - 08/11/2014 Ayana Glez [address], [place], [address], [facility] 06/01/2014 - 08/11/2014 Immunizations Immunization Status Vaccine Details Vaccine Code CodeSystem Date Notes TB 2 Step Mantoux Skin Test completed tuberculin skin test; unspecified formulation lotNumber: [id number] expiry: 10/14/2015 Mfg: [employer] Given 0.1 ml Left Forearm intradermally Step 1 of Multi-step with next step required 98 CVX created date: 06/07/2014 consent date: 06/06/2014 administer ed date: 06/06/2014 TB 2 Step Mantoux Skin Test completed tuberculin skin test; unspecified formulation lotNumber: [id number] expiry: 05/14/2015 Mfg: [employer] Given 0.1 ml Right Forearm intradermally Step 2 of Multi-step with next step required 98 CVX created date: 01/20/2014 consent date: 01/20/2014 administer ed date: 01/20/2014 Educated by scott on 01/20/2014 TB 2 Step Mantoux Skin Test completed tuberculin skin test; unspecified formulation lotNumber: [id number] expiry: 04/13/2015 Mfg: [employer] Given 0.1 [...] Current Smoking Status Tobacco smoking consumption unknown [id number] SNOMED CT Sex Assigned At Female 1955 79061-8 [facility] Gender Identity Vital Signs Code Code System Vitals Name Values and Units Timing Information 8310-5 [facility] Body Temperature Value=96.6 Units= F 08/11/2014 64036-2 [facility]INC Pain Level Value=7.0 08/10/2014 19490-9 [facility] Weight Huzic=775.4 Units=Lbs 9279-1 [facility] Respiratory Rate Value=18.0 Units=/m in 08/06/2014 8462-4 [facility] Blood Pressure-Diastolic Value=62 Un its=mmHg 08/06/2014 8480-6 [facility] Blood Pressure-Systolic Ejyry=666 Un its=mmHg 08/06/2014 8867-4 [facility] Heart rate Value=66.0 Units=/min 49639-8 [facility] O2 % BldC Oximetry Value=96.0 Units= % 08/06/2014 8302-2 [facility] Height Value=63.0 Units=Inches 06/02/2014
--- OUTSIDE RECORDS SUMMARY | 2024-07-21 19:18 | XMS_ITS | Encounter Summary ---
Author Organization [facility] Address [address] [place] [address]. 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 Gender Identity Not on file Sexual Orientation Not on file documented as of this encounter Plan of Treatment Not on file documented as of this encounter Visit Diagnoses Not on filedocumented in this encounter Additional Health Concerns Infection Onset Date Last Indicated Resolved Time MRSA 06/29/2020 06/29/2020 Assessment Noted Time PHQ-9 Depression Total Score: 8 12/21/19 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
--- OUTSIDE RECORDS SUMMARY | 2024-07-21 19:18 | XMS_ITS ---
Author Organization [facility] Care Team Providers Care Polygraph Operator Name Role Phone Pj Stone Unavailable Unavailable Allergies and adverse reactions Code CodeSystem Substance Reaction Severity StartDate Concern Status 997472433 SNOMED CT NSAIDs Moderate 04/12/2018 active Celexa Severe 04/12/2018 active Care Team Name Role Address Phone Organization D[place] , [address], [place] (Office): : : : [facility] 04/12/2018 - 05/12/2018 Immunizations Immunization Status Vaccine Details Vaccine Code CodeSystem Date Notes Influenza completed Influenza, high-dose, split virus, quadrivalent, injectable, preservative free 197 CVX created date: 04/17/2018 administer ed date: 10/25/2017 TB 2 Step Mantoux Skin Test completed tuberculin skin test; unspecified formulation lotNumber: [id number] expiry: 11/11/2018 Mfg: [employer]in [employer] Given 0.1 ml Right Forearm subcutaneously Step 2 of Multi-step with next step required 98 CVX created date: 04/22/2018 consent date: 04/22/2018 administer ed date: 04/22/2018 TB 2 Step Mantoux Skin Test completed tuberculin skin test; unspecified formulation lotNumber: [id number] expiry: 11/02/2019 Mfg: [employer] Given 0.1 ml Right Forearm intradermally Step [...] Date HYDROmorphone HCl Tablet 2 MG active 598612 RXNORM 1 tablet Oral as needed PRN Give 1 tablet by mouth every 4 hours as needed for Pain MAXIMU M OF THREE DOSES PER DAY 2018 - Mirabegron ER Tablet Extended Release 24 Hour 50 MG active 4839497 RXNORM 1 tablet Oral in the morning Routine Give 1 tablet by mouth in the mornin g relate d to OVERAC TIVE BLADDE R (N32.8 1) 2018 - Aspirin Tablet 81 MG active 949896 RXNORM 1 tablet Oral in the morning Routine Give 1 tablet by mouth in the mornin g for Prophy laxis Cardia c 2018 - Vitamin D3 Tablet 1000 UNIT active 005656 RXNORM 2 tablet Oral in the morning Routine Give 2 tablet by mouth in the mornin g for Supple ment 2018 - Ondansetron Tablet Disintegratin g active 4 mg Oral as needed PRN Give 4 mg by mouth every 8 hours as needed for Nausea relate d to NAUSEA (R11.0 ) 2018 - Gabapentin Capsule 300 MG active 835035 RXNORM 3 capsul e Oral three times a day Routine Give 3 capsul e by mouth three times a day for Pain 2018 - RaNITidine HCl Tablet 300 MG active 917033 RXNORM 1 tablet Oral at bedtime Routine Give 1 tablet by mouth at bedtim e relate d to GASTRO -ESOPH AGEAL REFLUX DISEAS E WITHOU T ESOPHA GITIS (K21.9 ) 2018 - GuaiFENesin ER Tablet Extended Release 12 Hour 600 MG active 437612 RXNORM 1 tablet Oral two times a day Routine Give 1 tablet by mouth two times a day for Conges tion 2018 - Lisinopril Tablet 20 MG active 711757 RXNORM 1 tablet Oral in the morning Routine Give 1 tablet by mouth in the mornin g relate d to ESSENT IAL (PRIMA RY) HYPERT ENSION (I10) 2018 - Acetaminophen Tablet active 1000 mg Oral as needed PRN Give 1000 mg by mouth every 8 hours as needed for pain 2018 - FentaNYL Patch 72 Hour 50 MCG/HR active 203880 RXNORM 50 mcg Transde rmal every 72 hours Routine Apply 50 mcg transd ermall y every 72 hours for Pain and remove per schedu le 2018 - FentaNYL Patch 72 Hour 12 MCG/HR active 984293 RXNORM 12 mcg Transde rmal every 72 [...] ULCER WITHOUT HEMORRHAGE OR PERFORATION 04/13/[address] active 2 ATHEROSCLEROTIC HEART DISEASE OF [place] CORONARY ARTERY WITHOUT ANGINA PECTORIS 04/13/[id number] active 3 ENTEROCOLITIS DUE TO CLOSTRIDIUM DIFFICILE, NOT SPECIFIED RECURRENT 04/13/[address] active 4 ESSENTIAL (PRIMARY) HYPERTENSION 04/13/[address] active 5 GASTRO-ESOPHAGEAL REFLUX DISEASE WITHOUT ESOPHAGITIS 04/13/[address] active 6 METHICILLIN RESISTANT STAPHYLOCOCCUS AUREUS INFECTION, UNSPECIFIED SITE 04/13/[address] active 7 MULTIPLE SCLEROSIS 04/13/[address] active 8 NAUSEA 04/13/[address] active 9 OLD MYOCARDIAL INFARCTION 04/13/[address] active 10 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[place], SACRAL AND SACROCOCCYGEAL REGION 04/13/[address] active 11 OTHER CHRONIC PAIN 04/13/[address] active 12 OTHER CONSTIPATION 04/13/[address] active 13 OVERACTIVE BLADDER 04/13/[address] active 14 SENSORINEURAL HEARING LOSS, BILATERAL 04/13/[address] active 15 TOBACCO USE 04/13/19 Z72.0 ICD-10-CM active 16 UNSPECIFIED DIASTOLIC (CONGESTIVE) HEART FAILURE 04/13/[address] active 17 VITAMIN D DEFICIENCY, UNSPECIFIED 04/13/[address] active Reason for Referral No Reasons for Referral Entered Social History Social History Observation Description Start Date End Date Code Code System Current Smoking Status Smokes tobacco daily Not available [id number] SNOMED CT Sex Assigned At Female 1955 01911-5 [facility] Gender Identity Vital Signs Code Code System Vitals Name Values and Units Timing Information 15997-8 [facility] Weight Wyfda=324.6 Units=Lbs 9279-1 [facility] Respiratory Rate Value=18.0 Units=/m in 05/01/2018 8462-4 [facility] Blood Pressure-Diastolic Value=74 Un its=mmHg 05/01/2018 8480-6 [facility] Blood Pressure-Systolic Aoppf=230 Un its=mmHg 05/01/2018 8310-5 [facility] Body Temperature Value=97.6 Units= F 05/01/2018 8867-4 [facility] Heart rate Value=88.0 Units=/min 79676-4 [facility] O2 % BldC Oximetry Value=92.0 Units= % 05/01/2018 03435-2 [facility] Pain Level Value=0.0 04/13/2018
--- OUTSIDE RECORDS SUMMARY | 2024-07-21 19:18 | XMS_ITS | Encounter Summary ---
Author Organization [facility] Address [address] [place] [address]. 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 Gender Identity Not on file Sexual Orientation Not on file documented as of this encounter Plan of Treatment Not on file documented as of this encounter Visit Diagnoses Not on filedocumented in this encounter Additional Health Concerns Infection Onset Date Last Indicated Resolved Time MRSA 06/29/2020 06/29/2020 documented as of this encounter Care Teams Balance Clerk Relationship Specialty Start Date End Date Ayana Glez PCP - General Family Practice 07/22/13 04/26/15 Genevieve Rowan [address] [address] PCP - General Family Practice 04/27/15 11/01/16 Erwin Fuchs PCP - General Family Practice 11/02/16 Chloé Castro, CHRISTEN Specialty Pl[employer] Design Applier Neurology 01/04/16 10/05/20 documented as of this encounter
--- OUTSIDE RECORDS SUMMARY | 2024-07-21 19:19 | XMS_ITS | Clinical Summary ---
Author Organization [employer]ian Affiliates Address [address] [place] [id number] Care Team Providers Care Circular Tank Cooper Name Role Phone Pcp, No Primary Care [...] by mouth at bedtime. 90 tablet 3 019 Active multivitamin chew Chew 2 Tablets by mouth once daily. Takes gummy formulation. Active Colostomy Bags miscIndications:Col ostomy in place (HC) As directed. [facility] #8651 Custom fit bag. 1 bag every 2 days. 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 0 021 Active naloxone (NARCAN) 4 mg/actuation nasal spray Inhale 1 [place] into affected nostril(s) each time if needed for Resp Rate < 8 / min. In left nostril as needed for RR<8 breaths/minute, patient unarousable may repeat every 2-3 minutes in alternating nostrils. Active oxybutynin XL (DITROPAN XL) 10 mg CR tablet Take 10 mg by mouth once daily. Active gabapentin (NEURONTIN) 300 mg capsule Take 900 mg by mouth two times daily. Active spironolactone (ALDACTONE) 25 mg tablet Take 12.5 mg by mouth once every other day. Active aspirin 81 mg cap Take 81 [...] (20 mg) by mouth two times daily. Active potassium chloride (KLOR-CON M20) 20 mEq extended-release tablet (part/cryst)Indicat ions:Hypokalemia Take 1 Tablet (20 mEq) by mouth two times daily with meals. 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 Settings: 12/6 cmH20, auto rate Mask of choice Choice of mask (A7030 or A7034) w/full face cushion (A7031) x1/mo, nasal cushion (A7032) x2/mo, or nasal pillows (A7033) x 2/mo; Length of Need: 99 months; Frequency of use: Daily Active morphine CONTROLLED-RELEASE (MS Contin) 15 mg tablet Take 15 mg by mouth every 12 hours. Active nystatin (MYCOSTATIN) cream Apply topically to affected area(s) three times daily. 2024 Discontin ued(*Savanah ent states no longer taking) cadexomer iodine (IODOSORB) 0.9 % gelIndications:Decu bitus ulcer of sacral region, stage 4 (HC) Apply topically to affected area(s) once daily in the morning. 2024 Discontin ued(*Med complete/ Regimen complete/ Level of care change) miconazole nitrate powder 2 % powderIndications:G roin rash Apply topically to affected area(s) two times daily. Apply under the pannus and groin folds for 7 days and then reassess 2024 Discontin ued(*Savanah ent states no longer taking) morphine IMMEDIATE RELEASE 15 mg tabletIndications:C hronic, continuous use of opioids Take 1 Tablet (15 mg) by mouth 2 times daily if needed for Pain. 5 Tablet 2024 Discontin ued(*Savanah ent states no longer taking) morphine CONTROLLED RELEASE (MS CONTIN) 30 mg CR tabletIndications:M ultiple sclerosis (HC),Other chronic pain Take 1 Tablet (30 mg) by mouth once daily. Restart MS contin once BIPAP is delivered to the facility and patient starts using it 2024 Discontin ued(*Savanah ent states no longer taking) trimethoprim-sulfam ethoxazole (Bactrim DS) 160-800 mg tabIndications:Acut e UTI Take 1 Tablet by mouth two times daily. 14 Tablet 2024 Discontin ued(*Savanah ent states no longer taking) fluconazole 150 mg tabletIndications:S kin candidiasis Take 1 Tablet (150 mg) by mouth every 48 hours. 1 Tablet 2024 Discontin ued(*IP Discontin ued) nystatin 100,000 unit/gram creamIndications:Sk in candidiasis Apply topically to affected area(s) three times daily for 14 days. 30 g 025 2024 fluconazole 200 mg tabletIndications:S kin candidiasis Take 1 Tablet (200 mg) by mouth once daily for 14 days. 14 Tablet 025 2024 Active Problems Problem Noted Date Diagnosed Date Metabolic encephalopathy 06/27/2024 UTI (urinary tract infection) 06/26/2024 Vomiting 06/26/2024 Cough 06/26/2024 Tobacco abuse 05/22/2024 Pyuria 09/30/2023 Acute diastolic congestive heart failure Acute respiratory failure with hypoxia and hyper capnia 09/30/2023 Renal calculi 09/30/2023 Ventral hernia 09/30/2023 GERD (gastroesophageal reflux disease) Bladder spasms 09/30/2023 Fatigue 09/30/2023 Acute encephalopathy [...] daughter as her decision maker - Debra Bauitsta [phone] Patient has Advance Care Plan Documents (Health [...] Problem Noted Date Diagnosed Date Resolved Date Toxic metabolic encephalopathy 06/26/2024 06/26/2024 Acute encephalopathy 10/23/2022 024 CO2 narcosis 10/23/2022 [...] Yeast infection 06/12/2020 09/30/2023 Urinary tract infection 05/29/202006/13 Sepsis 09/10/2018 01/05/2021 Anemia 09/10/2018 07/06/2021 Pressure [...] stent placement. Coronary artery disease invo [place]ving [place] coronary artery of [place] heart without angina pectoris 03/27/2017 11/15/2017 Overview (11/13/2017): 2014 in [place]. Had wall motion abnormality on echo. Unclear [...] 12/12/2014 Osteomyelitis of sacrum 01/27/201411/14 History of [place] (myocardial infarction) 12/28/2013 11/15/2017 Chronic diastolic congestive [...] Encounters Date Type Department Care Team Description 07/18/2024 Telephone [place] [id number] [facility] [address] [place] [address] Lana Reyes, RN Follow Up (Regression) 07/11/2024 Orders Only [facility] Scanner 1 scan: (1-Ord) [facility], XR CHEST 1 VIEW PORTABLE, 07/11/2024 07/11/2024 Orders Only [facility] Scanner 1 scan: (1-Ord) [place], CHEST ADOMEN PELV W/ CONTRAST, 07/11/2024 07/11/2024 Orders Only [facility] Scanner 1 scan: (1-Ord) [facility], XR CHEST, 07/11/2024 07/11/2024 Orders Only [facility] Scanner 1 scan: (1-Ord) [facility], CT HEAD/BRAIN WO CON, 07/11/2024 07/03/[address] [facility] [address] [facility] [place] [address] Mona Reyes MD 07/01/2024 Lab Requisition [facility] [phone] Unknown, Doctor 06/26/2024 2:15 AM CDT - 06/28/2024 2:12 PM CDT Hospital Encounter [facility] [address] [place] [address] Terrence Vásquez MBBS Hospitalist, Sanchez Sullivan, Akilah Hsieh, Mariann Hartman, CRISTOFER Brown, JUANITA Peoples Skin candidiasis (Primary Dx) Discharge Disposition: Senior Care Facility 06/26/2024 Travel 06/25/2024 Orders Only [facility] Scanner 1 scan: (1-Ord) [place], ABDOMEN PELVIS W/ CONTRAST, 06/25/2024 06/25/2024 Orders Only [facility] Scanner 1 scan: (1-Ord) [facility], ANGIO CHEST , 06/25/2024 06/16/2024 11:00 AM CDT Nurse/Clinic Staff Only [facility] [address] [place] [address] Removal (Patient due for catheter change); Insert (22 fr suprapubic catheter change) 06/16/2024 Travel 06/05/[address] [facility] [address] [place] [address] Dominique Carrillo NP 05/29/2024 11:59 AM CDT - 05/29/2024 11:59 PM CDT Hospital Encounter [facility] Imaging [address] [place] [address] Leon Saunders MD Decubitus ulcer of sacral region, stage 4 (HC); Paraplegia (HC) 05/29/2024 Travel 05/22/2024 11:15 AM CDT Office Visit [facility] [address] [place] [address] Dominique Carrillo NP Wound Check 05/22/2024 Travel 05/19/2024 11:00 AM CDT Nurse/Clinic Staff Only [facility] [address] [place] [address] [address] Removal (Patient due for catheter change); Insert (22 fr suprapubic catheter change) 05/19/2024 Travel 05/14/2024 9:30 AM CDT Office Visit [facility] [address] [facility] [place] [address] Edwin Cole, Anna Hearing Problem 05/14/[address] [facility] [address] [place] [address] George Meyer MD 05/14/2024 Travel 2024 Telephone [facility] [address] [place] [address] Edwin Cole, Anna 04/30/[address] [facility] [address] [place] [address] Dominique Carrillo, CRISTOFER Concerns from Last 3 Months Immunizations Immunization Administration [...] Answer Date Recorded PHQ-2 Score 0 04/13/2018 Social Connections Answer Date Recorded Do you often feel lonely or isolated from those around you? 0 06/26/2024 Financial Resource Strain Answer Date R ecorded Difficulty of Paying Living Expenses 3 06/26/2024 Difficulty of Paying Living Expenses Not on file 06/26/2024 Food Insecurity Answer Date Recorded Do you worry your food will run out before you are able to buy more? 1 06/26/2024 Transportation Needs Answer Date Record ed Does lack of transportation keep you from medica l appointments? 1 06/26/2024 Does lack of transportation keep you from work, meetings or getting things that you need? 1 06/26/2024 Housing Stability Answer Date Recorded What is your housing situation today? 1 06/26/2024 Interpersonal Safety Answer Date Record ed Are you being hit, kicked, p ushed or yelled at (see row info)? No 06/26/2024 Interpersonal Safety Abuse 12 - 18 Not on file 06/26/2024 Interpersonal Safety Ambulatory Vulnerability No t on file 06/26/2024 Utilities Answer Date Recorded Do you have trouble paying f or utilities (for example, heat, electricity, water, phone)? 1 06/26/2024 Comments No Sex and Gender Information Value Date Recorded Sex Assigned at Not on file Legal Sex Female 5:24 AM [employer] Gender Identity Not on file Sexual Orientation [...] Sign Reading Time Taken Comments Blood Pressure 108/55 06/28/2024 10:59 AM CDT Pulse 83 06/28/2024 10:59 AM CDT Temperature 36.8 C (98.2 F) 06/28/2024 10:59 AM CDT Respiratory Rate 18 06/28/2024 10:59 AM CDT Oxygen Saturation 97% 06/28/2024 10:59 AM CDT Inhaled Oxygen Concentration - - Weight 83.6 kg (184 lb 3.2 oz) 10/04/2023 6:20 A M CDT Height 165.1 cm (5' 5) 10/04/2023 6:20 AM CDT Body Mass Index 30.65 10/04/2023 6:20 AM CDT Plan of Treatment Upcoming Encounters Date Type Department Care Team (Late st Contact Info) Description 08/18/2024 11:00 AM CDT Nurse/Clinic Staff Only [facility] [address] [place] [address] [address] 09/22/2024 10:30 AM CDT Nurse/Clinic Staff Only [facility] [address] [address] 10/15/2024 10:15 AM CDT Procedure Only [facility] [address] [place] [address] Hans Bolanos MD [facility] [address] [place] [id number] Health Maintenance Due Date Last Done Comments Hepatitis C screening for age 18-79 05/07/1973 Zoster (shingles) series for age 50+ (2 of 3) 02/20/2012 12/26/2011 Mammogram for age 45-75 12/11/2012 12/12/19 12, 12/05/2011, 11/21/2010, Additional history exists RSV vaccine for adults or (1 - Risk 60-74 years 1-dose series) 2015 Depression screening for age 12+ 08/22/2019 08/21/2018, 08/14/2018, 08/09/2018, Additional history exists DEXA/DXA scan for age 65+ 05/07/2020 Medicare [...] 10/31/2016, Additional history exists Tdap Completed 08/08/2011 Hepatitis B series for 19+ Aged Out N o longer eligible based on patient's age to complete this topic Medical Devices Implanted Type Area Silverware Washer Device Identifier Shelf Expiration Date Model / Serial / Lot Stent Ultra 5fr 22cm 192-121 - Jannet Only - [id number] Implanted:Qty: 1 on 03/27/2017 by Kong Desai MD at [facility] Left: Ureter [employer] 11/15/2019 192-121# / / [id number] Explanted Type Area Silverware Washer Device Identifier Shelf Expiration Date Model / Serial / Lot Stent Ultra 5fr 22cm 192-121 - Jannet Only - [id number] Implanted:Qty: 1 on 12/14/2016 by Kong Desai MD at [facility] Explanted:Qty: 1 on 03/27/2017 by Kong Desai MD at [facility] Left: U[employer]ter [employer] 08/15/2019 192-121# / / [id number] Procedures Procedure Name Priority Date/Time Associated Diagnosis Comments SCAN-RADIOLOGY REPORT 07/11/2024 12:00 AM CDT SCAN-CT INTERPRETATION 12:00 AM CDT SCAN-RADIOLOGY REPORT 07/11/2024 12:00 AM CDT SCAN-CT INTERPRETATION 5 12:00 AM CDT URINALYSIS MICROSCOPIC Routine 5 11:30 PM CDT Dysuria URINE CULTURE Routine 07/02/2024 11:30 PM CDT Dysuria UA W/ SEDIMENT EXAM REFLEXED PER CRITERIA Routine 07/02/2024 11:30 PM CDT Dysuria MAGNESIUM Routine 07/02/2024 7:35 AM CDT Multiple sclerosis (HC) Metabolic encephalopathy Hypokalemia SODIUM Early AM 06/28/2024 6:19 AM CDT WHITE BLOOD COUNT Early AM 06/28/2024 6:1 9 AM CDT POTASSIUM Early AM 06/28/2024 6:19 AM CDT MAGNESIUM Early AM 06/28/2024 6:19 AM CDT CREATININE Early AM 06/28/2024 6:19 AM CDT HEMOGLOBIN Early AM 06/28/2024 6:19 AM CDT MAGNESIUM Timed 06/27/2024 8:14 PM CDT POTASSIUM Timed 06/27/2024 8:14 PM CDT C-REACTIVE PROTEIN Early AM 06/27/2024 5: 57 AM CDT HEMOGLOBIN Early AM 06/27/2024 5:57 AM CDT WHITE BLOOD COUNT Early AM 06/27/2024 5:5 7 AM CDT CREATININE Early AM 06/27/2024 5:57 AM CDT POTASSIUM Early AM 06/27/2024 5:57 AM CDT SODIUM Early AM 06/27/2024 5:57 AM CDT MAGNESIUM Early AM 06/27/2024 5:57 AM CDT URINALYSIS MICROSCOPIC Timed 6:50 AM CDT UA W/ SEDIMENT EXAM REFLEXED PER CRITERIA Today 06/26/2024 6:50 AM CDT URINE CULTURE Today 06/26/2024 6:50 AM CDT BLOOD GAS,VENOUS STAT 06/26/2024 5:57 AM CDT CBC WITH AUTO DIFFERENTIAL STAT 06/26/2024 5:26 AM CDT COMP METABOLIC PANEL STAT 06/26/2024 5:26 AM CDT CBC WITH AUTO DIFFERENTIAL STAT 06/26/2024 5:26 AM CDT COVID-19 MOLECULAR Today 06/26/2024 4 :38 AM CDT SCAN-CT INTERPRETATION 5 12:00 AM CDT SCAN-CT INTERPRETATION 12:00 AM CDT MR PELVIS MUSCULOSKELETAL WWO Routine 05/29/2024 1:55 [...] Recently Relevant to Health Maintenance Results * SCAN-RADIOLOGY REPORT (07/11/2024 12:00 AM CDT) Only the most recent of2 resultswithin the time period is included. Anatomical Region Laterality Modality Other us Scanner OTHER Final Result * SCAN-CT INTERPRETATION (07/11/2024 12:00 AM CDT) Only the most recent of4 resultswithin the time period is included. Anatomical Region Laterality Modality Other us Scanner OTHER Final Result * (ABNORMAL) URINALYSIS MICROSCOPIC (07/02/2024 11:30 PM CDT) Only the most recent of3 resultswithin the time period is included. RBC 11-25(A) 0-2, None Seen /HPF 07/03/2024 7:51 AM [facility] WBC 51-100(A) 0-2, 3-5, None Seen /HPF 07/03/2024 7:51 AM [facility] BACTERIA Many(A) None Seen, Rare, Few Bacteria/ HPF 07/03/2024 7:51 AM [facility] EPITHELIAL CELLS Few None Seen, Few Epi/HPF 07/03/2024 7:51 AM [facility] YEAST Present(A) (none) 07/03/2024 7:51 AM [facility] Mucus Present 07/03/2024 7:51 AM [facility] WHITE CELL CLUMPS Present(A) (none) 07/03/2024 7:51 AM [facility] HYALINE CASTS 6-10(A) 0-2, 3-5 /LPF 07/03/2024 7:51 AM [facility] Urine URINE SPECIMEN / Unknown Client Collect / Unknown 07/02/2024 11:30 PM CDT 07/03/2024 7:17 AM CDT Mona Reyes MD URINE Final Result Performing Organization Address [facility] Co de Phone Number [facility] [address] [place] [address] * (ABNORMAL) URINE CULTURE (07/02/2024 11:30 PM CDT) Only the most recent of3 resultswithin the time period is included. CULTURE RESULT(A) 07/06/2024 11:33 AM CDT [facility] CULTURE 50,000-100,000 CFU/mL Abigail albicans/dublini ensis 07/06/2024 11:33 AM CDT [facility] CULTURE <10,000 CFU/mL Multiple organisms probable contaminants 07/06/2024 11:33 AM CDT [facility] Urine URINE SPECIMEN / Unknown Client Collect / Unknown 07/02/2024 11:30 PM CDT 07/03/2024 7:17 AM CDT Mona Reyes MD MICROBIOLOGY Final Result Performing Organization Address [facility] Co de Phone Number [facility] [address] [place] [address], [place] * (ABNORMAL) UA W/ SEDIMENT EXAM REFLEXED PER CRITERIA (07/02/2024 11:30 PM CDT) Only the most recent of3 resultswithin the time period is included. COLOR Yellow Yellow Color 07/03/2024 7:27 AM CDT [facility] CLARITY Slightly Cloudy(A) Clear Clarity 07/03/2024 7:27 AM CDT [facility] SPECIFIC GRAVITY,URINE 1.015 1.010, 1.015, 1.020, 1.025 07/03/2024 7:27 AM CDT [facility] PH,URINE 5.5 6.0, 7.0, 8.0, 5.5, 6.5, 7.5, 8.5 07/03/2024 7:27 AM T [facility] UROBILINOGEN, QUALITATIVE Normal Normal EU/dl 07/03/2024 7:27 AM T [facility] PROTEIN, URINE Negative Negative mg/dL 07/03/2024 7:27 AM [facility] GLUCOSE, URINE Negative Negative mg/dL 07/03/2024 7:27 AM T [facility] KETONES,URINE Negative Negative mg/dL 07/03/2024 7:27 AM T [facility] BILIRUBIN,URI NE Negative Negative 07/03/2024 7:27 AM T [facility] OCCULT BLOOD,URINE Moderate(A) Negative 07/03/2024 7:27 AM [facility] NITRITE Positive(A) Negative 07/03/2024 7:27 AM [facility] LEUKOCYTE ESTERASE Moderate(A) Negative 07/03/2024 7:27 AM T [facility] Urine URINE SPECIMEN / Unknown Client Collect / Unknown 07/02/2024 11:30 PM CDT 07/03/2024 7:17 AM CDT Mona Reyes MD URINE Final Result Performing Organization Address [facility]/ZIP Co de Phone Number [facility] [address] [place] [address] * MAGNESIUM (07/02/2024 7:35 AM CDT) Only the most recent of4 resultswithin the time period is included. MAGNESIUM 1.8 1.6 - 2.4 mg/dL 07/02/2024 8:38 AM T [facility] Blood BLOOD SPECIMEN / Unknown Capillary / Unknown 07/02/2024 7:35 AM CDT 07/02/2024 8:07 AM CDT Doctor Unknown CHEMISTRY Final Result Performing Organization Address [facility]/ZIP Co de Phone Number [facility] [address] [place] [address] * WHITE BLOOD COUNT (06/28/2024 6:19 AM CDT) Only the most recent of2 resultswithin the time period is included. WHITE BLOOD COUNT 7.5 4.5 - 11.0 thou/cu mm 06/28/2024 6:53 AM CDT [facility] Blood BLOOD SPECIMEN / Unknown Butterfly / Unknown 06/28/2024 6:19 AM CDT 06/28/2024 6:35 AM CDT us Mariann Knight NP HEMATOLOGY Fin al Result Performing Organization Address [facility] Co de Phone Number [address] [phone] * (ABNORMAL) HEMOGLOBIN (06/28/2024 6:19 AM CDT) Only the most recent of2 resultswithin the time period is included. HEMOGLOBIN 10.2(L) 12.0 - 16.0 g/dL 06/28/2024 6:53 AM CDT [facility] MCV 95 80 - 100 fL 06/28/2024 6:53 AM CDT [facility] Blood BLOOD SPECIMEN / Unknown Butterfly / Unknown 06/28/2024 6:19 AM CDT 06/28/2024 6:35 AM CDT us Mariann Knight NP HEMATOLOGY Fin al Result Performing Organization Address [facility]/ZIP Co de Phone Number [address] [phone] * (ABNORMAL) SODIUM (06/28/2024 6:19 AM CDT) Only the most recent of2 resultswithin the time period is included. SODIUM 133(L) 136 - 145 mmol/L 06/28/2024 7:10 AM CDT [facility] Blood BLOOD SPECIMEN / Unknown Butterfly / Unknown 06/28/2024 6:19 AM CDT 06/28/2024 6:35 AM CDT Mariann Knight PLASTERER ROUGH CHEMISTRY Fin al Result Performing Organization Address [facility] de Phone Number [address] [phone] * POTASSIUM (06/28/2024 6:19 AM CDT) Only the most recent of3 resultswithin the time period is included. POTASSIUM 3.8 3.5 - 5.1 mmol/L 06/28/2024 7:10 AM CDT [facility] Blood BLOOD SPECIMEN / Unknown Butterfly / Unknown 06/28/2024 6:19 AM CDT 06/28/2024 6:35 AM CDT Mariann Knight NP CHEMISTRY Fin al Result Performing Organization Address [facility] de Phone Number [address] [phone] * (ABNORMAL) CREATININE (06/28/2024 6:19 AM CDT) Only the most recent of2 resultswithin the time period is included. eGFR 85(L) >90 mL/min/1.7 3m2 06/28/2024 7:10 AM CDT [facility] Comment:As of 2021, eG FR is calculated by the CKD-EPI creatinine equation without race adjustment. eGFR can be influenced by muscle mass, exercise, and diet. The reported eGFR is an estimation only and is only applicable if the renal function is stable. CREATININE 0.76 0.50 - 0.90 mg/dL 06/28/2024 7:10 AM CDT [facility] Blood BLOOD SPECIMEN / Unknown Butterfly / Unknown 06/28/2024 6:19 AM CDT 06/28/2024 6:35 AM CDT Mariann Lesia Torgersen PLASTERER ROUGH CHEMISTRY Fin al Result Performing Organization Address [facility]/ZIP Co de Phone Number [facility] [address] [place] [phone] * (ABNORMAL) C-REACTIVE PROTEIN (06/27/2024 5:57 AM CDT) C-REACTIVE PROTEIN 1.8(H) <0.5 mg/dL 06/27/2024 6:42 AM T [facility] Blood BLOOD SPECIMEN / Unknown Butterfly / Unknown 06/27/2024 5:57 AM CDT 06/27/2024 6:14 AM CDT Akilah Sullivan PLASTERER ROUGH CHEMISTRY Homa l Result Performing Organization Address [facility] Co de Phone Number [address] [phone] * (ABNORMAL) BLOOD GAS,VENOUS (06/26/2024 5:57 AM CDT) PH, VENOUS 7.34 7.32 - 7.43 06/26/2024 6:07 AM [facility] PCO2, VENOUS 49 41 - 51 mmHg 06/26/2024 6:07 AM [facility] PO2, VENOUS 49(H) 35 - 40 mmHg 06/26/2024 6:07 AM [facility] HCO3,VENOUS 26 22 - 29 mmol/L 06/26/2024 6:07 AM [facility] BASE EXCESS, VENOUS, POCT 0.0 -2.0 - 3.0 06/26/2024 6:07 AM [facility] O2 SATURATION, VENOUS 84(H) 70 - 75 % 06/26/2024 6:07 AM [facility] PATIENT TEMPERATURE 37.0 Degrees C 06/26/2024 6:07 AM [facility] Blood VENOUS BLOOD SPECIMEN / Unknown Butterfly / Unknown 06/26/2024 5:57 AM CDT 06/26/2024 6:01 AM CDT Terrence GRANT CHEMISTRY Final Result [facility] [address] [phone] * (ABNORMAL) CBC WITH AUTO DIFFERENTIAL (06/26/2024 5:[address] [facility]) WHITE BLOOD COUNT 14.0(H) 4.5 - 11.0 thou/cu mm 06/26/2024 6:15 AM [facility] RED BLOOD COUNT 3.64(L) 4.00 - 5.20 mil/cu mm 06/26/2024 6:15 AM [facility] HEMOGLOBIN 11.5(L) 12.0 - 16.0 g/dL 06/26/2024 6:15 AM [facility] HEMATOCRIT 34.4 33.0 - 51.0 % 06/26/2024 6:15 AM [facility] MCV 95 80 - 100 fL 06/26/2024 6:15 AM [facility] MCH 31.6 26.0 - 34.0 pg 06/26/2024 6:15 AM [facility] MCHC 33.4 32.0 - 36.0 g/dL 06/26/2024 6:15 AM [facility] RDW 14.8 11.5 - 15.5 % 06/26/2024 6:15 AM [facility] PLATELET COUNT 263 140 - 440 thou/cu mm 06/26/2024 6:15 AM [facility] MPV 11.0 6.5 - 11.0 fL 06/26/2024 6:15 AM [facility] % NEUT 82.6 % 06/26/2024 6:15 AM [facility] % LYMPH 12.6 % 06/26/2024 6:15 AM [facility] % MONO 4.7 % 06/26/2024 6:15 AM [facility] % EOS 0.0 % 06/26/2024 6:15 AM [facility] % BASO 0.1 % 06/26/2024 6:15 AM [facility] ABSOLUTE NEUTROPHILS 11.5(H) 1.7 - 7.0 thou/cu mm 06/26/2024 6:15 AM [facility] ABSOLUTE LYMPHOCYTES 1.8 0.9 - 2.9 thou/cu mm 06/26/2024 6:15 AM [facility] ABSOLUTE MONOCYTES 0.7 <0.9 thou/cu mm 06/26/2024 6:15 AM [facility] ABSOLUTE EOSINOPHILS 0.0 <0.5 thou/cu mm 06/26/2024 6:15 AM [facility] ABSOLUTE BASOPHILS 0.0 <0.3 thou/cu mm 06/26/2024 6:15 AM [facility] Blood BLOOD SPECIMEN / Unknown Butterfly / Unknown 06/26/2024 5:26 AM T 06/26/2024 6:01 AM T Terrence GRANT HEMATOLOGY Final Result [facility] [address] [phone] * (ABNORMAL) COMP METABOLIC PANEL (06/26/2024 5:[address] [facility]) SODIUM 135(L) 136 - 145 mmol/L 06/26/2024 6:29 AM [facility] POTASSIUM 3.3(L) 3.5 - 5.1 mmol/L 06/26/2024 6:29 AM [facility] CHLORIDE 99 98 - 107 mmol/L 06/26/2024 6:29 AM [facility] CO2,TOTAL 22 22 - 29 mmol/L 06/26/2024 6:29 AM [facility] ANION GAP 14 5 - 18 06/26/2024 6:29 AM [facility] GLUCOSE 91 70 - 99 mg/dL 06/26/2024 6:29 AM [facility] CALCIUM 8.1(L) 8.8 - 10.4 mg/dL 06/26/2024 6:29 AM [facility] Comment: Reference ranges for this test were updated on 12/18/2023 to reflect our healthy population more accurately. Reference range changes are not retroactively applied to results, but previous results using the same methodology can be interpreted in the context of the new reference range. BUN 27(H) 8 - 23 mg/dL 06/26/2024 6:29 AM [facility] CREATININE 1.08(H) 0.50 - 0.90 mg/dL 06/26/2024 6:29 AM [facility] BUN/CREAT RATIO 25(H) 10 - 20 6:29 AM [facility] eGFR 56(L) >90 mL/min/1. 73m2 06/26/2024 6:29 AM [facility] Comment:As of 2021, eG FR is calculated by the CKD-EPI creatinine equation without race adjustment. eGFR can be influenced by muscle mass, exercise, and diet. The reported eGFR is an estimation only and is only applicable if the renal function is stable. ALBUMIN 2.4(L) 4.0 - 4.9 g/dL 06/26/2024 6:29 AM [facility] PROTEIN,TOTAL 5.7(L) 6.0 - 8.0 g/dL 06/26/2024 6:29 AM [facility] BILIRUBIN,TOTAL 0.6 0.0 - 1.2 mg/dL 06/26/2024 6:29 AM [facility] ALK PHOSPHATASE 143(H) 35 - 104 IU/L 06/26/2024 6:29 AM [facility] ALT (SGPT) 15 10 - 35 IU/L 06/26/2024 6:29 AM [facility] AST (SGOT) 45(H) 10 - 35 IU/L 06/26/2024 6:29 AM [facility] Blood BLOOD SPECIMEN / Unknown Butterfly / Unknown 06/26/2024 5:26 AM CDT 06/26/2024 6:01 AM T Terrence Fahad MBBS CHEMISTRY Final Result Performing Organization Address City/State/[facility] Co de Phone Number [facility] [address] [phone] * COVID-19 MOLECULAR (06/26/2024 4:38 AM CDT) COVID 19 RAFIA MOLECULAR Not detected Not detected 06/26/2024 5:04 AM CDT [facility] TESTING LABORATORY [facility] 06/26/2024 5:04 AM CDT [facility] Comment:Specimen submitted t o [facility] for testing. Other SPECIMEN FROM NASOPHARYNGEAL STRUCTURE / Unknown Non-Blood / Unknown 06/26/2024 4:38 AM CDT 06/26/2024 4:42 AM CDT Terrence GRANT MICROBIOLOGY Final Result Performing Organization Address [facility] de Phone Number [facility] [address] [phone] * MR PELVIS MUSCULOSKELETAL WWO (05/29/2024 1:55 [...] For Patients: As a result of the Century Cures Act, medical imagingexams and procedure reports [...] MD MR Final Re sult * (ABNORMAL) Lipid Panel AM (11/13/2017 6:58 AM CDT) [facility] CHOLESTEROL,TOTAL 113 100 - 199 mg/dL 11/13/2017 8:06 AM CDT [facility] TRIGLYCERIDES 92 <150 mg/dL 11/13/2017 8:06 AM CDT [facility] HDL CHOLESTEROL 28(L) >40 mg/dL 8:06 AM CDT [facility] NON-HDL CHOLESTEROL 85 <145 mg/dl 11/13/2017 8:06 AM CDT [facility] CHOL/HDL RATIO 4.04 <4.50 11/13/2017 8:06 AM CDT [facility] LDL CHOLESTEROL 67 <=130 mg/dL 11/13/2017 8:06 AM CDT [facility] PROVIDER ORDERED STATUS RANDOM 11/13/2017 8:06 AM CDT [facility] Blood BLOOD SPECIMEN / Unknown Venipuncture / Unknown 11/13/2017 6:58 AM CDT 11/13/2017 7:07 AM CDT us Stephanie Howell MD CHEMISTRY Fi nal Result [facility] [address] [place] [address], [place] * SCAN-COLONOSCOPY (11/20/2013 12:00 AM CDT) [...] annual screening mammography. ACR 1 Negative Ayana Kennedi Glez MAMMO Final R esult from Last 3 Months or Most Recently Relevant to Health Maintenance Additional Health Concerns Infection Onset Date Last Indicated MRSA Comment:Order Contact Precautions. Nares surveillance cultures needed to clear patient if <12 months since positive culture. If >12 months since positive culture, precautions can be discontinued if patient has no MRSA risk factors. #1 +MRSA 06/29/20 [place] #2 +MRSA 06/11/2010 cath, + right lower abdomen #3 +MRSA 03/16/16; Coccygeal wound #4 +MRSA +12/31/13 #5 +MRSA 04/16/12,urine #6 +MRSA 05/02/2014 bone, #7 +MRSA 03/27/2013 [place] #8 +MRSA 09/30/2016 [place] on left ischial area, #9 +MRSA 07/10/2017 urine 10/01/23 patient has suprapubic cath. Not eligible for clearance exclusions for contact precaution discontinuation (if > 12 months since positive culture): resides in acute/ocean transportation intermediary care, receiving hemodialysis, has chronic open wounds/skin damage, has long-term percutaneous indwelling medical devices Exclusions for nares collection (if <12 months since positive culture) include all of the previous exclusions plus patients on antibiotics 7 days prior to collection 11/25/2009 11/25/2009 C diff History Comment:+ C [...] HB ONLY MEDICA CHOICE CARE MEDICA PRIME [place] [employer] [place] ONLY [place] [id number] MEDICA PRIME SOLUTION HB MED[facility]ID [facility] [place] [address] MEDICARE PART B HB ONLY MEDICA PRIME SOLUTION HB MEDICARE PART B HB ONLY [facility] Advance Directives Documents on File Type Date Recorded Patient Enterostomal Therapy Nurse Expl anation POLST 06/02/2022 POLST 05/27/2019 - Ma y 2020 POLST 05/27/2019 POLST 05/28/2014 2:33 PM - 23 Jun 2020 / ANJALI Effective 05/22/2014 Treatment Guidelines 01/12/2014 10:50 AM 1 0-20-14 Healthcare Directive 12/28/2013 12:00 AM 12-29-13 * Full Code (Latest Code Status on File) Date Activated Date Inactivated Comments 06/26/2024 2:54 AM 06/28/2024 4:17 PM Question Answer Comments Code Status Discussion: Other * Full Code Date Activated Date Inactivated Comments 09/30/2023 8:38 [...] Answer Comments Code Status Discussion: Reviewed Preferences Care Teams Circular [employer] Cooper Relationship Specialty Start Date End Date Pcp, No . PCP - General 10/09/23
--- OUTSIDE RECORDS SUMMARY | 2024-07-21 19:19 | XMS_ITS | Encounter Summary ---
Author Organization [place] Address [address] [place] [address]. 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 Care everywhere has been updated and reviewed: None available Referring facility has made imaging available through PACS: None available If patient is transferring for specialty care or procedure, the specialist has agreed with need fortransfer and anticipated timeline: Not applicable Transfer accepted: No (Specify) Patient not on vasopressors, intermittently hypotensive, but fluid responsive. Appropriate for step down. ICU Level of Care Recommendation: N/A: patient not accepted for transfer ICU Service Recommendation: [place]- N/A Final destination: pending Recommendations for referring provider: Reconsult ICU if patient is started on vasopressors. 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
--- OUTSIDE RECORDS SUMMARY | 2024-07-21 19:19 | XMS_ITS | Clinical Summary ---
Author Organization [facility] Address [address] [place] [address]. [place] [address] Care Team Providers Care Correctional Security Officer Name Role Phone Pedroteclif Erwin Sharma Primary Care Provider [phone] Allergies Active Allergy Reactions Criticality Noted Date Comments Citalopram Nausea 07/28/2013 Pt unaware of this as an allergy. Nsaids 03/31/2014 Hx of stomach ulcer. Pt reports only takes APAP. Medications potassium chloride eloy ER (KLOR-CON M20) 20 MEQ CR tablet Take 20 mEq by mouth 2 times daily. Active Furosemide (LASIX PO) Take 20 mg by mouth 2 times daily. Active nystatin (MYCOSTATIN) 977770 UNIT/GM external cream Apply topically 2 times daily Active acetaminophen (TYLENOL) 325 MG tablet Take 1,000 mg by mouth every 6 hours as needed for mild pain or fever. Active ASPIRIN PO Take 81 mg by mouth daily Active ondansetron (ZOFRAN-ODT) [address] 4 mg under the tongue every 8 hours as needed. 015 Active order for DMEIndications:MS (multiple sclerosis) (H) Equipment being ordered: Seat for wheelchair 1 Device 0 017 Active famotidine (PEPCID) 20 MG tablet Take 40 mg by mouth at bedtime. Active hydrocortisone 1 % CREA cream Place rectally daily as needed for itching. Active oxyBUTYnin ER (DITROPAN XL) 10 MG 24 hr tablet Take 10 mg by mouth daily. Active spironolactone (ALDACTONE) 25 MG tablet Take 12.5 mg by mouth every 48 hours. Active morphine (MS CONTIN) 15 MG CR tablet Take 15 mg by mouth every 12 hours. Active gabapentin (NEURONTIN) 300 MG capsuleIndication s:Pneumonia of right lung due to infectious organism, unspecified part of lung Take 1 capsule (300 mg) by mouth 2 times daily. 025 Active multivitamin w/minerals (THERA-VIT-M) tabletIndications :Pneumonia of right lung due to infectious organism, unspecified part of lung Take 2 tablets by mouth daily. Restart on 07/20 025 Active interferon beta-1a (AVONEX) 30 MCG/0.5ML injectionIndicati ons:Multiple sclerosis (H) Inject 0.5 mLs (30 mcg) into the muscle every 7 days 5 each 014 2024 Discontinued( ed Rec(No AVS / No eCancel)) mupirocin (BACTROBAN) 2 % ointment Apply topically daily 2024 Discontinued( ed Rec(No AVS / No eCancel)) gctplio-iaxjle-zl otease (CREON 12) 09898 UNITS CPEP 1 capsule by Per J Tube route daily 2024 Discontinued(M ed Rec(No AVS / No eCancel)) FOLIC ACID PO Take 1 mg by mouth daily 2024 Discontinued(M ed Rec(No AVS / No eCancel)) METOPROLOL TARTRATE PO Take 12.5 mg by mouth 2 times daily 2024 Discontinued(M ed Rec(No AVS / No eCancel)) morphine (MSIR) 15 MG IR tablet Take 15 mg by mouth 2 times daily. 2024 Discontinued(M ed Rec(No AVS / No eCancel)) MORPHINE SULFATE PO Take 7.5 mg by mouth every 4 hours as needed for moderate to severe pain 2024 Discontinued(M ed Rec(No AVS / No eCancel)) Morphine Sulfate (MS CONTIN PO) Take 30 mg by mouth 3 times daily 2024 Discontinued(M ed Rec(No AVS / No eCancel)) mirabegron (MYRBETRIQ) 50 MG 24 hr tablet Take 50 mg by mouth daily 2024 Discontinued(M ed Rec(No AVS / No eCancel)) nystatin (MYCOSTATIN) 756149 UNIT/GM POWD Apply topically as needed 2024 Discontinued(M ed Rec(No AVS / No eCancel)) Pantoprazole Sodium (PROTONIX PO) Take 40 mg by mouth 2 times daily (before meals) 2024 Discontinued(M ed Rec(No AVS / No eCancel)) SODIUM BICARBONATE PO 650 mg by Per J Tube route daily 2024 Discontinued(M ed Rec(No AVS / No eCancel)) Ondansetron HCl (ZOFRAN PO) Take 4 mg by mouth every 8 hours as needed for nausea or vomiting 2024 Discontinued(M ed Rec(No AVS / No eCancel)) fentaNYL (DURAGESIC) 12 mcg/hr patch [address] 1 patch onto the skin every 72 hours 2024 Discontinued(M ed Rec(No AVS / No eCancel)) fentaNYL (DURAGESIC) 25 mcg/hr patch [address] 1 patch onto the skin every 72 hours 2024 Discontinued(M ed Rec(No AVS / No eCancel)) ranitidine (ZANTAC) 300 MG tablet Take 300 mg by mouth At Bedtime 2024 Discontinued(M ed Rec(No AVS / No eCancel)) gabapentin (NEURONTIN) 300 MG capsule Take 900 mg by mouth 2 times daily. 2024 Discontinued triamcinolone (KENALOG) 0.1 % lotion Apply topically 3 times daily 2024 Discontinued(M ed Rec(No AVS / No eCancel)) VITAMIN D, CHOLECALCIFEROL, PO Take 1,000 Units by mouth daily 2024 Discontinued(M ed Rec(No AVS / No eCancel)) Magnesium Hydroxide (MILK OF MAGNESIA PO) Take 30 mLs by mouth as needed 2024 Discontinued(M ed Rec(No AVS / No eCancel)) cyanocobalamin (VITAMIN B12) 1000 MCG/ML injection Inject 1 mL into the muscle every 30 days 2024 Discontinued(M ed Rec(No AVS / No eCancel)) polyethylene glycol (MIRALAX/GLYCOLAX ) powder Take 17 g by mouth daily 2024 Discontinued(M ed Rec(No AVS / No eCancel)) Docusate Sodium (COLACE PO) Take 100 mg by mouth daily 2024 Discontinued(M ed Rec(No AVS / No eCancel)) nitrofurantoin macrocrystal (MACRODANTIN) 100 MG capsule Take 1 tab twice daily for 5 days. 016 2024 Discontinued(M ed Rec(No AVS / No eCancel)) fluconazole (DIFLUCAN) 200 MG tablet Take 200 mg by mouth daily. 025 2024 Discontinued(S top at Discharge) multivitamin w/minerals (THERA-VIT-M) tablet Take 2 tablets by mouth daily. 2024 Discontinued levofloxacin (LEVAQUIN) 500 MG tabletIndications :Pneumonia of right lung due to infectious organism, unspecified part of lung Take 1 tablet (500 mg) by mouth daily for 3 days. 025 2024 Active Problems Problem Noted Date Diagnosed Date Sepsis 07/12/2024 Wound of buttock 12/20/2017 Altered mental status [...] Pressure ulcer of coccygeal region, stage 4 /0 08/2015 Cannabis use, uncomplicated 07/21/2015 Tobacco abuse [...] as her decision maker - Debra Bautista [phone] Patient has Advance Care Plan Documents (Health [...] as her decision maker - Debra Bautista [phone] Patient has Advance Care Plan Documents (Health Care Directive, POLST): No, Health Care Packet given to patient and family. Patient has identified Specific Treatment Preferences: No Specific limits to treatment preferences NOT identified: ASSUME FULL TREATMENT. 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 Acute Care 07/11/2024 Telephone [facility] - Medical Specialties Service Line [address] [place] [address] Jacob Tiwari MD from Last 3 Months Immunizations Immunization Administration Dates Next Due Pneumo [...] on file Legal Sex Female 4:34 AM CHEMIST ENZYMES Gender Identity Not on file Sexual Orientation [...] Mass Index 35.61 07/12/2024 7:00 AM CDT Plan of Treatment Health Maintenance Due Date Last Done Comments ANNUAL REVIEW OF HM ORDERS 1955 CT COLONOGRAPHY 1955 DEXA 1955 FIT 1955 FLEX SIG 1955 HF ACTION PLAN 1955 LIPID 1955 MAMMO SCREENING 1955 TSH W/FREE T4 REFLEX 1955 URINE DRUG SCREEN 1955 sDNA (Cologuard) 1955 HEPATITIS C SCREENING 05/07/1973 ZOSTER VACCINE (1 of 2) 02/20/2012 12/26/2011 RSV VACCINE (1 - Risk 60-74 years 1-dose series) 2015 ADVANCE CARE PLANNING 12/29/2018 12/29/2013 FALL RISK ASSESSMENT 05/07/2020 MEDICARE ANNUAL WELLNESS VISIT 05/07/2020 DTAP/TDAP/TD VACCINE (4 - Td or Tdap) 08/07/2021 08/08/2011, 09/12/2005, 09/12/2005 COLONOSCOPY 11/21/2023 11/20/2013 COLORECTAL CANCER SCREENING 11/21/2023 PHQ-2 (once per calendar year) 2024 12/20/2017, 12/20/2017 COVID-19 VACCINE (7 - Moderna risk 2023- season) 2024 01/28/2024, 12/27/2022, 02/08/2022, Additional history exists BMP 01/15/2025 07/16/2024, 060 04/2024, 07/14/2024, Additional history exists ALT 07/12/2025 07/12/2024, 03/16, 04/01/2018, Additional history exists LUNG CANCER SCREENING 07/13/2025 07/13/2024 , 09/30/2023, 02/24/2022, Additional history exists CBC 07/16/2025 07/16/2024, 06/0 04/2024, 07/14/2024, Additional history exists DIABETES SCREENING 07/17/2027 07/16/2024, 0 07/15/2024, 07/14/2024, Additional history exists PNEUMOCOCCAL VACCINE 50+ YEARS Completed 10/17/2023, 10/09/2016, 12/11/2014, Additional history exists INFLUENZA VACCINE Completed 10/27/2023, , 01/16/2022, Additional history exists HPV VACCINE Aged Out No longer eligi ble based on patient's age to complete this topic MENINGITIS VACCINE Aged Out No longer eligible based on patient's age to complete this topic Medical Devices Implanted Type Area Financial Underwriter Device Identifier Shelf Expiration Date Model / Serial / Lot Suprapubic Catheter Colostomy Bag Procedures Procedure Name Priority Date/Time Associated Diagnosis Comments MAGNESIUM Routine 07/17/2024 5:38 AM CDT POTASSIUM Routine 07/17/2024 5:38 AM CDT MR BRAIN W/O & W CONTRAST Routine 07/17/2024 1:50 AM CDT BASIC METABOLIC PANEL Routine 07/16/2024 5:22 AM CDT CBC WITH PLATELETS Routine 07/16/2024 5: 22 AM CDT MAGNESIUM Routine 07/16/2024 5:22 AM CDT PLATELET COUNT Routine 07/15/2024 11:26 PM CDT ECHO LIMITED Routine 07/15/2024 11:15 AM CDT PROCALCITONIN Add-On 07/15/2024 6:26 AM CDT MAGNESIUM Routine 07/15/2024 6:26 AM CDT BASIC METABOLIC PANEL Routine 07/15/2024 6:26 AM CDT CBC WITH PLATELETS Routine 07/15/2024 6: 26 AM CDT RESPIRATORY PANEL PCR Routine 07/14/2024 2:57 PM CDT NT-PROBNP Add-On 07/14/2024 5:17 AM CDT PROCALCITONIN Add-On 07/14/2024 5:17 AM CDT BASIC METABOLIC PANEL Routine 07/14/2024 5:17 AM CDT CBC WITH PLATELETS Routine 07/14/2024 5: 17 AM CDT MAGNESIUM Routine 07/14/2024 5:[address] CHEST PULMONARY EMBOLISM W [...] CDT MAGNESIUM Routine 07/13/2024 5:18 AM CDT CBC WITH PLATELETS Routine 07/13/2024 5: 18 AM CDT BASIC METABOLIC PANEL Routine 07/13/2024 5:18 AM CDT GLUCOSE BY METER Routine 07/13/2024 2:18 AM CDT GLUCOSE BY METER Routine 07/12/2024 11:0 8 PM CDT BLOOD CULTURE STAT 07/12/2024 6:51 PM CDT BLOOD CULTURE STAT 07/12/2024 6:48 PM CDT XR CHEST PORT 1 VIEW STAT 07/12/2024 6:16 PM CDT CBC WITH PLATELETS & DIFFERENTIAL STAT 07/12/2024 6:04 PM CDT CBC WITH PLATELETS AND DIFFERENTIAL STAT 07/12/2024 6:04 PM CDT BASIC METABOLIC PANEL STAT 07/12/2024 6:04 PM CDT BLOOD GAS VENOUS STAT 07/12/2024 6:04 PM CDT LACTIC ACID WHOLE BLOOD STAT 07/12/2024 6:04 PM CDT MAGNESIUM Timed 07/12/2024 6:04 PM CDT GLUCOSE BY METER [...] PLATELETS Routine 07/12/2024 5: 43 AM CDT URINE CULTURE STAT 07/12/2024 2:49 AM CDT LEGIONELLA URINARY ANTIGEN AND STREPTOCOCCUS PNEUMONIAE ANTIGEN Routine 07/12/2024 2:49 AM CDT UA MACROSCOPIC WITH REFLEX TO MICRO AND CULTURE STAT 07/12/2024 2:49 AM CDT LACTIC ACID WHOLE BLOOD WITH 1X REPEAT IN 2 HR WHEN >2 STAT 07/12/2024 2:48 AM CDT EKG 12-LEAD, TRACING ONLY STAT 07/12/2024 2:21 AM CDT GLUCOSE BY METER Routine 07/12/2024 1:00 AM CDT from Last 3 Months Results * Potassium (07/17/2024 5:38 AM CDT) Only the most recent of2 resultswithin the time period is included. Potassium 4.4 3.4 - 5.3 mmol/L 07/17/2024 6:15 AM CDT LABORATORY Blood BLOOD SPECIMEN / Unknown Venipuncture / Unknown 07/17/2024 5:38 AM CDT 07/17/2024 5:50 AM CDT Flash Lehman MD LAB - BLOOD ORDERABLES Fi nal Result LABORATORY [facility] [address] floor, [address] [place] [address], [facility] [phone] * Magnesium (07/17/2024 5:38 AM CDT) Only the most recent of7 resultswithin the time period is included. Magnesium 2.1 1.7 - 2.3 mg/dL 07/17/2024 6:15 AM CDT LABORATORY Blood BLOOD SPECIMEN / Unknown Venipuncture / Unknown 07/17/2024 5:38 AM CDT 07/17/2024 5:50 AM CDT Flash Lehman MD LAB - BLOOD ORDERABLES Fi nal Result LABORATORY [facility] [address] floor, [address] [place] [address], [facility] [phone] * MR Brain w/o & w Contrast [...] MR BRAIN W/O and W CONTRAST LOCATION: [facility] DATE: 07/17/2024 INDICATION: progressive cognitive decline chronic [...] MR BRAIN W/O and W CONTRAST LOCATION: [facility] DATE: 07/17/2024 INDICATION: progressive cognitive decline chronic [...] global cerebral volume loss. [place]ia Huerta MD [facility] MRI ORDERABLES Fin al Result * (ABNORMAL) Basic metabolic panel (07/16/2024 5:22 AM CDT) Only the most recent of5 resultswithin the time period is included. Sodium 144 135 - 145 mmol/L 07/16/2024 6:23 AM [facility] Potassium 4.0 3.4 - 5.3 mmol/L 07/16/2024 6:23 AM [facility] Chloride 115(H) 98 - 107 mmol/L 07/16/2024 6:23 AM [facility] Carbon Dioxide (CO2) 21(L) 22 - 29 mmol/L 07/16/2024 6:23 AM [facility] Anion Gap 8 7 - 15 mmol/L 07/16/2024 6:23 AM [facility] Urea Nitrogen 13.2 8.0 - 23.0 mg/dL 07/16/2024 6:23 AM [facility] Creatinine 0.96(H) 0.51 - 0.95 mg/dL 07/16/2024 6:23 AM [facility] GFR Estimate 64 >60 mL/min/1.7 3m2 07/16/2024 6:23 AM [facility] Comment:eGFR calculated 2020 CKD-EPI equation. Calcium 7.7(L) 8.8 - 10.4 mg/dL 07/16/2024 6:23 AM CDT LABORATORY Glucose 97 70 - 99 mg/dL 07/16/2024 6:23 AM T LABORATORY Blood CENTRAL VENOUS CATHETER / Unknown Venipuncture / Unknown 07/16/2024 5:22 AM CDT 07/16/2024 5:58 AM CDT us Sudeep Back MD LAB - BLOOD ORDERABLES Fi nal Result LABORATORY [facility] [address], [address] [place] [address], [facility] [phone] * (ABNORMAL) CBC with platelets (07/16/2024 5:22 AM CDT) Only the most recent of5 resultswithin the time period is included. [facility] WBC Count 10.4 4.0 - 11.0 10e3/uL 07/16/2024 6:02 AM [facility] RBC Count 2.74(L) 3.80 - 5.20 10e6/uL 07/16/2024 6:02 AM [facility] Hemoglobin 8.6(L) 11.7 - 15.7 g/dL 07/16/2024 6:02 AM [facility] Hematocrit 26.1(L) 35.0 - 47.0 % 07/16/2024 6:02 AM [facility] MCV 95 78 - 100 fL 07/16/2024 6:02 AM [facility] MCH 31.4 26.5 - 33.0 pg 07/16/2024 6:02 AM [facility] MCHC 33.0 31.5 - 36.5 g/dL 07/16/2024 6:02 AM [facility] RDW 19.9(H) 10.0 - 15.0 % 07/16/2024 6:02 AM [facility] Platelet Count 227 150 - 450 10e3/uL 07/16/2024 6:02 AM CDT LABORATORY Blood CENTRAL VENOUS CATHETER / Unknown Venipuncture / Unknown 07/16/2024 5:22 AM CDT 07/16/2024 5:58 AM CDT us Sudeep Back MD LAB - BLOOD ORDERABLES Fi nal Result [facility] [address], [address], [place] [address], [place] [phone] * Platelet count (07/15/2024 11:26 PM CDT) [facility] Platelet Count 234 150 - 450 10e3/uL 07/15/2024 11:44 PM CDT LABORATORY MCV 95 78 - 100 fL 07/15/2024 11:44 PM CDT LABORATORY Blood CENTRAL VENOUS CATHETER / Unknown Venipuncture / Unknown 07/15/2024 11:26 PM CDT 07/15/2024 11:42 PM CDT us Alyse Duenas MD LAB - BLOOD ORDERABLES Final Re sult [facility] [address], [address], [place] [address], [facility] [phone] * ECHO LIMITED (07/15/2024 11:15 AM CDT) Anatomical Region Laterality Modality Echocardiography 07/15/2024 10:1 1 AM CDT Narrative 07/15/2024 12:44 PM CDT [id number]^ALISTAIR^ALYSE^[facility] Echocardiography Laboratory [address] [place] [address] Name: ARSLAN LIMA : 1955 Study Date: 07/15/2024 10:11 AM Age: 69 yrs Gender: Female Patient Location: [facility] Reason For Study: CHF, CHF Ordering Physician: [...] Procedure Note Jose Cedillo MD, - 07/15/2024 [id number]^ALISTAIR^ALYSE^[facility]rid[facility]. [facility] Echocardiography Laboratory [address] [place] [address] Name: ARSLAN LIMA : 1955 Study Date: 07/15/2024 10:11 AM Age: 69 yrs Gender: Female Patient Location: [facility] Reason For Study: CHF, CHF Ordering Physician: [...] systolic function appears hyperdynamic with estimated ejection [id number]%. 3. Regional wall motion analysis was not [...] * (ABNORMAL) Procalcitonin (07/15/2024 6:26 AM CDT) Only the most recent of2 resultswithin the time period is included. [facility] Signature Procalcitonin 16.30(HH) <0.50 ng/mL 07/15/2024 11:31 AM [...] See Procalcitonin Guidance document for more details. [email or web address] Factors that may affect PCT levels (not [...] AM CDT 07/15/2024 6:30 AM CDT us Sudeep Back MD LAB - BLOOD ORDERABLES Fi nal Result LABORATORY [facility] [address], [address] [place] [address], [place] [phone] * Respiratory Panel PCR (07/14/2024 2:57 PM CDT) Pathologist [facility] Adenovirus Not Detected Not Detected 07/14/2024 7:08 [...] FDA approval for the testing of nasopharyngeal ([employer] INST[employer]ER) swabs only. This test is used for clinical purposes and should not be regarded as investigational or for research. This laboratory is certified under the Clinical Laboratory Improvement Amendments of 1988 (CLIA-88) as qualified to perform high complexity clinical laboratory testing. Rossy Dyer MD LAB - MICRO GENERAL ORDERABLES F inal Result [facility] Inf. Diseases Diag. Lab [address] [facility] [place] [address] * (ABNORMAL) NT-proBNP (07/14/2024 5:17 AM CDT) [facility] NT-proBNP 8,540(H) 0 - 353 pg/mL 07/14/2024 5:59 PM CDT LABORATORY Comment: Starting on 06/18/2024, [facility] laboratory began flagging abnormal values for plasma [...] be interpreted with the updated reference intervals. [facility]'s Pediatric (boys and girls) Reference Ranges in pg/mL * 0 up to 3 days: 0 - 64080 3 days up to 1 month: 0 [...] For adult chronic CHF patients according to [place] [employer] (NYHA) Functional Class, the mean NT-proBNP concentration is as following (5th and 95th percentile values respectively displayed in parentheses): Class I: 1016 pg/mL (33-3410) Class II: 1666 pg/mL (103-6567) Class III: 3029 pg/mL (126-02102) Class IV: 3465 pg/mL (148-37669) Clinical thresholds for acute (emergency department) settings: [...] - BLOOD ORDERABLES Final Res ult LABORATORY [facility] [address], [address] [place] [address], [facility] [phone] * CT Chest Pulmonary Embolism w Contrast [...] CT CHEST PULMONARY EMBOLISM W CONTRAST LOCATION: [facility] DATE: 07/13/2024 INDICATION: PNA, persistent sxs. COMPARISON: [...] CT CHEST PULMONARY EMBOLISM W CONTRAST LOCATION: [facility] DATE: 07/13/2024 INDICATION: PNA, persistent sxs. COMPARISON: [...] compared to 09/30/2023 exam,indeterminate, could be metastatic. Awnicholas Duenas MD IMG CT ORDERABLES Final Result * Lactic Acid Whole Blood w/ 1x repeat in 2 hrs when >2 (07/13/2024 1:19 PM CDT) Only the most recent of2 resultswithin the time period is included. Lactic Acid, Initial 0.8 0.7 - 2.0 mmol/L 07/13/2024 1:29 PM CDT LABORATORY Blood VENOUS LINE / Unknown VAD(CVC, PICC) / Unknown 07/13/2024 1:19 PM CDT 07/13/2024 1:25 PM CDT Awil Tomasa Duenas MD LAB - BLOOD ORDERABLES Final Re sult LABORATORY [facility] [address], [address] [place] [address], [place] [phone] * (ABNORMAL) Glucose by meter (07/13/2024 12:50 PM CDT) Only the most recent of10 resultswithin the time period is included. GLUCOSE BY METER POCT 104(H) 70 - 99 mg/dL 07/13/2024 12:56 PM CDT LABORATORY POC Blood, Capillary BLOOD SPECIMEN / Unknown 07/13/2024 12:50 PM CDT 07/13/2024 12:56 PM CDT Alyse Duenas MD LAB - BEAKER POCT Final Result LABORATORY POC [facility] [address], [address] [place] [address], [facility] * MRSA MSSA PCR, Nasal Swab (07/13/2024 12:44 PM CDT) [facility] MRSA Target DNA Negative Negative 07/13/2024 5:29 PM CDT [facility] SA Target DNA Negative 07/13/2024 5:29 PM CDT [facility] Swab BOTH ANTERIOR NARES / Unknown Non-blood Collection / Unknown 07/13/2024 12:44 PM CDT 07/13/2024 12:53 PM CDT Narrative [facility] - 07/13/2024 5:29 PM CDT The CepCvergenxid Xpert SA Nasal Complete assay performed in the GeneXCalester Dx System is a qualitative in vitro [...] result does not preclude MRSA/SA nasal colonization. Alyse Duenas MD LAB - MICRO GENERAL ORDERABLES Final Result [facility] Inf. Diseases Diag. Lab [address] [facility] [place] [address], [place] * (ABNORMAL) Ionized Calcium (07/13/2024 8:58 AM CDT) Calcium Ionized Whole Blood 4.1(L) 4.4 - 5.2 mg/dL 07/13/2024 9:07 AM CDT LABORATORY Blood VENOUS LINE / Unknown VAD(CVC, PICC) / Unknown 07/13/2024 8:58 AM CDT 07/13/2024 9:04 AM CDT us Chaitanya Nuñez PA-C LAB - BLOOD ORDERABLES Fi nal Result LABORATORY [facility] [address], [address] [place] [address], [facility] [phone] * Blood Culture Peripheral blood (BC) Hand, Right (07/12/2024 6:51 PM CDT) Only the most recent of2 resultswithin the time period is included. Culture No Growth 07/17/2024 11:31 PM CDT [...] ORDER PEYMAN Final Result [facility] Inf. Diseases Diag. Lab [address] [place] [address], [facility] * XR Chest Port 1 View (07/12/2024 [...] EXAM: XR CHEST PORT 1 VIEW LOCATION: [facility] DATE: 07/12/2024 INDICATION: Sepsis, hypotension, tachycardia, hypoxia COMPARISON: CT 09/30/2023 Procedure Note Leon Olivas MD - 07/12/2024 EXAM: XR CHEST PORT 1 VIEW LOCATION: [facility] DATE: 07/12/2024 INDICATION: Sepsis, hypotension, tachycardia, hypoxia [...] - BLOOD ORDERABLES Fi nal Result LABORATORY [facility] [address], [address] [place] [address], [facility] [phone] * (ABNORMAL) Lactic acid whole blood (07/12/2024 6:04 PM CDT) Lactic Acid 0.6(L) 0.7 - 2.0 mmol/L 07/12/2024 6:22 PM CDT LABORATORY Blood VENOUS LINE / Unknown Venipuncture / Unknown 07/12/2024 6:04 PM CDT 07/12/2024 6:13 PM CDT us Chaitanya Nuñez PA-C LAB - BLOOD ORDERABLES Fi nal Result LABORATORY [facility] [address], [address] [place] [address], [facility] [phone] * (ABNORMAL) Blood gas venous (07/12/2024 6:04 PM CDT) Only the most recent of2 resultswithin the time period is included. pH Venous 7.34 7.32 - 7.43 07/12/2024 [...] be considerably lower than oxygen saturation. us Chaitanya Nuñez PA-C LAB - BLOOD ORDERABLES Fi nal Result LABORATORY [facility] [address], [address] [place] [address], [place] [phone] * Hemoglobin A1c (07/12/2024 11:52 AM CDT) Estimated Average Glucose 88 <117 mg/dL 07/12/2024 1:47 PM CDT LABORATORY Hemoglobin A1C 4.7 <5.7 % 07/12/2024 1:47 PM CDT LABORATORY Comment: Normal <5.7% Prediabetes 5.7-6.4% Diabetes 6.5% or higher Note: Adopted from ADA consensus guidelines. Blood VENOUS LINE / Unknown VAD(CVC, PICC) / Unknown 07/12/2024 11:52 AM CDT 07/12/2024 12:17 PM CDT Alyse Duenas MD LAB - BLOOD ORDERABLES Final Re sult LABORATORY [facility] [address], [address] [place] [address], [place] [phone] * (ABNORMAL) Comprehensive metabolic panel (07/12/2024 5:43 AM CDT) Sodium 136 135 - 145 mmol/L 07/12/2024 6:37 AM CDT LABORATORY Potassium 4.1 3.4 - 5.3 mmol/L 07/12/2024 6:37 AM CDT LABORATORY Carbon Dioxide (CO2) 24 22 - 29 mmol/L 07/12/2024 6:37 AM CDT LABORATORY Anion Gap 11 7 - 15 mmol/L 07/12/2024 6:37 AM [facility] Urea Nitrogen 19.2 8.0 - 23.0 mg/dL 07/12/2024 6:37 AM [facility] Creatinine 1.63(H) 0.51 - 0.95 mg/dL 07/12/2024 6:37 AM [facility] GFR Estimate 34(L) >60 mL/min/1.7 3m2 07/12/2024 6:37 AM [facility] Comment:eGFR calculated usks 2020 CKD-EPI equation. Calcium 7.3(L) 8.8 - 10.4 mg/dL 07/12/2024 6:37 AM [facility] Chloride 101 98 - 107 mmol/L 07/12/2024 6:37 AM [facility] Glucose 69(L) 70 - 99 mg/dL 07/12/2024 6:37 AM [facility] Alkaline Phosphatase 212(H) 40 - 150 U/L 07/12/2024 6:37 AM [facility] AST 57(H) 0 - 45 U/L 07/12/2024 6:37 AM [facility] ALT 33 0 - 50 U/L 07/12/2024 6:37 AM [facility] Protein Total 5.1(L) 6.4 - 8.3 g/dL 07/12/2024 6:37 AM [facility] Albumin 2.3(L) 3.5 - 5.2 g/dL 07/12/2024 6:37 AM [facility] Bilirubin Total 0.2 <=1.2 mg/dL 07/12/2024 6:37 AM [facility] Blood CATHETER / Unknown VAD(CVC, PICC ) / Unknown 07/12/2024 5:43 AM CDT 07/12/2024 6:12 AM T us Loan Aguilar MD LAB - BLOOD ORDERABLES Final Result LABORATORY [facility] [address] 1[address] floor, [address] [place] [address] [phone] * Legionella Urinary Antigen and Streptococcus pneumoniae [...] AM CDT 07/12/2024 4:32 AM CDT Narrative [facility] - 07/12/2024 11:32 AM CDT The result of this test as well as culture, serology, or other antigen detection methods should be used in conjunction with clinical findings to make an accurate diagnosis. us Loan Aguilar MD LAB - MICRO GENERAL OR DERABLES Final Result [facility] Inf. Diseases Diag. Lab [facility], [address] [place] [id number], [facility] * (ABNORMAL) UA Macroscopic with reflex to Microscopic and Culture (07/12/2024 2:49 AM CDT) Color Urine [place](A) Colorless, Straw, Light Yellow, Yellow 07/12/2024 4:54 AM CDT LABORATORY Appearance Urine Cloudy(A) Clear 07/13/19 4:54 AM CDT LABORATORY Glucose Urine Negative Negative mg/dL 07/12/2024 4:54 AM CDT LABORATORY Bilirubin Urine Negative Negative 4:54 AM CDT LABORATORY Ketones Urine Negative Negative mg/dL 07/12/2024 4:54 AM CDT LABORATORY Specific [place] Urine 1.010 1.003 - 1.035 FAITH 07/12/2024 [...] LAB - URINE ORDERABLES Final Result LABORATORY [facility] [address] 1[address] floor, [address] [place] [address], [place] [phone] * Urine Culture (07/12/2024 2:49 AM CDT) [...] collection. Suggest repeat specimen if clinically indicated. Loan Aguilar MD LAB - MICRO GENERAL OR DERABLES Final Result [facility] Inf. Diseases Diag. Lab [address] [facility] [place] [address] * EKG 12-lead, tracing only (07/12/2024 2:21 AM CDT) Systolic Blood Pressure mmHg RADIOLOGY RESULTS Diastolic Blood Pressure mmHg RADIOLOGY RESULTS Ventricular Rate 109 BPM RAD IOLOGY RESULTS Atrial Rate 109 BPM RADIOLOG Y RESULTS DE Interval 154 ms RADIOLOG Y RESULTS QRS Duration 100 ms RADIOLO GY RESULTS QT 362 ms RADIOLOGY RESULTS QTc 487 ms RADIOLOGY RESULTS P [place] 72 degrees RADIOLOGY RESULTS R AXIS -9 degrees RADIOLOGY RESULTS T [place] 3 degrees RADIOLOGY RESULTS Interpretation ECG Limited quality tracing Sinus tachycardia Low voltage QRS Incomplete right bundle branch block Nonspecific T wave abnormality Abnormal ECG No previous ECGs available Confirmed by MD FELICITY, KATHRIN ([id number]) on 07/14/2024 7:19:27 AM RADIOLOGY RESULTS 07/12/2024 2:21 AM CDT 07/14/2024 7:19 AM CDT us Loan Aguilar MD ECG ORDERABLES Edited Result - Final RADIOLOGY RESULTS from Last 3 Months Additional Health Concerns Infection Onset Date Last Indicated MRSA 06/29/2020 06/29/2020 Insurance [employer] PRIME SOLUTION MEDICARE MEDICARE MEDICA PRIME SOLUTION MEDICARE MEDICA PRIME SOLUTION Advance Directives For more information, please contact: [phone] * Full Code (Latest Code Status on File) Date Activated Date Inactivated Comments 07/12/2024 1:52 AM 07/17/2024 5:22 PM All basic and advanced life-sustaining interventions are performed as appropriate Question Answer Comments Code status determined by: Discussion with mynor nt/ legal decision maker Care Teams Correctional Security Officer Relationship Specialty Start Date End Date VotelErwin PCP - General Family Practice 11/02/16
--- OUTSIDE RECORDS SUMMARY | 2024-07-21 19:19 | XMS_ITS | Encounter Summary ---
Author Organization [facility] Address [address] [place] [address]. [place] [address] Care Team Providers Care Glass Blowing Instructor Name Role Phone Chloé Castro RN Unavailable VoteErwin menezes Primary Care Provider [phone] Encounter Details Date Type Department Care Team [...] on file Legal Sex Female 4:34 AM PUTTY PATCHER Gender Identity Not on file Sexual Orientation Not on file documented as of this encounter Plan of Treatment Not on file documented as of this encounter Visit Diagnoses Not on filedocumented in this encounter Additional Health Concerns Infection Onset Date Last Indicated Resolved Time MRSA 06/29/2020 06/29/2020 Assessment Noted Time PHQ-9 Depression Total Score: 8 12/21/19 18 10:41 AM PUTTY PATCHER documented as of this encounter Care Teams Glass Blowing Instructor Relationship Specialty Start Date End Date Votel, Erwin Sharma PCP - General Family Practice 11/02/16 Chloé Castro, RN Specialty Site Lead Neurology 01/04/16 documented as of this encounter
--- OUTSIDE RECORDS SUMMARY | 2024-07-21 19:19 | XMS_ITS ---
Author Organization [facility] Care Team Providers Care Licensed Nurse Practitioner Name Role Phone Ayana Glez Unavailable Unavailable Flash Oliveira Unavailable Unavailable Allergies and adverse reactions Code CodeSystem Substance Reaction Severity StartDate Concern Status 300158487 SNOMED CT NSAIDs Unknown 03/23/2014 active Celexa Unknown Unknown active Care Team Name Role Address Phone Organization Dates Flash Oliveira PCP Gen[facility] [address] [place] [address], [address], [place], [address], [place] States (Office): [facility] 06/01/2014 - 08/11/2014 Ayana Glez [address], [place], [address], [facility] 06/01/2014 - 08/11/2014 Immunizations Immunization Status Vaccine Details Vaccine Code CodeSystem Date Notes TB 2 Step Mantoux Skin Test completed tuberculin skin test; unspecified formulation lotNumber: [id number] expiry: 10/14/2015 Mfg: [employer] Given 0.1 ml Left Forearm intradermally Step 1 of Multi-step with next step required 98 CVX created date: 06/07/2014 consent date: 06/06/2014 administer ed date: 06/06/2014 TB 2 Step Mantoux Skin Test completed tuberculin skin test; unspecified formulation lotNumber: [id number] expiry: 05/14/2015 Mfg: [employer] Given 0.1 ml Right Forearm intradermally Step 2 of Multi-step with next step required 98 CVX created date: 01/20/2014 consent date: 01/20/2014 administer ed date: 01/20/2014 Educated by scott on 01/20/2014 TB 2 Step Mantoux Skin Test completed tuberculin skin test; unspecified formulation lotNumber: [id number] expiry: 04/13/2015 Mfg: [employer] Given 0.1 [...] Current Smoking Status Tobacco smoking consumption unknown [id number] SNOMED CT Sex Assigned At Female 1955 [address]322-1 [facility] Gender Identity Vital Signs Code Code System Vitals Name Values and Units Timing Information 8310-5 LOINC Body Temperature Value=96.6 Units= F 08/11/2014 47128-2 LOINC Pain Level Value=7.0 08/10/2014 22236-8 LOINC Weight Hiuhp=548.4 Units=Lbs 9279-1 LOINC Respiratory Rate Value=18.0 Units=/m in 08/06/2014 8462-4 LOINC Blood Pressure-Diastolic Value=62 Un its=mmHg 08/06/2014 8480-6 [facility] Blood Pressure-Systolic Wcxyw=222 Un its=mmHg 08/06/2014 8867-4 [facility] Heart rate Value=66.0 Units=/min 35613-5 [facility] O2 % BldC Oximetry Value=96.0 Units= % 08/06/2014 8302-2 [facility] Height Value=63.0 Units=Inches 06/02/2014
--- OUTSIDE RECORDS SUMMARY | 2024-07-21 19:19 | XMS_ITS | Encounter Summary ---
Author Organization [facility] Address [address] [place] [address]. [place] [address] Care Team Providers Care Head Automatic Sawyer Name Role Phone Ayana Glez Primary Care Provider Unav ailGenevieve Roldan Primary Care Provider [phone] Chloé Castro RN Unavailable Erwin Fuchs Primary Care Provider [phone] Encounter Details Date Type Department Care Team [...] on file Legal Sex Female 4:34 AM PONDMAN Gender Identity Not on file Sexual Orientation Not on file documented as of this encounter Plan of Treatment Not on file documented as of this encounter Visit Diagnoses Not on filedocumented in this encounter Additional Health Concerns Infection Onset Date Last Indicated Resolved Time MRSA 06/29/2020 06/29/2020 documented as of this encounter Care Teams Head Automatic Sawyer Relationship Specialty Start Date End Date Ayana Glez PCP - General Family Practice 07/22/13 04/26/15 Genevieve Rowan [address] [address] PCP - General Family Practice 04/27/15 11/01/16 Erwin Fuchs PCP - General Family Practice 11/02/16 Chloé Castro, CHRISTEN Specialty Casing Finisher And Stuffer Neurology 01/04/16 10/05/20 documented as of this encounter
[2024-07-21] MEDS: 0.9 % SODIUM CHLORIDE 1000 ml 1,000 ML IV ×2 (19:32→19:41)
--- NOTE | 2024-07-21 19:37 | CRLHL7_ITS ---
For Patients: As a result of the Century Cures Act, medical imaging exams and procedure reports are released immediately into your electronic medical record. You may view this report before your referring provider. If you have questions, please contact your health care provider. INDICATION: Hypoxia, shortness of breath TECHNIQUE: Chest radiograph 1 view COMPARISON: 07/11/2024 FINDINGS: The sensitivity and specificity of the exam are severely limited by the patient`s body habitus. Mediastinum: The mediastinum is normal in appearance. The heart silhouette is normal in size and morphology. Lung: Moderate bilateral airspace opacities are noted, likely due to pulmonary edema. Consolidation left lung base with small left pleural effusion is noted. No pneumothorax is identified. Bone and Soft tissue: Unremarkable for age. IMPRESSIONS: 1. Moderate bilateral airspace opacities are noted, likely due to pulmonary edema. 2. Consolidation left lung base with small left pleural effusion is noted. These findings can be seen with atelectasis and/or pneumonia. Dictated by Brody Garcia MD @ 07/21/2024 8:11:21 PM Dictated by: Brody Garcia MD @ 07/21/2024 20:11:37 (Electronically Signed)
[2024-07-21 19:44] LABS: Basophils Percent Auto 0.1 % (0.0-3.0); Eosinophils Percent Auto 0.2 % (0.0-7.0); HCO3 VBG 21 mmol/L (21-28); Hematocrit 26.5 % (33.0-51.0); Immature Granulocytes Pct Auto 0.2 %; Lactate Sepsis w/Reflex* 1.8 mmol/L (0.5-1.9); Lymphocytes Percent Auto 7.6 % (20-44); Mean Corpuscular HGB Conc 29 gm/dL (32-36); Mean Corpuscular Hemoglobin 32 pg (26-34); Mean Corpuscular Volume 108 fL (80-100); Monocytes Percent Auto 3.6 % (0.0-11.0); Neutrophils Percent Auto 88.3 % (42.0-72.0); PCO2 VBG 53 mmHG (40-50); PO2 VBG 38.2 mmHG (25-47); Platelet Count* 88 K/uL (140-440); RDW Coefficient of Variation % 18.8 % (11.5-15.5); Red Blood Count 2.46 m/uL (4.00-5.20); White Blood Count* 11.92 K/uL (4.50-11.00)
[2024-07-21 19:46] LABS: pH VBG 7.202 (7.32-7.43)
--- NOTE | 2024-07-21 19:46 | ED.GENADULT ---
HPI - General Adult General Chief complaint: Shortness of Breath/Dyspnea Stated complaint: low oxygen Time Seen by Provider: 07/21/24 19:42 History of Present Illness HPI narrative: 69-year-old woman brought to the emergency department by EMS with concern of altered mental status and hypoxia. Relatively unresponsive per report and ?unstable? and hypoxic in the 70s. Reviewing records shows that was through this 10 days ago diagnosed with pneumonia and sepsis, acute kidney injury and UTI and transferred to <critical access hospital>[facility]</critical access hospital> <critical access hospital[facility]critical [facility]> [facility], following stabilization. Underlying history of MS. Urine cultures from 07/11/2024 grew Enterobacter cloacae resistant to cefazolin and ceftazidime. She is offering little to interview upon arrival here. Arrives with blood pressures in 60s over 30s with a map of 62. Per POLST review from last visit it is reported to me that she is with hospice designation but full code. (I am able to speak later with family that hospice is actually being considered but not enacted at this point. She remains full code) Related Data Home Medications ?Medication ?Instructions ?Recorded ?Confirmed famotidine 40 mg tablet 40 mg PO DAILY 03/07/23 07/11/24 gabapentin 300 mg capsule 900 mg PO BID 03/07/23 07/11/24 morphine 15 mg tablet,extended 15 mg PO Q12H PRN 03/07/23 07/11/24 release morphine 30 mg immediate release 30 mg PO DAILY 03/07/23 08/30/23 tablet oxybutynin chloride 10 mg 10 mg PO DAILY 03/07/23 07/11/24 tablet,extended release 24 hr spironolactone 25 mg tablet 12.5 mg PO Q48H 03/07/23 07/11/24 acetaminophen 500 mg tablet 1,000 mg PO TID 08/30/23 07/11/24 hydrocortisone 1 % topical cream 1 applic topical DAILY 08/30/23 08/30/23 (Ala-Joshua) multivitamin (Daily-Ailyn tablet) 2 tab PO DAILY 08/30/23 08/30/23 naloxone 4 mg/actuation nasal spray 4 mg intranasal Q2-3M PRN 08/30/23 08/30/23 nystatin 100,000 unit/gram topical 1 applic topical TID 08/30/23 08/30/23 cream ondansetron HCl 4 mg tablet 4 mg PO Q8H PRN 08/30/23 07/11/24 sennosides 8.6 mg tablet 17.2 mg PO BID PRN 08/30/23 07/11/24 (Evac-U-Gen (sennosides)) fluconazole 200 mg tablet 200 mg PO DAILY 07/11/24 07/11/24 furosemide 20 mg tablet 20 mg PO BID 07/11/24 07/11/24 potassium chloride 20 mEq 20 meq PO BID 07/11/24 07/11/24 tablet,extended release(part/cryst) Previous Rx's ?Medication ?Instructions ?Recorded aspirin 81 mg capsule 81 mg PO DAILY #30 caps 08/31/23 Allergies Allergy/AdvReac Type Severity Reaction Status Date / Time citalopram (From Celexa) Allergy Unknown Verified 06/25/24 19:30 duloxetine Allergy Unknown Verified 06/25/24 19:30 NSAIDS (Non-Steroidal Allergy Unknown Verified 06/25/24 19:30 Anti-Inflamma Review of Systems Status of ROS: Reports: unobtainable due to medical condition and unobtainable due to mental status PFSH [facility] Social History What is your current living situation?: I presently have a place to live Problems where you live: no known problems Problems where you live details: no known problems In the past 12 months, utilities in danger of being shut off: no In past 12 months, lack of transportation kept you from medical appts, meetings, work, or getting things needed for daily living: no In the past 12 mos, have been you worried that your food would run out before you had money to buy more?: never true In the past 12 mos, the food you bought just didn't last and you didn't have money to buy more?: never true Smoking Status: Current some day smoker What tobacco products do you use: cigarettes How often do you have a drink containing alcohol: never How often do you have six or more drinks on one occasion: Never AUDIT-C Alcohol total score: 0 Non-prescribed substance use: denies use Caffeine: No How often does anyone, including family, friends and others, physically hurt you: never How often does anyone, including family, friends and others, insult or talk down to you: never How often does anyone, including family, friends and others, threaten you with harm: never How often does anyone, including family, friends and others, scream or curse at you: never service: No Exam Narrative: Exam Narrative: Arise with oxy mask in place at 10 L. Difficult to get an O2 plastic. Does appear to be in the low 80s intermittently. She does alert to questions. Pupils are 3 mm and equal. Diffuse bruising consistent with IJ placement at the right neck and other procedures in the right low abdomen with bruising and across the upper chest. Abdomen is soft appears to be generally mildly tender. Lungs with diminished breath sounds diffusely in trace end-expiratory wheeze. Lower extremities left greater than right with 2+ pitting edema. Contractures evident. Const: Documenting provider has reviewed patient's vital signs: yes Medical Decision Making MDM Narrative Medical decision making narrative: Certainly appears to have sepsis. IVs will be critical. Have managed to obtain a small line in the right hand and then we placed an IO in the left tibia and another line the left hand placement as well. Had been anticipating need for IJ but there looks to also be a lot of swelling in this area and we do have a couple Ls running under pressure bag. I would have some concern of fluid overloading but pressures are quite low. Chest x-ray by quick read independently by me shows dense extensive infiltrate on the right side. Cardiomegaly as well. This is one-view portable. Pressures continue to drop. I would be reluctant to intubate without stabilizing is pressures. Anticipating need for BiPAP. Norepinephrine drip initiated and pressures respond quickly. PH is 7.2. Miriam does appear little more alert. Oximetry at upper 80s on BiPAP. Have spoke with golf instructor at [facility] thankfully they have beds and are accepting. Dr. Miner accepting. It appears the IO in the left tibia might not be functioning optimally. Moving Levophed to this location resulted in dropping pressures. I think the IO was probably too large/long. We have placed a slightly smaller 1 in the right tibial plateau with good flush and return. Has been given Zosyn for sepsis protocols. Medical Records Medical records reviewed: Yes I reviewed the patient's medical records Lab Data Lab results reviewed: Yes I reviewed the patient's lab results Labs: Lab Results 07/21/24 07/21/24 Range/Units 19:25 20:00 WBC 11.92 H (4.50-11.00) K/uL RBC 2.46 L (4.00-5.20) m/uL Hgb 7.8 L* (12.0-16.0) gm/dL Hct 26.5 L (33.0-51.0) % MCV 108 H (80-100) fL MCH 32 (26-34) pg MCHC 29 L (32-36) gm/dL RDW Coeff of Shruthi 18.8 H (11.5-15.5) % Plt Count 88 L (140-440) K/uL Neut % (Auto) 88.3 H (42.0-72.0) % Lymph % (Auto) 7.6 L (20-44) % [place] % (Auto) 3.6 (0.0-11.0) % Eos % (Auto) 0.2 (0.0-7.0) % Baso % (Auto) 0.1 (0.0-3.0) % Neut # (Auto) 10.50 H (1.7-7.0) K/uL Lymph # (Auto) 0.90 (0.90-2.90) K/uL [place] # (Auto) 0.40 (0.00-0.90) K/UL Eos # (Auto) 0.00 (0.00-0.50) K/uL Baso # (Auto) 0.00 (0.00-0.30) K/uL Abs Immat Gran (auto) 0.00 (0.00-0.30) K/uL Imm/Tot Granulo (auto) 0.2 % INR 3.29 H (0.91-1.10) APTT 54 H (23-33) Seconds VBG pH 7.202 L* (7.32-7.43) VBG pCO2 53 H (40-50) mmHG VBG pO2 38.2 (25-47) mmHG VBG HCO3 21 (21-28) mmol/L Sodium 140 (135-149) mmol/L Potassium 4.8 (3.6-5.1) mmol/L Chloride 117 H (96-114) mmol/L Carbon Dioxide 18 L (20-32) mmol/L Anion Gap 5 L (7-15) mEq/L BUN 24 (7-30) mg/dL Creatinine 1.5 (0.5-1.5) mg/dL Estimated GFR 37 ml/min Glucose 106 (60-115) mg/dL Lactate 1.8 (0.5-1.9) mmol/L Calcium 8.8 (8.4-10.6) mg/dL Total Bilirubin 1.0 (0.1-1.5) mg/dL Direct Bilirubin 0.4 (0.0-0.5) mg/dL AST 53 H (12-35) U/L ALT 38 H (4-35) U/L Alkaline Phosphatase 140 (40-150) U/L Troponin I 0.03 (0.01-0.04) ng/mL NT-Pro-B Natriuret Pep 8960 H (See Note) pg/mL Total Protein 4.4 L (6.0-8.3) g/dL Albumin 1.9 L (3.3-5.0) g/dL Lab Acknowledgement Test Added Critical Care Time Critical Care Time Critical Care Time: Yes Attestation: The patient required my highest level preparedness to intervene emergently and I personally spent this critical care time directly and personally managing the patient. This critical care time included: Obtaining a history; Examining the patient; Pulse oximetry; Ordering and reviewing of studies; Arranging urgent treatment with development of a management plan; Evaluation of patients response to treatment; Frequent reassessment discussions with other providers. This critical care time was performed to assess and manage the high probability of imminent life-threatening deterioration that could result in multiorgan failure. It was exclusive of separate billable procedures and treating other patients and teaching time. Total Critical Care Time in Minutes: 70 Discharge Plan Discharge Clinical Impression: Sepsis, Respiratory failure, Pneumonia Patient Disposition: neelima Begum [facility] Condition: Critical Prescriptions: No Action furosemide 20 mg tablet 20 mg PO BID fluconazole 200 mg tablet 200 mg PO DAILY potassium chloride 20 mEq tablet,ER particles/crystals 20 meq PO BID oxybutynin chloride 10 mg tablet extended release 24hr 10 mg PO DAILY famotidine 40 mg tablet 40 mg PO DAILY spironolactone 25 mg tablet 12.5 mg PO Q48H morphine 30 mg tablet 30 mg PO DAILY gabapentin 300 mg capsule 900 mg PO BID morphine 15 mg tablet extended release 15 mg PO Q12H PRN hydrocortisone [Ala-Joshua] 1 % cream 1 applic topical DAILY multivitamin [Daily-Ailyn] Tablet 2 tab PO DAILY acetaminophen 500 mg tablet 1,000 mg PO TID nystatin 100,000 unit/gram cream 1 applic topical TID naloxone 4 mg/actuation spray,non-aerosol 4 mg intranasal Q2-3M PRN Rx Instructions: spray 1 dose into ONE nostril; alternate nostrils w each dose until help arrives ondansetron HCl 4 mg tablet 4 mg PO Q8H PRN sennosides [Evac-U-Gen (sennosides)] 8.6 mg tablet 17.2 mg PO BID PRN aspirin 81 mg capsule 81 mg PO DAILY Qty: 30 0RF Stand Alone Forms: [employer] Info Instructions
--- OUTSIDE RECORDS SUMMARY | 2024-07-21 19:54 | XMS_ITS ---
Author Organization [facility] Care Team Providers Care [employer] Certified Network Professional Name Role Phone Pj Stone Unavailable Unavailable Allergies and adverse reactions Code CodeSystem Substance Reaction Severity StartDate Concern Status 460612867 SNOMED CT NSAIDs Moderate 04/12/2018 active Celexa Severe 04/12/2018 active Care Team Name Role Address Phone Organization Dates [place] , [address], [place] (Office): : : : [facility] 04/12/2018 - 05/12/2018 Immunizations Immunization Status Vaccine Details Vaccine Code CodeSystem Date Notes Influenza completed Influenza, high-dose, split virus, quadrivalent, injectable, preservative free 197 CVX created date: 04/17/2018 administer ed date: 10/25/2017 TB 2 Step Mantoux Skin Test completed tuberculin skin test; unspecified formulation lotNumber: [id number] expiry: 11/11/2018 Mfg: Tuberculin PPD Given 0.1 ml Right Forearm subcutaneously Step 2 of Multi-step with next step required 98 CVX created date: 04/22/2018 consent date: 04/22/2018 administer ed date: 04/22/2018 TB 2 Step Mantoux Skin Test completed tuberculin skin test; unspecified formulation lotNumber: [id number] expiry: 11/02/2019 Mfg: [employer] Given 0.1 ml Right Forearm intradermally Step [...] Date HYDROmorphone HCl Tablet 2 MG active 276914 RXNORM 1 tablet Oral as needed PRN Give 1 tablet by mouth every 4 hours as needed for Pain MAXIMU M OF THREE DOSES PER DAY 2018 - Mirabegron ER Tablet Extended Release 24 Hour 50 MG active 3748277 RXNORM 1 tablet Oral in the morning Routine Give 1 tablet by mouth in the mornin g relate d to OVERAC TIVE BLADDE R (N32.8 1) 2018 - Aspirin Tablet 81 MG active 864846 RXNORM 1 tablet Oral in the morning Routine Give 1 tablet by mouth in the mornin g for Prophy laxis Cardia c 2018 - Vitamin D3 Tablet 1000 UNIT active 567163 RXNORM 2 tablet Oral in the morning Routine Give 2 tablet by mouth in the mornin g for Supple ment 2018 - Ondansetron Tablet Disintegratin g active 4 mg Oral as needed PRN Give 4 mg by mouth every 8 hours as needed for Nausea relate d to NAUSEA (R11.0 ) 2018 - Gabapentin Capsule 300 MG active 068541 RXNORM 3 capsul e Oral three times a day Routine Give 3 capsul e by mouth three times a day for Pain 2018 - RaNITidine HCl Tablet 300 MG active 045024 RXNORM 1 tablet Oral at bedtime Routine Give 1 tablet by mouth at bedtim e relate d to GASTRO -ESOPH AGEAL REFLUX DISEAS E WITHOU T ESOPHA GITIS (K21.9 ) 2018 - GuaiFENesin ER Tablet Extended Release 12 Hour 600 MG active 253642 RXNORM 1 tablet Oral two times a day Routine Give 1 tablet by mouth two times a day for Conges tion 2018 - Lisinopril Tablet 20 MG active 517755 RXNORM 1 tablet Oral in the morning Routine Give 1 tablet by mouth in the mornin g relate d to ESSENT IAL (PRIMA RY) HYPERT ENSION (I10) 2018 - Acetaminophen Tablet active 1000 mg Oral as needed PRN Give 1000 mg by mouth every 8 hours as needed for pain 2018 - FentaNYL Patch 72 Hour 50 MCG/HR active 536053 RXNORM 50 mcg Transde rmal every 72 hours Routine Apply 50 mcg transd ermall y every 72 hours for Pain and remove per schedu le 2018 - FentaNYL Patch 72 Hour 12 MCG/HR active 550639 RXNORM 12 mcg Transde rmal every 72 [...] ULCER WITHOUT HEMORRHAGE OR PERFORATION 04/13/[address] active 2 ATHEROSCLEROTIC HEART DISEASE OF [place] CORONARY ARTERY WITHOUT ANGINA PECTORIS 04/13/[id number] active 3 ENTEROCOLITIS DUE TO CLOSTRIDIUM DIFFICILE, NOT SPECIFIED RECURRENT 04/13/[address] active 4 ESSENTIAL (PRIMARY) HYPERTENSION 04/13/[address] active 5 GASTRO-ESOPHAGEAL REFLUX DISEASE WITHOUT ESOPHAGITIS 04/13/[address] active 6 METHICILLIN RESISTANT STAPHYLOCOCCUS AUREUS INFECTION, UNSPECIFIED SITE 04/13/[address] active 7 MULTIPLE SCLEROSIS 04/13/[address] active 8 NAUSEA 04/13/[address] active 9 OLD MYOCARDIAL INFARCTION 04/13/[address] active 10 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[place], SACRAL AND SACROCOCCYGEAL REGION 04/13/[address] active 11 OTHER CHRONIC PAIN 04/13/[address] active 12 OTHER CONSTIPATION 04/13/[address] active 13 OVERACTIVE BLADDER 04/13/[address] active 14 SENSORINEURAL HEARING LOSS, BILATERAL 04/13/[address] active 15 TOBACCO USE 04/13/19 Z72.0 ICD-10-CM active 16 UNSPECIFIED DIASTOLIC (CONGESTIVE) HEART FAILURE 04/13/[address] active 17 VITAMIN D DEFICIENCY, UNSPECIFIED 04/13/[address] active Reason for Referral No Reasons for Referral Entered Social History Social History Observation Description Start Date End Date Code Code System Current Smoking Status Smokes tobacco daily Not available [id number] SNOMED CT Sex Assigned At Female 1955 20824-8 [facility] Gender Identity Vital Signs Code Code System Vitals Name Values and Units Timing Information 63819-9 [facility] Weight Czojf=605.6 Units=Lbs 9279-1 [facility] Respiratory Rate Value=18.0 Units=/m in 05/01/2018 8462-4 [facility] Blood Pressure-Diastolic Value=74 Un its=mmHg 05/01/2018 8480-6 [facility] Blood Pressure-Systolic Eevcg=004 Un its=mmHg 05/01/2018 8310-5 [facility] Body Temperature Value=97.6 Units= F 05/01/2018 8867-4 [facility] Heart rate Value=88.0 Units=/min 66778-3 [facility] O2 % BldC Oximetry Value=92.0 Units= % 05/01/2018 30715-1 [facility] Pain Level Value=0.0 04/13/2018
--- OUTSIDE RECORDS SUMMARY | 2024-07-21 19:54 | XMS_ITS ---
Author Organization [facility] Care Team Providers Care Order Manager Name Role Phone Ayana Glez Unavailable Unavailable Flash Oliveira Unavailable Unavailable Allergies and adverse reactions Code CodeSystem Substance Reaction Severity StartDate Concern Status 194928758 SNOMED CT NSAIDs Unknown 03/23/2014 active Celexa Nausea (code- [id number], SNOMED CT) Unknown Unknown active Care Team Name Role Address Phone Organization Dates Flash Oliveira PCP Genevive [address] [place] [address], [address], [place], [place], [place], [place] (Office): [facility] 06/01/2014 - 08/11/2014 Ayana Glez [address], [place], [address], [facility] 06/01/2014 - 08/11/2014 Immunizations Immunization Status Vaccine Details Vaccine Code CodeSystem Date Notes TB 2 Step Mantoux Skin Test completed tuberculin skin test; unspecified formulation lotNumber: [id number] expiry: 10/14/2015 Mfg: [employer] Given 0.1 ml Left Forearm intradermally Step 1 of Multi-step with next step required 98 CVX created date: 06/07/2014 consent date: 06/06/2014 administer ed date: 06/06/2014 TB 2 Step Mantoux Skin Test completed tuberculin skin test; unspecified formulation lotNumber: [id number] expiry: 05/14/2015 Mfg: [employer] Given 0.1 ml Right Forearm intradermally Step 2 of Multi-step with next step required 98 CVX created date: 01/20/2014 consent date: 01/20/2014 administer ed date: 01/20/2014 Educated by scott on 01/20/2014 TB 2 Step Mantoux Skin Test completed tuberculin skin test; unspecified formulation lotNumber: [id number] expiry: 04/13/2015 Mfg: [employer] Given 0.1 [...] Current Smoking Status Tobacco smoking consumption unknown [id number] SNOMED CT Sex Assigned At Female 1955 94977-4 [facility] Gender Identity Vital Signs Code Code System Vitals Name Values and Units Timing Information 8310-5 [facility] Body Temperature Value=96.6 Units= F 08/11/2014 00466-4 [facility] Pain Level Value=7.0 08/10/2014 84396-1 [facility] Weight Xuhfr=953.4 Units=Lbs 9279-1 [facility] Respiratory Rate Value=18.0 Units=/m in 08/06/2014 8462-4 [facility] Blood Pressure-Diastolic Value=62 Un its=mmHg 08/06/2014 8480-6 [facility] Blood Pressure-Systolic Ccmff=431 Un its=mmHg 08/06/2014 8867-4 [facility] Heart rate Value=66.0 Units=/min 58240-0 [facility] O2 % BldC Oximetry Value=96.0 Units= % 08/06/2014 8302-2 [facility] Height Value=63.0 Units=Inches 06/02/2014
--- OUTSIDE RECORDS SUMMARY | 2024-07-21 19:55 | XMS_ITS ---
Author Organization [facility] Care Team Providers Care Health Policy Nurse Name Role Phone Ayana Glez Unavailable Unavailable Flash Oliveira Unavailable Unavailable Allergies and adverse reactions Code CodeSystem Substance Reaction Severity StartDate Concern Status 575238015 SNOMED CT NSAIDs Unknown 03/23/2014 active Celexa Unknown Unknown active Care Team Name Role Address Phone Organization Dates Flash Oliveira PCP Genevive [address] [place] [address], [address], [place], [address], [place] (Office): [facility] 06/01/2014 - 08/11/2014 Ayana Glez [address], [place], [address], [facility] 06/01/2014 - 08/11/2014 Immunizations Immunization Status Vaccine Details Vaccine Code CodeSystem Date Notes TB 2 Step Mantoux Skin Test completed tuberculin skin test; unspecified formulation lotNumber: [id number] expiry: 10/14/2015 Mfg: [employer] Given 0.1 ml Left Forearm intradermally Step 1 of Multi-step with next step required 98 CVX created date: 06/07/2014 consent date: 06/06/2014 administer ed date: 06/06/2014 TB 2 Step Mantoux Skin Test completed tuberculin skin test; unspecified formulation lotNumber: [id number] expiry: 05/14/2015 Mfg: [employer] Given 0.1 ml Right Forearm intradermally Step 2 of Multi-step with next step required 98 CVX created date: 01/20/2014 consent date: 01/20/2014 administer ed date: 01/20/2014 Educated by scott on 01/20/2014 TB 2 Step Mantoux Skin Test completed tuberculin skin test; unspecified formulation lotNumber: [id number] expiry: 04/13/2015 Mfg: [employer] Given 0.1 [...] Current Smoking Status Tobacco smoking consumption unknown [id number] SNOMED CT Sex Assigned At Female 1955 21983-2 [facility] Gender Identity Vital Signs Code Code System Vitals Name Values and Units Timing Information 8310-5 [facility] Body Temperature Value=96.6 Units= F 08/11/2014 66971-0 [facility] Pain Level Value=7.0 08/10/2014 64559-0 [facility] Weight Wqsns=254.4 Units=Lbs 9279-1 [facility] Respiratory Rate Value=18.0 Units=/m in 08/06/2014 8462-4 [facility] Blood Pressure-Diastolic Value=62 Un its=mmHg 08/06/2014 8480-6 [facility] Blood Pressure-Systolic Twkst=935 Un its=mmHg 08/06/2014 8867-4 [facility] Heart rate Value=66.0 Units=/min 73249-6 [facility] O2 % BldC Oximetry Value=96.0 Units= % 08/06/2014 8302-2 [facility] Height Value=63.0 Units=Inches 06/02/2014
[2024-07-21 19:58] LABS: Hemoglobin* 7.8 gm/dL (12.0-16.0)
[2024-07-21 19:59] LABS: Slide Review Reflex Yes
[2024-07-21] MEDS: PIPERACILLIN/TAZOBACTAM 3.375 GM in 0.9 % SODIUM CHLORIDE Mini-bag 100 ML IVPB (20:00)
[2024-07-21 20:30] LABS: INR 3.29 (0.91-1.10); Partial Thromboplastin Time* 54 Seconds (23-33); Prothrombin Time 34.8 Seconds
[2024-07-21 20:38] LABS: Potassium* 4.8 mmol/L (3.6-5.1)
[2024-07-21 20:39] LABS: Alanine Aminotransferase* 38 U/L (4-35); Albumin* 1.9 g/dL (3.3-5.0); Anion Gap 5 mEq/L (7-15); Aspartate Amino Transferase* 53 U/L (12-35); Bilirubin Direct* 0.4 mg/dL (0.0-0.5); Blood Urea Nitrogen* 24 mg/dL (7-30); Calcium* 8.8 mg/dL (8.4-10.6); Carbon Dioxide* 18 mmol/L (20-32); Chloride* 117 mmol/L (96-114); Creatinine* 1.5 mg/dL (0.5-1.5); Estimated Glomerular Filt Rate 37 ml/min; Glucose* 106 mg/dL (60-115); Sodium* 140 mmol/L (135-149); Total Protein* 4.4 g/dL (6.0-8.3)
[2024-07-21 20:40] LABS: Alkaline Phosphatase* 140 U/L (40-150); NT Pro B Type NatriureticPept* 8960 pg/mL (See Note)
[2024-07-21 20:41] LABS: Troponin I* 0.03 ng/mL (0.01-0.04)
[2024-07-21] MEDS: lidocaine HCL 2 % MULTIDOSE 20 ML VIAL 2.5 ML INJECTION (20:42)
[2024-07-21] MEDS: SODIUM CHLORIDE 0.9% IVPB (21:15)
[2024-07-21] MEDS: VASOPRESSIN IVPB (21:15)
[2024-07-21 22:01] LABS: Slide Review Acceptable Review (Acceptable)
== END 2024-07-21 21:23 | disposition short-term general hospital (02) ==
PROVIDERS: Emergency Provider Family Medicine; PCP Family Medicine
DX: J96.90 Respiratory failure, unspecified, unspecified whether with hypoxia or hypercapnia (principal); A41.9 Sepsis, unspecified organism; J18.9 Pneumonia, unspecified organism
CPT/HCPCS: 36415; 71045; 80048; 80076; 82803; 83605; 83880; 84484; 85025; 85610; 85730; 87040; 93005; 94761; 96365; 99284; 99291; J2543; J7030

== ENCOUNTER 2024-07-21 20:14 | Outpatient (CLI) | payer MEDICARE, OTHER, SELFPAY | END 2024-07-21 20:15 | disposition home or self-care (01) | LOC: AMB 07-23 12:54 | PROVIDERS: PCP Family Medicine; Visit Provider Family Medicine | DX: J18.9 Pneumonia, unspecified organism (principal); J96.90 Respiratory failure, unspecified, unspecified whether with hypoxia or hypercapnia; A41.9 Sepsis, unspecified organism | CPT/HCPCS: A0425; A0434 ==